=== PATIENT | male | born 1955 | race Caucasian/White ===

== ENCOUNTER 2021-07-21 11:10 | Emergency (ER) | payer BC, SELFPAY ==
[2021-07-21] VITALS (7 sets, daily range): BP systolic 129–173; BP diastolic 68–79; PULSE 60–68; RESP 18–20; TEMP 36.6–36.8; O2SAT 96–98
--- NOTE | ~2021-07-21 | CT_ITS ---
EXAMINATION: CT cervical spine wo con DATE: 07/21/2021 12:40 INDICATION: Neck pain TECHNIQUE: Computed tomography (CT) of the cervical spine was performed without intravenous contrast. The dose-length product (DLP) was 410.94 mGy-cm. Automated exposure control and iterative reconstruc tion technique were employed. COMPARISON: None FINDINGS: There are 2 mm of retrolisthesis of C3 on C4. The vertebral body heights are maintained. Th ere is severe loss of intervertebral disc space height at C3-4, C5-6, and C6-7. The odontoid is intac t. There is no fracture. The prevertebral soft tissues are normal. Small degenerative osteophytes pro ject from the anterior endplates of multiple vertebral bodies. There is severe uncovertebral joint os teoarthritis at C3-4, C5-6, and C6-7. There is moderate to severe facet osteoarthritis at these level s. IMPRESSION: 1. Severe cervical spondylosis without acute findings. Reviewed, dictated and finalized at location A.
--- NOTE | ~2021-07-21 | CT_ITS ---
EXAMINATION: CT brain wo con INDICATION: Severe headache COMPARISON: None TECHNIQUE: Standard unenhanced head CT. The dose-length product (DLP) was 605.33 mGy-cm. The mA was a djusted according to patient size. Iterative reconstruction technique was employed. FINDINGS: There is no acute intraparenchymal hemorrhage. No evidence of mass lesion. No evidence of a cute infarction. There is mild periventricular and subcortical hypodensity probably related to small vessel ischemic disease. There is mild prominence of the sulci and ventricles related to cerebral atr ophy. Intracranial calcified cerebral atherosclerosis is noted. There are no extra-axial collections. There is no mass effect or midline shift. The orbits and soft tissues are unremarkable. The visualiz ed sinuses and mastoid air cells are well aerated. IMPRESSION: 1. No acute intracranial abnormality. 2. Age related findings. Reviewed, dictated and finalized at location A.
[2021-07-21 11:40] LABS: Glucose Point of Care 106 mg/dl (65-105)
--- NOTE | 2021-07-21 12:01 | ECG_ITS ---
Measurements Intervals [place] Rate: 62 P: 34 MO: 231 QRS: -14 QRSD: 119 T: -11 QT: 408 QTc: 415 Interpretive Statements SINUS RHYTHM WITH FIRST DEGREE AV BLOCK LEFT VENTRICULAR HYPERTROPHY WITH ST-T CHANGE CANNOT RULE OUT SEPTAL INFARCT, AGE INDETERMINATE INFERIOR INFARCT, AGE INDETERMINATE ABNORMAL ECG Electronically Signed On 07-21-2021 13:13:47 CDT by Elliot Aldana D.O.
--- NOTE | 2021-07-21 12:26 | ED.GENADULT ---
HPI - General Adult General Chief complaint: Headache Stated complaint: headache Time Seen by Provider: 07/21/21 12:01 Source: patient and RN notes reviewed Mode of arrival: ambulatory Limitations: no limitations History of Present Illness HPI narrative: This is a 65 year old male with history of DM, HTN who presents for evaluation of neck pain and posterior headache. He states he was lifted a lawnmower on Thursday, and he woke up the next morning with neck pain and posterior headache. His pain has been constant and gradually worsening. His pain is worse with movement of his neck. He denies arm weakness or numbness. He reports nausea with severe pain. He denies fever, chills. He takes hydrocodone 10 mg daily for chronic pain. He took his pain medication with out relief. He told triage about migratory scalp and facial pain that has been present for 2 months, and he has been evaluated for that with his PCP. This pain is different. Related Data Home Medications Medication Instructions Recorded Confirmed amlodipine 07/21/21 07/21/21 atenolol 07/21/21 atorvastatin 07/21/21 furosemide 07/21/21 hydrocodone-acetaminophen tablet 07/21/21 insulin glargine-lixisenatide SUBCUT 07/21/21 [Soliqua 100/33] lisinopril 07/21/21 Allergies Allergy/AdvReac Type Severity Reaction Status Date / Time Contrast Media Allergy Unknown ANAPHYLAXIS Uncoded 07/21/21 11:31 Review of Systems Review of Systems: All systems reviewed & are unremarkable except as noted in HPI and below Constitutional: Constitutional: Denies chills and Denies fever(s) Cardiovascular: Cardiovascular: Denies chest pain Respiratory: Respiratory: Denies cough and Denies dyspnea Gastrointestinal: Gastrointestinal: Denies abdominal pain, Reports nausea and Denies vomiting Neurologic: Denies focal weakness, Denies numbness and Denies weakness PMFSH Past Medical History Medical History (Updated 07/21/21 @ 14:15 by Tina Leonardo MD) Diabetes mellitus Hyperlipidemia Hypertension Surgical History Surgical History (Updated 07/21/21 @ 22:54 by Tina Leonardo MD) H/O shoulder replacement Social History Social History (Updated 07/21/21 @ 12:31 by Tina Leonardo MD) Smoking packs per day: 2 Smoking cigarettes per day: 40.0 Smoking status: Current every day smoker Alcohol intake: never Substance use: never Exam Const: General: alert Orientation/consciousness: patient oriented x3 Other: patient sitting in bed with head down to prevent movement of neck HENMT: Head: normocephalic, atraumatic and scalp tenderness (scalp hypersensitivity no lesions) Ears: TM's normal bilaterally Face and sinus: normal facial exam and face symmetric Mouth: Yes Normal oral and palatal mucosa present, Yes lip normal, Yes oropharynx normal and Yes moist mucous membranes Eyes: Pupils: Equal, round and reactive pupils present EOM: EOMs intact bilaterally Chest: Chest palpation & inspection: normal inspection of the chest Resp: Effort & Inspection: normal respiratory effort and no retractions Auscultation: clear to auscultation bilaterally Cardio: Rate: regular rate Rhythm: regular rhythm Heart sounds: no murmurs GI: GI Palp: Yes Soft to palpation, No Tenderness to palpation present (GI) and No Guarding due to palpation present (GI) Auscultation: normal bowel sounds Back/Spine/Pelvis: Back: no CVA tenderness Skin: General skin exam: normal color Rashes: no rashes Neuro: General: patient oriented x3, moves all extremities and CN's II-XI intact bilaterally Gait exam (Neuro): Normal gait present Psych: Mental Status: mental status grossly normal Affect: normal affect Course Reevaluation(s) Reevaluation #1: Patient reports his pain is better and he has better movement. 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 He has no neurological deficits to suggest need for emergent MRI. He will follow up with his
[2021-07-21 12:51] LABS: Basophils Absolute Auto 0.1 K/mm3 (0.0-0.1); Basophils Percent Auto 0.5 % (0.2-1.2); Eosinophils Absolute Auto 0.3 K/mm3 (0-0.3); Eosinophils Percent Auto 2.4 % (0-4.4); Hemoglobin 13.3 g/dL (14.0-18.0); Immature Granulocyte Percent A 0.7 % (0-0.5); Lymphocytes Absolute Auto 3.46 K/mm3 (0.9-3.2); Lymphocytes Percent Auto 25.3 % (18.3-44.2); Mean Corpuscular HGB Conc 33.3 g/dl (32-36); Mean Corpuscular Hemoglobin 32.3 pg (26-34); Mean Corpuscular Volume 97.1 fl (80-100); Mean Platelet Volume 10.3 fl (7.4-10.4); Monocytes Absolute Auto 1.1 K/mm3 (0.1-0.6); Monocytes Percent Auto 7.8 % (2.6-8.5); Neutrophils Absolute Auto 8.6 K/mm3 (1.3-6.7); Neutrophils Percent Auto 63.3 % (45.5-73.1); Platelet Count Result 188 k/mm3 (150-375); Red Blood Count 4.12 M/mm3 (4.6-6.20); White Blood Count 13.7 K/mm3 (4.5-10.0)
[2021-07-21 12:56] LABS: Add Urine Microscopic? YES; Appearance Urine Clear (Clear); Bilirubin Urine Negative (Negative); Blood Urine Negative (Negative); Color Urine Yellow (Yellow); Glucose Urine UA 2+ mg/dL (Negative); Ketones Urine Negative (Negative); Leukocyte Esterase Ur Negative LEU/UL (Negative); Mucus Urine Rare /lpf; Nitrate Urine Negative (Negative); Protein Urine 3+ mg/dL (Negative); Specific Grav Ur 1.028 (1.001-1.035); Urobilinogen Urine Negative mg/dL (<2.0); WBC Urine 0-3 /hpf
[2021-07-21] MEDS: diazePAM (*CRX) 5 MG TABLET PO (12:59)
[2021-07-21] MEDS: KETOROLAC 30 MG/ML VIAL (*BKC) IV PUSH (12:59)
[2021-07-21 13:01] LABS: Alanine Aminotransferase 12 U/L (4-50); Albumin Level 3.8 g/dL (3.5-5.1); Alkaline Phosphatase 99 U/L (38-126); Anion Gap 5 mmol/L (8-16); Aspartate Amino Transferase 18 U/L (17-59); Bilirubin,Total 0.8 mg/dL (0.2-1.3); Blood Urea Nitrogen 17 mg/dL (9-20); Calcium 9.2 mg/dL (8.4-10.2); Carbon Dioxide 34 mmol/L (22-30); Chloride 101 mmol/L (98-107); Estimated CRCL calculation 78 ml/min; Estimated Glomerular Filt Rate > 60; Glucose 94 mg/dL (65-110); Potassium 3.5 mmol/L (3.4-5.0); Sodium 140 mmol/L (137-145)
[2021-07-21] MEDS: HYDROmorphone HCL INJ (*CRX) 1 MG/ML SYR 0.5 MG IV PUSH (13:57)
== END 2021-07-21 14:35 | disposition home or self-care (01) ==
PROVIDERS: Emergency Provider General Practice
DX: M54.2 Cervicalgia (principal); R51.9 Headache, unspecified; E11.9 Type 2 diabetes mellitus without complications; I10 Essential (primary) hypertension; E78.5 Hyperlipidemia, unspecified; F17.210 Nicotine dependence, cigarettes, uncomplicated; Z79.899 Other long term (current) drug therapy; Z79.4 Long term (current) use of insulin
CPT/HCPCS: 36415; 70450; 72125; 80053; 81001; 82948; 85025; 93005; 96374; 96375; 99284; A9270; J1170; J1885

== ENCOUNTER 2022-01-13 06:20 | Inpatient (IN) | payer BC, SELFPAY ==
[2022-01-13] VITALS (14 sets, daily range): BP systolic 107–149; BP diastolic 53–76; PULSE 51–97; RESP 13–24; TEMP 36.2–37.2; O2SAT 89–99
--- NOTE | ~2022-01-13 | CT_ITS ---
EXAMINATION: CT cervical spine wo con DATE: 01/13/2022 07:30 INDICATION: Fall with altered mental status TECHNIQUE: Computed tomography (CT) of the cervical spine was performed without intravenous contrast. Automated exposure control and iterative reconstruction technique were employed. The dose-length pro duct was 498.86 mGy-cm. COMPARISON: 06/20/2021 FINDINGS: Unchanged 2 mm retrolisthesis C3 on C4. Alignment is otherwise normal. Vertebral body heights are nor mal. No fracture. Moderate to severe disc height loss with severe uncovertebral osteoarthritis at C3- C4, C5-C6 and C6-C7. Moderate disc height loss at C7-T1 and T2-T3. Mild disc height loss at the remai agusto levels. The retropulsion and small posterior disc osteophyte complex at C3-C4 results in mild ce ntral canal stenosis. There is also mild central canal stenosis related to a disc bulge at C5-C6. Sev ere facet osteoarthritis on the right at C3-C4 and mild to moderate facet osteoarthritis throughout t he remainder of the cervical spine.. Minimal to mild neural foraminal stenosis most prominent bilater ally at C3-C4. Small amount of atherosclerotic plaque at the bilateral carotid bulbs. Cervical soft t issues are unremarkable. Mild emphysema the apices of the lungs. IMPRESSION: 1. Moderate to severe cervical spondylosis. No acute osseous abnormality. 2. Mild emphysema. Reviewed, dictated and finalized at location A.
--- NOTE | ~2022-01-13 | CT_ITS ---
EXAMINATION: CT abdomen pelvis wo con EXAM DATE: 01/24/2022 16:31 INDICATION: Abdominal pain , contrast media allergy. TECHNIQUE: Spiral CT of the abdomen and pelvis was performed without contrast. Axial, coronal and s agittal images of the abdomen and pelvis were reviewed. The dose-length product (DLP) for this exami nation was 1124.02 mGy-cm. The exposure was tailored according to patient size (auto mA exposure con trol), and iterative reconstruction (ASIR) was used as additional dose reduction technique. Compariso n is made to prior examination from 01/14/2022. FINDINGS: There is right liver lobe mass measuring 9.1 cm, was about 5 cm 10 days ago. This is substa ntial interval increase in size in the short interval of time which makes hepatic phlegmon/abscess mo re likely than malignancy, although underlying malignancy not excludable. There is a punctate focus o f gas, could be from biopsy performed several days earlier. Spleen, adrenal glands, pancreas are unremarkable. There is moderate amount of inflammation surroundi ng the left kidney, mild amount surrounding the right kidney. Recommend excluding upper UTI with urin alysis. Bladder is unremarkable. Gallbladder is unremarkable. No biliary obstruction. The prostate is unremarkable. There is no retroperitoneal or pelvic lymphadenopathy. There is mild scattered ar teriosclerotic disease. The appendix is normal. The stomach and small bowel are unremarkable. There is moderate amount of c olonic stool. There is mild scattered colonic diverticulosis. There is no adjacent inflammatory walden ge to suggest diverticulitis. No free intraperitoneal gas. The heart is normal in size. Interval development of bibasilar dependent linear airspace disease consistent with segmental atelectasis, and small right pleural effusion. There are no osteoblastic or osteolytic lesions identified. IMPRESSION: 1. Significant interval increase in size of right hepatic liver mass-like region, could be phlegmon/ abscess given this change. Underlying malignancy not excludable. Correlate with biopsy results. 2. Moderate left, mild right perinephric fat stranding; correlate with urinalysis. Bladder is unrema rkable. Correlate with urinalysis for possible upper UTI. 3. Mild scattered colonic diverticulosis. 4. Development of basilar subsegmental atelectasis and small right pleural effusion. Reviewed, dictated and finalized at location G. IMPRESSION: 1. Significant interval increase in size of right hepatic liver mass-like lexy on, could be phlegmon/abscess given this change. Underlying malignancy not excl udable. Correlate with biopsy results. 2. Moderate left, mild right perinephric fat stranding; correlate with urinaly sis. Bladder is unremarkable. Correlate with urinalysis for possible upper UTI. 3. Mild scattered colonic diverticulosis. 4. Development of basilar subsegmental atelectasis and small right pleural eff usion.
--- NOTE | ~2022-01-13 | CT_ITS ---
EXAMINATION: CT abdomen pelvis w con DATE: 01/31/2022 09:15 INDICATION: Liver abscess TECHNIQUE: Computed tomography (CT) of the abdomen and pelvis was performed with 100 mL Omnipaque-350 intravenous contrast. Automated exposure control and iterative reconstruction technique were employe d. The dose-length product was 1222.66 mGy-cm. COMPARISON: 01/24/2022 FINDINGS: Small right pleural effusion. No significant change in a band like atelectasis in the bilateral lower lobes and dependent compressive atelectasis in the right lower lobe. Heart size is normal. Atheroscl erotic coronary artery calcification. No pericardial or pleural effusion. Gallbladder, pancreas, sple en bilateral adrenal glands are normal. There is a persistent 8.2 x 6.0 x 8.4 cm region of predominan tly phlegmonous change in the right hepatic lobe. Within the region of phlegmonous changes are few sc attered foci of gas within multiple small more hypointense fluid pockets, the largest near the caudal tip of the catheter measuring 2.5 cm and the next largest the cephalad aspect of the region of phleg monous change measuring 1.5 cm in maximal diameter. A percutaneous abscess drain extends into the reg ion of phlegmonous change. There are several There are few subcentimeter low-attenuation bilateral re nal cysts. Incidentally noted are duplicated right renal veins extending from the right renal hilum t o the inferior vena cava with an additional accessory right renal vein extending from the periphery o f the lower pole to the more caudal inferior vena cava. Bowels including the appendix are normal. Damien dder is normal. No free intraperitoneal gas or fluid. No pathologically enlarged abdominal or pelvic lymphadenopathy. Bilateral L5 pars interarticularis defects without spondylolisthesis. IMPRESSION: 1. Right percutaneous hepatic abscess drain along with few small residual likely communicating absces ses within a diffusely hypodense 8.2 x 6.0 x 8.4 cm region of likely phlegmonous change. 2. Persistent small right pleural effusion with no significant change in atelectasis in the bilateral lower lobes. Reviewed, dictated and finalized at location A. IMPRESSION: 1. Right percutaneous hepatic abscess drain along with few small residual likel y communicating abscesses within a diffusely hypodense 8.2 x 6.0 x 8.4 cm regio n of likely phlegmonous change. 2. Persistent small right pleural effusion with no significant change in atelec tasis in the bilateral lower lobes.
--- NOTE | ~2022-01-13 | US_ITS ---
EXAMINATION: US carotid duplex BI DATE: 01/14/2022 08:16 INDICATION: Right carotid bruit TECHNIQUE: Grayscale, color Doppler, and pulsed Doppler images of the cervical carotid arteries were obtained. The degree of vessel stenosis is placed in one of the following categories: normal, <50%, 5 0-69%, >=70% but less than near-occlusion, near-occlusion, or total occlusion. Note that percent sten osis relative to normal distal artery lumen diameter is indirectly measured from velocity measurement s as described by James, et al. Radiology 2003; 229:340-346. COMPARISON: None. FINDINGS: RIGHT: The right common carotid artery (CCA) peak systolic velocity (PSV) is 60 cm/s. The right internal car otid artery (ICA) PSV is 72 cm/s. The right ICA end-diastolic velocity (EDV) is 16 cm/s. The right IC A/CCA PSV ratio is 1.2. Grayscale and color Doppler images yield an estimate of <50% diameter reducti on from plaque in the ICA. The external carotid artery (ECA) PSV is 411 cm/s. There is antegrade flow in the right vertebral artery. LEFT: The left CCA PSV is 106 cm/s. The left ICA PSV is 98 cm/s. The left ICA EDV is 18 cm/s. The left ICA/ CCA PSV ratio is 0.9. Grayscale and color Doppler images yield an estimate of <50% diameter reduction from plaque in the ICA. The ECA PSV is 123 cm/s. There is antegrade flow in the left vertebral arter y. IMPRESSION: 1. <50% stenosis in the right internal carotid artery. 2. <50% stenosis in the left internal carotid artery. Reviewed, dictated and finalized at location A.
--- NOTE | ~2022-01-13 | US_ITS ---
EXAMINATION: US biopsy liver DATE: 01/20/2022 11:12 INDICATION: Liver metastases TECHNIQUE: The procedure including the risks and benefits was discussed with the patient. Risks discu ssed included bleeding and infection. The patient understood the risks and agreed to proceed. The sk in overlying the liver was prepped and draped in usual sterile fashion. Anesthetic was administered with 1% lidocaine subcutaneously. An 18 gauge core biopsy needle was advanced under continuous ultra sound observation to the lesion of interest. 4 core biopsy specimens were obtained. The needle was removed and the entry site was cleaned and dressed. Post procedure ultrasound demonstrated no hemorr becky. FINDINGS: Ultrasound images demonstrate 7.4 cm hypoechoic mass in the right hepatic lobe. Subsequent images demonstrate biopsy needle advanced into the mass. IMPRESSION: 1. Successful Ultrasound-guided biopsy of 7.4 cm right hepatic mass. Reviewed, dictated and finalized at location A.
--- NOTE | ~2022-01-13 | CT_ITS ---
EXAMINATION: CT brain wo con DATE: 01/13/2022 06:28 INDICATION: Altered mental status. TECHNIQUE: Computed tomography (CT) of the head was performed without intravenous contrast. Sagittal and coronal reconstructions were performed. The mA was adjusted according to patient size. Iterative reconstruction technique was employed. The dose-length product was 756.67 mGy-cm. COMPARISON: head CT dated 07/21/2021 FINDINGS: No acute intracranial hemorrhage, acute infarction or abnormal extra axial fluid collection. There is minimal scattered white matter hypoattenuation consistent with chronic small vessel ischemic disease . No mass/mass effect. Symmetric prominence of the sulci consistent with mild age-appropriate diffuse cerebral volume loss. Ventricles are normal and symmetric. Complete opacification of the right maxi llary sinus with mildly thickened sclerotic lopez consistent with chronic sinusitis. The orbits and m astoid air cells are normal. Intracranial calcified cerebral atherosclerosis is noted. IMPRESSION: 1. No acute intracranial process. Reviewed, dictated and finalized at location A.
--- NOTE | ~2022-01-13 | CT_ITS ---
EXAMINATION: CT abdomen pelvis wo con DATE: 01/14/2022 17:40 INDICATION: Elevated liver enzymes. Nausea and vomiting. Stage II renal disease. TECHNIQUE: Computed tomography (CT) of the abdomen and pelvis was performed without intravenous contr ast. Automated exposure control and iterative reconstruction technique were employed. Exam dose: 116 5.03 mGy-cm total exam DLP. COMPARISON: None. FINDINGS: There is discoid atelectasis and/or scarring at the lung bases at the left lower lobe in ad dition to mild elevation of the left leaf of the diaphragm. 4 mm left lower lobe peripheral pulmonary nodule (series 4 image 11). Pleural-based 5.5 mm lower lobe nodule (image 18). Normal heart size. No pericardial or pleural effusion. Approximately 4.2 x 5 cm ill-defined hypoattenuating mass lesion of the right hepatic lobe. Additiona l approximately 2.4 cm subtle hypoattenuating lesion is suggested in the posterior medial segment lef t lobe liver anterior to the gallbladder. Additional hepatic masses are not excluded. Further evaluat ion with iodinated intravenous contrast material CT examination or MRI liver examination is recommend ed. Hepatic metastases are suspected. The clinical history does not report any known primary malignan cy. The gallbladder is present. Small focal calcification at the wall of the gallbladder fundus. Ultrasou nd would be more sensitive for detection of gallbladder pathology including gallstones. There is no p ericholecystic fluid or fat stranding. No bile duct dilatation. There is pancreatic atrophy. No pancreatic calcification, ductal dilatation or mass lesion is evident . Normal splenic size. There is adrenal hypertrophy, greater on the left. No renal mass lesion is noted on this limited noncontrast examination. There does appear to be some l eft nephromegaly. There is left perinephric stranding and thickening of the anterior and posterior le ft pararenal fascia. No urinary tract calculus or hydroureteronephrosis is noted. There is atherosclerotic calcification of the abdominal aorta and branches. No abdominal aortic aneur ysm. No intraperitoneal or retroperitoneal or pelvic mass lesion or adenopathy or ascites. There is thickening of the urinary bladder wall, more prominent anteriorly. There is mild prostate en largement. No bowel obstruction or intraperitoneal free air. Normal appendix. Small fat-containing umbilical hernia. Bilateral L5 pars intra-articular is defects Degenerative spurring of the lower thoracic and to a lesser extent lumbar spine IMPRESSION: Ill-defined irregular hypoattenuating hepatic mass lesions, suggesting hepatic metastati c disease, less likely hepatocellular carcinoma. Recommend further evaluation with IV contrast CT exa mination or MRI liver examination Left mild nephromegaly and perinephric fat stranding and thickening of the anterior and posterior par arenal fascia, suggesting pyelonephritis Thickening of the urinary bladder wall; consider cystitis versus prostate enlargement as etiology Normal appendix Mild elevation left diaphragm and mild left basilar atelectasis Reviewed, dictated and finalized at Location A. Reviewed, dictated and finalized at location A. IMPRESSION: Ill-defined irregular hypoattenuating hepatic mass lesions, sugges ting hepatic metastatic disease, less likely hepatocellular carcinoma. Recommen d further evaluation with IV contrast CT examination or MRI liver examination Left mild nephromegaly and perinephric fat stranding and thickening of the ante rior and posterior pararenal fascia, suggesting pyelonephritis Thickening of the urinary bladder wall; consider cystitis versus prostate enlar gement as etiology Normal appendix Mild elevation left diaphragm
--- NOTE | ~2022-01-13 | XR_ITS ---
XR chest 1V 01/13/2022 08:19 Indication: Weakness. Fall. Procedure: AP portable chest Comparison: No prior studies for comparison. Findings: Shallow inspiration. Borderline heart size. No focal air space disease, pulmonary edema, pl eural effusion or suspected pneumothorax. Mild pulmonary vascular congestion. There is a right should er arthroplasty. There are changes of left clavicular osteotomy. Impression: 1: Mild pulmonary vascular congestion. Reviewed, dictated and finalized at location B. Impression: 1: Mild pulmonary vascular congestion.
--- NOTE | ~2022-01-13 | MR_ITS ---
EXAMINATION: MR brain/brain stem wo con DATE: 01/13/2022 15:25 INDICATION: Intermittent confusion. TECHNIQUE: Magnetic resonance imaging (MRI) of the brain and brainstem was performed without intraven ous contrast. Sequences included sagittal and axial T1-weighted FSE, axial diffusion-weighted FS EPI, axial T2*-weighted GRE, axial T2-weighted FLAIR Propeller, and axial T2-weighted Propeller. Apparent diffusion coefficient (ADC) maps were created. COMPARISON: Head CT 01/13/2022 FINDINGS: There is a small old infarct in right cerebellum. There are scattered areas of nonspecific increased T2-weighted signal intensity in the cerebral white matter. There is no intracranial hemorrh age, acute infarction, or abnormal intracranial mass lesion. The ventricles are normal in size. There is mucosal thickening in the paranasal sinuses. The orbits are normal. The mastoid air cells are nor mal. IMPRESSION: 1. Small old infarct in right cerebellum. 2. Moderate nonspecific cerebral white matter disease, which likely represents chronic small vessel i schemic disease. Reviewed, dictated and finalized at location A. IMPRESSION: 1. Small old infarct in right cerebellum. 2. Moderate nonspecific cerebral white matter disease, which likely represents chronic small vessel ischemic disease.
--- NOTE | ~2022-01-13 | US_ITS ---
EXAMINATION: US percutaneous drain w cath DATE: 01/27/2022 13:16 INDICATION: Liver abscess TECHNIQUE: The procedure including the risks and benefits was discussed with the patient. Risks discu ssed included bleeding, infection and allergic reaction. Oral and written consent were obtained. The patient was confirmed to be receiving appropriate antibiotic coverage. The skin overlying the liver w as prepped and draped in usual sterile fashion. Anesthetic was administered with 1% lidocaine subcut aneously. 2 mcg of fentanyl IV was utilized for conscious sedation. An 18-gauge trochar needle was in serted into the abscess with continuous ultrasound guidance. The trocar was removed and the J-wire ad vanced through the needle into the abscess cavity with COVID wire observed in the abscess cavity by u ltrasound. Utilizing Seldinger technique the needle was removed over the wire and the tract serially dilated to 8 [place]ian. Subsequently an 8.5 Fr catheter was advanced over the wire and the loop formed i n the abscess cavity with position again confirmed by ultrasound. The wire was removed and the cathet er was stitched to the skin with suture. Antibiotic ointment and a sterile dressing were applied. An additional adhesive fixation device was applied. Approximately 40 mL opaque schroeder purulent appearing fl uid was aspirated and sent to lab for Gram stain and cultures. The catheter was then attached to suct ion drainage and had drained an additional 40 mL purulent appearing fluid at the conclusion of the pr ocedure. There were no immediate complications. FINDINGS: There is approximately 7.7 x 5.1 cm mixed hypoechoic and anechoic lesion consistent with ab scess in the right hepatic lobe. Ultrasound images demonstrate first a wire and subsequently formed l oop of the drainage catheter within the abscess cavity. 40 mL round appearing fluid was aspirated. F inal images show the abscess cavity collapsed around the catheter tip. IMPRESSION: 1. Successful ultrasound-guided liver abscess drainage catheter placement. 2. 40 mL of purulent appearing fluid was sent for Gram stain and aerobic and anaerobic cultures. 3. The catheter will be managed by Dr. Boone. Reviewed, dictated and finalized at location A. IMPRESSION: 1. Successful ultrasound-guided liver abscess drainage catheter placement. 2. 40 mL of purulent appearing fluid was sent for Gram stain and aerobic and an aerobic cultures. 3. The catheter will be managed by Dr. Boone.
--- NOTE | ~2022-01-13 | XR_ITS ---
EXAMINATION: XR hip LT min 3V w AP pelvis DATE: 01/13/2022 08:18 INDICATION: Left hip pain. Fall. TECHNIQUE: An anteroposterior view of the pelvis and 3 views of left hip were obtained. COMPARISON: None. FINDINGS: Bone alignment is normal. No fracture. The hip joint spaces are normal. There is mild lumba r spondylosis. IMPRESSION: 1. No fracture. Reviewed, dictated and finalized at location A. IMPRESSION: 1. No fracture.
--- NOTE | ~2022-01-13 | US_ITS ---
EXAMINATION: US right upper quadrant EXAM DATE: 01/24/2022 17:10 INDICATION: Liver masses. TECHNIQUE: Multiple grayscale and Doppler images of the abdomen right upper quadrant were obtained (dami ram a technologist who performed the scan) and subsequently reviewed. Correlation is made to CT perform ed earlier same date. FINDINGS: The pancreatic head and body are normal in appearance. The pancreatic tail is not visualized. The l iver has normal echogenicity and contour. There is right liver lobe complex predominantly cystic mas slike region measuring by 5 cm (measured up to [address] performed same date). Could be a phlegmon/a bscess given suspected interval increase in size. Underlying metastatic lesion not excludable. Anothe r region was measured at 2.4 cm although this potentially could be contiguous to the larger region. T here is no evidence of intrahepatic biliary duct dilation. Portal venous flow was seen in the hepato pedal, normal direction and has normal Doppler waveform. No right-sided hydronephrosis. Common bile duct measures 7 mm, which is borderline enlarged, but measurement was normal on CT obtain ed and hour earlier. The gallbladder wall is normal in thickness, with expected amount of distention. No sonographic evidence of pericholecystic fluid. There is no cholelithiases. Technologist perform ing exam reports patient did not demonstrate sonographic Scott's sign. Please note that this sign i s less reliable in patients who have received pain medication. IMPRESSION: Complex cystic mass or masses, could be abscess(es) given suspected rapid interval increa se in size. Please correlate with recent biopsy results. Reviewed, dictated and finalized at location G. IMPRESSION: Complex cystic mass or masses, could be abscess(es) given suspected rapid interval increase in size. Please correlate with recent biopsy results.
--- NOTE | 2022-01-13 06:27 | ECG_ITS ---
Measurements Intervals [place] Rate: 98 P: 24 WI: 186 QRS: 10 QRSD: 121 T: 28 QT: 339 QTc: 433 Interpretive Statements SINUS RHYTHM POSSIBLE PREVIOUS SEPTAL INFARCTION LEFT VENTRICULAR HYPERTROPHY WITH SECONDARY REPOLARIZATION ABNORMALITY COMPARED TO ECG 07/21/2021 12:23:18 REPOLARIZATION ABNORMALITIES ARE MORE PROMINENT Electronically Signed On 01-13-2022 14:21:31 CDT by Dawood Kemp M.D.
--- NOTE | 2022-01-13 06:33 | ED.NEUROSD ---
HPI - Neuro Symptoms/Deficit General Chief Complaint: Suspected CVA <Patrick Barber MD - Last Filed: 01/13/22 07:11> Stated Complaint: altered mental status <Patrick Barber MD - Last Filed: 01/13/22 07:11> Time Seen by Provider: 01/13/22 10:46 <Patrick Barber MD - Last Filed: 01/13/22 07:11> History of Present Illness HPI Narrative: Patient 66-year-old gentleman who presents the emergency department with chief complaint of altered mental status and fall. Patient went to sleep and sometime last night and was found this morning by family after he had had a fall at home. The patient was having slurred speech and very slow to respond patient apparently had a similar episode in the last few days of which his symptoms lasted for about 3 hours. When EMS was called he had a fast ED score of 2 per EMS had a blood sugar in the 200s. Per the patient's family he went to sleep around 11:00 to 12:00 at approximately 6 AM the was going to the bathroom and heard a thud and found him laying on the floor <Patrick Barber MD - Last Filed: 01/13/22 07:11> Related Data Home Medications: Home Medications Medication Instructions Recorded Confirmed amlodipine 10 mg PO DAILY 07/21/21 01/13/22 atenolol 100 mg PO DAILY 07/21/21 01/13/22 atorvastatin 40 mg PO DAILY 07/21/21 01/13/22 furosemide 20 mg PO DAILY 07/21/21 01/13/22 hydrocodone-acetaminophen 10 tablet PO TID 07/21/21 01/13/22 insulin glargine-lixisenatide 55 unit SUBCUT DAILY 07/21/21 01/13/22 [Soliqua 100/33] lisinopril 40 mg PO DAILY 07/21/21 01/13/22 duloxetine 30 mg PO DAILY 01/13/22 01/13/22 spironolactone 25 mg PO DAILY 01/13/22 01/13/22 <Patrick Barber MD - Last Filed: 01/13/22 07:11> Allergies/Adverse Reactions: Allergies Allergy/AdvReac Type Severity Reaction Status Date / Time Contrast Media Allergy Unknown ANAPHYLAXIS Uncoded 01/13/22 12:11 <Patrick Barber MD - Last Filed: 01/13/22 07:11> Review of Systems Review of Systems: A 10 system review of systems was completed on the patient and is negative except for what is stated in the HPI. Nursing and ancillary documentation was reviewed. <Patrick Barber MD - Last Filed: 01/13/22 07:11> [facility] Past Medical History Medical History: Medical History Diabetes mellitus Hyperlipidemia Hypertension <Patrick Barber MD - Last Filed: 01/13/22 07:11> Surgical History Surgical History: Surgical History H/O shoulder replacement <Patrick Barber MD - Last Filed: 01/13/22 07:11> Social History Social History: Social History Smoking packs per day: 2.5 Smoking cigarettes per day: 50.0 Years smoked: 45 Smoking pack-years: 112.50 Smoking status: Current every day smoker Tobacco type: cigarettes Alcohol intake: never Substance use: never Substance use type: does not use Spiritual care concerns: No <Patrick Barber MD - Last Filed: 01/13/22 07:11> Exam Narrative: GENERAL: Well-appearing, well-nourished, and in no acute distress. HEAD: Normocephalic, atraumatic. EYES: PERRLA and EOMI. ENT: Nares clear, no rhinorrhea or epistaxis. Mucous membranes moist. NECK: Supple. CHEST: Clear to auscultation. No respiratory distress. HEART: Regular rate and rhythm. No murmur heard. Normal peripheral pulses. ABDOMEN: Soft, nontender, nondistended, normal active bowel sounds. EXTREMITIES: Normal range of motion. No edema. SKIN: Warm, dry, no rash. NEURO: Slow to respond alert and oriented x1 slowly moves all extremities.. PSYCH: Normal mood and affect. <Patrick Barber MD - Last Filed: 01/13/22 07:11> Course Course Emergency Course: Patient CT head showed no e
[2022-01-13 06:35] LABS: Glucose Point of Care 223 mg/dl (65-105)
[2022-01-13 06:50] LABS: Hematocrit 39.9 % (42.0-52.0); Mean Corpuscular HGB Conc 35.1 g/dl (32-36); Mean Corpuscular Hemoglobin 31.7 pg (26-34); Mean Corpuscular Volume 90.3 fl (80-100); Mean Platelet Volume 10.6 fl (7.4-10.4); Platelet Count Result 148 k/mm3 (150-375); Red Blood Count 4.42 M/mm3 (4.6-6.20); Red Cell Distribution Width 12.3 % (11.5-14.5); White Blood Count 11.3 K/mm3 (4.5-10.0)
[2022-01-13 07:00] LABS: Alanine Aminotransferase 40 U/L (4-50); Albumin Level 3.3 g/dL (3.5-5.1); Alkaline Phosphatase 273 U/L (38-126); Anion Gap 7 mmol/L (8-16); Aspartate Amino Transferase 42 U/L (17-59); Bilirubin,Total 0.8 mg/dL (0.2-1.3); Blood Urea Nitrogen 34 mg/dL (9-20); Calcium 8.3 mg/dL (8.4-10.2); Carbon Dioxide 22 mmol/L (22-30); Chloride 99 mmol/L (98-107); Estimated CRCL calculation 49 ml/min; Estimated Glomerular Filt Rate 51; Glucose 223 mg/dL (65-110); Potassium 3.1 mmol/L (3.4-5.0); Sodium 128 mmol/L (137-145)
[2022-01-13] MEDS: SODIUM CHLORIDE 0.9% IV 1,000 ML 999 ML IV CONT (07:03)
--- NOTE | 2022-01-13 07:03 | PC.NURSE ---
Stroke alert called upon patient arrival to ED at 06:20. As per spouse, last seen normal at 23:00. Patient straight to CT. FSBG 223. Arrived with c-collar in place for fall. Patient was incontinent to urine and fecal matter on arrival. Patient cleaned, new gown donned. Bed linen changed. Spouse updated on patient treatment plan. EKG, bloodwork, 18g IV x 2 inserted. NIHSS completed. Patient NPO. Dyspagia screening passed. Handoff given to Jovanna [facility].
[2022-01-13 07:06] LABS: Lipase 56 U/L (23-300); Magnesium 1.2 mg/dL (1.6-2.3)
[2022-01-13 07:11] LABS: Troponin I 0.014 ng/mL (0.000-0.034)
[2022-01-13 07:15] LABS: Lactic Acid Reflex 1.1 mmol/L (0.7-2.1)
[2022-01-13 07:16] LABS: Band Neutrophils Percent 14 % (0-6); Lymphocytes Absolute Manual 0.33 K/mm3 (1.1-4.5); Monocytes Absolute Manual 0.22 K/mm3 (0.1-0.90); Monocytes Percent Manual 2 % (3-9); Neutrophils Absolute Manual 10.73 K/mm3 (1.3-6.7); Neutrophils Percent Manual 81 % (46-73); Total Cells Counted 100
[2022-01-13 07:26] LABS: INR 1.1; Partial Thromboplastin Time 28.6 SECONDS (22.3-36.8); Prothrombin Time 13.7 Seconds (11.1-14.7)
--- NOTE | 2022-01-13 07:32 | PC.NURSE ---
pt in CT at this time.
--- NOTE | 2022-01-13 07:41 | PC.NURSE ---
pt aware we need urine sample. gave pt urinal and states he will try to give a sample.
[2022-01-13 08:02] LABS: SARS-CoV-2 RNA PCR Negative
[2022-01-13 08:55] LABS: Add Urine Microscopic? YES; Appearance Urine Cloudy (Clear); Bilirubin Urine Negative (Negative); Blood Urine 2+ (Negative); Color Urine Amber (Yellow); Glucose Urine UA 1+ mg/dL (Negative); Ketones Urine Negative (Negative); Leukocyte Esterase Ur Negative LEU/UL (Negative); Mucus Urine Rare /lpf; Nitrate Urine Negative (Negative); Protein Urine 3+ mg/dL (Negative); Specific Grav Ur 1.017 (1.001-1.035); Squamous Epithelial Cell Urine Rare /hpf (Few); WBC Urine 0-3 /hpf
[2022-01-13 09:54] LABS: Creatine Kinase 88 U/L (55-170)
[2022-01-13 10:20] LABS: Glucose Point of Care 156 mg/dl (65-105)
[2022-01-13] MEDS: SODIUM CHLORIDE 0.9% IV 1,000 ML 125 ML IV CONT (10:27)
[2022-01-13] MEDS: MAGNESIUM SULF 2 GM/WATER 50ML 2 GM/50 ML BAG IVPB (10:28)
--- NOTE | 2022-01-13 11:28 | PC.NURSE ---
This patient, García Puente, was admitted to 3 [facility] Surg Room 316-01 on 01/13/22 @ 1125. Patient/family oriented to hospital policies and general routines including ID bracelet, bed and alarms, visiting hours, pain management, procedures, bathroom and other care routines, personal items, smoking policy, room service/diet, and visiting hours. Information on how to activate the Rapid Response Team has been discussed. Patient/Family are encouraged to report perceived risks to care and to ask questions if they do not understand what they are told or what they should do.
[2022-01-13 11:59] LABS: Glucose Point of Care 160 mg/dl (65-105)
[2022-01-13] MEDS: LORazepam INJ (*CRX) 2 MG/ML VIAL 1 MG IV PUSH (14:24)
[2022-01-13 16:31] LABS: Glucose Point of Care 235 mg/dl (65-105)
[2022-01-13] MEDS: NICOTINE (*PBKC) 21 MG PATCH 1 PATCH TRANSDERM (16:44)
--- NOTE | 2022-01-13 18:56 | PM.IMHP ---
H&P: HPI History of Present Illness Date/Time: Patient was placed observation status for expected length of stay less than 23 hours for management, will plan to re-evaluate tomorrow for improvement. 01/13/22 18:56 Chief Complaint: Mr. Puente is a 66-year-old gentlemen who presented emergency room with complaints of altered mental status. Patient's significant other states that at 5:30 a.m. this morning she went to the bathroom when she heard a noise like somebody falling to the floor and went back into her bedroom and found her significant other on the floor. Patient's significant other states that he could not talk and he was staring straight forward. He states that he did have loss of bowel and bladder at that time. Patient states he does not recall any of this occurring. Patient's significant other states that this did occur on Thursday also but she did not bring it to the hospital at that time. Patient states would occurred on Thursday patient only lost bladder and not bowel. Patient's significant other did not notice any shaking or jerking motions. She states that patient was just staring straight forward and not answering questions. Patient's significant other states the patient eventually would start mumbling and then he would start to be somewhat coherent and it would take him a while before he knew he was at. Patient denied any chest pain, shortness a breath, lightheadedness, dizziness, syncopal, or near syncopal episodes that he can recall prior to this event. Patient states that he has not been eating or drinking very well for the last 5 or 6 days because he has had multiple episodes of vomiting. Patient states he has a known history of hypertension, diabetes mellitus, dyslipidemia, and chronic headaches for which she was recently placed on Cymbalta. Patient states in 1994 he did have a myocardial infarction underwent cardiac catheterization and was told that his coronary arteries were ?clean? and he did not have any angioplasty or stent placement. Review of Systems Review of Systems: A 12 point review of systems was completed patient all pertinent positive and negative per HPI the remainder are unremarkable. [facility] Past Medical History Medical History (Updated 01/13/22 @ 19:37 by Nanci Dos Santos APRN) Chronic headaches Diabetes mellitus Hyperlipidemia Hypertension Myocardial infarction Tobacco abuse Surgical History Surgical History (Updated 01/13/22 @ 19:05 by Nanci Dos Santos APRN) H/O shoulder replacement Right shoulder Status post rotator cuff repair Left shoulder Social History Social History Smoking packs per day: 2.5 Smoking cigarettes per day: 50.0 Years smoked: 45 Smoking pack-years: 112.50 Smoking status: Current every day smoker Tobacco type: cigarettes Alcohol intake: never Substance use: never Substance use type: does not use Spiritual care concerns: No Meds Home Medications and Allergies Home Medications Medication Instructions Recorded Confirmed Type amlodipine 10 mg PO DAILY 07/21/21 01/13/22 History atenolol 100 mg PO DAILY 07/21/21 01/13/22 History atorvastatin 40 mg PO DAILY 07/21/21 01/13/22 History furosemide 20 mg PO DAILY 07/21/21 01/13/22 History hydrocodone-acetaminophen 10 tablet PO TID 07/21/21 01/13/22 History insulin glargine-lixisenatide 55 unit SUBCUT DAILY 07/21/21 01/13/22 History [Soliqua 100/33] lisinopril 40 mg PO DAILY 07/21/21 01/13/22 History duloxetine 30 mg PO DAILY 01/13/22 01/13/22 History spironolactone 25 mg PO DAILY 01/13/22 01/13/22 History Allergies Allergy/AdvReac Type Severity Reaction Status Date / Time Contrast Media Allergy Unknown ANAPHYLAXIS Uncoded 01/13/22 12:11 Vital Signs Vital Signs - 24 hr 01/13/22 06:20 01/13/22 06:45 01/13/22 07:46 Temperature 37.2 C Pulse Rate 97 85 Respiratory Rate 23 H 24 H Blood Pressure 149/75 H 146/68
[2022-01-13 20:17] LABS: Glucose Point of Care 320 mg/dl (65-105)
[2022-01-13] MEDS: INSULIN GLARGINE (*BKC) 100 UNITS/ML 55 UNITS SUB-Q (21:11)
[2022-01-13] MEDS: HYDROcodone/acetaminophen (*CRX) 10-325 MG TABLET 1 TAB PO (21:16)
[2022-01-13] MEDS: FAMOTIDINE 20 MG/2 ML VIAL IV PUSH (21:17)
[2022-01-13] MEDS: POTASSIUM CHLORIDE 20 MEQ PACKET (FOR LIQUID) PO (21:24)
[2022-01-14] VITALS (14 sets, daily range): BP systolic 108–163; BP diastolic 58–69; PULSE 54–80; RESP 18–20; TEMP 36.6–37.1; O2SAT 93–96
--- NOTE | 2022-01-14 | ECHO_ITS ---
Patient Info Name: García Puente Age: 66 years : 1955 Gender: Male Ht: 70 in Wt: 207 lbs BSA: 2.18 m2 HR: 74 bpm BP: 163 / 69 mmHg Heart Rhythm: Sinus Rhythm Technical Quality: Fair Exam Date: 01/14/2022 8:29 AM Exam Location: [facility] Card Pulmonary Patient Status: Outpatient Admit Date: 01/13/2022 Staff Ordering Physician: Nanci Dos Santos APRN Shake Out Worker: Madisyn Venegas RDCS Attending Provider: Calin Boone MD Referring Physician: Levon SIGALA; Exam Type: CA echo dop color flow w con Study Info Indications - Possible TIA Complete two-dimensional, color flow and Doppler transthoracic echocardiogram is performed with contrast to opacify the left ventricle and to improve the deliniation of the left ventricle endocardial borders. Contrast/Agitated Saline Contrast/Ag. Saline: Definity Amount: 2.00 ml Administered By: Madisyn Venegas RDCS Existing IV Access: Yes IV Access Condition: patent with no signs of infiltration Summary 1. Normal left ventricular size and thickness with good contractility of all segments. No segmental wall motion abnormalities. Ejection fraction 65-70%. Grade 1 diastolic dysfunction is present. 2. Left atrial chamber dimension is mildly enlarged. 3. No significant valve disease. 4. Normal estimated pulmonary pressure. 5. Somewhat technically difficult study; IV definity echo contrast used. 6. Normal sinus rhythm. Left Ventricle Left ventricular chamber dimension is normal. Left ventricular systolic function is normal, estimated at 65-70%. There is no increased left ventricular wall thickness. Left ventricular septal wall motion is normal. The left ventricular diastolic function is grade II diastolic dysfunction. Right Ventricle Right ventricular chamber dimension is normal. Right ventricular systolic function is normal. Left Atria Left atrial chamber dimension is mildly enlarged. Right Atria Right atrial chamber dimension is normal. Aortic Valve The aortic valve is trileaflet. There is no aortic valve sclerosis. There is no aortic valve stenosis. There is no aortic valve regurgitation. Pulmonic Valve The pulmonic valve is normal. There is no pulmonic valve stenosis. There is no pulmonic regurgitation. Mitral Valve The mitral valve has normal leaflets. There is no mitral valve stenosis. There is trace mitral valve regurgitation. Tricuspid Valve The tricuspid valve leaflets are normal. There is no significant tricuspid valve stenosis. There is trace tricuspid valve regurgitation. No pulmonary hypertension, estimated pulmonary arterial systolic pressure is 20 mmHg. Pericardium/Pleural The pericardium appears normal. There is no pericardial effusion. Inferior Vena Cava Normal inferior vena cava with >50% collapse upon inspiration consistent with Empty right atrial pressure, 10 mmHg. Aorta The aortic root size at the sinus of Valsalva is normal. The prox ascending aorta size is normal. Left Ventricular Outflow Tract Name Value Normal LVOT 2D LVOT Diameter 2.01 cm LVOT Doppler
[2022-01-14] MEDS: SODIUM CHLORIDE 0.9% IV 1,000 ML 125 ML IV CONT ×3 (03:35→18:13)
[2022-01-14] MEDS: HYDROcodone/acetaminophen (*CRX) 5-325 MG TABLET 1 TAB PO (05:56)
[2022-01-14 07:43] LABS: Basophils Absolute Auto 0.1 K/mm3 (0.0-0.1); Basophils Percent Auto 0.4 % (0.2-1.2); Eosinophils Absolute Auto 0.1 K/mm3 (0-0.3); Eosinophils Percent Auto 0.8 % (0-4.4); Hematocrit 34.7 % (42.0-52.0); Hemoglobin 12.1 g/dL (14.0-18.0); Immature Granulocyte Absolute 0.17 K/mm3 (0.00-0.031); Immature Granulocyte Percent A 1.3 % (0-0.5); Lymphocytes Absolute Auto 1.62 K/mm3 (0.9-3.2); Lymphocytes Percent Auto 12.3 % (18.3-44.2); Mean Corpuscular HGB Conc 34.9 g/dl (32-36); Mean Corpuscular Hemoglobin 31.8 pg (26-34); Mean Corpuscular Volume 91.1 fl (80-100); Mean Platelet Volume 10.6 fl (7.4-10.4); Monocytes Absolute Auto 1.7 K/mm3 (0.1-0.6); Monocytes Percent Auto 12.7 % (2.6-8.5); Neutrophils Absolute Auto 9.5 K/mm3 (1.3-6.7); Neutrophils Percent Auto 72.5 % (45.5-73.1); Platelet Count Result 165 k/mm3 (150-375); Red Blood Count 3.81 M/mm3 (4.6-6.20); Red Cell Distribution Width 12.6 % (11.5-14.5); White Blood Count 13.1 K/mm3 (4.5-10.0)
[2022-01-14 07:53] LABS: Glucose Point of Care 166 mg/dl (65-105)
[2022-01-14 07:54] LABS: Alanine Aminotransferase 42 U/L (4-50); Albumin Level 2.9 g/dL (3.5-5.1); Alkaline Phosphatase 276 U/L (38-126); Anion Gap 5 mmol/L (8-16); Aspartate Amino Transferase 47 U/L (17-59); Bilirubin,Total 0.3 mg/dL (0.2-1.3); Blood Urea Nitrogen 28 mg/dL (9-20); Calcium 7.8 mg/dL (8.4-10.2); Carbon Dioxide 21 mmol/L (22-30); Chloride 101 mmol/L (98-107); Estimated CRCL calculation 57 ml/min; Estimated Glomerular Filt Rate > 60; Glucose 162 mg/dL (65-110); Potassium 3.3 mmol/L (3.4-5.0); Sodium 127 mmol/L (137-145)
[2022-01-14] MEDS: HYDROcodone/acetaminophen (*CRX) 10-325 MG TABLET 1 TAB PO ×3 (08:58→17:29)
[2022-01-14] MEDS: ENOXAPARIN 40 MG/0.4 ML SYRINGE SUB-Q (08:59)
[2022-01-14] MEDS: FAMOTIDINE 20 MG/2 ML VIAL IV PUSH ×2 (08:59→21:20)
[2022-01-14] MEDS: amLODIPine BESYLATE 5 MG TABLET 10 MG PO (08:59)
[2022-01-14] MEDS: ATORVASTATIN 40 MG TABLET PO (08:59)
[2022-01-14] MEDS: SPIRONOLACTONE 25 MG TABLET PO (09:00)
[2022-01-14] MEDS: DULoxetine HCL 30 MG CAPSULE.DR PO (09:00)
[2022-01-14] MEDS: lisinopriL 20 MG TABLET 40 MG PO (09:00)
[2022-01-14] MEDS: NICOTINE (*PBKC) 21 MG PATCH 1 PATCH TRANSDERM (10:04)
[2022-01-14] MEDS: atenoloL 50 MG TABLET 100 MG PO (10:04)
[2022-01-14] MEDS: PERFLUTREN LIPID MICROSPHERES 1.5 ML VIAL DILUTED TO 10 ML TOTAL VOLUME IV PUSH (10:13)
--- NOTE | 2022-01-14 10:13 | IVDEFINITY ---
Prior to administration of IV Definity the patient was educated on the risks and benefits of the imaging enhancing agent including potential adverse side effects. The patient verbalized understanding. Allergies were verified. No exclusion criteria were identified and at least one of the following inclusion criteria were met: 1) physician request, 2) patient technically difficult to image (per the [place] [employer] guidelines of two or more segments not discernable within the apical view), or 3) questionable left ventricular function. ?
[2022-01-14] MEDS: ONDANSETRON INJ 4 MG/2 ML VIAL IV PUSH (11:24)
--- NOTE | 2022-01-14 11:33 | PCNEURO ---
EEG was attempted twice today. First time the patient was just leaving room to go to ultrasound. Second time patient was very nauseous and unable to lay back in the bed for the duration of the test.
[2022-01-14] MEDS: INSULIN ASPART (*BKC) 100 UNITS/ML SUB-Q (11:43)
[2022-01-14 11:54] LABS: Glucose Point of Care 232 mg/dl (65-105)
--- NOTE | 2022-01-14 15:42 | PM.IMPN ---
Progress Note: A&P Assessment and Plan (1) Unresponsive episode: Code(s): R41.89 - Other symptoms and signs involving cognitive functions and awareness Status: Acute Assessment and Plan: Patient has had 2 episodes where he was staring in space and had loss of bowel and bladder. It does sound more like seizure activity than stroke. Patient did undergo MRI that shows small old infarct in the right cerebellum with moderate nonspecific cerebral white matter disease, which likely represents chronic small vessel ischemic disease. Patient does have a right carotid bruit on examination however Doppler was negative for any significant stenosis. EEG has been ordered. Neurology has been consulted and await his recommendations. Check orthostatic vitals EEG is pending MRI brain is negative for acute stroke Carotid ultrasound bilateral no significant carotid stenosis Echo is pending Will also check ABG in rule out sleep apnea. Do [facility] tonight. Nurses reported him to be confused in the morning (2) Hypokalemia: Code(s): E87.6 - Hypokalemia Status: Acute Assessment and Plan: Replace potassium (3) Low magnesium level: Code(s): R79.0 - Abnormal level of blood mineral Status: Acute Assessment and Plan: Replaced magnesium (4) Tobacco abuse: Code(s): Z72.0 - Tobacco use Status: Acute Assessment and Plan: Patient states he smokes approximately 2 and half packs of cigarettes a day. Patient states he would like a cigarette this time. Will place a nicotine patch on patient. (5) Diabetes mellitus: Code(s): E11.9 - Type 2 diabetes mellitus without complications Status: Acute Assessment and Plan: Blood sugar trend reviewed (6) Hyponatremia: Code(s): E87.1 - Hypo-osmolality and hyponatremia Status: Acute Assessment and Plan: This is new. Recently started on duloxetine which could be the culprit also for nausea and vomiting that he is having. His LFTs are elevated particularly with Chris phosphatase. Normal bilirubin and transaminases. Will check CT abdomen pelvis for further evaluation. Check orthostatic Check urine studies Normal saline as suspect hypovolemia due to ongoing nausea vomiting Monitor sodium level Recent use of duloxetine suggest possibility of concurrent SIADH as well. (7) WALESKA (acute kidney injury): Code(s): N17.9 - Acute kidney failure, unspecified Status: Acute Assessment and Plan: Mild creatinine up to 1.4 improving with ID hydration will hold off on spironolactone and lisinopril for now. (8) Chronic headaches: Code(s): R51.9 - Headache, unspecified; G89.29 - Other chronic pain Status: Inactive Assessment and Plan: Check ESR Started on duloxetine for this. Which will stop due to suspected of side effects from this Will have to follow up with PCP for other alternatives (9) Hyperlipidemia: Code(s): E78.5 - Hyperlipidemia, unspecified Status: Inactive Assessment and Plan: Atorvastatin at home will hold that due to elevated liver enzymes (10) Hypertension: Code(s): I10 - Essential (primary) hypertension Status: Inactive Assessment and Plan: Amlodipine and atenolol hold lisinopril and spironolactone (11) Chronic hip pain: Code(s): M25.559 - Pain in unspecified hip; G89.29 - Other chronic pain Status: Acute Assessment and Plan: Along with what sounds like sciatic pain on chronic pain medication. Subjective Date/time seen: 01/14/22 15:42 Interval history: HPI: Mr. Puente is a 66-year-old gentlemen who presented emergency room with complaints of altered mental status. Patient's significant other states that at 5:30 a.m. this morning she went to the bathroom when she heard a noise like somebody falling to the floor and went back into her bedroom and found her significant other on the floor. Patient's signifi
[2022-01-14 16:24] LABS: Ammonia < 9 umol/L (9-30)
[2022-01-14 16:51] LABS: Glucose Point of Care 109 mg/dl (65-105)
[2022-01-14 16:53] LABS: Alveolar/Arterial O2 Gradient 48.8 mmHg; Base Excess ABG -3.1 mEq/l (+/-2.0); Fractional Inspired Oxygen 21 %; HCO3 ABG 20.7 mEq/l (22.0-26.0); Oxygen Content ABG 17.1 %vol (16.0-22.0); PCO2 ABG 33.3 mmHg (35.0-45.0); PO2 ABG 61.1 mmHg (80.0-100.0); PO2 FiO2 Ratio Arterial Blood 2.91 %; Total Hemoglobin 13.5 g/dL (12.0-18.0); pH ABG 7.411 (7.350-7.450)
[2022-01-14 16:54] LABS: Device ROOM AIR; Modified Allen's Test Pass; Site Drawn RIGHT RADIAL
[2022-01-14 16:58] LABS: Creatinine Urine 118.4 mg/dL; Urea Random Urine 807 MG/DL
[2022-01-14 17:01] LABS: Sodium Urine Random 30 meq/L
[2022-01-14 17:21] LABS: Lactic Acid Reflex 0.7 mmol/L (0.7-2.1)
[2022-01-14 17:59] LABS: Erythrocyte Sedimentation Rate 82 mm/hr (0-20)
[2022-01-14] MEDS: POTASSIUM CHLORIDE INJ 40 MEQ in SODIUM CHLORIDE 0.9% IV 500 ML 130 MEQ IVPB (18:07)
[2022-01-14 20:20] LABS: Glucose Point of Care 95 mg/dl (65-105)
[2022-01-14 20:31] LABS: Magnesium 1.9 mg/dL (1.6-2.3)
[2022-01-15] VITALS (10 sets, daily range): BP systolic 135–151; BP diastolic 47–67; PULSE 50–78; RESP 16–18; TEMP 36.1–36.7; O2SAT 91–96
[2022-01-15] MEDS: SODIUM CHLORIDE 0.9% IV 1,000 ML 125 ML IV CONT ×3 (03:17→19:11)
[2022-01-15 06:28] LABS: Basophils Percent Auto 0.3 % (0.2-1.2); Eosinophils Absolute Auto 0.1 K/mm3 (0-0.3); Eosinophils Percent Auto 0.4 % (0-4.4); Hematocrit 30.6 % (42.0-52.0); Hemoglobin 10.1 g/dL (14.0-18.0); Immature Granulocyte Absolute 0.23 K/mm3 (0.00-0.031); Immature Granulocyte Percent A 1.6 % (0-0.5); Lymphocytes Absolute Auto 2.03 K/mm3 (0.9-3.2); Lymphocytes Percent Auto 14.5 % (18.3-44.2); Mean Corpuscular Hemoglobin 31.8 pg (26-34); Mean Corpuscular Volume 96.2 fl (80-100); Mean Platelet Volume 10.3 fl (7.4-10.4); Monocytes Absolute Auto 1.7 K/mm3 (0.1-0.6); Monocytes Percent Auto 12.4 % (2.6-8.5); Neutrophils Absolute Auto 9.9 K/mm3 (1.3-6.7); Neutrophils Percent Auto 70.8 % (45.5-73.1); Platelet Count Result 129 k/mm3 (150-375); Red Blood Count 3.18 M/mm3 (4.6-6.20); Red Cell Distribution Width 12.8 % (11.5-14.5)
[2022-01-15 06:49] LABS: Alanine Aminotransferase 37 U/L (4-50); Albumin Level 2.3 g/dL (3.5-5.1); Alkaline Phosphatase 240 U/L (38-126); Anion Gap 4 mmol/L (8-16); Aspartate Amino Transferase 45 U/L (17-59); Bilirubin,Total 0.3 mg/dL (0.2-1.3); Blood Urea Nitrogen 18 mg/dL (9-20); Calcium 6.6 mg/dL (8.4-10.2); Carbon Dioxide 20 mmol/L (22-30); Chloride 111 mmol/L (98-107); Estimated CRCL calculation 68 ml/min; Estimated Glomerular Filt Rate > 60; Glucose 122 mg/dL (65-110); Potassium 3.1 mmol/L (3.4-5.0); Sodium 135 mmol/L (137-145)
[2022-01-15 07:52] LABS: Glucose Point of Care 138 mg/dl (65-105)
[2022-01-15] MEDS: HYDROcodone/acetaminophen (*CRX) 10-325 MG TABLET 1 TAB PO ×4 (09:42→20:08)
[2022-01-15] MEDS: ATORVASTATIN 40 MG TABLET PO (09:42)
[2022-01-15] MEDS: ENOXAPARIN 40 MG/0.4 ML SYRINGE SUB-Q (09:43)
[2022-01-15] MEDS: FAMOTIDINE 20 MG/2 ML VIAL IV PUSH ×2 (09:44→20:09)
[2022-01-15] MEDS: NICOTINE (*PBKC) 21 MG PATCH 1 PATCH TRANSDERM (09:44)
--- NOTE | 2022-01-15 09:51 | WPDNEUROLOGY ---
Neurology EEG Report General Information Date of Study: 01/15/22 TEST eeg DIAGNOSIS Intermittent confusion CONDITION OF RECORDING deep EEG NUMBER [id number] CLINICAL HISTORY patient unable to give much history. Was brought into hospital for change in the mental status. EEG DESCRIPTION Low-voltage poorly organized 9 to 11 hertz per 2nd alpha seen admixed with low-voltage 15 to 18 hertz per 2nd beta posteriorly. During drowsiness low-voltage beta is seen anteriorly as well admixed with low to medium voltage intermittent 5 to 7 hertz per 2nd theta activity. Bilateral symmetrical sleep activity seen during sleep. Hyperventilation not done. Photic stimulation not done. Non paroxysmal. Nonfocal. Nonlateralizing. IMPRESSION No significant abnormalities noted though patient is sleeping throughout the tracing clinical correlation recommended
[2022-01-15 12:11] LABS: Glucose Point of Care 174 mg/dl (65-105)
--- NOTE | 2022-01-15 12:34 | WPDNEURCNPN ---
Assessment and Plan Additional Plan 1. Recurrent unresponsive episodes or out the possibility of seizure and possibly orthostatic hypotension 2. Diabetes mellitus with diabetic neuropathy and the possibility of autonomic dysfunction as well resulting in the recurrent falls plan as ordered Consult date: 01/15/22 HPI: García Puente is a 66 year old male admitted to the hospital through the emergency room where he presented with complaints of change in the mental status and with information that around 5:30 a.m. he went to the bathroom when his heard a noise like someone falling to the floor and went back into her bedroom and found him on the floor he was unable to carry on the conversation and was staring forward he lost control control of the bowel and bladder though subsequently was unable to recall anything patient's significant other also reported that this happened on Thursday also but she was unable to bring him to the hospital she did not notice any jerking of the upper and lower extremities though he was staring straight forward and not answering the questions he has not been eating or drinking very well for the last several days and has had multiple episodes of vomiting. He does have ongoing history of 1. Hypertension 2. Diabetes mellitus 3. Dyslipidemia 4. Chronic headaches and history of myocardial infarction back in 1994 requiring the cardiac catheterization though his coronary arteries at that time were clean he has been taking Cymbalta. Why the past history is consistent with the shoulder replacement on the right side with rotator cuff repair on the left shoulder, hears spoke 45 his smoking pack years of 112.50 currently everyday smoker, outpatient medications included atorvastatin 40 mg daily insulin daily lisinopril 40 mg daily also duloxetine 30 mg daily in addition to amlodipine 10 mg daily Review of Systems Review of Systems: All systems reviewed & are unremarkable except as noted in HPI and below PMFSH Past Medical History Medical History Chronic headaches Diabetes mellitus Hyperlipidemia Hypertension Myocardial infarction Tobacco abuse Surgical History Surgical History H/O shoulder replacement Right shoulder Status post rotator cuff repair Left shoulder Social History Social History Smoking packs per day: 2.5 Smoking cigarettes per day: 50.0 Years smoked: 45 Smoking pack-years: 112.50 Smoking status: Current every day smoker Tobacco type: cigarettes Alcohol intake: never Substance use: never Substance use type: does not use Spiritual care concerns: No Meds Home Medications and Allergies Home Medications Medication Instructions Recorded Confirmed Type amlodipine 10 mg PO DAILY 07/21/21 01/13/22 History atenolol 100 mg PO DAILY 07/21/21 01/13/22 History atorvastatin 40 mg PO DAILY 07/21/21 01/13/22 History furosemide 20 mg PO DAILY 07/21/21 01/13/22 History hydrocodone-acetaminophen 10 tablet PO TID 07/21/21 01/13/22 History insulin glargine-lixisenatide 55 unit SUBCUT DAILY 07/21/21 01/13/22 History [[place] 100/33] lisinopril 40 mg PO DAILY 07/21/21 01/13/22 History duloxetine 30 mg PO DAILY 01/13/22 01/13/22 History spironolactone 25 mg PO DAILY 01/13/22 01/13/22 History Allergies Allergy/AdvReac Type Severity Reaction Status Date / Time Contrast Media Allergy Unknown ANAPHYLAXIS Uncoded 01/13/22 12:11 Vital Signs Vital Signs - 24 hr 01/14/22 14:00 01/14/22 14:21 01/14/22 16:00 Temperature 36.6 C Pulse Rate 63 68 54 L Respiratory Rate 20 Blood Pressure 143/60 H Pulse Oximetry 93 94 01/14/22 16:23 01/14/22 16:52 01/14/22 20:00 Temperature Pulse Rate 57 L Respiratory Rate Blood Pressure 124/63 108/62 Pulse Oximetry 01/14/22 22:00 01/14/22 22:31 01/15/22 00:00 [facility]
[2022-01-15 13:13] LABS: Free T4 Free Thyroxine Reflex 1.21 ng/dL (0.78-2.19)
[2022-01-15 14:32] LABS: Total Triiodothyronine (T3) 0.53 NG/ML (0.97-1.69)
--- NOTE | 2022-01-15 16:15 | PM.IMPN ---
Progress Note: A&P Assessment and Plan (1) Unresponsive episode: Code(s): R41.89 - Other symptoms and signs involving cognitive functions and awareness Status: Acute Assessment and Plan: Check orthostatic vitals EEG is pending MRI brain is negative for acute stroke Carotid ultrasound bilateral no significant carotid stenosis Echo is pending Pt uses narcotics at home ? AMS related to medications (2) Hypokalemia: Code(s): E87.6 - Hypokalemia Status: Acute Assessment and Plan: Replace potassium (3) Low magnesium level: Code(s): R79.0 - Abnormal level of blood mineral Status: Acute Assessment and Plan: Replaced magnesium (4) Tobacco abuse: Code(s): Z72.0 - Tobacco use Status: Acute Assessment and Plan: Patient states he smokes approximately 2 and half packs of cigarettes a day. Pt will nicotine patch (5) Diabetes mellitus: Code(s): E11.9 - Type 2 diabetes mellitus without complications Status: Acute Assessment and Plan: Blood sugar trend reviewed (6) Hyponatremia: Code(s): E87.1 - Hypo-osmolality and hyponatremia Status: Acute Assessment and Plan: Monitor sodium level Recent use of duloxetine suggest possibility of concurrent SIADH as well. (7) WALESKA (acute kidney injury): Code(s): N17.9 - Acute kidney failure, unspecified Status: Acute Assessment and Plan: Can stop fluids creat is nl (8) Chronic headaches: Code(s): R51.9 - Headache, unspecified; G89.29 - Other chronic pain Status: Inactive Assessment and Plan: Check ESR Started on duloxetine for this. Which will stop due to suspected of side effects from this Will have to follow up with PCP for other alternatives (9) Hyperlipidemia: Code(s): E78.5 - Hyperlipidemia, unspecified Status: Inactive Assessment and Plan: Atorvastatin at home will hold that due to elevated liver enzymes (10) Hypertension: Code(s): I10 - Essential (primary) hypertension Status: Inactive Assessment and Plan: Amlodipine and atenolol hold lisinopril and spironolactone (11) Chronic hip pain: Code(s): M25.559 - Pain in unspecified hip; G89.29 - Other chronic pain Status: Acute Assessment and Plan: Along with what sounds like sciatic pain on chronic pain medication. Subjective Date/time seen: 01/15/22 16:15 Interval history: 66-year-old gentlemen who presented emergency room with complaints of altered mental status. Patient's significant other states that at 5:30 a.m. this morning she went to the bathroom when she heard a noise like somebody falling to the floor and went back into her bedroom and found her significant other on the floor. Pt is confused on admission seems to be more lucid today but is still very weak Review of Systems Review of Systems: All systems reviewed & are unremarkable except as noted in HPI and below Exam Narrative: Constitutional: Drowsy tired weak HEENT: dry mucous membranes Lungs: Lung sounds are clear to auscultation bilaterally. . Cardiovascular: Apical pulse is regular rate and rhythm. S1-S2 noted, no S3 or S4 noted. No gallops, murmurs, or rubs noted. Abdomen: Soft, round, and nontender. No palpable masses. Extremities: No edema. Nontender. Skin: No rashes or lesions. Warm and dry. Skin is intact. Neurological: No focal neurological deficits. Cranial nerves II-XII grossly intact. Psychiatric: Cooperative, appropriate mood, and affect Objective Data Vital Signs Vital Signs: Vital Signs - 24 hr 01/14/22 16:23 01/14/22 16:52 01/14/22 20:00 Temperature Pulse Rate 57 L Respiratory Rate Blood Pressure 124/63 108/62 Pulse Oximetry 01/14/22 22:00 01/14/22 22:31 01/15/22 00:00 Temperature 36.7 C Pulse Rate 64 58 L Respiratory Rate 18 Blood Pressure 157/58 H Pulse Oximetry 94 94
[2022-01-15 16:50] LABS: Glucose Point of Care 155 mg/dl (65-105)
[2022-01-15 16:53] LABS: Influenza Control Positive
[2022-01-15] MEDS: INSULIN GLARGINE (*BKC) 100 UNITS/ML 55 UNITS SUB-Q (21:09)
[2022-01-15 21:17] LABS: Glucose Point of Care 195 mg/dl (65-105)
[2022-01-16] VITALS (8 sets, daily range): BP systolic 122–151; BP diastolic 52–62; PULSE 57–85; RESP 16–18; TEMP 36.2–36.9; O2SAT 90–99
[2022-01-16 07:51] LABS: Glucose Point of Care 118 mg/dl (65-105)
[2022-01-16] MEDS: HYDROcodone/acetaminophen (*CRX) 10-325 MG TABLET 1 TAB PO ×3 (09:56→17:17)
[2022-01-16] MEDS: atenoloL 50 MG TABLET 100 MG PO (09:57)
[2022-01-16] MEDS: ATORVASTATIN 40 MG TABLET PO (09:57)
[2022-01-16] MEDS: amLODIPine BESYLATE 5 MG TABLET 10 MG PO (09:57)
[2022-01-16] MEDS: FAMOTIDINE 20 MG/2 ML VIAL IV PUSH (09:58)
[2022-01-16] MEDS: NICOTINE (*PBKC) 21 MG PATCH 1 PATCH TRANSDERM (09:58)
[2022-01-16] MEDS: ENOXAPARIN 40 MG/0.4 ML SYRINGE SUB-Q (09:58)
--- NOTE | 2022-01-16 11:05 | WPDNEUROPN ---
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, negative Doppler study of the carotid in spite of medically right carotid bruit will definitely benefit from aspirin and Plavix only for 3 weeks but continuation the aspirin as such Subjective Date/time seen: 01/16/22 11:05 Objective Data Vital Signs Vital Signs: Vital Signs - 24 hr 01/15/22 12:00 01/15/22 14:00 01/15/22 16:00 Temperature 36.7 C Pulse Rate 74 68 78 Respiratory Rate 18 Blood Pressure 151/58 H Pulse Oximetry 96 01/15/22 20:00 01/15/22 20:59 01/15/22 22:00 Temperature 36.6 C Pulse Rate 69 65 Respiratory Rate 18 Blood Pressure 135/47 L Pulse Oximetry 92 91 01/16/22 00:00 01/16/22 04:00 01/16/22 06:00 Temperature 36.6 C Pulse Rate 57 L 85 81 Respiratory Rate 18 Blood Pressure 151/62 H Pulse Oximetry 90 Intake/Output Intake/Output: Intake & Output 01/13/22 01/14/22 01/15/22 01/16/22 23:59 23:59 23:59 23:59 Intake Total 1720 3980 4860 300 Output Total 300 1000 1575 600 Balance 1420 2980 3285 -300 Meds/Results Medications: Active Medications Generic Name Dose Route Start Last Admin Trade Name Freq PRN Reason Stop Dose Admin Hydrocodone Bitart/Acetaminophen 1 tab 01/13/22 20:45 01/16/22 09:56 Hydrocodone/Acetaminophen (*Crx) 10-325 Mg Tablet PO 1 tab TID JAMAR Administration Hydrocodone Bitart/Acetaminophen 1 tab 01/14/22 18:46 01/15/22 20:08 Hydrocodone/Acetaminophen (*Crx) 10-325 Mg Tablet PO 1 tab BID PRN Administration Pain Rated 7-10 Amlodipine Besylate 10 mg 01/14/22 09:00 01/16/22 09:57 Amlodipine Besylate 5 Mg Tablet PO 10 mg DAILY JAMAR Administration Atenolol 100 mg 01/14/22 09:00 01/16/22 09:57 Atenolol 50 Mg Tablet PO 100 mg DAILY JAMAR Administration Atorvastatin Calcium 40 mg 01/14/22 09:00 01/16/22 09:57 Atorvastatin 40 Mg Tablet PO 40 mg DAILY JAMAR Administration Dextrose 12.5 gm 01/13/22 18:47 Dextrose 50% 25 Gm/50 Ml Syringe IV PUSH PRN PRN Hypoglycemia Protocol Enoxaparin Sodium 40 mg 01/14/22 09:00 01/16/22 09:58 Enoxaparin 40 Mg/0.4 Ml Syringe SUB-Q 40 mg DAILY JAMAR Administration Famotidine 20 mg 01/13/22 21:00 01/16/22 09:58 Famotidine 20 Mg/2 Ml Vial IV PUSH 20 mg Q12HR JAMAR Administration Glucagon 1 mg 01/13/22 18:47 Glucagon For Inj 1 Mg Vial IM PRN PRN Hypoglycemia Protocol Glucose 15 gm 01/13/22 18:47 Glucose Oral Gel 15 Gm Of Glucse In 37.5 Gm Tube PO PRN PRN Hypoglycemia Protocol Sodium Chloride 1,000 mls @ 125 mls/hr 01/13/22 10:15 01/16/22 03:26 Normal Saline Iv IV CONT Not Given .Q8H JAMAR Dextrose 1,000 mls @ 100 mls/hr 01/13/22 18:47 Dextrose 5% 1,000 Ml IVPB PRN PRN Hypoglycemia Protocol Insulin Aspart 2 - 5 units 01/14/22 08:00 01/16/22 08:02 Insulin Aspart (*Bkc) 100 Units/Ml SUB-Q Not Given TIDWM [facility] Protocol Insulin Glargine 55 units 01/13/22 21:00 01/15/22 21:09 Insulin Glargine (*Bkc) 100 Units/Ml SUB-Q 55 units HS JAMAR Administration Nicotine 1 patch 01/13/22 16:20 01/16/22 09:58 Nicotine (*Pbkc) 21 Mg Patch TRANSDERM 1 patch QAM JAMAR Administration Ondansetron HCl 4 mg 01/13/22 10:11 01/14/22 11:24 Ondansetron Inj 4 Mg/2 Ml Vial IV PUSH 4 mg Q4H PRN Administration Nausea Perflutren Lipid Microsphere 0 ml 01/16/22 10:35 Perflutren Lipid Microspheres 1.5 Ml Vial Diluted To 10 Ml Total Volume IV PUSH ONCE PRN adequate visualization Protocol Radiology Results: ITS Impressions Head CT 01/13/22 06:44 IMPRESSION: 1. No acute intracranial process. Cervical Spine CT 01/13/22 08:08 IMPRESSION:
[2022-01-16 11:24] LABS: Glucose Point of Care 111 mg/dl (65-105)
[2022-01-16 16:14] LABS: Glucose Point of Care 138 mg/dl (65-105)
--- NOTE | 2022-01-16 17:23 | PM.IMPN ---
Progress Note: A&P Assessment and Plan (1) Unresponsive episode: Code(s): R41.89 - Other symptoms and signs involving cognitive functions and awareness Status: Acute (2) Hypokalemia: Code(s): E87.6 - Hypokalemia Status: Acute (3) Low magnesium level: Code(s): R79.0 - Abnormal level of blood mineral Status: Acute (4) Hyponatremia: Code(s): E87.1 - Hypo-osmolality and hyponatremia Status: Acute (5) Tobacco abuse: Code(s): Z72.0 - Tobacco use Status: Acute (6) WALESKA (acute kidney injury): Code(s): N17.9 - Acute kidney failure, unspecified Status: Acute (7) Diabetes mellitus: Code(s): E11.9 - Type 2 diabetes mellitus without complications Status: Acute (8) Chronic hip pain: Code(s): M25.559 - Pain in unspecified hip; G89.29 - Other chronic pain Status: Acute Additional Plan # unresponsive episode -originally thought to be secondary to orthostatic hypotension he did have a 20 point drop in systolic blood pressure on admission, blood pressure appears to be stable now. 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 HS, sliding scale insulin -chronic pain? [place] -on Lasix 20 mg daily which we held with his orthostatic hypotension Diet: Diabetic diet DVT prophylaxis: Lovenox Code status: Full code Disposition:wiill watch overnight, likely discharge tomorrow, will have PT evaluate Time Spent With Patient Time with patient: 25 - 35 minutes Subjective Date/time seen: 01/16/22 17:23 Patient seen and examined. His EEG has been negative, echocardiogram shows EF 65-%, grade 1 diastolic dysfunction and no wall motion abnormality. Orthostatics at 1st to be positive however now are normal. Neurology appears to be wanting to treat this like a stroke with 3 weeks of aspirin Plavix and then aspirin alone. He denies fever consult on nausea, vomiting, diarrhea chest pain, shortness of breath. Review of Systems Review of Systems: All systems reviewed & are unremarkable except as noted in HPI and below Exam Narrative: - GENERAL: Pleasant male in no acute distress. - EYES: EOMI. Anicteric. - HENT: Moist mucous membranes. - LUNGS: Clear to auscultation bilaterally, no wheezing, rhonchi, or rales. - CARDIOVASCULAR: Regular rate and rhythm. No murmur. No JVD. - ABDOMEN: Soft, non-tender and non-distended. No palpable masses. - EXTREMITIES: No edema. Peripheral pulses 2+. Non-tender. - NEUROLOGIC: No focal neurological deficits. CN II-XII grossly intact. - PSYCHIATRIC: Awake, Alert and oriented x 3. Appropriate mood and affect. - SKIN: No rashes or lesions. Warm. - LYMPH: No cervical lymphadenopathy. Objective Data Vital Signs Vital Signs: Vital Signs - 24 hr 01/15/22 20:00 01/15/22 20:59 01/15/22 22:00 Temperature 36.6 C Pulse Rate 69 65 Respiratory Rate 18 Blood Pressure 135/47 L Pulse Oximetry 92 91 01/16/22 00:00 01/16/22 04:00 01/16/22 06:00 Temperature 36.6 C Pulse Rate 57 L 85 81 Respiratory Rate 18 Blood Pressure 151/62 H Pulse Oximetry 90 01/16/22 08:00 01/16/22 13:38 Temperature 36.2 C L Pulse Rate 76 76 Respiratory Rate 18 18 Blood Pressure 122/52 L Pulse Oximetry 99 99 Intake/Output Intake/Output: Intake & Output 01/13/22 01/14/22 01/15/22 01/16/22 23:59 23:59 23:59 23:59 Intake Total 1720 3980 4860 1140 Output Total 300 1000 1575 600 Balance 1420 2980 3285 540 Meds/Results Medic
[2022-01-16 20:10] LABS: Glucose Point of Care 253 mg/dl (65-105)
[2022-01-16] MEDS: INSULIN GLARGINE (*BKC) 100 UNITS/ML 55 UNITS SUB-Q (21:09)
[2022-01-17] VITALS (8 sets, daily range): BP systolic 139–156; BP diastolic 57–64; PULSE 55–78; RESP 16–18; TEMP 36.4–37.6; O2SAT 91–94
[2022-01-17 05:26] LABS: Osmolality, Urine 471 mOsm/kg (50-1200)
[2022-01-17 06:33] LABS: Hematocrit 36.9 % (42.0-52.0); Hemoglobin 12.5 g/dL (14.0-18.0); Mean Corpuscular HGB Conc 33.9 g/dl (32-36); Mean Corpuscular Hemoglobin 31.7 pg (26-34); Mean Corpuscular Volume 93.7 fl (80-100); Mean Platelet Volume 9.9 fl (7.4-10.4); Platelet Count Result 214 k/mm3 (150-375); Red Blood Count 3.94 M/mm3 (4.6-6.20); Red Cell Distribution Width 12.8 % (11.5-14.5); White Blood Count 18.8 K/mm3 (4.5-10.0)
[2022-01-17 06:47] LABS: Anion Gap 6 mmol/L (8-16); Blood Urea Nitrogen 21 mg/dL (9-20); Calcium 7.8 mg/dL (8.4-10.2); Carbon Dioxide 24 mmol/L (22-30); Chloride 97 mmol/L (98-107); Estimated CRCL calculation 57 ml/min; Estimated Glomerular Filt Rate > 60; Glucose 114 mg/dL (65-110); Magnesium 1.8 mg/dL (1.6-2.3); Potassium 3.3 mmol/L (3.4-5.0); Sodium 127 mmol/L (137-145)
[2022-01-17 08:00] LABS: Glucose Point of Care 97 mg/dl (65-105)
[2022-01-17] MEDS: ASPIRIN 81 MG ENTERIC TABLET PO (08:24)
[2022-01-17] MEDS: atenoloL 50 MG TABLET 100 MG PO (08:25)
[2022-01-17] MEDS: ATORVASTATIN 40 MG TABLET PO (08:25)
[2022-01-17] MEDS: amLODIPine BESYLATE 5 MG TABLET 10 MG PO (08:25)
[2022-01-17] MEDS: CLOPIDOGREL BISULFATE 75 MG TABLET PO (08:25)
[2022-01-17] MEDS: ENOXAPARIN 40 MG/0.4 ML SYRINGE SUB-Q (08:26)
[2022-01-17] MEDS: NICOTINE (*PBKC) 21 MG PATCH 1 PATCH TRANSDERM (08:26)
[2022-01-17] MEDS: POTASSIUM CHLORIDE 20 MEQ TABLET 40 MEQ PO (08:41)
[2022-01-17 11:33] LABS: Glucose Point of Care 91 mg/dl (65-105)
--- NOTE | 2022-01-17 14:18 | PM.IMPN ---
Progress Note: A&P Assessment and Plan (1) Liver lesion, right lobe: Code(s): K76.9 - Liver disease, unspecified Status: Acute (2) Pyelonephritis of left kidney: Code(s): N12 - Tubulo-interstitial nephritis, not specified as acute or chronic Status: Acute (3) Leukocytosis: Code(s): D72.829 - Elevated white blood cell count, unspecified Status: Acute (4) Tobacco abuse: Code(s): Z72.0 - Tobacco use Status: Acute (5) Hyponatremia: Code(s): E87.1 - Hypo-osmolality and hyponatremia Status: Acute (6) WALESKA (acute kidney injury): Code(s): N17.9 - Acute kidney failure, unspecified Status: Acute Additional Plan # hepatic masses concerning for metastatic malignancy -consulting IR for liver biopsy, largest lesion is 4.2 x 5 cm right hepatic lobe -stopping blood thinners for biopsy -I discussed with Dr. Martinez Oncology, will refer after biopsy is done with pathology results # pyelonephritis -CT scan has signs of left-sided pyelonephritis -worsening leukocytosis, starting will Rocephin 1 g daily -continue trending CBC # unresponsive episode -originally thought to be secondary to orthostatic hypotension he did have a 20 point drop in systolic blood pressure on admission, blood pressure appears to be stable now. 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 HS, sliding scale insulin -chronic pain? [place] -on Lasix 20 mg daily which we held with his orthostatic hypotension Diet: Diabetic diet DVT prophylaxis: Lovenox Code status: Full code Disposition: Likely home in 2-3 days, patient is liver biopsy and treatment for pyelonephritis Time Spent With Patient Time with patient: Greater than 35 minutes Subjective Date/time seen: 01/17/22 14:18 Patient seen examined. He has worsening leukocytosis, hypokalemia, hyponatremia. Replacing potassium, starting antibiotics Rocephin for what appears to be pyelonephritis on his CT scan with signs of left nephromegaly and perinephric fat stranding and urinary bladder wall thickening. CT of his abdomen pelvis shows signs of metastatic cancer with the largest lesion being in right hepatic lobe 4.2 x 5 cm mass. Consulting IR for hepatic mass biopsy. Will then consult Oncology once we have tissue biopsy results. updated bedside. Patient denies fever, chills, nausea vomiting, diarrhea, chest pain, shortness at come abdominal pain. Review of Systems Review of Systems: All systems reviewed & are unremarkable except as noted in HPI and below Exam Narrative: - GENERAL: Pleasant morbidly obese male in no acute distress. - EYES: EOMI. Anicteric. - HENT: Moist mucous membranes. - LUNGS: Clear to auscultation bilaterally, no wheezing, rhonchi, or rales. - CARDIOVASCULAR: Regular rate and rhythm. No murmur. No JVD. - ABDOMEN: Soft, non-tender and non-distended. No palpable masses. - EXTREMITIES: No edema. Peripheral pulses 2+. Non-tender. - NEUROLOGIC: No focal neurological deficits. CN II-XII grossly intact. - PSYCHIATRIC: Awake, Alert and oriented x 3. Appropriate mood and affect. - SKIN: No rashes or lesions. Warm. - LYMPH: No cervical lymphadenopathy. Objective Data Vital Signs Vital Signs: Vital Signs - 24 hr 01/16/22 16:00 01/16/22 20:00 01/16/22 21:06 Temperature 36.9 C Pulse Rate 65 64 63 Respiratory Rate 16 16 Blood Pressure 131/56 L Pulse Oximetry 92 92 01/17/22 00:00 01/17/22 04:00 03
[2022-01-17] MEDS: HYDROcodone/acetaminophen (*CRX) 10-325 MG TABLET 1 TAB PO (16:20)
[2022-01-17 16:33] LABS: Glucose Point of Care 158 mg/dl (65-105)
[2022-01-17 19:55] LABS: Glucose Point of Care 206 mg/dl (65-105)
[2022-01-17] MEDS: INSULIN GLARGINE (*BKC) 100 UNITS/ML 55 UNITS SUB-Q (21:37)
[2022-01-18] MEDS: HYDROcodone/acetaminophen (*CRX) 10-325 MG TABLET 1 TAB PO ×2 (05:06→15:43)
[2022-01-18 05:36] VITALS: BP 157/63; PULSE 63; RESP 16; TEMP 38.2; O2SAT 94
[2022-01-18 05:58] LABS: Basophils Absolute Auto 0.1 K/mm3 (0.0-0.1); Basophils Percent Auto 0.4 % (0.2-1.2); Eosinophils Absolute Auto 0.2 K/mm3 (0-0.3); Eosinophils Percent Auto 0.7 % (0-4.4); Hematocrit 31.8 % (42.0-52.0); Hemoglobin 10.8 g/dL (14.0-18.0); Immature Granulocyte Absolute 0.58 K/mm3 (0.00-0.031); Immature Granulocyte Percent A 2.5 % (0-0.5); Lymphocytes Percent Auto 10.1 % (18.3-44.2); Mean Corpuscular Hemoglobin 31.3 pg (26-34); Mean Corpuscular Volume 92.2 fl (80-100); Mean Platelet Volume 9.9 fl (7.4-10.4); Monocytes Percent Auto 8.8 % (2.6-8.5); Neutrophils Absolute Auto 17.6 K/mm3 (1.3-6.7); Neutrophils Percent Auto 77.5 % (45.5-73.1); Platelet Count Result 246 k/mm3 (150-375); Red Blood Count 3.45 M/mm3 (4.6-6.20); White Blood Count 22.8 K/mm3 (4.5-10.0)
[2022-01-18 06:13] LABS: Anion Gap 3 mmol/L (8-16); Blood Urea Nitrogen 21 mg/dL (9-20); Calcium 7.7 mg/dL (8.4-10.2); Carbon Dioxide 25 mmol/L (22-30); Chloride 101 mmol/L (98-107); Estimated CRCL calculation 57 ml/min; Estimated Glomerular Filt Rate > 60; Glucose 141 mg/dL (65-110); Magnesium 1.9 mg/dL (1.6-2.3); Potassium 3.4 mmol/L (3.4-5.0); Sodium 129 mmol/L (137-145)
[2022-01-18 07:51] VITALS: PULSE 63; RESP 16; O2SAT 94
[2022-01-18 07:57] LABS: Glucose Point of Care 119 mg/dl (65-105)
[2022-01-18] MEDS: NICOTINE (*PBKC) 21 MG PATCH 1 PATCH TRANSDERM (08:11)
[2022-01-18 08:12] VITALS: PULSE 66
[2022-01-18] MEDS: amLODIPine BESYLATE 5 MG TABLET 10 MG PO (08:12)
[2022-01-18] MEDS: atenoloL 50 MG TABLET 100 MG PO (08:12)
[2022-01-18] MEDS: ATORVASTATIN 40 MG TABLET PO (08:12)
--- NOTE | 2022-01-18 08:56 | PC.NURSE ---
Called MD Harvey, pt wbc increased to 22.8, NO entered for cefepime 2 g IV and vancomycin 1500 mg. Called to report K 3.4, as well, no answer at this time. Awaiting call back.
--- NOTE | 2022-01-18 10:34 | PM.IMPN ---
Progress Note: A&P Assessment and Plan (1) Leukocytosis: Code(s): D72.829 - Elevated white blood cell count, unspecified Status: Acute (2) Pyelonephritis of left kidney: Code(s): N12 - Tubulo-interstitial nephritis, not specified as acute or chronic Status: Acute (3) Liver lesion, right lobe: Code(s): K76.9 - Liver disease, unspecified Status: Acute (4) Chronic hip pain: Code(s): M25.559 - Pain in unspecified hip; G89.29 - Other chronic pain Status: Acute (5) Diabetes mellitus: Code(s): E11.9 - Type 2 diabetes mellitus without complications Status: Acute (6) WALESKA (acute kidney injury): Code(s): N17.9 - Acute kidney failure, unspecified Status: Acute Additional Plan # hepatic masses concerning for metastatic malignancy -consulting IR for liver biopsy, largest lesion is 4.2 x 5 cm right hepatic lobe, plan for biopsy Thursday -stopping blood thinners for biopsy -I discussed with Dr. Martinez Oncology, will refer after biopsy is done with pathology results # pyelonephritis -CT scan has signs of left-sided pyelonephritis -with worsening leukocytosis changing antibiotics to vancomycin and cefepime today -continue trending CBC # unresponsive episode appears to have resolved -originally thought to be secondary to orthostatic hypotension he did have a 20 point drop in systolic blood pressure on admission, blood pressure appears to be stable now. 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 HS, sliding scale insulin -chronic pain? [place] -on Lasix 20 mg daily which we held with his orthostatic hypotension Diet: Diabetic diet DVT prophylaxis: SCD, hold blood thinners for biopsy Code status: Full code Disposition: Pending clinical course with leukocytosis, plan for liver mass biopsy Thursday Time Spent With Patient Time with patient: 25 - 35 minutes Subjective Date/time seen: 01/18/22 10:34 Patient seen examined. He has no new complaints and wants to go home. Discussed with him that his leukocytosis is worsening and we will switch antibiotics to vancomycin and cefepime. He has diffuse pain, his mentation is come improved to baseline, will increase his p.r.n. [place] to q.6 hours. Plan is for liver mass biopsy Thursday ultrasound-guided by IR. Patient denies fever, chills, nausea vomiting, diarrhea. He endorses nonspecific pain with diffuse abdominal pain chest pain shoulder pain. Review of Systems Review of Systems: All systems reviewed & are unremarkable except as noted in HPI and below Exam Narrative: - GENERAL: Pleasant morbidly obese male in no acute distress. - EYES: EOMI. Anicteric. - HENT: Moist mucous membranes. - LUNGS: Clear to auscultation bilaterally, no wheezing, rhonchi, or rales. - CARDIOVASCULAR: Regular rate and rhythm. No murmur. No JVD. Diffuse nonspecific tenderness on light palpation - ABDOMEN: Soft, non-distended. No palpable masses. Nonspecific Tenderness on palpation - EXTREMITIES: No edema. Peripheral pulses 2+. Non-tender. - NEUROLOGIC: No focal neurological deficits. CN II-XII grossly intact. - PSYCHIATRIC: Awake, Alert and oriented. Appropriate mood and flat affect. - SKIN: No rashes or lesions. Warm. - LYMPH: No cervical lymphadenopathy. Objective Data Vital Signs Vital Signs: Vital Signs - 24 hr 01/17/22 12:00 01/17/22 14:00 01/17/22 16:00 Temperature 36.4 C L Pulse Rate 55 L 61 68 Respiratory Rate 16 Blo
[2022-01-18] MEDS: SODIUM CHLORIDE 0.9% IV 100 ML 15 ML (11:41)
[2022-01-18 11:42] LABS: Glucose Point of Care 178 mg/dl (65-105)
[2022-01-18 12:26] LABS: Lactic Acid Reflex 0.9 mmol/L (0.7-2.1)
[2022-01-18 12:55] LABS: Procalcitonin 16.5 ng/mL
[2022-01-18 14:00] VITALS: BP 136/59; PULSE 56; RESP 20; TEMP 36.7; O2SAT 97
[2022-01-18] MEDS: INSULIN ASPART (*BKC) 100 UNITS/ML SUB-Q (16:33)
[2022-01-18 16:46] LABS: Glucose Point of Care 205 mg/dl (65-105)
[2022-01-18 20:18] LABS: Glucose Point of Care 165 mg/dl (65-105)
[2022-01-18] MEDS: INSULIN GLARGINE (*BKC) 100 UNITS/ML 55 UNITS SUB-Q (20:50)
[2022-01-18 22:00] VITALS: BP 153/62; PULSE 61; RESP 18; TEMP 36.8; O2SAT 96
[2022-01-19 06:00] VITALS: BP 141/54; PULSE 63; RESP 20; TEMP 36.9; O2SAT 90
[2022-01-19 06:10] LABS: Basophils Absolute Auto 0.1 K/mm3 (0.0-0.1); Basophils Percent Auto 0.4 % (0.2-1.2); Eosinophils Absolute Auto 0.2 K/mm3 (0-0.3); Eosinophils Percent Auto 1.1 % (0-4.4); Hematocrit 32.8 % (42.0-52.0); Hemoglobin 11.3 g/dL (14.0-18.0); Immature Granulocyte Absolute 0.44 K/mm3 (0.00-0.031); Immature Granulocyte Percent A 2.1 % (0-0.5); Lymphocytes Absolute Auto 2.27 K/mm3 (0.9-3.2); Lymphocytes Percent Auto 10.6 % (18.3-44.2); Mean Corpuscular HGB Conc 34.5 g/dl (32-36); Mean Corpuscular Hemoglobin 31.7 pg (26-34); Mean Corpuscular Volume 91.9 fl (80-100); Mean Platelet Volume 9.9 fl (7.4-10.4); Monocytes Absolute Auto 1.8 K/mm3 (0.1-0.6); Monocytes Percent Auto 8.5 % (2.6-8.5); Neutrophils Absolute Auto 16.6 K/mm3 (1.3-6.7); Neutrophils Percent Auto 77.3 % (45.5-73.1); Platelet Count Result 254 k/mm3 (150-375); Red Blood Count 3.57 M/mm3 (4.6-6.20); Red Cell Distribution Width 12.9 % (11.5-14.5); White Blood Count 21.4 K/mm3 (4.5-10.0)
[2022-01-19 06:21] LABS: Anion Gap 5 mmol/L (8-16); Blood Urea Nitrogen 21 mg/dL (9-20); Calcium 7.8 mg/dL (8.4-10.2); Carbon Dioxide 23 mmol/L (22-30); Chloride 100 mmol/L (98-107); Estimated CRCL calculation 57 ml/min; Estimated Glomerular Filt Rate > 60; Glucose 75 mg/dL (65-110); Potassium 3.3 mmol/L (3.4-5.0); Sodium 128 mmol/L (137-145)
[2022-01-19 07:56] LABS: Glucose Point of Care 72 mg/dl (65-105)
[2022-01-19 08:00] VITALS: PULSE 63; RESP 20; O2SAT 90
[2022-01-19] MEDS: HYDROcodone/acetaminophen (*CRX) 10-325 MG TABLET 1 TAB PO ×3 (08:25→21:17)
[2022-01-19] MEDS: NICOTINE (*PBKC) 21 MG PATCH 1 PATCH TRANSDERM (08:25)
[2022-01-19] MEDS: amLODIPine BESYLATE 5 MG TABLET 10 MG PO (08:25)
[2022-01-19 08:26] VITALS: PULSE 66
[2022-01-19] MEDS: atenoloL 50 MG TABLET 100 MG PO (08:26)
[2022-01-19] MEDS: POTASSIUM CHLORIDE 20 MEQ TABLET 40 MEQ PO (08:27)
[2022-01-19] MEDS: ATORVASTATIN 40 MG TABLET PO (08:28)
[2022-01-19 11:40] LABS: Glucose Point of Care 199 mg/dl (65-105)
--- NOTE | 2022-01-19 13:29 | PM.IMPN ---
Progress Note: A&P Assessment and Plan (1) Leukocytosis: Code(s): D72.829 - Elevated white blood cell count, unspecified Status: Acute (2) Pyelonephritis of left kidney: Code(s): N12 - Tubulo-interstitial nephritis, not specified as acute or chronic Status: Acute (3) Liver lesion, right lobe: Code(s): K76.9 - Liver disease, unspecified Status: Acute (4) Chronic hip pain: Code(s): M25.559 - Pain in unspecified hip; G89.29 - Other chronic pain Status: Acute (5) Diabetes mellitus: Code(s): E11.9 - Type 2 diabetes mellitus without complications Status: Acute (6) WALESKA (acute kidney injury): Code(s): N17.9 - Acute kidney failure, unspecified Status: Acute Additional Plan # hepatic masses concerning for metastatic malignancy -consulting IR for liver biopsy, largest lesion is 4.2 x 5 cm right hepatic lobe, plan for biopsy Thursday , NPO midnight -stopped blood thinners for biopsy -I discussed with Dr. [facility], will refer after biopsy is done with pathology results # pyelonephritis -CT scan has signs of left-sided pyelonephritis and signs of infection, this may be the source -antibiotics: IV vancomycin and cefepime 01/18- -continue trending CBC, about the same today # unresponsive episode appears to have resolved -originally thought to be secondary to orthostatic hypotension he did have a 20 point drop in systolic blood pressure on admission, blood pressure appears to be stable now. 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 HS, sliding scale insulin -chronic pain on [place] -on Lasix 20 mg daily which we held with his orthostatic hypotension Diet: Diabetic diet, NPO midnight DVT prophylaxis: SCD, hold blood thinners for biopsy Code status: Full code Disposition: Pending clinical course with leukocytosis, plan for liver mass biopsy Thursday Time Spent With Patient Time with patient: 25 - 35 minutes Subjective Date/time seen: 01/19/22 13:29 Patient seen examined. He is doing well no new complaints. leukocytosis about the same at 21 K, continue IV antibiotics Vanc/cefepime for suspected pyelonephritis. plan for liver mass biopsy tomorrow, will make NPO at midnight. denies fever, chills, nausea, vomiting, diarrhea , shortness of breath, chest pain, abdominal pain. Review of Systems Review of Systems: All systems reviewed & are unremarkable except as noted in HPI and below Exam Narrative: - GENERAL: Pleasant morbidly obese male in no acute distress. - EYES: EOMI. Anicteric. - HENT: Moist mucous membranes. - LUNGS: Clear to auscultation bilaterally, no wheezing, rhonchi, or rales. - CARDIOVASCULAR: Regular rate and rhythm. No murmur. No JVD. - ABDOMEN: Soft, non-distended. No palpable masses. Bowel sounds present - EXTREMITIES: No edema. Peripheral pulses 2+. Non-tender. - NEUROLOGIC: No focal neurological deficits. CN II-XII grossly intact. - PSYCHIATRIC: Awake, Alert and oriented. Appropriate mood and flat affect. - SKIN: No rashes or lesions. Warm. - LYMPH: No cervical lymphadenopathy. Objective Data Vital Signs Vital Signs: Vital Signs - 24 hr 01/18/22 14:00 01/18/22 22:00 01/19/22 06:00 Temperature 36.7 C 36.8 C 36.9 C Pulse Rate 56 L 61 63 Respiratory Rate 20 18 20 Blood Pressure 136/59 L 153/62 H 141/54 H Pulse Oximetry 97 96 90 01/19/22 08:00
[2022-01-19 13:57] VITALS: BP 129/79; PULSE 57; RESP 14; TEMP 36.1; O2SAT 97
[2022-01-19] MEDS: lisinopriL 20 MG TABLET 40 MG PO (14:12)
--- NOTE | 2022-01-19 14:21 | PC.NURSE ---
Reported rash on chest and back, pt receiving vancomycin and cefepime, Md Dutta informed. Md Dutta to assess at bedside.
--- NOTE | 2022-01-19 15:04 | PC.NURSE ---
MD Dutta assess rash, continue to monitor at this time.
[2022-01-19 16:40] LABS: Glucose Point of Care 275 mg/dl (65-105)
[2022-01-19] MEDS: INSULIN ASPART (*BKC) 100 UNITS/ML SUB-Q (17:10)
[2022-01-19] MEDS: INSULIN GLARGINE (*BKC) 100 UNITS/ML 55 UNITS SUB-Q (21:05)
[2022-01-19 22:00] VITALS: BP 139/60; PULSE 51; RESP 16; TEMP 36.1; O2SAT 96
[2022-01-19 22:02] LABS: Glucose Point of Care 258 mg/dl (65-105)
[2022-01-20 06:00] VITALS: BP 141/75; PULSE 64; RESP 20; TEMP 36.5; O2SAT 93
[2022-01-20 06:09] LABS: Basophils Absolute Auto 0.1 K/mm3 (0.0-0.1); Basophils Percent Auto 0.5 % (0.2-1.2); Eosinophils Absolute Auto 0.4 K/mm3 (0-0.3); Eosinophils Percent Auto 2.1 % (0-4.4); Hematocrit 31.1 % (42.0-52.0); Hemoglobin 10.6 g/dL (14.0-18.0); Immature Granulocyte Absolute 0.39 K/mm3 (0.00-0.031); Immature Granulocyte Percent A 1.9 % (0-0.5); Lymphocytes Absolute Auto 2.14 K/mm3 (0.9-3.2); Lymphocytes Percent Auto 10.4 % (18.3-44.2); Mean Corpuscular HGB Conc 34.1 g/dl (32-36); Mean Corpuscular Hemoglobin 31.6 pg (26-34); Mean Corpuscular Volume 92.8 fl (80-100); Monocytes Absolute Auto 1.9 K/mm3 (0.1-0.6); Monocytes Percent Auto 9.1 % (2.6-8.5); Neutrophils Absolute Auto 15.7 K/mm3 (1.3-6.7); Platelet Count Result 312 k/mm3 (150-375); Red Blood Count 3.35 M/mm3 (4.6-6.20); Red Cell Distribution Width 13.1 % (11.5-14.5); White Blood Count 20.6 K/mm3 (4.5-10.0)
[2022-01-20 06:24] LABS: INR 1.1; Prothrombin Time 13.8 Seconds (11.1-14.7)
[2022-01-20 06:25] LABS: Partial Thromboplastin Time 34.8 SECONDS (22.3-36.8)
[2022-01-20 06:30] LABS: Anion Gap 3 mmol/L (8-16); Blood Urea Nitrogen 22 mg/dL (9-20); Calcium 8.1 mg/dL (8.4-10.2); Carbon Dioxide 26 mmol/L (22-30); Chloride 101 mmol/L (98-107); Estimated CRCL calculation 53 ml/min; Estimated Glomerular Filt Rate 56; Glucose 54 mg/dL (65-110); Potassium 3.7 mmol/L (3.4-5.0); Sodium 130 mmol/L (137-145)
[2022-01-20] MEDS: DEXTROSE 50% 25 GM/50 ML SYRINGE IV PUSH (06:35)
[2022-01-20 06:56] LABS: Glucose Point of Care 111 mg/dl (65-105)
[2022-01-20 08:23] LABS: Glucose Point of Care 79 mg/dl (65-105)
[2022-01-20 09:52] VITALS: PULSE 64
[2022-01-20] MEDS: NICOTINE (*PBKC) 21 MG PATCH 1 PATCH TRANSDERM (09:52)
[2022-01-20] MEDS: ATORVASTATIN 40 MG TABLET PO (09:52)
[2022-01-20] MEDS: atenoloL 50 MG TABLET 100 MG PO (09:52)
[2022-01-20] MEDS: amLODIPine BESYLATE 5 MG TABLET 10 MG PO (09:53)
[2022-01-20] MEDS: lisinopriL 20 MG TABLET 40 MG PO (09:53)
[2022-01-20] MEDS: HYDROcodone/acetaminophen (*CRX) 10-325 MG TABLET 1 TAB PO (09:58)
--- NOTE | 2022-01-20 10:53 | WPDNEUROPN ---
Progress Note: A&P Additional Plan encouraged and advised advised to stay in the hospital till the biopsy is done for the further recommendations happens to be at the bedside Time Spent With Patient Time with patient: less than 15 minutes Subjective Date/time seen: 01/20/22 10:53 seizure versus hypotension, evaluation has documented MRI with small old infarction in the right cerebellum but negative Doppler study, in addition has been found to have 4mm left lower lobe peripheral pulmonary nodule, pulmonary base 5.5mm lower lobe nodule, 4.2x5cm ill-defined mass lesion of right hepatic lobe and 2.4cm hypoattenuation in the posterior medial segment left lower lobe of liver, with mild adrenal hypertrophy, and patient is going through the liver biopsy today, patient is concerned about going home and so as his who is looking for hopefully everything negative Review of Systems Review of Systems: All systems reviewed & are unremarkable except as noted in HPI and below Exam Narrative: examination revealed him to be awake alert cooperative obviously concerned and wants to go home not feeling good his speech is not dysphasic not dysarthric able to follow the verbal commands appropriately there is no evidence of meningeal signs pupils round regular feels the vision are full extraocular movements full face symmetrical tongue midline and motor examination reveals him to be generally with decreased strength but no focal motor deficit and plantar responses are downgoing Objective Data Vital Signs Vital Signs: Vital Signs - 24 hr 01/19/22 13:57 01/19/22 22:00 01/20/22 06:00 Temperature 36.1 C L 36.1 C L 36.5 C Pulse Rate 57 L 51 L 64 Respiratory Rate 14 16 20 Blood Pressure 129/79 139/60 141/75 H Pulse Oximetry 97 96 93 01/20/22 09:52 Temperature Pulse Rate 64 Respiratory Rate Blood Pressure Pulse Oximetry Intake/Output Intake/Output: Intake & Output 01/17/22 01/18/22 01/19/22 01/20/22 23:59 23:59 23:59 23:59 Intake Total 2920 2019 350 Balance 680 2920 2019 350 Meds/Results Medications: Active Medications Generic Name Dose Route Start Last Admin Trade Name Freq PRN Reason Stop Dose Admin Hydrocodone Bitart/Acetaminophen 1 tab 01/18/22 10:35 01/20/22 09:58 Hydrocodone/Acetaminophen (*Crx) 10-325 Mg Tablet PO 1 tab Q6HR PRN Administration Pain Rated 7-10 Amlodipine Besylate 10 mg 01/14/22 09:00 01/20/22 09:53 Amlodipine Besylate 5 Mg Tablet PO 10 mg DAILY JAMAR Administration Atenolol 100 mg 01/14/22 09:00 01/20/22 09:52 Atenolol 50 Mg Tablet PO 100 mg DAILY JAMAR Administration Atorvastatin Calcium 40 mg 01/14/22 09:00 01/20/22 09:52 Atorvastatin 40 Mg Tablet PO 40 mg DAILY JAMAR Administration Dextrose 12.5 gm 01/13/22 18:47 01/20/22 06:35 Dextrose 50% 25 Gm/50 Ml Syringe IV PUSH 12.5 gm PRN PRN Administration Hypoglycemia Protocol Glucagon 1 mg 01/13/22 18:47 Glucagon For Inj 1 Mg Vial IM PRN PRN Hypoglycemia Protocol Glucose 15 gm 01/13/22 18:47 Glucose Oral Gel 15 Gm Of Glucse In 37.5 Gm Tube PO PRN PRN Hypoglycemia Protocol Dextrose 1,000 mls @ 100 mls/hr 01/13/22 18:47 Dextrose 5% 1,000 Ml IVPB PRN PRN Hypoglycemia Protocol Cefepime HCl 2 gm in 50 mls @ 100 mls/hr 01/18/22 09:00 01/20/22 09:52 Maxipime 2 Gm/D5w 50 Ml IVPB 50 mls/hr Q12H JAMAR Administration Vancomycin HCl 1,500 mg in 500 mls @ 333.333 mls/hr 01/18/22 10:00 01/19/22 11:05 Vancomycin 1,500 Mg/D5w 500 Ml IVPB Infused Q24H JAMAR Infusion Insulin Aspart 2 - 5 units 01/14/22 08:00 01/20/22 09:50 Insulin Aspart (*Bkc) 100 Units/Ml SUB-Q Not Given TIDWM [facility] Protocol Insulin Glargine 20 units 01/20/22 21:00 Insulin Glargine (*Bkc) 100 Units/Ml SUB-Q HS [facility] Lisinopril 40 mg 01/19/22 13:40 01/20/22 09:53 Lisinopril 20 Mg Tablet PO 40 mg QAM [facility] A
[2022-01-20 11:10] VITALS: BP 139/59; BP 142/66; PULSE 62; PULSE 63; RESP 18; O2SAT 95
--- NOTE | 2022-01-20 11:16 | PCCCNOTE ---
On 01/20/22, the student, [Katie Michael ], provided care and completed [facility] documentation on this patient. I have reviewed the student's documentation and agree with the findings.
[2022-01-20 11:56] LABS: Glucose Point of Care 68 mg/dl (65-105)
[2022-01-20] MEDS: MORPHINE SULFATE (*CRX) 2 MG/ML INJ 1 MG IV PUSH ×2 (13:03→19:52)
[2022-01-20 14:00] VITALS: BP 115/57; PULSE 54; RESP 18; TEMP 36.3; O2SAT 99
--- NOTE | 2022-01-20 15:42 | PM.IMPN ---
Progress Note: A&P Additional Plan 66-year-old gentlemen who presented emergency room with complaints of altered mental status. 1)hepatic masses concerning for metastatic malignancy -plan for biopsy by IR today referral to Dr [facility] On[facility] once path results are in 2) pyelonephritis -CT scan has signs of left-sided pyelonephritis and signs of infection, this may be the source -antibiotics: IV vancomycin and cefepime 01/18- -continue trending CBC, slightly better leucocytosis today 3)unresponsive episode -originally thought to be secondary to orthostatic hypotension he did have a 20 point drop in systolic blood pressure on admission, blood pressure appears to be stable now. 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 HS, sliding scale insulin 7)DVT prophylaxis: SCD, hold blood thinners for biopsy, will resume in morning 8)Code status: Full code 9)Disposition: Pending improvement Time Spent With Patient Time with patient: 25 - 35 minutes Time Spent With Patient Time with patient: 25 - 35 minutes Subjective Date/time seen: 01/20/22 15:42 awaiting liver biopsy, not feeling well in general Review of Systems Constitutional: Constitutional: Reports fatigue, Reports lethargy and Reports weakness Eyes: Eyes: Reports no additional eye complaints ENT: Reports system reviewed and no additional complaints, except as documented Cardiovascular: Cardiovascular: Reports no additional cardiovascular complaints Respiratory: Respiratory: Reports no additional respiratory complaints Gastrointestinal: Gastrointestinal: Reports no additional gastrointestinal complaints Psychiatric: Psychiatric: Reports anxiety Exam Const: General: no acute distress and uncomfortable HENMT: Mouth: Yes dry mucous membranes Eyes: Pupils: Equal, round and reactive pupils present Neck: Neck: no JVD Resp: Auscultation: clear to auscultation bilaterally Cardio: Rate: regular rate Rhythm: regular rhythm GI: GI Palp: Yes Soft to palpation Auscultation: normal bowel sounds Skin: General skin exam: normal color Extrem: General: edema bilateral Psych: Mental Status: mental status grossly normal Objective Data Vital Signs Vital Signs: Vital Signs - 24 hr 01/19/22 22:00 01/20/22 06:00 01/20/22 09:52 Temperature 96.9 F L 97.7 F Pulse Rate 51 L 64 64 Respiratory Rate 16 20 Blood Pressure 139/60 141/75 H Pulse Oximetry 96 93 01/20/22 11:10 01/20/22 14:00 Temperature 97.4 F L Pulse Rate 63 54 L Respiratory Rate 18 18 Blood Pressure 139/59 L 115/57 L Pulse Oximetry 95 99 Intake/Output Intake/Output: Intake & Output 01/17/22 01/18/22 01/19/22 01/20/22 23:59 23:59 23:59 23:59 Intake Total 680 2920 2019 400 Balance 680 2920 2019 400 Meds/Results Medications: Active Medications Generic Name Dose Route Start Last Admin Trade Name Freq PRN Reason Stop Dose Admin Hydrocodone Bitart/Acetaminophen 1 tab 01/18/22 10:35 01/20/22 09:58 Hydrocodone/Acetaminophen (*Crx) 10-325 Mg Tablet PO 1 tab Q6HR PRN Administration Pain Rated 7-10 Amlodipine Besylate 10 mg 01/14/22 09:00 01/20/22 09:53 Amlodipine Besylate 5 Mg Tablet PO 10 mg DAILY JAMAR Administration Atenolol 100 mg 01/14/22 09:00 01/20/22 09:52 Atenolol 50 Mg Tablet PO 100 mg DAILY JAMAR Administration Atorvastatin Calcium 40 mg 01/14/22 09:00 01/20/22 09:52 At
[2022-01-20 16:21] LABS: Glucose Point of Care 273 mg/dl (65-105)
[2022-01-20] MEDS: INSULIN ASPART (*BKC) 100 UNITS/ML SUB-Q (17:19)
[2022-01-20 20:33] LABS: Glucose Point of Care 222 mg/dl (65-105)
[2022-01-20] MEDS: INSULIN GLARGINE (*BKC) 100 UNITS/ML 20 UNITS SUB-Q (21:17)
[2022-01-20 22:00] VITALS: BP 150/58; PULSE 66; RESP 20; TEMP 37.1; O2SAT 93
[2022-01-21] MEDS: MORPHINE SULFATE (*CRX) 2 MG/ML INJ 1 MG IV PUSH ×2 (00:31→20:26)
[2022-01-21 05:30] VITALS: BP 140/54; PULSE 64; RESP 18; TEMP 36.5; O2SAT 93
[2022-01-21 07:51] LABS: Glucose Point of Care 93 mg/dl (65-105)
[2022-01-21 08:00] VITALS: PULSE 66; RESP 18; O2SAT 93
[2022-01-21 08:06] VITALS: PULSE 66
[2022-01-21] MEDS: lisinopriL 20 MG TABLET 40 MG PO (08:06)
[2022-01-21] MEDS: ATORVASTATIN 40 MG TABLET PO (08:06)
[2022-01-21] MEDS: NICOTINE (*PBKC) 21 MG PATCH 1 PATCH TRANSDERM (08:06)
[2022-01-21] MEDS: atenoloL 50 MG TABLET 100 MG PO (08:06)
[2022-01-21] MEDS: CLOPIDOGREL BISULFATE 75 MG TABLET PO (08:07)
[2022-01-21] MEDS: ASPIRIN 81 MG CHEWABLE TABLET PO (08:07)
[2022-01-21] MEDS: amLODIPine BESYLATE 5 MG TABLET 10 MG PO (08:07)
[2022-01-21] MEDS: HYDROcodone/acetaminophen (*CRX) 10-325 MG TABLET 1 TAB PO ×3 (08:08→20:13)
[2022-01-21 08:53] LABS: Basophils Absolute Auto 0.1 K/mm3 (0.0-0.1); Basophils Percent Auto 0.4 % (0.2-1.2); Eosinophils Absolute Auto 0.2 K/mm3 (0-0.3); Eosinophils Percent Auto 1.1 % (0-4.4); Hematocrit 32.1 % (42.0-52.0); Hemoglobin 10.8 g/dL (14.0-18.0); Immature Granulocyte Absolute 0.63 K/mm3 (0.00-0.031); Immature Granulocyte Percent A 3.5 % (0-0.5); Lymphocytes Percent Auto 9.4 % (18.3-44.2); Mean Corpuscular HGB Conc 33.6 g/dl (32-36); Mean Corpuscular Hemoglobin 31.4 pg (26-34); Mean Corpuscular Volume 93.3 fl (80-100); Mean Platelet Volume 9.4 fl (7.4-10.4); Monocytes Absolute Auto 1.3 K/mm3 (0.1-0.6); Monocytes Percent Auto 7.4 % (2.6-8.5); Neutrophils Absolute Auto 14.1 K/mm3 (1.3-6.7); Neutrophils Percent Auto 78.2 % (45.5-73.1); Platelet Count Result 325 k/mm3 (150-375); Red Blood Count 3.44 M/mm3 (4.6-6.20)
[2022-01-21 09:05] LABS: Alanine Aminotransferase 33 U/L (4-50); Albumin Level 2.6 g/dL (3.5-5.1); Alkaline Phosphatase 689 U/L (38-126); Anion Gap 4 mmol/L (8-16); Aspartate Amino Transferase 42 U/L (17-59); Bilirubin,Total 1.4 mg/dL (0.2-1.3); Blood Urea Nitrogen 18 mg/dL (9-20); Calcium 7.8 mg/dL (8.4-10.2); Carbon Dioxide 24 mmol/L (22-30); Chloride 102 mmol/L (98-107); Estimated CRCL calculation 62 ml/min; Estimated Glomerular Filt Rate > 60; Glucose 95 mg/dL (65-110); Magnesium 1.9 mg/dL (1.6-2.3); Potassium 3.5 mmol/L (3.4-5.0); Sodium 130 mmol/L (137-145)
[2022-01-21 09:27] LABS: Vancomycin Trough 10.2 ug/mL (10.0-20.0)
[2022-01-21 11:42] LABS: Glucose Point of Care 219 mg/dl (65-105)
[2022-01-21] MEDS: INSULIN ASPART (*BKC) 100 UNITS/ML SUB-Q (12:08)
--- NOTE | 2022-01-21 12:08 | WPDNEUROPN ---
Progress Note: A&P Additional Plan neurologically patient is stable, anxious to go home, is waiting for the liver biopsy to be a brace to him obviously that needed to be treated, but there is no worsening of the neurological status Time Spent With Patient Time with patient: less than 15 minutes Subjective Date/time seen: 01/21/22 12:08 Humberto 6 years old right-handed male admitted to the hospital with the possibility of seizure versus hypotension, MRI documented small old infarction right cerebellum, negative Doppler study, 4mm left lower lobe peripheral pulmonary nodule, ill-defined mass lesion of the right hepatic lobe for which patient undergone hepatic biopsy and pathology is consistent with acute liver abscess but no evidence of neoplasm Objective Data Vital Signs Vital Signs: Vital Signs - 24 hr 01/20/22 14:00 01/20/22 22:00 01/21/22 05:30 Temperature 36.3 C L 37.1 C 36.5 C Pulse Rate 54 L 66 64 Respiratory Rate 18 20 18 Blood Pressure 115/57 L 150/58 H 140/54 L Pulse Oximetry 99 93 93 01/21/22 08:00 01/21/22 08:06 Temperature Pulse Rate 66 66 Respiratory Rate 18 Blood Pressure Pulse Oximetry 93 Intake/Output Intake/Output: Intake & Output 01/18/22 01/19/22 01/20/22 01/21/22 23:59 23:59 23:59 23:59 Intake Total 2920 2019 900 390 Balance 2920 2020 900 390 Meds/Results Medications: Active Medications Generic Name Dose Route Start Last Admin Trade Name Freq PRN Reason Stop Dose Admin Hydrocodone Bitart/Acetaminophen 1 tab 01/18/22 10:35 01/21/22 08:08 Hydrocodone/Acetaminophen (*Crx) 10-325 Mg Tablet PO 1 tab Q6HR PRN Administration Pain Rated 7-10 Amlodipine Besylate 10 mg 01/14/22 09:00 01/21/22 08:07 Amlodipine Besylate 5 Mg Tablet PO 10 mg DAILY JAMAR Administration Aspirin 81 mg 01/21/22 08:00 01/21/22 08:07 Aspirin 81 Mg Chewable Tablet PO 81 mg DAILY@0800 JAMAR Administration Atenolol 100 mg 01/14/22 09:00 01/21/22 08:06 Atenolol 50 Mg Tablet PO 100 mg DAILY JAMAR Administration Atorvastatin Calcium 40 mg 01/14/22 09:00 01/21/22 08:06 Atorvastatin 40 Mg Tablet PO 40 mg DAILY JAMAR Administration Clopidogrel Bisulfate 75 mg 01/21/22 09:00 01/21/22 08:07 Clopidogrel Bisulfate 75 Mg Tablet PO 75 mg QAM JAMAR Administration Dextrose 12.5 gm 01/13/22 18:47 01/20/22 06:35 Dextrose 50% 25 Gm/50 Ml Syringe IV PUSH 12.5 gm PRN PRN Administration Hypoglycemia Protocol Glucagon 1 mg 01/13/22 18:47 Glucagon For Inj 1 Mg Vial IM PRN PRN Hypoglycemia Protocol Glucose 15 gm 01/13/22 18:47 Glucose Oral Gel 15 Gm Of Glucse In 37.5 Gm Tube PO PRN PRN Hypoglycemia Protocol Dextrose 1,000 mls @ 100 mls/hr 01/13/22 18:47 Dextrose 5% 1,000 Ml IVPB PRN PRN Hypoglycemia Protocol Cefepime HCl 2 gm in 50 mls @ 100 mls/hr 01/18/22 09:00 01/21/22 08:37 Maxipime 2 Gm/D5w 50 Ml IVPB Infused Q12H JAMAR Infusion Vancomycin HCl 1,500 mg in 500 mls @ 333.333 mls/hr 01/18/22 10:00 01/21/22 10:02 Vancomycin 1,500 Mg/D5w 500 Ml IVPB 333 mls/hr Q24H JAMAR Administration Insulin Aspart 2 - 5 units 01/14/22 08:00 01/21/22 08:07 Insulin Aspart (*Bkc) 100 Units/Ml SUB-Q Not Given TIDWM [facility] Protocol Insulin Glargine 20 units 01/20/22 21:00 01/20/22 21:17 Insulin Glargine (*Bkc) 100 Units/Ml SUB-Q 20 units HS JAMAR Administration Lisinopril 40 mg 01/19/22 13:40 01/21/22 08:06 Lisinopril 20 Mg Tablet PO 40 mg QAM JAMAR Administration Morphine Sulfate 1 mg 01/20/22 11:54 01/21/22 00:31 Morphine Sulfate (*Crx) 2 Mg/Ml Inj IV PUSH 1 mg Q4H PRN Administration Pain Rated 7-10 Nicotine 1 patch 01/13/22 16:20 01/21/22 08:06 Nicotine (*Pbkc) 21 Mg Patch TRANSDERM 1 patch QAM JAMAR Administration Ondansetron HCl 4 mg 01/13/22 10:11 01/14/22 11:24 Ondansetron Inj 4 Mg/2 Ml Vial IV PUSH 4 mg Q4H PRN
--- NOTE | 2022-01-21 12:55 | PM.IMPN ---
Progress Note: A&P Assessment and Plan (1) Leukocytosis: Code(s): D72.829 - Elevated white blood cell count, unspecified Status: Acute Assessment and Plan: continue to trend trending down (2) Pyelonephritis of left kidney: Code(s): N12 - Tubulo-interstitial nephritis, not specified as acute or chronic Status: Acute Assessment and Plan: pt is on iv vancomycin and cefepime blood cultures are negative to date (3) Liver lesion, right lobe: Code(s): K76.9 - Liver disease, unspecified Status: Acute Assessment and Plan: sp liver biopsy (4) Chronic hip pain: Code(s): M25.559 - Pain in unspecified hip; G89.29 - Other chronic pain Status: Acute Assessment and Plan: Along with what sounds like sciatic pain on chronic pain medication. (5) Diabetes mellitus: Code(s): E11.9 - Type 2 diabetes mellitus without complications Status: Acute Assessment and Plan: Hypoglycemia protocol, Accu-Cheks a.c. HS, sliding scale insulin (6) WALESKA (acute kidney injury): Code(s): N17.9 - Acute kidney failure, unspecified Status: Resolved Assessment and Plan: resolved with fluids Additional Plan unresponsive episode -originally thought to be secondary to orthostatic hypotension he did have a 20 point drop in systolic blood pressure on admission, blood pressure appears to be stable now. 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 Patient's significant other states that at 5:30 a.m. this morning she went to the bathroom when she heard a noise like somebody falling to the floor and went back into her bedroom and found her significant other on the floor. Pt is confused on admission seems to be more lucid today. pt has been treated for pyelonephritis and had liver biopsy yesterday for liver masses. pt appears coherent today Review of Systems Review of Systems: All systems reviewed & are unremarkable except as noted in HPI and below Exam Narrative: - GENERAL: Pleasant morbidly obese male in no acute distress. - LUNGS: Clear to auscultation bilaterally, no wheezing, rhonchi, or rales. - CARDIOVASCULAR: Regular rate and rhythm. No murmur. No JVD. - ABDOMEN: Soft, non-distended. No palpable masses. Bowel sounds present - EXTREMITIES: No edema. Peripheral pulses 2+. Non-tender. - NEUROLOGIC: No focal neurological deficits. CN II-XII grossly intact. - PSYCHIATRIC: Awake, Alert and oriented. Appropriate mood and flat affect. - SKIN: No rashes or lesions. Warm. - LYMPH: No cervical lymphadenopathy. Objective Data Vital Signs Vital Signs: Vital Signs - 24 hr 01/20/22 14:00 01/20/22 22:00 01/21/22 05:30 Temperature 36.3 C L 37.1 C 36.5 C Pulse Rate 54 L 66 64 Respiratory Rate 18 20 18 Blood Pressure 115/57 L 150/58 H 140/54 L Pulse Oximetry 99 93 93 01/21/22 08:00 01/21/22 08:06 Temperature Pulse Rate 66 66 Respiratory Rate 18 Blood Pressure Pulse Oximetry 93 Intake/Output Intake/Output: Intake & Output 01/18/22 01/19/22 01/20/22 01/21/22 23:59 23:59 23:59 23:59 Intake Total 2919 2019 900 390 Balance 2919 390 Meds/Results Medications: Active Medications Generic Name Dose Route Start Last Admin Trade Name Freq PRN Reason Stop Dose Admin Hydrocodone Bitart/Acetaminoph
[2022-01-21 14:00] VITALS: BP 121/61; PULSE 55; RESP 19; TEMP 36; O2SAT 96
[2022-01-21 16:25] LABS: Glucose Point of Care 173 mg/dl (65-105)
[2022-01-21] MEDS: INSULIN GLARGINE (*BKC) 100 UNITS/ML 20 UNITS SUB-Q (20:34)
[2022-01-21 21:46] VITALS: BP 122/61; PULSE 53; RESP 16; TEMP 36.3; O2SAT 98
[2022-01-21 22:33] LABS: Glucose Point of Care 199 mg/dl (65-105)
[2022-01-22] MEDS: HYDROcodone/acetaminophen (*CRX) 10-325 MG TABLET 1 TAB PO ×4 (02:16→21:21)
[2022-01-22 02:29] LABS: Glucose Point of Care 135 mg/dl (65-105)
[2022-01-22] MEDS: MORPHINE SULFATE (*CRX) 2 MG/ML INJ 1 MG IV PUSH (04:13)
[2022-01-22 06:00] VITALS: BP 122/83; PULSE 64; RESP 18; TEMP 36.1; O2SAT 98
[2022-01-22 06:34] LABS: Hematocrit 33.2 % (42.0-52.0); Hemoglobin 11.2 g/dL (14.0-18.0); Mean Corpuscular HGB Conc 33.7 g/dl (32-36); Mean Corpuscular Hemoglobin 31.7 pg (26-34); Mean Corpuscular Volume 94.1 fl (80-100); Mean Platelet Volume 9.5 fl (7.4-10.4); Platelet Count Result 385 k/mm3 (150-375); Red Blood Count 3.53 M/mm3 (4.6-6.20); Red Cell Distribution Width 13.1 % (11.5-14.5); White Blood Count 16.3 K/mm3 (4.5-10.0)
[2022-01-22 06:50] LABS: Anion Gap 4 mmol/L (8-16); Blood Urea Nitrogen 23 mg/dL (9-20); Calcium 7.9 mg/dL (8.4-10.2); Carbon Dioxide 26 mmol/L (22-30); Chloride 100 mmol/L (98-107); Estimated CRCL calculation 57 ml/min; Estimated Glomerular Filt Rate > 60; Glucose 93 mg/dL (65-110); Potassium 4.2 mmol/L (3.4-5.0); Sodium 130 mmol/L (137-145)
[2022-01-22 08:00] VITALS: PULSE 67; RESP 18; O2SAT 98
[2022-01-22 09:31] VITALS: PULSE 67
[2022-01-22] MEDS: ASPIRIN 81 MG ENTERIC TABLET PO (09:31)
[2022-01-22] MEDS: CLOPIDOGREL BISULFATE 75 MG TABLET PO (09:31)
[2022-01-22] MEDS: atenoloL 50 MG TABLET 100 MG PO (09:31)
[2022-01-22] MEDS: lisinopriL 20 MG TABLET 40 MG PO (09:31)
[2022-01-22] MEDS: ATORVASTATIN 40 MG TABLET PO (09:31)
[2022-01-22] MEDS: amLODIPine BESYLATE 5 MG TABLET 10 MG PO (09:31)
[2022-01-22] MEDS: NICOTINE (*PBKC) 21 MG PATCH 1 PATCH TRANSDERM (09:32)
[2022-01-22 11:46] LABS: Glucose Point of Care 278 mg/dl (65-105)
--- NOTE | 2022-01-22 12:01 | PM.IMPN ---
Progress Note: A&P Assessment and Plan (1) Leukocytosis: Code(s): D72.829 - Elevated white blood cell count, unspecified Status: Acute Assessment and Plan: [place] [id number] [place], cultures are negative to date (2) Pyelonephritis of left kidney: Code(s): N12 - Tubulo-interstitial nephritis, not specified as acute or chronic Status: Acute Assessment and Plan: Pt is on iv vancomycin and cefepime, blood cultures are negative to date (3) Liver lesion, right lobe: Code(s): K76.9 - Liver disease, unspecified Status: Acute Assessment and Plan: Sp liver biopsy - results are as follows- The liver shows extensive necrosis with acute inflammation. The appearance is consistent with a liver abscess. There is no evidence of neoplasm. (4) Chronic hip pain: Code(s): M25.559 - Pain in unspecified hip; G89.29 - Other chronic pain Status: Acute Assessment and Plan: Pt is on chronic pain medication. (5) Diabetes mellitus: Code(s): E11.9 - Type 2 diabetes mellitus without complications Status: Acute Assessment and Plan: Hypoglycemia protocol, Accu-Cheks a.c. HS, sliding scale insulin (6) WALESKA (acute kidney injury): Code(s): N17.9 - Acute kidney failure, unspecified Status: Resolved Assessment and Plan: Resolved with fluids, creat is 1.2 Additional Plan ADDITIONAL HISTORY unresponsive episode -originally thought to be secondary to orthostatic hypotension he did have a 20 point drop in systolic blood pressure on admission, blood pressure appears to be stable now. 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 Patient's significant other states that at 5:30 a.m. this morning she went to the bathroom when she heard a noise like somebody falling to the floor and went back into her bedroom and found her significant other on the floor. Pt is confused on admission seems to be more lucid today. pt has been treated for pyelonephritis and had liver biopsy for liver masses. 01/22/2022 Pt [place] coherent today[place] [id number], continue current iv Abx, hopeful DC in 1-2 days time Review of Systems Review of Systems: All systems reviewed & are unremarkable except as noted in HPI and below Exam Narrative: - GENERAL: Pleasant morbidly obese male in no acute distress. - LUNGS: Clear to auscultation bilaterally, no wheezing, rhonchi, or rales. - CARDIOVASCULAR: Regular rate and rhythm. No murmur. No JVD. - ABDOMEN: Soft, non-distended. No palpable masses. Bowel sounds present - EXTREMITIES: No edema. Peripheral pulses 2+. Non-tender. - NEUROLOGIC: No focal neurological deficits. CN II-XII grossly intact. - PSYCHIATRIC: Awake, Alert and oriented. Appropriate mood and flat affect. - SKIN: No rashes or lesions. Warm. - LYMPH: No cervical lymphadenopathy. Objective Data Vital Signs Vital Signs: Vital Signs - 24 hr 01/21/22 14:00 01/21/22 21:46 01/22/22 06:00 Temperature 36.0 C L 36.3 C L 36.1 C L Pulse Rate 55 L 53 L 64 Respiratory Rate 19 16 18 Blood Pressure 121/61 122/61 122/83 Pulse Oximetry 96 98 98 01/22/22 08:00 01/22/22 09:31 Temperature Pulse Rate 67 67 Respiratory Rate 18 Blood Pressure Pulse Oximetry 98 Intake/Output Intake/Output: Intake & Output
[2022-01-22] MEDS: INSULIN ASPART (*BKC) 100 UNITS/ML SUB-Q (12:27)
[2022-01-22 14:00] VITALS: BP 121/63; PULSE 55; RESP 18; TEMP 35.8; O2SAT 96
[2022-01-22 16:18] VITALS: BMI 29.8
[2022-01-22 16:42] LABS: Glucose Point of Care 176 mg/dl (65-105)
[2022-01-22 20:15] LABS: Glucose Point of Care 271 mg/dl (65-105)
[2022-01-22] MEDS: INSULIN GLARGINE (*BKC) 100 UNITS/ML 20 UNITS SUB-Q (21:21)
[2022-01-22 21:56] VITALS: BP 132/62; PULSE 54; RESP 16; TEMP 35.9; O2SAT 96
[2022-01-23] MEDS: HYDROcodone/acetaminophen (*CRX) 10-325 MG TABLET 1 TAB PO ×4 (03:12→23:59)
[2022-01-23 06:00] VITALS: BP 131/72; PULSE 57; RESP 16; TEMP 36.3; O2SAT 100
[2022-01-23 06:48] LABS: Hematocrit 30.2 % (42.0-52.0); Hemoglobin 10.2 g/dL (14.0-18.0); Mean Corpuscular HGB Conc 33.8 g/dl (32-36); Mean Corpuscular Hemoglobin 31.7 pg (26-34); Mean Corpuscular Volume 93.8 fl (80-100); Mean Platelet Volume 9.4 fl (7.4-10.4); Platelet Count Result 407 k/mm3 (150-375); Red Blood Count 3.22 M/mm3 (4.6-6.20); Red Cell Distribution Width 12.8 % (11.5-14.5); White Blood Count 13.4 K/mm3 (4.5-10.0)
[2022-01-23 06:57] LABS: Anion Gap 3 mmol/L (8-16); Blood Urea Nitrogen 27 mg/dL (9-20); Calcium 7.8 mg/dL (8.4-10.2); Carbon Dioxide 26 mmol/L (22-30); Chloride 100 mmol/L (98-107); Estimated CRCL calculation 53 ml/min; Estimated Glomerular Filt Rate 56; Glucose 182 mg/dL (65-110); Potassium 3.9 mmol/L (3.4-5.0); Sodium 129 mmol/L (137-145)
[2022-01-23 07:59] LABS: Glucose Point of Care 155 mg/dl (65-105)
[2022-01-23 08:00] VITALS: O2SAT 100
[2022-01-23 09:22] VITALS: PULSE 62
[2022-01-23] MEDS: amLODIPine BESYLATE 5 MG TABLET 10 MG PO (09:22)
[2022-01-23] MEDS: lisinopriL 20 MG TABLET 40 MG PO (09:22)
[2022-01-23] MEDS: ATORVASTATIN 40 MG TABLET PO (09:22)
[2022-01-23] MEDS: atenoloL 50 MG TABLET 100 MG PO (09:22)
[2022-01-23] MEDS: CLOPIDOGREL BISULFATE 75 MG TABLET PO (09:23)
[2022-01-23] MEDS: ASPIRIN 81 MG ENTERIC TABLET PO (09:23)
--- NOTE | 2022-01-23 11:50 | PC.NURSE ---
Pt transferred to [address]
[2022-01-23 12:10] LABS: Glucose Point of Care 286 mg/dl (65-105)
--- NOTE | 2022-01-23 12:14 | PM.IMPN ---
Progress Note: A&P Assessment and Plan (1) Leukocytosis: Code(s): D72.829 - Elevated white blood cell count, unspecified Status: Acute Assessment and Plan: [place] [id number] today, cultures are negative to date (2) Pyelonephritis of left kidney: Code(s): N12 - Tubulo-interstitial nephritis, not specified as acute or chronic Status: Acute Assessment and Plan: Pt is on iv vancomycin and cefepime, blood cultures are negative to date (3) Liver lesion, right lobe: Code(s): K76.9 - Liver disease, unspecified Status: Acute Assessment and Plan: Sp liver biopsy - results are as follows- The liver shows extensive necrosis with acute inflammation, liver abscess, with no evidence of neoplasm. (4) Chronic hip pain: Code(s): M25.559 - Pain in unspecified hip; G89.29 - Other chronic pain Status: Acute Assessment and Plan: Pt is on chronic pain medication. (5) Diabetes mellitus: Code(s): E11.9 - Type 2 diabetes mellitus without complications Status: Acute Assessment and Plan: Hypoglycemia protocol, Accu-Cheks a.c. HS, sliding scale insulin (6) WALESKA (acute kidney injury): Code(s): N17.9 - Acute kidney failure, unspecified Status: Resolved Assessment and Plan: Resolved with fluids, creat is 1.3 Additional Plan OTHER HISTORY unresponsive episode likely stroke -originally thought to be secondary to orthostatic hypotension he did have a 20 point drop in systolic blood pressure on admission, blood pressure appears to be stable now. 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 Patient's significant other states that at 5:30 a.m. this morning she went to the bathroom when she heard a noise like somebody falling to the floor and went back into her bedroom and found her significant other on the floor. Pt is confused on admission seems to be more lucid today. pt has been treated for pyelonephritis and had liver biopsy for liver masses. 01/22/2022 Pt appears coherent today[place] [id number], continue current iv Abx, hopeful DC in 1-2 days time 01/23/2022 Pt doing well , [place] [id number], continue iv ABX, Dc in 1-2 days time Review of Systems Review of Systems: All systems reviewed & are unremarkable except as noted in HPI and below Exam Narrative: - GENERAL: Pleasant morbidly obese male in no acute distress. - LUNGS: Clear to auscultation bilaterally, no wheezing, rhonchi, or rales. - CARDIOVASCULAR: Regular rate and rhythm. No murmur. No JVD. - ABDOMEN: Soft, some TTP near liver biopsy site - EXTREMITIES: No edema. Peripheral pulses 2+. Non-tender. - NEUROLOGIC: No focal neurological deficits. CN II-XII grossly intact. - PSYCHIATRIC: Awake, Alert and oriented. Appropriate mood and flat affect. - SKIN: No rashes or lesions. Warm. - LYMPH: No cervical lymphadenopathy. Objective Data Vital Signs Vital Signs: Vital Signs - 24 hr 01/22/22 14:00 01/22/22 21:56 01/23/22 06:00 Temperature 35.8 C L 35.9 C L 36.3 C L Pulse Rate 55 L 54 L 57 L Respiratory Rate 18 16 16 Blood Pressure 121/63 132/62 131/72 Pulse Oximetry 96 96 100 01/23/22 09:22 Temperature Pulse Rate 62 Respiratory Rate Blood Pressure Pulse Oximetry Intake/Output Intake/Output: Intake & Output 01/20/22 01/21/22 01/22/22 01/23/22 23:59 23:59 23:59 23
[2022-01-23] MEDS: INSULIN ASPART (*BKC) 100 UNITS/ML SUB-Q ×2 (12:25→17:22)
[2022-01-23 14:00] VITALS: BP 136/57; PULSE 57; RESP 18; TEMP 36.2; O2SAT 94
[2022-01-23 16:34] LABS: Glucose Point of Care 229 mg/dl (65-105)
[2022-01-23 20:03] LABS: Glucose Point of Care 176 mg/dl (65-105)
[2022-01-23] MEDS: INSULIN GLARGINE (*BKC) 100 UNITS/ML 20 UNITS SUB-Q (21:02)
[2022-01-23 22:00] VITALS: BP 155/58; PULSE 62; RESP 20; TEMP 36.9; O2SAT 97
[2022-01-24] MEDS: HYDROcodone/acetaminophen (*CRX) 10-325 MG TABLET 1 TAB PO ×4 (05:40→18:31)
[2022-01-24 06:00] VITALS: BP 176/65; PULSE 62; RESP 18; TEMP 36.3; O2SAT 95
[2022-01-24 06:34] LABS: Anion Gap 2 mmol/L (8-16); Blood Urea Nitrogen 24 mg/dL (9-20); Calcium 8.1 mg/dL (8.4-10.2); Carbon Dioxide 27 mmol/L (22-30); Chloride 102 mmol/L (98-107); Estimated CRCL calculation 53 ml/min; Estimated Glomerular Filt Rate 56; Glucose 102 mg/dL (65-110); Sodium 131 mmol/L (137-145)
[2022-01-24 06:43] LABS: Hematocrit 31.4 % (42.0-52.0); Hemoglobin 10.4 g/dL (14.0-18.0); Mean Corpuscular HGB Conc 33.1 g/dl (32-36); Mean Corpuscular Hemoglobin 31.1 pg (26-34); Mean Platelet Volume 9.3 fl (7.4-10.4); Platelet Count Result 447 k/mm3 (150-375); Red Blood Count 3.34 M/mm3 (4.6-6.20); Red Cell Distribution Width 12.7 % (11.5-14.5); White Blood Count 12.5 K/mm3 (4.5-10.0)
--- NOTE | 2022-01-24 07:06 | PC.NURSE ---
Outpatient referral started for initial DSMT and MNT. [facility]ax[facility].
[2022-01-24 08:15] LABS: Glucose Point of Care 101 mg/dl (65-105)
[2022-01-24 08:18] VITALS: PULSE 56
[2022-01-24] MEDS: atenoloL 50 MG TABLET 100 MG PO (08:18)
[2022-01-24] MEDS: NICOTINE (*PBKC) 21 MG PATCH 1 PATCH TRANSDERM (08:18)
[2022-01-24] MEDS: amLODIPine BESYLATE 5 MG TABLET 10 MG PO (08:19)
[2022-01-24] MEDS: ASPIRIN 81 MG ENTERIC TABLET PO (08:19)
[2022-01-24] MEDS: CLOPIDOGREL BISULFATE 75 MG TABLET PO (08:19)
[2022-01-24] MEDS: ATORVASTATIN 40 MG TABLET PO (08:19)
[2022-01-24] MEDS: lisinopriL 20 MG TABLET 40 MG PO (08:19)
[2022-01-24 11:15] LABS: Glucose Point of Care 206 mg/dl (65-105)
[2022-01-24] MEDS: INSULIN ASPART (*BKC) 100 UNITS/ML SUB-Q ×2 (12:42→17:11)
[2022-01-24 14:00] VITALS: BP 130/58; PULSE 51; RESP 18; TEMP 35.9; O2SAT 97
[2022-01-24 15:50] VITALS: TEMP 37.1
--- NOTE | 2022-01-24 15:52 | PM.IMPN ---
Progress Note: A&P Assessment and Plan (1) Leukocytosis: Code(s): D72.829 - Elevated white blood cell count, unspecified Status: Acute Assessment and Plan: As high as 28,000 remains persistent down to 12,000 today Echocardiogram with ejection fraction 65 to 70% grade 1 diastolic dysfunction no significant valvular disease (2) Pyelonephritis of left kidney: Code(s): N12 - Tubulo-interstitial nephritis, not specified as acute or chronic Status: Acute Assessment and Plan: Pt is on iv vancomycin and cefepime, blood cultures are negative to date No signs of UTI on urinalysis noted (3) Liver lesion, right lobe: Code(s): K76.9 - Liver disease, unspecified Status: Acute Assessment and Plan: CT abdomen and pelvis done on 01/14/2022 Ill-defined irregular hypoattenuating hepatic mass lesions, suggesting hepatic metastatic disease less likely hepatocellular carcinoma. Left mild nephromegaly hand perinephric fat stranding and thickening of the anterior and posterior better renal fossa suggesting pyelonephritis. Thickening of the urinary bladder wall consider cystitis versus prostate may enlargement etiology. Status post ultrasound-guided biopsy of 7.4 cm right hepatic mass: Extensive necrosis with acute inflammation, liver abscess, with no evidence of neoplasm. Blood cultures x2 has been negative done on 01/18/2022 Persistent leukocytosis improved down to 12,000 as high as 22,000 this admission LFTs have worsened alkaline phosphatase 689 on 01/21/2022 with normal AST ALT minimally increased bilirubin, ammonia level normal Veins of persistent pain in the area of biopsy with worsening LFTs will repeat his scan (4) Chronic hip pain: Code(s): M25.559 - Pain in unspecified hip; G89.29 - Other chronic pain Status: Acute Assessment and Plan: Pt is on chronic pain medication. (5) Diabetes mellitus: Code(s): E11.9 - Type 2 diabetes mellitus without complications Status: Acute Assessment and Plan: Hypoglycemia protocol, Accu-Cheks a.c. HS, sliding scale insulin (6) WALESKA (acute kidney injury): Code(s): N17.9 - Acute kidney failure, unspecified Status: Resolved Assessment and Plan: Resolved with fluids, creat is 1.3 Additional Plan unresponsive episode likely stroke -originally thought to be secondary to orthostatic hypotension he did have a 20 point drop in systolic blood pressure on admission, blood pressure appears to be stable now. 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 Patient's significant other states that at 5:30 a.m. this morning she went to the bathroom when she heard a noise like somebody falling to the floor and went back into her bedroom and found her significant other on the floor. Pt is confused on admission seems to be more lucid today. pt has been treated for pyelonephritis and had liver biopsy for liver masses. 01/22/2022 Pt appears coherent today, [place] [address], continue current iv Abx, hopeful DC in 1-2 days time 01/23/2022 [place] doing well , [place] [id number], continue iv ABX, Dc in 1-2 days time 01/24/2022 patient continues to have pain in his right abdomen. It is around the area he had the biopsy done.
[2022-01-24] MEDS: MORPHINE SULFATE (*CRX) 2 MG/ML INJ IV PUSH ×3 (15:55→21:38)
[2022-01-24 16:20] LABS: Glucose Point of Care 259 mg/dl (65-105)
[2022-01-24 16:32] LABS: Alanine Aminotransferase 24 U/L (4-50); Albumin Level 2.8 g/dL (3.5-5.1); Alkaline Phosphatase 906 U/L (38-126); Aspartate Amino Transferase 40 U/L (17-59); Bilirubin,Total 0.8 mg/dL (0.2-1.3)
[2022-01-24 17:42] LABS: Hepatitis B Surface Antigen Negative (Negative)
[2022-01-24 17:48] LABS: HAV RESULT Negative (Negative); Hepatitis B Core IgM Result Negative (Negative)
[2022-01-24 18:00] LABS: Hepatitis C Virus Antibody Negative (Negative)
[2022-01-24] MEDS: metroNIDAZOLE 500 MG/ISO 100ML 500 MG/100 ML BAG 100 MG IVPB (19:02)
[2022-01-24] MEDS: INSULIN GLARGINE (*BKC) 100 UNITS/ML 20 UNITS SUB-Q (21:37)
[2022-01-24 22:00] VITALS: BP 162/59; PULSE 61; RESP 16; TEMP 36.6; O2SAT 97
[2022-01-24 22:02] LABS: Glucose Point of Care 333 mg/dl (65-105)
[2022-01-25] MEDS: HYDROcodone/acetaminophen (*CRX) 10-325 MG TABLET 1 TAB PO ×4 (00:24→21:46)
[2022-01-25] MEDS: metroNIDAZOLE 500 MG/ISO 100ML 500 MG/100 ML BAG 100 MG IVPB ×5 (00:26→23:17)
[2022-01-25] MEDS: MORPHINE SULFATE (*CRX) 2 MG/ML INJ IV PUSH (04:49)
[2022-01-25 06:00] VITALS: BP 152/55; PULSE 54; RESP 16; TEMP 36.4; O2SAT 98
[2022-01-25 07:03] LABS: Glucose Point of Care 152 mg/dl (65-105)
[2022-01-25 07:26] LABS: Basophils Absolute Auto 0.1 K/mm3 (0.0-0.1); Eosinophils Absolute Auto 0.3 K/mm3 (0-0.3); Eosinophils Percent Auto 2.9 % (0-4.4); Hematocrit 32.7 % (42.0-52.0); Hemoglobin 10.5 g/dL (14.0-18.0); Immature Granulocyte Absolute 0.26 K/mm3 (0.00-0.031); Immature Granulocyte Percent A 2.3 % (0-0.5); Lymphocytes Absolute Auto 1.48 K/mm3 (0.9-3.2); Lymphocytes Percent Auto 12.9 % (18.3-44.2); Mean Corpuscular HGB Conc 32.1 g/dl (32-36); Mean Corpuscular Volume 96.5 fl (80-100); Mean Platelet Volume 9.4 fl (7.4-10.4); Monocytes Absolute Auto 1.1 K/mm3 (0.1-0.6); Monocytes Percent Auto 9.7 % (2.6-8.5); Neutrophils Absolute Auto 8.2 K/mm3 (1.3-6.7); Neutrophils Percent Auto 71.2 % (45.5-73.1); Platelet Count Result 448 k/mm3 (150-375); Red Blood Count 3.39 M/mm3 (4.6-6.20); Red Cell Distribution Width 12.9 % (11.5-14.5); White Blood Count 11.4 K/mm3 (4.5-10.0)
[2022-01-25 07:38] LABS: Alanine Aminotransferase 23 U/L (4-50); Albumin Level 2.9 g/dL (3.5-5.1); Alkaline Phosphatase 883 U/L (38-126); Anion Gap 6 mmol/L (8-16); Aspartate Amino Transferase 35 U/L (17-59); Bilirubin,Total 0.9 mg/dL (0.2-1.3); Blood Urea Nitrogen 22 mg/dL (9-20); Calcium 8.3 mg/dL (8.4-10.2); Carbon Dioxide 26 mmol/L (22-30); Chloride 101 mmol/L (98-107); Estimated CRCL calculation 57 ml/min; Estimated Glomerular Filt Rate > 60; Glucose 146 mg/dL (65-110); Magnesium 1.9 mg/dL (1.6-2.3); Potassium 4.1 mmol/L (3.4-5.0); Sodium 133 mmol/L (137-145)
[2022-01-25 07:53] LABS: Glucose Point of Care 141 mg/dl (65-105)
[2022-01-25 08:00] VITALS: PULSE 54; RESP 16; O2SAT 98
[2022-01-25 09:49] LABS: Vancomycin Trough 13.7 ug/mL (10.0-20.0)
[2022-01-25 11:44] LABS: Glucose Point of Care 167 mg/dl (65-105)
[2022-01-25] MEDS: ATORVASTATIN 40 MG TABLET PO (12:37)
[2022-01-25] MEDS: atenoloL 50 MG TABLET 100 MG PO (12:37)
[2022-01-25] MEDS: ASPIRIN 81 MG ENTERIC TABLET PO (12:37)
[2022-01-25] MEDS: lisinopriL 20 MG TABLET 40 MG PO (12:37)
[2022-01-25] MEDS: amLODIPine BESYLATE 5 MG TABLET 10 MG PO (12:37)
[2022-01-25] MEDS: NICOTINE (*PBKC) 21 MG PATCH 1 PATCH TRANSDERM (12:38)
[2022-01-25 14:00] VITALS: BP 142/64; PULSE 62; RESP 14; TEMP 36.4; O2SAT 95
--- NOTE | 2022-01-25 14:50 | PM.IMPN ---
Progress Note: A&P Assessment and Plan (1) Leukocytosis: Code(s): D72.829 - Elevated white blood cell count, unspecified Status: Acute Assessment and Plan: As high as 28,000 remains persistent down to 12,000 today Echocardiogram with ejection fraction 65 to 70% grade 1 diastolic dysfunction no significant valvular disease (2) Pyelonephritis of left kidney: Code(s): N12 - Tubulo-interstitial nephritis, not specified as acute or chronic Status: Acute Assessment and Plan: Pt is on iv vancomycin and cefepime, blood cultures are negative to date No signs of UTI on urinalysis noted (3) Liver lesion, right lobe: Code(s): K76.9 - Liver disease, unspecified Status: Acute Assessment and Plan: CT abdomen and pelvis done on 01/14/2022 Ill-defined irregular hypoattenuating hepatic mass lesions, suggesting hepatic metastatic disease less likely hepatocellular carcinoma. Left mild nephromegaly hand perinephric fat stranding and thickening of the anterior and posterior better renal fossa suggesting pyelonephritis. Thickening of the urinary bladder wall consider cystitis versus prostate may enlargement etiology. Status post ultrasound-guided biopsy of 7.4 cm right hepatic mass: Extensive necrosis with acute inflammation, liver abscess, with no evidence of neoplasm. Blood cultures x2 has been negative done on 01/18/2022 Persistent leukocytosis improved down to 12,000 as high as 22,000 this admission LFTs have worsened alkaline phosphatase 689 on 01/21/2022 with normal AST ALT minimally increased bilirubin, ammonia level normal Veins of persistent pain in the area of biopsy with worsening LFTs will repeat his scan CT abdomen pelvis with worsening liver abscess. Discussed with radiologist 01/01 plan for percutaneous drainage. Plavix on hold Plan for drainage is on 01/26/2022 Added Flagyl for anaerobic coverage (4) Chronic hip pain: Code(s): M25.559 - Pain in unspecified hip; G89.29 - Other chronic pain Status: Acute Assessment and Plan: Pt is on chronic pain medication. (5) Diabetes mellitus: Code(s): E11.9 - Type 2 diabetes mellitus without complications Status: Acute Assessment and Plan: Hypoglycemia protocol, Accu-Cheks a.c. HS, sliding scale insulin (6) WALESKA (acute kidney injury): Code(s): N17.9 - Acute kidney failure, unspecified Status: Resolved Assessment and Plan: Resolved with fluids, creat is 1.3 (7) Shingles: Code(s): B02.9 - Zoster without complications Status: Acute Assessment and Plan: New finding since 01/24/2022 now with vesicular eruptions noted today Start acyclovir Also had gabapentin Continue IV morphine and hydrocodone as ordered Additional Plan unresponsive episode likely stroke -originally thought to be secondary to orthostatic hypotension he did have a 20 point drop in systolic blood pressure on admission, blood pressure appears to be stable now. 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 Patient's significant other states that at 5:30 a.m. this morning she went to the bathroom when she heard a noise like somebody falling to the floor and went back into her bedroom and foun
[2022-01-25 16:57] LABS: Glucose Point of Care 266 mg/dl (65-105)
[2022-01-25] MEDS: GABAPENTIN 100 MG CAPSULE PO (17:26)
[2022-01-25] MEDS: INSULIN ASPART (*BKC) 100 UNITS/ML SUB-Q (17:30)
[2022-01-25] MEDS: INSULIN GLARGINE (*BKC) 100 UNITS/ML 20 UNITS SUB-Q (20:47)
[2022-01-25] MEDS: NYSTATIN 100,000 UNITS/ML SUSP 5 ML ORAL.SUSP PO (20:59)
[2022-01-25 21:00] LABS: Glucose Point of Care 319 mg/dl (65-105)
[2022-01-25] MEDS: ACYCLOVIR SODIUM IVPB 800 MG in DEXTROSE 5% IN WATER 250 ML 266 MG IVPB (21:45)
[2022-01-25 22:00] VITALS: BP 150/59; PULSE 55; RESP 16; TEMP 36.3; O2SAT 98
[2022-01-26] MEDS: MORPHINE SULFATE (*CRX) 2 MG/ML INJ IV PUSH ×3 (02:09→15:14)
[2022-01-26] MEDS: metroNIDAZOLE 500 MG/ISO 100ML 500 MG/100 ML BAG 100 MG IVPB ×4 (05:05→23:29)
[2022-01-26 06:00] VITALS: BP 162/61; PULSE 60; RESP 16; TEMP 37.5; O2SAT 95
[2022-01-26] MEDS: ACYCLOVIR SODIUM IVPB 800 MG in DEXTROSE 5% IN WATER 250 ML 266 MG IVPB ×2 (06:10→22:06)
[2022-01-26 06:30] LABS: Basophils Absolute Auto 0.1 K/mm3 (0.0-0.1); Basophils Percent Auto 1.1 % (0.2-1.2); Eosinophils Absolute Auto 0.3 K/mm3 (0-0.3); Eosinophils Percent Auto 2.3 % (0-4.4); Hematocrit 32.8 % (42.0-52.0); Hemoglobin 10.6 g/dL (14.0-18.0); Immature Granulocyte Absolute 0.26 K/mm3 (0.00-0.031); Immature Granulocyte Percent A 2.4 % (0-0.5); Lymphocytes Percent Auto 13.9 % (18.3-44.2); Mean Corpuscular HGB Conc 32.3 g/dl (32-36); Mean Corpuscular Volume 95.9 fl (80-100); Mean Platelet Volume 8.8 fl (7.4-10.4); Monocytes Absolute Auto 1.1 K/mm3 (0.1-0.6); Monocytes Percent Auto 10.1 % (2.6-8.5); Neutrophils Absolute Auto 7.6 K/mm3 (1.3-6.7); Neutrophils Percent Auto 70.2 % (45.5-73.1); Platelet Count Result 439 k/mm3 (150-375); Red Blood Count 3.42 M/mm3 (4.6-6.20); Red Cell Distribution Width 12.8 % (11.5-14.5); White Blood Count 10.8 K/mm3 (4.5-10.0)
[2022-01-26 06:45] LABS: Alanine Aminotransferase 19 U/L (4-50); Alkaline Phosphatase 873 U/L (38-126); Anion Gap 4 mmol/L (8-16); Aspartate Amino Transferase 39 U/L (17-59); Bilirubin,Total 0.7 mg/dL (0.2-1.3); Blood Urea Nitrogen 26 mg/dL (9-20); Calcium 8.3 mg/dL (8.4-10.2); Carbon Dioxide 28 mmol/L (22-30); Chloride 101 mmol/L (98-107); Estimated CRCL calculation 53 ml/min; Estimated Glomerular Filt Rate 56; Glucose 192 mg/dL (65-110); Magnesium 1.9 mg/dL (1.6-2.3); Potassium 4.1 mmol/L (3.4-5.0); Sodium 133 mmol/L (137-145)
[2022-01-26 07:36] LABS: Glucose Point of Care 195 mg/dl (65-105)
[2022-01-26 08:08] VITALS: PULSE 68
[2022-01-26] MEDS: lisinopriL 20 MG TABLET 40 MG PO (08:08)
[2022-01-26] MEDS: atenoloL 50 MG TABLET 100 MG PO (08:08)
[2022-01-26] MEDS: ATORVASTATIN 40 MG TABLET PO (08:08)
[2022-01-26] MEDS: NICOTINE (*PBKC) 21 MG PATCH 1 PATCH TRANSDERM (08:09)
[2022-01-26] MEDS: ASPIRIN 81 MG ENTERIC TABLET PO (08:09)
[2022-01-26] MEDS: amLODIPine BESYLATE 5 MG TABLET 10 MG PO (08:09)
[2022-01-26] MEDS: NYSTATIN 100,000 UNITS/ML SUSP 5 ML ORAL.SUSP PO (08:10)
[2022-01-26] MEDS: HYDROcodone/acetaminophen (*CRX) 10-325 MG TABLET 1 TAB PO ×4 (08:22→22:10)
[2022-01-26] MEDS: GABAPENTIN 100 MG CAPSULE PO ×3 (10:05→17:23)
[2022-01-26 12:03] LABS: Glucose Point of Care 184 mg/dl (65-105)
--- NOTE | 2022-01-26 13:58 | PM.IMPN ---
Progress Note: A&P Assessment and Plan (1) Leukocytosis: Code(s): D72.829 - Elevated white blood cell count, unspecified Status: Acute Assessment and Plan: As high as 28,000 remains persistent but continues to improve Echocardiogram with ejection fraction 65 to 70% grade 1 diastolic dysfunction no significant valvular disease (2) Pyelonephritis of left kidney: Code(s): N12 - Tubulo-interstitial nephritis, not specified as acute or chronic Status: Acute Assessment and Plan: Pt is on iv vancomycin and cefepime, blood cultures are negative to date No signs of UTI on urinalysis noted (3) Liver lesion, right lobe: Code(s): K76.9 - Liver disease, unspecified Status: Acute Assessment and Plan: CT abdomen and pelvis done on 01/14/2022 Ill-defined irregular hypoattenuating hepatic mass lesions, suggesting hepatic metastatic disease less likely hepatocellular carcinoma. Left mild nephromegaly hand perinephric fat stranding and thickening of the anterior and posterior better renal fossa suggesting pyelonephritis. Thickening of the urinary bladder wall consider cystitis versus prostate may enlargement etiology. Status post ultrasound-guided biopsy of 7.4 cm right hepatic mass: Extensive necrosis with acute inflammation, liver abscess, with no evidence of neoplasm. Blood cultures x2 has been negative done on 01/18/2022 Persistent leukocytosis improved down to 12,000 as high as 22,000 this admission LFTs have worsened alkaline phosphatase 689 on 01/21/2022 with normal AST ALT minimally increased bilirubin, ammonia level normal Veins of persistent pain in the area of biopsy with worsening LFTs will repeat his scan CT abdomen pelvis with worsening liver abscess. Discussed with radiologist 01/01 plan for percutaneous drainage. Plavix on hold Plan for drainage is on 01/27/2022 due to Plavix on board Added Flagyl for anaerobic coverage (4) Chronic hip pain: Code(s): M25.559 - Pain in unspecified hip; G89.29 - Other chronic pain Status: Acute Assessment and Plan: Pt is on chronic pain medication. (5) Diabetes mellitus: Code(s): E11.9 - Type 2 diabetes mellitus without complications Status: Acute Assessment and Plan: Hypoglycemia protocol, Accu-Cheks a.c. HS, sliding scale insulin (6) WALESKA (acute kidney injury): Code(s): N17.9 - Acute kidney failure, unspecified Status: Resolved Assessment and Plan: Resolved with fluids, creat is 1.3 (7) Shingles: Code(s): B02.9 - Zoster without complications Status: Acute Assessment and Plan: New finding since 01/24/2022 now with vesicular eruptions noted today Start acyclovir Also had gabapentin Continue IV morphine and hydrocodone as ordered Additional Plan unresponsive episode likely stroke -originally thought to be secondary to orthostatic hypotension he did have a 20 point drop in systolic blood pressure on admission, blood pressure appears to be stable now. 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 -negative carotid duplex -neurology note with recommends for 3 weeks aspirin Plavix then aspirin alone treat like stroke -PT/OT consulted essential hypertension: home meds amlodipine, atenolol, lisinopril, Aldactone, Lasix hyperlipidemia: Continue Lipitor Anemia mild no signs of bleeding continue to monitor Thrombo cytosis suggestive of ongoing inflammation Hyponatremia on admission 128 remains stable Stomatitis 01/26/2022 will add fluconazole also on Magic mouthwash Subjective Date/time seen: 01/26/22 13:58 Interval history: 66-year-old gentlemen who presented emergency room with complaints of altered mental status. Patient's significant other states that at 5:30 a.m. this morning she went to the bathroom wh
[2022-01-26 14:00] VITALS: BP 135/58; PULSE 57; RESP 18; TEMP 35.9; O2SAT 96
[2022-01-26] MEDS: ACYCLOVIR SODIUM IVPB 800 MG in DEXTROSE 5% IN WATER 250 ML 125 MG IVPB (15:06)
[2022-01-26 17:00] LABS: Glucose Point of Care 435 mg/dl (65-105)
[2022-01-26 17:00] LABS: Glucose Point of Care 423 mg/dl (65-105)
[2022-01-26] MEDS: INSULIN ASPART (*BKC) 100 UNITS/ML 8 UNITS SUB-Q (17:08)
[2022-01-26] MEDS: INSULIN ASPART (*BKC) 100 UNITS/ML SUB-Q ×2 (17:08→21:48)
[2022-01-26] MEDS: FLUCONAZOLE 100 MG/NACL 50 ML 100 MG/50 ML BTL 50 MG IVPB (17:16)
[2022-01-26 20:00] VITALS: PULSE 62; RESP 16; O2SAT 96
[2022-01-26 20:37] LABS: Glucose Point of Care 345 mg/dl (65-105)
[2022-01-26 21:47] VITALS: BP 148/64; PULSE 58; RESP 16; TEMP 36.4; O2SAT 96
[2022-01-26] MEDS: INSULIN GLARGINE (*BKC) 100 UNITS/ML 20 UNITS SUB-Q (21:48)
[2022-01-26 23:16] VITALS: TEMP 36.4
[2022-01-27] VITALS (12 sets, daily range): BP systolic 104–149; BP diastolic 42–85; PULSE 52–58; RESP 16–22; TEMP 36.1–36.5; O2SAT 92–98
[2022-01-27] MEDS: metroNIDAZOLE 500 MG/ISO 100ML 500 MG/100 ML BAG 100 MG IVPB ×3 (05:10→17:16)
[2022-01-27] MEDS: HYDROcodone/acetaminophen (*CRX) 10-325 MG TABLET 1 TAB PO ×3 (05:48→20:57)
[2022-01-27] MEDS: ACYCLOVIR SODIUM IVPB 800 MG in DEXTROSE 5% IN WATER 250 ML 266 MG IVPB ×3 (06:00→22:00)
[2022-01-27 06:35] LABS: Basophils Absolute Auto 0.1 K/mm3 (0.0-0.1); Basophils Percent Auto 1.2 % (0.2-1.2); Eosinophils Absolute Auto 0.1 K/mm3 (0-0.3); Eosinophils Percent Auto 1.2 % (0-4.4); Hematocrit 31.2 % (42.0-52.0); Hemoglobin 10.2 g/dL (14.0-18.0); Immature Granulocyte Absolute 0.18 K/mm3 (0.00-0.031); Immature Granulocyte Percent A 2.1 % (0-0.5); Lymphocytes Absolute Auto 1.22 K/mm3 (0.9-3.2); Lymphocytes Percent Auto 14.5 % (18.3-44.2); Mean Corpuscular HGB Conc 32.7 g/dl (32-36); Mean Corpuscular Hemoglobin 31.3 pg (26-34); Mean Corpuscular Volume 95.7 fl (80-100); Mean Platelet Volume 9.3 fl (7.4-10.4); Monocytes Absolute Auto 0.9 K/mm3 (0.1-0.6); Monocytes Percent Auto 10.4 % (2.6-8.5); Neutrophils Percent Auto 70.6 % (45.5-73.1); Platelet Count Result 409 k/mm3 (150-375); Red Blood Count 3.26 M/mm3 (4.6-6.20); Red Cell Distribution Width 12.6 % (11.5-14.5); White Blood Count 8.4 K/mm3 (4.5-10.0)
[2022-01-27 06:49] LABS: Alanine Aminotransferase 17 U/L (4-50); Albumin Level 2.8 g/dL (3.5-5.1); Alkaline Phosphatase 707 U/L (38-126); Anion Gap 2 mmol/L (8-16); Aspartate Amino Transferase 38 U/L (17-59); Bilirubin,Total 0.6 mg/dL (0.2-1.3); Blood Urea Nitrogen 25 mg/dL (9-20); Calcium 8.3 mg/dL (8.4-10.2); Carbon Dioxide 29 mmol/L (22-30); Chloride 102 mmol/L (98-107); Estimated CRCL calculation 62 ml/min; Estimated Glomerular Filt Rate > 60; Glucose 179 mg/dL (65-110); Potassium 4.6 mmol/L (3.4-5.0); Sodium 133 mmol/L (137-145)
[2022-01-27 08:07] LABS: Glucose Point of Care 210 mg/dl (65-105)
[2022-01-27] MEDS: INSULIN ASPART (*BKC) 100 UNITS/ML 8 UNITS SUB-Q ×2 (08:39→17:18)
[2022-01-27] MEDS: INSULIN ASPART (*BKC) 100 UNITS/ML SUB-Q ×2 (08:39→17:18)
[2022-01-27] MEDS: FLUCONAZOLE 100 MG/NACL 50 ML 100 MG/50 ML BTL 50 MG IVPB (08:41)
[2022-01-27] MEDS: ASPIRIN 81 MG ENTERIC TABLET PO (08:41)
[2022-01-27] MEDS: amLODIPine BESYLATE 5 MG TABLET 10 MG PO (08:41)
[2022-01-27] MEDS: NICOTINE (*PBKC) 21 MG PATCH 1 PATCH TRANSDERM (08:44)
[2022-01-27] MEDS: GABAPENTIN 100 MG CAPSULE PO ×3 (08:44→17:17)
[2022-01-27] MEDS: ATORVASTATIN 40 MG TABLET PO (08:45)
[2022-01-27] MEDS: lisinopriL 20 MG TABLET 40 MG PO (10:24)
--- NOTE | 2022-01-27 10:43 | PC.NURSE ---
This patient, García Puente, was transferred to [[facility] ] on 01/27/22 at 1044.
--- NOTE | 2022-01-27 11:34 | WPDMODSED ---
Moderate Sedation Note-Pt Data Patient Data Allergies Allergy/AdvReac Type Severity Reaction Status Date / Time Contrast Media Allergy Unknown ANAPHYLAXIS Uncoded 01/13/22 12:11 Home Medications Medication Instructions Recorded Confirmed Type amlodipine 10 mg PO DAILY 07/21/21 01/13/22 History atenolol 100 mg PO DAILY 07/21/21 01/13/22 History atorvastatin 40 mg PO DAILY 07/21/21 01/13/22 History furosemide 20 mg PO DAILY 07/21/21 01/13/22 History hydrocodone-acetaminophen 10 tablet PO TID 07/21/21 01/13/22 History insulin glargine-lixisenatide 55 unit SUBCUT DAILY 07/21/21 01/13/22 History [Soliqua 100/33] lisinopril 40 mg PO DAILY 07/21/21 01/13/22 History duloxetine 30 mg PO DAILY 01/13/22 01/13/22 History spironolactone 25 mg PO DAILY 01/13/22 01/13/22 History Current Medications: Active Medications Hydrocodone Bitart/Acetaminophen (Hydrocodone/Acetaminophen (*Crx) 10-325 Mg Tablet) 1 tab PO Q4H PRN PRN Reason: Pain Rated 7-10 Last Admin: 01/27/22 10:24 Dose: 1 tab Documented by: Amlodipine Besylate (Amlodipine Besylate 5 Mg Tablet) 10 mg PO DAILY [facility] Last Admin: 01/27/22 08:41 Dose: 10 mg Documented by: Aspirin (Aspirin 81 Mg Enteric Tablet) 81 mg PO QAM [facility] Last Admin: 01/27/22 08:41 Dose: 81 mg Documented by: Atenolol (Atenolol 50 Mg Tablet) 100 mg PO DAILY [facility] Last Admin: 01/27/22 08:43 Dose: Not Given Documented by: Atorvastatin Calcium (Atorvastatin 40 Mg Tablet) 40 mg PO DAILY [facility] Last Admin: 01/27/22 08:45 Dose: 40 mg Documented by: Nystatin 60 ml/ Dexamethasone Sodium Phosphate 4 mg/Acetaminophen 2,880 mg/Tetracycline HCl 500 mg/Diphenhydramine HCl 225 mg 0 ml PO ACHS [facility] Last Admin: 01/27/22 06:01 Dose: 20 ml Documented by: Dextrose (Dextrose 50% 25 Gm/50 Ml Syringe) 12.5 gm IV PUSH PRN PRN; Protocol PRN Reason: Hypoglycemia Last Admin: 01/20/22 06:35 Dose: 12.5 gm Documented by: Gabapentin (Gabapentin 100 Mg Capsule) 100 mg PO TID [facility] Last Admin: 01/27/22 08:44 Dose: 100 mg Documented by: Glucagon (Glucagon For Inj 1 Mg Vial) 1 mg IM PRN PRN; Protocol PRN Reason: Hypoglycemia Glucose (Glucose Oral Gel 15 Gm Of Glucse In 37.5 Gm Tube) 15 gm PO PRN PRN; Protocol PRN Reason: Hypoglycemia Dextrose (Dextrose 5% 1,000 Ml) 1,000 mls @ 100 mls/hr IVPB PRN PRN; Protocol PRN Reason: Hypoglycemia Cefepime HCl (Maxipime 2 Gm/D5w 50 Ml) 2 gm in 50 mls @ 100 mls/hr IVPB Q12H [facility] Last Admin: 01/27/22 08:38 Dose: 100 mls/hr Documented by: Vancomycin HCl (Vancomycin 1,500 Mg/D5w 500 Ml) 1,500 mg in 500 mls @ 333.333 mls/hr IVPB Q24H [facility] Last Infusion: 01/26/22 14:28 Dose: Infused Documented by: Metronidazole (Flagyl 500 Mg/Iso Soln 100 Ml) 500 mg in 100 mls @ 100 mls/hr IVPB Q6H [facility] Last Infusion: 01/27/22 06:30 Dose: Infused Documented by: Acyclovir Sodium 800 mg/ (Dextrose) 266 mls @ 266 mls/hr IVPB Q8HR [facility] Last Admin: 01/27/22 06:00 Dose: 266 mls/hr Documented by: Fluconazole/Dextrose (Diflucan 100 Mg/Nacl 50 Ml) 100 mg in 50 mls @ 50 mls/hr IVPB DAILY [facility] Last Admin: 01/27/22 08:41 Dose: 50 mls/hr Documented by: Insulin Aspart (Insulin Aspart (*Bkc) 100 Units/Ml) 8 units 0.083 units/kg (8 units) SUB-Q [facility] Last Admin: 01/27/22 08:39 Dose: 8 units Documented by: Insulin Aspart (Insulin Aspart (*Bkc) 100 Units/Ml) 3 - 6 units SUB-Q [facility]; Protocol Last Admin: 01/27/22 08:39 Dose: 3 units Documented by: Insulin Glargine (Insulin Glargine (*Bkc) 100 Units/Ml) 20 units SUB-Q [facility] Last Admin: 01/26/22 21:48 Dose: 20 units Documented by: Lisinopril (Lisinopril 20 Mg Tablet) 40 mg PO [facility] Last Admin: 01/27/22 10:24 Dose: 40 mg Documented by: Morphine Sulfate (Morphine Sulfate (*Crx) 2 Mg/Ml Inj) 2 mg IV PUSH Q4H PRN PRN Reason: Pain Rated 7-10 Last Admin: 01/26/22 15:14 Dose: 2 mg Documented by: Nicotine (Nicotine (*Pbkc) 21 Mg Patch) 1 patch TRANSDERM [facility] Last Admin: 01/27/22 08:44 Dose: 1 patch Documented
--- NOTE | 2022-01-27 12:18 | PCNFU ---
Nutrition Follow-Up Complete: Inadequate oral intake r/t decreased appetite AEB reported average intake of 40% goal: Pt to meet >50% of estimated nutritional needs Patient is meeting current goal. No new goal. Pt current nutrition is NPO. Nutrition recommendation: DBCC/heart healthy Last recorded weight is 94.3 kg-no new weight to report. Bowel Motility:+BM reported 01/27 Labs Reviewed:Glu 179, Na 133, BUN 25, Hct 31.2,Hgb 10.2 Meds Noted:Norvasc,NovoLog, Lipitor, Maxipime, Flagyl, Lantus Skin: WNL Additional Notes: Patient currently NPO for percutaneous drain placement. Oral Intake has been 80-100% of meals. Monitoring: Will monitor labs, medication, weight, and reported intake every 7 days
[2022-01-27] MEDS: MORPHINE SULFATE (*CRX) 2 MG/ML INJ IV PUSH ×2 (13:08→17:17)
--- NOTE | 2022-01-27 14:21 | PM.IMPN ---
Progress Note: A&P Assessment and Plan (1) Leukocytosis: Code(s): D72.829 - Elevated white blood cell count, unspecified Status: Acute Assessment and Plan: As high as 28,000 remains persistent but continues to improve Echocardiogram with ejection fraction 65 to 70% grade 1 diastolic dysfunction no significant valvular disease (2) Pyelonephritis of left kidney: Code(s): N12 - Tubulo-interstitial nephritis, not specified as acute or chronic Status: Acute Assessment and Plan: Pt is on iv vancomycin and cefepime, blood cultures are negative to date No signs of UTI on urinalysis noted (3) Liver lesion, right lobe: Code(s): K76.9 - Liver disease, unspecified Status: Acute Assessment and Plan: CT abdomen and pelvis done on 01/14/2022 Ill-defined irregular hypoattenuating hepatic mass lesions, suggesting hepatic metastatic disease less likely hepatocellular carcinoma. Left mild nephromegaly hand perinephric fat stranding and thickening of the anterior and posterior better renal fossa suggesting pyelonephritis. Thickening of the urinary bladder wall consider cystitis versus prostate may enlargement etiology. Status post ultrasound-guided biopsy of 7.4 cm right hepatic mass: Extensive necrosis with acute inflammation, liver abscess, with no evidence of neoplasm. Blood cultures x2 has been negative done on 01/18/2022 Persistent leukocytosis improved down to 12,000 as high as 22,000 this admission LFTs have worsened alkaline phosphatase 689 on 01/21/2022 with normal AST ALT minimally increased bilirubin, ammonia level normal Veins of persistent pain in the area of biopsy with worsening LFTs will repeat his scan CT abdomen pelvis with worsening liver abscess. Discussed with radiologist 01/01 plan for percutaneous drainage. Plavix on hold Status post catheter placement for liver abscess drainage. Purulent fluid sent for culture. Review culture once available Added Flagyl for anaerobic coverage (4) Chronic hip pain: Code(s): M25.559 - Pain in unspecified hip; G89.29 - Other chronic pain Status: Acute Assessment and Plan: Pt is on chronic pain medication. (5) Diabetes mellitus: Code(s): E11.9 - Type 2 diabetes mellitus without complications Status: Acute Assessment and Plan: Hypoglycemia protocol, Accu-Cheks a.c. HS, sliding scale insulin (6) WALESKA (acute kidney injury): Code(s): N17.9 - Acute kidney failure, unspecified Status: Resolved Assessment and Plan: Resolved with fluids, creat is 1.3 (7) Shingles: Code(s): B02.9 - Zoster without complications Status: Acute Assessment and Plan: New finding since 01/24/2022 now with vesicular eruptions noted today Start acyclovir Also had gabapentin Continue IV morphine and hydrocodone as ordered Additional Plan unresponsive episode likely stroke -originally thought to be secondary to orthostatic hypotension he did have a 20 point drop in systolic blood pressure on admission, blood pressure appears to be stable now. 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 -negative carotid duplex -neurology note with recommends for 3 weeks aspirin Plavix then aspirin alone treat like stroke -PT/OT consulted essential hypertension: home meds amlodipine, atenolol, lisinopril, Aldactone, Lasix hyperlipidemia: Continue Lipitor Anemia mild no signs of bleeding continue to monitor Thrombo cytosis suggestive of ongoing inflammation Hyponatremia on admission 128 remains stable Stomatitis 01/26/2022 will add fluconazole also on Magic mouthwash improving clinically Subjective Date/time seen: 01/27/22 14:21 Interval history: 66-year-old gentlemen who presented emergency room with complaints of altered mental status. Osvaldo
--- NOTE | 2022-01-27 14:36 | PCCCNOTE ---
On 01/27/22, the student, [Katie Michael ], provided care and completed [facility] patient. I have reviewed the student's documentation and agree with the findings.
[2022-01-27 17:11] LABS: Glucose Point of Care 234 mg/dl (65-105)
[2022-01-27] MEDS: INSULIN GLARGINE (*BKC) 100 UNITS/ML 20 UNITS SUB-Q (20:31)
[2022-01-27 21:40] LABS: Glucose Point of Care 397 mg/dl (65-105)
[2022-01-28] MEDS: HYDROcodone/acetaminophen (*CRX) 10-325 MG TABLET 1 TAB PO ×5 (01:10→20:56)
[2022-01-28] MEDS: ACYCLOVIR SODIUM IVPB 800 MG in DEXTROSE 5% IN WATER 250 ML 266 MG IVPB ×3 (05:07→21:13)
[2022-01-28 06:00] VITALS: BP 163/65; PULSE 52; RESP 16; TEMP 35.9; O2SAT 95
[2022-01-28] MEDS: metroNIDAZOLE 500 MG/ISO 100ML 500 MG/100 ML BAG 100 MG IVPB ×5 (06:09→23:12)
[2022-01-28 06:57] LABS: Alanine Aminotransferase 21 U/L (4-50); Albumin Level 2.8 g/dL (3.5-5.1); Alkaline Phosphatase 670 U/L (38-126); Anion Gap 4 mmol/L (8-16); Aspartate Amino Transferase 44 U/L (17-59); Bilirubin,Total 0.6 mg/dL (0.2-1.3); Blood Urea Nitrogen 22 mg/dL (9-20); Calcium 7.9 mg/dL (8.4-10.2); Carbon Dioxide 27 mmol/L (22-30); Chloride 98 mmol/L (98-107); Estimated CRCL calculation 62 ml/min; Estimated Glomerular Filt Rate > 60; Glucose 336 mg/dL (65-110); Potassium 4.3 mmol/L (3.4-5.0); Sodium 129 mmol/L (137-145)
[2022-01-28 07:37] LABS: Basophils Absolute Auto 0.1 K/mm3 (0.0-0.1); Basophils Percent Auto 0.9 % (0.2-1.2); Eosinophils Percent Auto 0.4 % (0-4.4); Hemoglobin 10.6 g/dL (14.0-18.0); Immature Granulocyte Absolute 0.16 K/mm3 (0.00-0.031); Immature Granulocyte Percent A 1.9 % (0-0.5); Lymphocytes Absolute Auto 1.54 K/mm3 (0.9-3.2); Lymphocytes Percent Auto 18.1 % (18.3-44.2); Mean Corpuscular HGB Conc 32.1 g/dl (32-36); Mean Corpuscular Hemoglobin 30.7 pg (26-34); Mean Corpuscular Volume 95.7 fl (80-100); Mean Platelet Volume 9.5 fl (7.4-10.4); Monocytes Absolute Auto 0.9 K/mm3 (0.1-0.6); Neutrophils Absolute Auto 5.8 K/mm3 (1.3-6.7); Neutrophils Percent Auto 67.7 % (45.5-73.1); Platelet Count Result 418 k/mm3 (150-375); Red Blood Count 3.45 M/mm3 (4.6-6.20); Red Cell Distribution Width 12.7 % (11.5-14.5); White Blood Count 8.5 K/mm3 (4.5-10.0)
[2022-01-28 08:00] VITALS: O2SAT 95
[2022-01-28 08:04] LABS: Glucose Point of Care 300 mg/dl (65-105)
[2022-01-28] MEDS: INSULIN ASPART (*BKC) 100 UNITS/ML 8 UNITS SUB-Q ×2 (08:48→11:55)
[2022-01-28] MEDS: GABAPENTIN 100 MG CAPSULE PO ×3 (08:49→17:21)
[2022-01-28] MEDS: INSULIN ASPART (*BKC) 100 UNITS/ML SUB-Q ×3 (08:49→17:21)
[2022-01-28] MEDS: ASPIRIN 81 MG ENTERIC TABLET PO (08:50)
[2022-01-28] MEDS: amLODIPine BESYLATE 5 MG TABLET 10 MG PO (08:50)
[2022-01-28] MEDS: NICOTINE (*PBKC) 21 MG PATCH 1 PATCH TRANSDERM (08:50)
[2022-01-28] MEDS: lisinopriL 20 MG TABLET 40 MG PO (08:50)
[2022-01-28] MEDS: ATORVASTATIN 40 MG TABLET PO (08:50)
[2022-01-28] MEDS: atenoloL 50 MG TABLET 100 MG PO (08:50)
[2022-01-28] MEDS: FLUCONAZOLE 100 MG/NACL 50 ML 100 MG/50 ML BTL 50 MG IVPB (09:30)
[2022-01-28 11:21] LABS: Glucose Point of Care 423 mg/dl (65-105)
[2022-01-28] MEDS: INSULIN ASPART (*BKC) 100 UNITS/ML 6 UNITS SUB-Q (12:40)
[2022-01-28 13:46] VITALS: BP 135/55; PULSE 56; RESP 16; TEMP 36.3; O2SAT 94
--- NOTE | 2022-01-28 15:00 | PM.IMPN ---
Progress Note: A&P Assessment and Plan (1) Leukocytosis: Code(s): D72.829 - Elevated white blood cell count, unspecified Status: Acute Assessment and Plan: As high as 28,000 remains persistent but continues to improve Echocardiogram with ejection fraction 65 to 70% grade 1 diastolic dysfunction no significant valvular disease (2) Pyelonephritis of left kidney: Code(s): N12 - Tubulo-interstitial nephritis, not specified as acute or chronic Status: Acute Assessment and Plan: Pt is on iv vancomycin and cefepime, blood cultures are negative to date No signs of UTI on urinalysis noted (3) Liver lesion, right lobe: Code(s): K76.9 - Liver disease, unspecified Status: Acute Assessment and Plan: CT abdomen and pelvis done on 01/14/2022 Ill-defined irregular hypoattenuating hepatic mass lesions, suggesting hepatic metastatic disease less likely hepatocellular carcinoma. Left mild nephromegaly hand perinephric fat stranding and thickening of the anterior and posterior better renal fossa suggesting pyelonephritis. Thickening of the urinary bladder wall consider cystitis versus prostate may enlargement etiology. Status post ultrasound-guided biopsy of 7.4 cm right hepatic mass: Extensive necrosis with acute inflammation, liver abscess, with no evidence of neoplasm. Blood cultures x2 has been negative done on 01/18/2022 Persistent leukocytosis improved down to 12,000 as high as 22,000 this admission LFTs have worsened alkaline phosphatase 689 on 01/21/2022 with normal AST ALT minimally increased bilirubin, ammonia level normal Veins of persistent pain in the area of biopsy with worsening LFTs will repeat his scan CT abdomen pelvis with worsening liver abscess. Discussed with radiologist 01/01 plan for percutaneous drainage. Plavix on hold Status post catheter placement for liver abscess drainage. Purulent fluid sent for culture. Review culture once available Added Flagyl for anaerobic coverage 01/28/2022 currently on vancomycin, cefepime, Flagyl. Wound culture no growth so far. Status post catheter placement for liver abscess drainage. Continue to monitor drain output. Re-scanned in few days once drain output lessens. (4) Chronic hip pain: Code(s): M25.559 - Pain in unspecified hip; G89.29 - Other chronic pain Status: Acute Assessment and Plan: Pt is on chronic pain medication. (5) Diabetes mellitus: Code(s): E11.9 - Type 2 diabetes mellitus without complications Status: Acute Assessment and Plan: Hypoglycemia protocol, Accu-Cheks a.c. HS, sliding scale insulin (6) WALESKA (acute kidney injury): Code(s): N17.9 - Acute kidney failure, unspecified Status: Resolved Assessment and Plan: Resolved with fluids, creat is 1.3 (7) Shingles: Code(s): B02.9 - Zoster without complications Status: Acute Assessment and Plan: New finding since 01/24/2022 now with vesicular eruptions noted today Start acyclovir Also had gabapentin Continue IV morphine and hydrocodone as ordered Additional Plan unresponsive episode likely stroke -originally thought to be secondary to orthostatic hypotension he did have a 20 point drop in systolic blood pressure on admission, blood pressure appears to be stable now. 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
[2022-01-28 16:23] LABS: Glucose Point of Care 310 mg/dl (65-105)
[2022-01-28] MEDS: INSULIN ASPART (*BKC) 100 UNITS/ML 15 UNITS SUB-Q (17:21)
[2022-01-28 20:00] VITALS: PULSE 54; RESP 16; O2SAT 93
[2022-01-28] MEDS: INSULIN GLARGINE (*BKC) 100 UNITS/ML 40 UNITS SUB-Q (20:45)
[2022-01-28 21:48] LABS: Glucose Point of Care 406 mg/dl (65-105)
[2022-01-28 22:00] VITALS: BP 143/55; PULSE 54; RESP 16; TEMP 36.3; O2SAT 93
[2022-01-29] VITALS (9 sets, daily range): BP systolic 148–175; BP diastolic 59–76; PULSE 50–61; RESP 16; TEMP 36.2–36.7; O2SAT 94–97
[2022-01-29] MEDS: HYDROcodone/acetaminophen (*CRX) 10-325 MG TABLET 1 TAB PO ×5 (02:06→18:34)
[2022-01-29] MEDS: metroNIDAZOLE 500 MG/ISO 100ML 500 MG/100 ML BAG 100 MG IVPB ×3 (05:15→18:31)
[2022-01-29] MEDS: ACYCLOVIR SODIUM IVPB 800 MG in DEXTROSE 5% IN WATER 250 ML 266 MG IVPB ×3 (05:18→22:11)
[2022-01-29 08:19] LABS: Glucose Point of Care 358 mg/dl (65-105)
[2022-01-29 08:32] LABS: Basophils Absolute Auto 0.1 K/mm3 (0.0-0.1); Basophils Percent Auto 1.1 % (0.2-1.2); Eosinophils Absolute Auto 0.1 K/mm3 (0-0.3); Eosinophils Percent Auto 0.7 % (0-4.4); Hematocrit 31.8 % (42.0-52.0); Hemoglobin 10.8 g/dL (14.0-18.0); Immature Granulocyte Absolute 0.25 K/mm3 (0.00-0.031); Immature Granulocyte Percent A 2.4 % (0-0.5); Lymphocytes Absolute Auto 2.37 K/mm3 (0.9-3.2); Lymphocytes Percent Auto 23.1 % (18.3-44.2); Mean Corpuscular Volume 91.4 fl (80-100); Mean Platelet Volume 9.1 fl (7.4-10.4); Monocytes Absolute Auto 0.9 K/mm3 (0.1-0.6); Monocytes Percent Auto 8.5 % (2.6-8.5); Neutrophils Absolute Auto 6.6 K/mm3 (1.3-6.7); Neutrophils Percent Auto 64.2 % (45.5-73.1); Platelet Count Result 408 k/mm3 (150-375); Red Blood Count 3.48 M/mm3 (4.6-6.20); Red Cell Distribution Width 12.4 % (11.5-14.5); White Blood Count 10.3 K/mm3 (4.5-10.0)
[2022-01-29 08:43] LABS: Alanine Aminotransferase 23 U/L (4-50); Albumin Level 2.9 g/dL (3.5-5.1); Alkaline Phosphatase 700 U/L (38-126); Anion Gap 6 mmol/L (8-16); Aspartate Amino Transferase 43 U/L (17-59); Bilirubin,Total 0.4 mg/dL (0.2-1.3); Blood Urea Nitrogen 20 mg/dL (9-20); Calcium 8.2 mg/dL (8.4-10.2); Carbon Dioxide 27 mmol/L (22-30); Chloride 96 mmol/L (98-107); Estimated CRCL calculation 68 ml/min; Estimated Glomerular Filt Rate > 60; Glucose 348 mg/dL (65-110); Magnesium 1.8 mg/dL (1.6-2.3); Potassium 4.1 mmol/L (3.4-5.0); Sodium 129 mmol/L (137-145)
[2022-01-29 09:25] LABS: Vancomycin Trough 13.1 ug/mL (10.0-20.0)
[2022-01-29] MEDS: FLUCONAZOLE 100 MG/NACL 50 ML 100 MG/50 ML BTL IVPB (10:37)
[2022-01-29] MEDS: INSULIN ASPART (*BKC) 100 UNITS/ML SUB-Q ×3 (10:50→18:32)
[2022-01-29] MEDS: INSULIN ASPART (*BKC) 100 UNITS/ML 15 UNITS SUB-Q ×3 (10:51→18:32)
[2022-01-29] MEDS: lisinopriL 20 MG TABLET 40 MG PO (10:53)
[2022-01-29] MEDS: amLODIPine BESYLATE 5 MG TABLET 10 MG PO (10:53)
[2022-01-29] MEDS: ATORVASTATIN 40 MG TABLET PO (10:53)
[2022-01-29] MEDS: ASPIRIN 81 MG ENTERIC TABLET PO (10:53)
[2022-01-29] MEDS: GABAPENTIN 100 MG CAPSULE PO ×3 (10:53→18:32)
[2022-01-29] MEDS: NICOTINE (*PBKC) 21 MG PATCH 1 PATCH TRANSDERM (10:54)
[2022-01-29 12:01] LABS: Glucose Point of Care 388 mg/dl (65-105)
[2022-01-29 17:26] LABS: Glucose Point of Care 312 mg/dl (65-105)
--- NOTE | 2022-01-29 17:49 | PM.IMPN ---
Progress Note: A&P Assessment and Plan (1) Leukocytosis: Code(s): D72.829 - Elevated white blood cell count, unspecified Status: Acute Assessment and Plan: As high as 28,000 remains persistent but continues to improve Echocardiogram with ejection fraction 65 to 70% grade 1 diastolic dysfunction no significant valvular disease (2) Pyelonephritis of left kidney: Code(s): N12 - Tubulo-interstitial nephritis, not specified as acute or chronic Status: Acute Assessment and Plan: Pt is on iv vancomycin and cefepime, blood cultures are negative to date No signs of UTI on urinalysis noted (3) Liver lesion, right lobe: Code(s): K76.9 - Liver disease, unspecified Status: Acute Assessment and Plan: CT abdomen and pelvis done on 01/14/2022 Ill-defined irregular hypoattenuating hepatic mass lesions, suggesting hepatic metastatic disease less likely hepatocellular carcinoma. Left mild nephromegaly hand perinephric fat stranding and thickening of the anterior and posterior better renal fossa suggesting pyelonephritis. Thickening of the urinary bladder wall consider cystitis versus prostate may enlargement etiology. Status post ultrasound-guided biopsy of 7.4 cm right hepatic mass: Extensive necrosis with acute inflammation, liver abscess, with no evidence of neoplasm. Blood cultures x2 has been negative done on 01/18/2022 Persistent leukocytosis improved down to 12,000 as high as 22,000 this admission LFTs have worsened alkaline phosphatase 689 on 01/21/2022 with normal AST ALT minimally increased bilirubin, ammonia level normal Veins of persistent pain in the area of biopsy with worsening LFTs will repeat his scan CT abdomen pelvis with worsening liver abscess. Discussed with radiologist 01/01 plan for percutaneous drainage. Plavix on hold Status post catheter placement for liver abscess drainage. Purulent fluid sent for culture. Review culture once available Added Flagyl for anaerobic coverage 01/28/2022 currently on vancomycin, cefepime, Flagyl. Wound culture no growth so far. Status post catheter placement for liver abscess drainage. Continue to monitor drain output. Re-scanned in few days once drain output lessens. 01/29/2022 interval history: patient with liver abscess drain was placed on 01/27/2022 currently patient has about 25 cc a pleural drainage, culture is growing Klebsiella pneumonia, sensitivities pending, patient is currently treated Cefepime, Flagyl and vancomycin, will continue will follow-up and sensitivity and further recommendation to follow, will continue drain until present minimal output. (4) Chronic hip pain: Code(s): M25.559 - Pain in unspecified hip; G89.29 - Other chronic pain Status: Acute Assessment and Plan: Pt is on chronic pain medication. (5) Diabetes mellitus: Code(s): E11.9 - Type 2 diabetes mellitus without complications Status: Acute Assessment and Plan: Hypoglycemia protocol, Accu-Cheks a.c. HS, sliding scale insulin (6) WALESKA (acute kidney injury): Code(s): N17.9 - Acute kidney failure, unspecified Status: Resolved Assessment and Plan: Resolved with fluids, creat is 1.3 (7) Shingles: Code(s): B02.9 - Zoster without complications Status: Acute Assessment and Plan: New finding since 01/24/2022 now with vesicular eruptions noted today Start acyclovir Also had gabapentin Continue IV morphine and hydrocodone as ordered Additional Plan unresponsive episode likely stroke -originally thought to be secondary to orthostatic hypotension he did have a 20 point drop in systolic blood pressure on admission, blood pressure appears to be stable now. 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
[2022-01-29] MEDS: INSULIN GLARGINE (*BKC) 100 UNITS/ML 40 UNITS SUB-Q (20:20)
[2022-01-29 21:12] LABS: Glucose Point of Care 357 mg/dl (65-105)
[2022-01-29] MEDS: MORPHINE SULFATE (*CRX) 2 MG/ML INJ IV PUSH (22:10)
[2022-01-30] MEDS: metroNIDAZOLE 500 MG/ISO 100ML 500 MG/100 ML BAG 100 MG IVPB ×4 (00:09→17:06)
[2022-01-30] MEDS: HYDROcodone/acetaminophen (*CRX) 10-325 MG TABLET 1 TAB PO ×6 (00:09→22:02)
[2022-01-30] MEDS: ACYCLOVIR SODIUM IVPB 800 MG in DEXTROSE 5% IN WATER 250 ML 266 MG IVPB ×3 (05:37→20:31)
[2022-01-30 06:00] VITALS: BP 170/69; PULSE 56; RESP 16; TEMP 36.4; O2SAT 95
[2022-01-30 06:19] LABS: Estimated CRCL calculation 57 ml/min; Estimated Glomerular Filt Rate > 60
[2022-01-30 08:00] VITALS: PULSE 56; RESP 16; O2SAT 95
[2022-01-30] MEDS: NICOTINE (*PBKC) 21 MG PATCH 1 PATCH TRANSDERM (08:17)
[2022-01-30 08:19] VITALS: PULSE 56
[2022-01-30] MEDS: ASPIRIN 81 MG ENTERIC TABLET PO (08:19)
[2022-01-30] MEDS: ATORVASTATIN 40 MG TABLET PO (08:19)
[2022-01-30] MEDS: lisinopriL 20 MG TABLET 40 MG PO (08:19)
[2022-01-30] MEDS: GABAPENTIN 100 MG CAPSULE PO ×3 (08:19→17:07)
[2022-01-30] MEDS: INSULIN ASPART (*BKC) 100 UNITS/ML SUB-Q ×3 (08:20→17:08)
[2022-01-30] MEDS: INSULIN ASPART (*BKC) 100 UNITS/ML 15 UNITS SUB-Q ×3 (08:20→17:07)
[2022-01-30] MEDS: FLUCONAZOLE 100 MG/NACL 50 ML 100 MG/50 ML BTL 50 MG IVPB (08:24)
[2022-01-30 08:39] LABS: Glucose Point of Care 313 mg/dl (65-105)
--- NOTE | 2022-01-30 10:24 | PC.NURSE ---
ct called and stated pt will have to be per medicated r/t pt's allergy to contrast media. Called and informed hospitalist.
--- NOTE | 2022-01-30 11:05 | PC.NURSE ---
Pt to be pre medicated for CT scan with constract r/t allergy to constrast media. Prednisone to be give x3 doses at 01/30/22 2000, 01/31/22 at 300 am, and 01/31/22 at 800 am. Benadryl to be given 50 mg IV push at 800 am, scan at 900 01/31/22.
--- NOTE | 2022-01-30 11:08 | PC.NURSE ---
ct informed of ct scan with constrast for 9 a 01/31/22
[2022-01-30] MEDS: cefTRIAXone 2 GM in SODIUM CHLORIDE 0.9% IV 100 ML 200 ML IVPB (11:19)
[2022-01-30] MEDS: MORPHINE SULFATE (*CRX) 2 MG/ML INJ IV PUSH (11:23)
[2022-01-30 11:49] LABS: Glucose Point of Care 328 mg/dl (65-105)
[2022-01-30 11:54] LABS: Glucose Point of Care 364 mg/dl (65-105)
--- NOTE | 2022-01-30 13:23 | PM.IMPN ---
Progress Note: A&P Assessment and Plan (1) Leukocytosis: Code(s): D72.829 - Elevated white blood cell count, unspecified Status: Acute Assessment and Plan: As high as 28,000 remains persistent but continues to improve Echocardiogram with ejection fraction 65 to 70% grade 1 diastolic dysfunction no significant valvular disease (2) Pyelonephritis of left kidney: Code(s): N12 - Tubulo-interstitial nephritis, not specified as acute or chronic Status: Acute Assessment and Plan: Pt is on iv vancomycin and cefepime, blood cultures are negative to date No signs of UTI on urinalysis noted (3) Liver lesion, right lobe: Code(s): K76.9 - Liver disease, unspecified Status: Acute Assessment and Plan: CT abdomen and pelvis done on 01/14/2022 Ill-defined irregular hypoattenuating hepatic mass lesions, suggesting hepatic metastatic disease less likely hepatocellular carcinoma. Left mild nephromegaly hand perinephric fat stranding and thickening of the anterior and posterior better renal fossa suggesting pyelonephritis. Thickening of the urinary bladder wall consider cystitis versus prostate may enlargement etiology. Status post ultrasound-guided biopsy of 7.4 cm right hepatic mass: Extensive necrosis with acute inflammation, liver abscess, with no evidence of neoplasm. Blood cultures x2 has been negative done on 01/18/2022 Persistent leukocytosis improved down to 12,000 as high as 22,000 this admission LFTs have worsened alkaline phosphatase 689 on 01/21/2022 with normal AST ALT minimally increased bilirubin, ammonia level normal Veins of persistent pain in the area of biopsy with worsening LFTs will repeat his scan CT abdomen pelvis with worsening liver abscess. Discussed with radiologist 01/01 plan for percutaneous drainage. Plavix on hold Status post catheter placement for liver abscess drainage. Purulent fluid sent for culture. Review culture once available Added Flagyl for anaerobic coverage 01/28/2022 currently on vancomycin, cefepime, Flagyl. Wound culture no growth so far. Status post catheter placement for liver abscess drainage. Continue to monitor drain output. Re-scanned in few days once drain output lessens. 01/29/2022 interval history: patient with liver abscess drain was placed on 01/27/2022 currently patient has about 25 cc a pleural drainage, culture is growing Klebsiella pneumonia, sensitivities pending, patient is currently treated Cefepime, Flagyl and vancomycin, will continue will follow-up and sensitivity and further recommendation to follow, will continue drain until present minimal output. 01/30/2022 interval history: patient with liver abscess drain was placed on 01/27/2022 on 01/29 patient has about 25 cc a pleural drainage, culture is growing Klebsiella pneumonia, sensitive to Rocephin, patient is currently treated Cefepime, Flagyl and vancomycin, will stop cefepime and vancomycin will continue Flagyl, and further recommendation to follow, will repeat CT scan of the abdomen to reassess liver abscess, will continue drain until present minimal output. (4) Chronic hip pain: Code(s): M25.559 - Pain in unspecified hip; G89.29 - Other chronic pain Status: Acute Assessment and Plan: Pt is on chronic pain medication. (5) Diabetes mellitus: Code(s): E11.9 - Type 2 diabetes mellitus without complications Status: Acute Assessment and Plan: Hypoglycemia protocol, Accu-Cheks a.c. HS, sliding scale insulin (6) WALESKA (acute kidney injury): Code(s): N17.9 - Acute kidney failure, unspecified Status: Resolved Assessment and Plan: Resolved with fluids, creat is 1.3 (7) Shingles: Code(s): B02.9 - Zoster without complications Status: Acute Assessment and Plan: New finding since 01/24/2022 now with vesicular eruptions noted today Start acyclovir Also had gabapentin Continue IV morphine and hydrocodo
[2022-01-30 14:00] VITALS: BP 151/69; PULSE 72; RESP 18; TEMP 35.7; O2SAT 97
[2022-01-30 16:46] LABS: Glucose Point of Care 252 mg/dl (65-105)
--- NOTE | 2022-01-30 18:07 | PC.NURSE ---
pt incontinent and soiled, requesting to get cleaned up.
[2022-01-30] MEDS: INSULIN GLARGINE (*BKC) 100 UNITS/ML 40 UNITS SUB-Q (20:26)
[2022-01-30] MEDS: predniSONE 10 MG TABLET 50 MG PO (20:27)
[2022-01-30 20:30] VITALS: PULSE 64; RESP 18; O2SAT 95
[2022-01-30 21:31] LABS: Glucose Point of Care 377 mg/dl (65-105)
[2022-01-30 22:00] VITALS: BP 165/81; PULSE 64; RESP 18; TEMP 37.1; O2SAT 95
[2022-01-31] MEDS: metroNIDAZOLE 500 MG/ISO 100ML 500 MG/100 ML BAG 100 MG IVPB ×5 (00:20→23:23)
[2022-01-31] MEDS: HYDROcodone/acetaminophen (*CRX) 10-325 MG TABLET 1 TAB PO ×4 (02:13→20:09)
[2022-01-31] MEDS: predniSONE 10 MG TABLET 50 MG PO ×2 (02:22→08:15)
[2022-01-31] MEDS: ACYCLOVIR SODIUM IVPB 800 MG in DEXTROSE 5% IN WATER 250 ML 266 MG IVPB ×3 (05:17→21:14)
[2022-01-31 06:00] VITALS: BP 151/71; PULSE 65; RESP 20; TEMP 36.3; O2SAT 96
[2022-01-31] MEDS: diphenhydrAMINE HCl INJ 50 MG/ML VIAL IV PUSH (08:12)
[2022-01-31 08:17] VITALS: PULSE 65
[2022-01-31] MEDS: atenoloL 50 MG TABLET 100 MG PO (08:17)
[2022-01-31] MEDS: GABAPENTIN 100 MG CAPSULE PO ×3 (08:17→16:41)
[2022-01-31] MEDS: lisinopriL 20 MG TABLET 40 MG PO (08:18)
[2022-01-31] MEDS: ATORVASTATIN 40 MG TABLET PO (08:18)
[2022-01-31] MEDS: amLODIPine BESYLATE 5 MG TABLET 10 MG PO (08:18)
[2022-01-31] MEDS: ASPIRIN 81 MG ENTERIC TABLET PO (08:19)
[2022-01-31] MEDS: NICOTINE (*PBKC) 21 MG PATCH 1 PATCH TRANSDERM (08:19)
[2022-01-31] MEDS: INSULIN ASPART (*BKC) 100 UNITS/ML 15 UNITS SUB-Q ×4 (08:21→23:48)
[2022-01-31 08:22] LABS: Glucose Point of Care 354 mg/dl (65-105)
[2022-01-31] MEDS: INSULIN ASPART (*BKC) 100 UNITS/ML SUB-Q ×3 (08:22→16:40)
[2022-01-31] MEDS: FLUCONAZOLE 100 MG/NACL 50 ML 100 MG/50 ML BTL 50 MG IVPB (08:30)
[2022-01-31 12:21] LABS: Glucose Point of Care 313 mg/dl (65-105)
[2022-01-31] MEDS: cefTRIAXone 2 GM in SODIUM CHLORIDE 0.9% IV 100 ML 200 ML IVPB (12:34)
[2022-01-31] MEDS: LIDOCAINE HCL 1% LOCAL INJ 2 ML AMPUL 5 ML INFILTRATE (13:40)
[2022-01-31 14:00] VITALS: BP 147/61; PULSE 55; RESP 18; TEMP 35.9; O2SAT 96
[2022-01-31] MEDS: LIDOCAINE 5% PATCH 3 PATCH TRANSDERM (14:49)
[2022-01-31 16:51] LABS: Glucose Point of Care 369 mg/dl (65-105)
--- NOTE | 2022-01-31 16:56 | PM.IMPN ---
Progress Note: A&P Assessment and Plan (1) Leukocytosis: Code(s): D72.829 - Elevated white blood cell count, unspecified Status: Acute Assessment and Plan: As high as 28,000 remains persistent but continues to improve Echocardiogram with ejection fraction 65 to 70% grade 1 diastolic dysfunction no significant valvular disease (2) Pyelonephritis of left kidney: Code(s): N12 - Tubulo-interstitial nephritis, not specified as acute or chronic Status: Acute Assessment and Plan: Pt is on iv vancomycin and cefepime, blood cultures are negative to date No signs of UTI on urinalysis noted (3) Liver lesion, right lobe: Code(s): K76.9 - Liver disease, unspecified Status: Acute Assessment and Plan: CT abdomen and pelvis done on 01/14/2022 Ill-defined irregular hypoattenuating hepatic mass lesions, suggesting hepatic metastatic disease less likely hepatocellular carcinoma. Left mild nephromegaly hand perinephric fat stranding and thickening of the anterior and posterior better renal fossa suggesting pyelonephritis. Thickening of the urinary bladder wall consider cystitis versus prostate may enlargement etiology. Status post ultrasound-guided biopsy of 7.4 cm right hepatic mass: Extensive necrosis with acute inflammation, liver abscess, with no evidence of neoplasm. Blood cultures x2 has been negative done on 01/18/2022 Persistent leukocytosis improved down to 12,000 as high as 22,000 this admission LFTs have worsened alkaline phosphatase 689 on 01/21/2022 with normal AST ALT minimally increased bilirubin, ammonia level normal Veins of persistent pain in the area of biopsy with worsening LFTs will repeat his scan CT abdomen pelvis with worsening liver abscess. Discussed with radiologist 01/01 plan for percutaneous drainage. Plavix on hold Status post catheter placement for liver abscess drainage. Purulent fluid sent for culture. Review culture once available Added Flagyl for anaerobic coverage 01/28/2022 currently on vancomycin, cefepime, Flagyl. Wound culture no growth so far. Status post catheter placement for liver abscess drainage. Continue to monitor drain output. Re-scanned in few days once drain output lessens. 01/29/2022 interval history: patient with liver abscess drain was placed on 01/27/2022 currently patient has about 25 cc a pleural drainage, culture is growing Klebsiella pneumonia, sensitivities pending, patient is currently treated Cefepime, Flagyl and vancomycin, will continue will follow-up and sensitivity and further recommendation to follow, will continue drain until present minimal output. 01/30/2022 interval history: patient with liver abscess drain was placed on 01/27/2022 on 01/29 patient has about 25 cc a pleural drainage, culture is growing Klebsiella pneumonia, sensitive to Rocephin, patient is currently treated Cefepime, Flagyl and vancomycin, will stop cefepime and vancomycin will continue Flagyl, and further recommendation to follow, will repeat CT scan of the abdomen to reassess liver abscess, will continue drain until present minimal output. 01/31/2022 interval history: patient with liver abscess drain was placed on 01/27/2022 on 01/29 patient has about 25 cc a prulent drainage, today dranage is scant, culture is growing Klebsiella pneumonia, sensitive to Rocephin, patient was treated with Cefepime, Flagyl and vancomycin, will stop cefepime and vancomycin will continue Flagyl, start Rocephin,and further recommendation to follow, repeat CT scan of the abdomen showed Right percutaneous hepatic abscess drain along with few small residual likely communicating abscesses within a diffusely hypodense 8.2 x 6.0 x 8.4 cm region of likely phlegmonous change. I calleded [facility] and spoke with Dr. Murguia ID physician and discussed the case, he recommended Rocephin and falgyl for [address] scan of the abdomen in 2 weeks, patient primary care Dr. Chang will follow t
[2022-01-31 21:29] LABS: Glucose Point of Care > 500 mg/dl (65-105)
[2022-01-31 21:33] LABS: Glucose Point of Care > 500 mg/dl (65-105)
[2022-01-31] MEDS: INSULIN ASPART (*BKC) 100 UNITS/ML 25 UNITS SUB-Q (21:43)
[2022-01-31] MEDS: INSULIN GLARGINE (*BKC) 100 UNITS/ML 40 UNITS SUB-Q (21:44)
[2022-01-31 22:00] VITALS: BP 168/86; PULSE 60; RESP 18; TEMP 37; O2SAT 98
[2022-01-31 23:49] LABS: Glucose Point of Care > 500 mg/dl (65-105)
[2022-02-01] MEDS: HYDROcodone/acetaminophen (*CRX) 10-325 MG TABLET 1 TAB PO ×6 (01:05→22:24)
[2022-02-01 02:03] LABS: Glucose Point of Care 449 mg/dl (65-105)
[2022-02-01] MEDS: INSULIN ASPART (*BKC) 100 UNITS/ML 10 UNITS SUB-Q (02:29)
[2022-02-01 05:37] VITALS: BP 164/68; PULSE 51; RESP 20; TEMP 36.3; O2SAT 95
[2022-02-01 05:40] LABS: Glucose Point of Care 297 mg/dl (65-105)
[2022-02-01] MEDS: metroNIDAZOLE 500 MG/ISO 100ML 500 MG/100 ML BAG 100 MG IVPB ×4 (05:41→23:45)
[2022-02-01] MEDS: SALINE LOCK FLUSH 10 ML IV PUSH ×3 (05:42→20:29)
[2022-02-01] MEDS: ACYCLOVIR SODIUM IVPB 800 MG in DEXTROSE 5% IN WATER 250 ML 266 MG IVPB ×3 (06:38→20:27)
[2022-02-01 07:57] LABS: Glucose Point of Care 270 mg/dl (65-105)
[2022-02-01 08:00] VITALS: PULSE 50; RESP 20; O2SAT 95
[2022-02-01] MEDS: INSULIN ASPART (*BKC) 100 UNITS/ML 15 UNITS SUB-Q ×4 (09:13→23:44)
[2022-02-01] MEDS: INSULIN ASPART (*BKC) 100 UNITS/ML SUB-Q ×3 (09:13→17:32)
[2022-02-01] MEDS: ATORVASTATIN 40 MG TABLET PO (09:14)
[2022-02-01] MEDS: amLODIPine BESYLATE 5 MG TABLET 10 MG PO (09:14)
[2022-02-01] MEDS: ASPIRIN 81 MG ENTERIC TABLET PO (09:14)
[2022-02-01] MEDS: lisinopriL 20 MG TABLET 40 MG PO (09:14)
[2022-02-01] MEDS: GABAPENTIN 100 MG CAPSULE PO ×3 (09:15→17:32)
[2022-02-01] MEDS: NICOTINE (*PBKC) 21 MG PATCH 1 PATCH TRANSDERM (09:15)
[2022-02-01] MEDS: LIDOCAINE 5% PATCH 3 PATCH TRANSDERM (09:15)
[2022-02-01] MEDS: FLUCONAZOLE 100 MG/NACL 50 ML 100 MG/50 ML BTL 50 MG IVPB (09:17)
[2022-02-01 09:24] VITALS: PULSE 50
[2022-02-01 11:18] LABS: Glucose Point of Care 354 mg/dl (65-105)
[2022-02-01] MEDS: cefTRIAXone 2 GM in SODIUM CHLORIDE 0.9% IV 100 ML 200 ML IVPB (12:20)
[2022-02-01 13:24] VITALS: BP 146/63; PULSE 56; RESP 20; TEMP 36.4; O2SAT 99
--- NOTE | 2022-02-01 13:59 | P.DS_ITS ---
DS: Summary Time Spent with Patient Time attestation: Total time spent providing and/or coordinating discharge ser vices: DS: Data Data Completed and Pending Labs on day of discharge: Labs from last 24 hours 02/01/22 02/01/22 02/01/22 11:09 07:51 05:35 POC Capillary Glucose 354 H 270 H 297 H 02/01/22 01/31/22 01/31/22 01:59 23:39 21:29 POC Capillary Glucose 449 H > 500 H* > 500 H* 01/31/22 01/31/22 21:26 16:38 POC Capillary Glucose > 500 H* 369 H Preliminary micro results at discharge 01/27/22 12:05 Anaerobic Culture - Preliminary Aspirate Discharge Plan Discharge Attending physician on discharge: Sumanth Vieira Consulting providers: ; Goyo Gusman Discharging Clinician: Sumanth Vieira Patient Disposition: Home Health Service Discharge Instructions: Per Care Coordination, pt. will discharge home with [facility] . [facility] will supply pt. with his IV Rocephin. [facility] will assist with continued education and line care. Pt.'s primary doctor Dr. Chang will follow for Home Health and Infusion Care. Please have channeling machine operator fax discharge information to Dr. Chang's office at . Patient is being discharged home and he will received ceftriaxone 2g IV daily for total of 14 days, Home health nurse will infuse the antibiotics and drain drainage daily and report to his primary care provider, patient will follow up with his primary care provider as soon as possible, patient is instructed if any symptoms redevelop to go to nearest ER. Patient Instructions: Antibiotic Form Stand Alone Forms: General Discharge Information Follow-up/Referrals: Zheng Chang [Other] PHYSICIAN NOT ON STAFF,NONSTAFF [Primary Care Provider] - Discharge Medications: New nicotine [Nicoderm CQ] 21 mg/24 hr Patch 24 Hour 1 patch transdermal QAM Qty: 28 RF: 0 aspirin 81 mg Tablet,Delayed Release (Dr/Ec) 81 mg PO QAM Qty: 30 RF: 0 gabapentin 100 mg Capsule 100 mg PO TID Qty: 90 RF: 0 lidocaine [Lidoderm] 5 % Adhesive Patch,Medicated 3 patch transdermal DAILY Qty: 10 RF: 0 metronidazole [Flagyl] 375 mg capsule 375 mg PO Q8H Qty: 30 RF: 0 Continued atorvastatin 40 mg tablet 40 mg PO DAILY RF: 0 atenolol 100 mg tablet 100 mg PO DAILY RF: 0 hydrocodone-acetaminophen 10-325 mg tablet 10 tablet PO TID RF: 0 amlodipine 10 mg tablet 10 mg PO DAILY RF: 0 lisinopril 40 mg tablet 40 mg PO DAILY RF: 0 Soliqua 100/33 100 unit-33 mcg/mL insulin pen 55 unit SUBCUT DAILY RF: 0 spironolactone 25 mg tablet 25 mg PO DAILY RF: 0 duloxetine 30 mg capsule,delayed release(DR/EC) 30 mg PO DAILY RF: 0 Held furosemide 20 mg tablet 20 mg PO DAILY RF: 0 Hold Instructions: hold until seen by primary care provider Date of admission: 01/15/22 16:21 Primary Care Provider: PHYSICIAN NOT ON STAFF,NONSTAFF Admitting Provider: Patrick James Attending physician on admission: Calin Boone Condition: Guarded Prognosis Quality VTE Prophylaxis VTE prophylaxis: mechanical ordered and pharmacologic ordered
--- NOTE | 2022-02-01 16:02 | PC.NURSE ---
Unable to discharge pt at this time due to home antibiotic not available.
[2022-02-01 16:29] LABS: Glucose Point of Care 334 mg/dl (65-105)
[2022-02-01] MEDS: INSULIN GLARGINE (*BKC) 100 UNITS/ML 40 UNITS SUB-Q (20:26)
[2022-02-01 20:38] LABS: Glucose Point of Care 371 mg/dl (65-105)
[2022-02-01] MEDS: INSULIN ASPART (*BKC) 100 UNITS/ML 12 UNITS SUB-Q (20:42)
[2022-02-01 22:00] VITALS: BP 148/72; PULSE 60; RESP 16; TEMP 36.9; O2SAT 98
[2022-02-01 23:34] LABS: Glucose Point of Care 434 mg/dl (65-105)
--- NOTE | 2022-02-01 23:39 | PC.NURSE ---
At 1999 checked patient blood sugar and it was 371. Patient stated he had just eaten a leslie[employer] peanut butter cup and patient had a large cup of diet soda on his bedside table. Educated patient on correct diabetic nutrition.
[2022-02-02 01:55] LABS: Glucose Point of Care 409 mg/dl (65-105)
[2022-02-02] MEDS: INSULIN ASPART (*BKC) 100 UNITS/ML 12 UNITS SUB-Q (02:11)
[2022-02-02] MEDS: HYDROcodone/acetaminophen (*CRX) 10-325 MG TABLET 1 TAB PO ×2 (03:23→08:45)
[2022-02-02] MEDS: ACYCLOVIR SODIUM IVPB 800 MG in DEXTROSE 5% IN WATER 250 ML 266 MG IVPB (05:09)
[2022-02-02] MEDS: MORPHINE SULFATE (*CRX) 2 MG/ML INJ IV PUSH (05:18)
[2022-02-02] MEDS: SALINE LOCK FLUSH 10 ML IV PUSH (05:21)
[2022-02-02] MEDS: metroNIDAZOLE 500 MG/ISO 100ML 500 MG/100 ML BAG 100 MG IVPB (05:52)
[2022-02-02 06:00] VITALS: BP 151/68; PULSE 56; RESP 16; TEMP 36.4; O2SAT 95
[2022-02-02 06:19] LABS: Glucose Point of Care 267 mg/dl (65-105)
[2022-02-02 08:00] VITALS: PULSE 60; RESP 16; O2SAT 95
[2022-02-02 08:12] LABS: Glucose Point of Care 220 mg/dl (65-105)
[2022-02-02] MEDS: NICOTINE (*PBKC) 21 MG PATCH 1 PATCH TRANSDERM (08:46)
[2022-02-02] MEDS: LIDOCAINE 5% PATCH 3 PATCH TRANSDERM (08:47)
[2022-02-02] MEDS: ASPIRIN 81 MG ENTERIC TABLET PO (08:47)
[2022-02-02] MEDS: GABAPENTIN 100 MG CAPSULE PO (08:47)
[2022-02-02] MEDS: atenoloL 50 MG TABLET 100 MG PO (08:47)
[2022-02-02] MEDS: lisinopriL 20 MG TABLET 40 MG PO (08:47)
[2022-02-02] MEDS: INSULIN ASPART (*BKC) 100 UNITS/ML SUB-Q (08:48)
[2022-02-02] MEDS: amLODIPine BESYLATE 5 MG TABLET 10 MG PO (08:48)
[2022-02-02] MEDS: FLUCONAZOLE 100 MG/NACL 50 ML 100 MG/50 ML BTL 50 MG IVPB (08:48)
[2022-02-02] MEDS: ATORVASTATIN 40 MG TABLET PO (08:48)
[2022-02-02] MEDS: INSULIN ASPART (*BKC) 100 UNITS/ML 15 UNITS SUB-Q (08:49)
[2022-02-02 08:57] VITALS: PULSE 60
[2022-02-02] MEDS: cefTRIAXone 2 GM in SODIUM CHLORIDE 0.9% IV 100 ML IVPB (11:22)
[2022-02-02 11:56] LABS: Glucose Point of Care 114 mg/dl (65-105)
--- NOTE | 2022-02-02 12:56 | P.PNIM_ITS ---
Progress Note: A&P Assessment and Plan (1) Leukocytosis: Code(s): D72.829 - Elevated white blood cell count, unspecified Status: Acute Assessment and Plan: As high as 28,000 remains persistent but continues to improve Echocardiogram with ejection fraction 65 to 70% grade 1 diastolic dysfunction no significant valvular disease (2) Pyelonephritis of left kidney: Code(s): N12 - Tubulo-interstitial nephritis, not specified as acute or chronic Status: Acute Assessment and Plan: Pt is on iv vancomycin and cefepime, blood cultures are negative to date No signs of UTI on urinalysis noted (3) Liver lesion, right lobe: Code(s): K76.9 - Liver disease, unspecified Status: Acute Assessment and Plan: CT abdomen and pelvis done on 01/14/2022 Ill-defined irregular hypoattenuating hepatic mass lesions, suggesting hepatic metastatic disease less likely hepatocellular carcinoma. Left mild nephromegaly hand perinephric fat stranding and thickening of the anterior and posterior better renal fossa suggesting pyelonephritis. Thickening of the urinary bladder wall consider cystitis versus prostate may enlargement etiology. Status post ultrasound-guided biopsy of 7.4 cm right hepatic mass: Extensive necrosis with acute inflammation, liver abscess, with no evidence of neoplasm. Blood cultures x2 has been negative done on 01/18/2022 Persistent leukocytosis improved down to 12,000 as high as 22,000 this admission LFTs have worsened alkaline phosphatase 689 on 01/21/2022 with normal AST ALT minimally increased bilirubin, ammonia level normal Veins of persistent pain in the area of biopsy with worsening LFTs will repeat his scan CT abdomen pelvis with worsening liver abscess. Discussed with radiologist 01/01 plan for percutaneous drainage. Plavix on hold Status post catheter placement for liver abscess drainage. Purulent fluid sent for culture. Review culture once available Added Flagyl for anaerobic coverage 01/28/2022 currently on vancomycin, cefepime, Flagyl. Wound culture no growth so far. Status post catheter placement for liver abscess drainage. Continue to monitor drain output. Re-scanned in few days once drain output lessens. 01/29/2022 interval history: patient with liver abscess drain was placed on 01/27/2022 currently patient has about 25 cc a pleural drainage, culture is growing Klebsiella pneumonia, sensitivities pending, patient is currently treated Cefepime, Flagyl and vancomycin, will continue will follow-up and sensitivity and further recommendation to follow, will continue drain until present minimal output. 01/30/2022 interval history: patient with liver abscess drain was placed on 01/27/2022 on 01/29 patient has about 25 cc a pleural drainage, culture is growing Klebsiella pneumonia, sensitive to Rocephin, patient is currently treated Cefepime, Flagyl and vancomycin, will stop cefepime and vancomycin will continue Flagyl, and further recommendation to follow, will repeat CT scan of the abdomen to reassess liver abscess, will continue drain until present minimal output. 01/31/2022 interval history: patient with liver abscess drain was placed on 01/27/2022 on 01/29 patient has about 25 cc a prulent drainage, today dranage is scant, culture is growing Klebsiella pneumonia, sensitive to Rocephin, patient was treated with Cefepime, Flagyl and vancomycin, will stop cefepime and vancomycin will continue Flagyl, start Rocephin,and further recommendation to follow, repeat CT scan of the abdomen showed Right percutaneous hepatic abscess drain along with few small residual likely communicating abscesses within a diffusely hypodense 8.2 x 6.0 x 8.4 cm re
--- NOTE | 2022-02-02 13:01 | PM.DS ---
DS: Admitting Diagnosis Discharge Date 02/02/22 Admitting Diagnosis Altered mental status DS: Discharge Diagnosis Discharge Diagnosis (1) Leukocytosis: Code(s): D72.829 - Elevated white blood cell count, unspecified Status: Acute Assessment and Plan: As high as 28,000 remains persistent but continues to improve Echocardiogram with ejection fraction 65 to 70% grade 1 diastolic dysfunction no significant valvular disease (2) Pyelonephritis of left kidney: Code(s): N12 - Tubulo-interstitial nephritis, not specified as acute or chronic Status: Acute Assessment and Plan: Pt is on iv vancomycin and cefepime, blood cultures are negative to date No signs of UTI on urinalysis noted (3) Liver lesion, right lobe: Code(s): K76.9 - Liver disease, unspecified Status: Acute Assessment and Plan: CT abdomen and pelvis done on 01/14/2022 Ill-defined irregular hypoattenuating hepatic mass lesions, suggesting hepatic metastatic disease less likely hepatocellular carcinoma. Left mild nephromegaly hand perinephric fat stranding and thickening of the anterior and posterior better renal fossa suggesting pyelonephritis. Thickening of the urinary bladder wall consider cystitis versus prostate may enlargement etiology. Status post ultrasound-guided biopsy of 7.4 cm right hepatic mass: Extensive necrosis with acute inflammation, liver abscess, with no evidence of neoplasm. Blood cultures x2 has been negative done on 01/18/2022 Persistent leukocytosis improved down to 12,000 as high as 22,000 this admission LFTs have worsened alkaline phosphatase 689 on 01/21/2022 with normal AST ALT minimally increased bilirubin, ammonia level normal Veins of persistent pain in the area of biopsy with worsening LFTs will repeat his scan CT abdomen pelvis with worsening liver abscess. Discussed with radiologist 01/01 plan for percutaneous drainage. Plavix on hold Status post catheter placement for liver abscess drainage. Purulent fluid sent for culture. Review culture once available Added Flagyl for anaerobic coverage 01/28/2022 currently on vancomycin, cefepime, Flagyl. Wound culture no growth so far. Status post catheter placement for liver abscess drainage. Continue to monitor drain output. Re-scanned in few days once drain output lessens. 01/29/2022 interval history: patient with liver abscess drain was placed on 01/27/2022 currently patient has about 25 cc a pleural drainage, culture is growing Klebsiella pneumonia, sensitivities pending, patient is currently treated Cefepime, Flagyl and vancomycin, will continue will follow-up and sensitivity and further recommendation to follow, will continue drain until present minimal output. 01/30/2022 interval history: patient with liver abscess drain was placed on 01/27/2022 on 01/29 patient has about 25 cc a pleural drainage, culture is growing Klebsiella pneumonia, sensitive to Rocephin, patient is currently treated Cefepime, Flagyl and vancomycin, will stop cefepime and vancomycin will continue Flagyl, and further recommendation to follow, will repeat CT scan of the abdomen to reassess liver abscess, will continue drain until present minimal output. 01/31/2022 interval history: patient with liver abscess drain was placed on 01/27/2022 on 01/29 patient has about 25 cc a prulent drainage, today dranage is scant, culture is growing Klebsiella pneumonia, sensitive to Rocephin, patient was treated with Cefepime, Flagyl and vancomycin, will stop cefepime and vancomycin will continue Flagyl, start Rocephin,and further recommendation to follow, repeat CT scan of the abdomen showed Right percutaneous hepatic abscess drain along with few small residual likely communicating abscesses within a diffusely hypodense 8.2 x 6.0 x 8.4 cm region of likely phlegmonous change. I calleded [facility] and spoke with Dr. Shantal PRADO physician and discussed the case, he recommended Rocephin and falgyl for
== END 2022-02-02 12:19 | disposition home health service (06) | DRG 312 ==
LOC: ANHED 10:46 → ANH3MEDSUR 11:10
PROVIDERS: Emergency Medicine; Family Medicine; Internal Medicine; Nurse Practitioner Adult Health; Radiology Diagnostic Radiology; Student in an Organized Health Care Education/Training Program; Admitting Provider Internal Medicine; Emergency Provider General Practice; Visit Provider Family Medicine
DX: I95.1 Orthostatic hypotension (principal); K75.0 Abscess of liver; I67.89 Other cerebrovascular disease; N17.9 Acute kidney failure, unspecified; E22.2 Syndrome of inappropriate secretion of antidiuretic hormone; N12 Tubulo-interstitial nephritis, not specified as acute or chronic; Z20.822 Contact with and (suspected) exposure to COVID-19; R47.81 Slurred speech; E11.65 Type 2 diabetes mellitus with hyperglycemia; E78.5 Hyperlipidemia, unspecified; I10 Essential (primary) hypertension; F17.210 Nicotine dependence, cigarettes, uncomplicated; R51.9 Headache, unspecified; I25.2 Old myocardial infarction; E87.6 Hypokalemia; E83.42 Hypomagnesemia; G89.29 Other chronic pain; M25.559 Pain in unspecified hip; M54.30 Sciatica, unspecified side; Z86.73 Personal history of transient ischemic attack (TIA), and cerebral infarction without residual deficits; Z79.4 Long term (current) use of insulin; E66.01 Morbid (severe) obesity due to excess calories; Z68.29 Body mass index [BMI] 29.0-29.9, adult; D64.9 Anemia, unspecified; D75.839 Thrombocytosis, unspecified; B02.9 Zoster without complications; K12.1 Other forms of stomatitis; B96.1 Klebsiella pneumoniae [K. pneumoniae] as the cause of diseases classified elsewhere; R29.6 Repeated falls; E11.43 Type 2 diabetes mellitus with diabetic autonomic (poly)neuropathy; R91.1 Solitary pulmonary nodule
CPT/HCPCS: 36415; 36569; 36600; 47000; 51701; 70450; 70551; 71045; 72125; 73502; 74176; 74177; 75989; 76705; 76942; 80048; 80053; 80074; 80076; 80202; 81001; 82140; 82550; 82565; 82570; 82805; 82948; 83605; 83690; 83735; 83935; 84145; 84300; 84439; 84443; 84480; 84484; 84540; 85025; 85027; 85610; 85652; 85730; 87040; 87070; 87075; 87077; 87186; 87205; 87804; 88307; 93005; 93880; 94762; 95816; 96361; 96372; 96375; 96376; 97161; 97165; 99285; A9270; C1729; C1751; C1769; C8929; C9803; G0378; J0133; J0692; J0696; J1100; J1200; J1450; J1650; J1815; J2060; J2270; J2405; J3010; J3370; J3475; J3480; J7030; J7040; J7060; J7512; Q9957; Q9967; U0003; U0005

== ENCOUNTER 2022-02-10 11:33 | Outpatient (NON) | payer BC, SELFPAY ==
[2022-02-10 12:17] LABS: Basophils Absolute Auto 0.2 K/mm3 (0.0-0.1); Basophils Percent Auto 1.1 % (0.2-1.2); Eosinophils Absolute Auto 0.3 K/mm3 (0-0.3); Eosinophils Percent Auto 1.5 % (0-4.4); Hematocrit 37.6 % (42.0-52.0); Hemoglobin 12.2 g/dL (14.0-18.0); Immature Granulocyte Percent A 1.1 % (0-0.5); Lymphocytes Absolute Auto 2.96 K/mm3 (0.9-3.2); Lymphocytes Percent Auto 16.1 % (18.3-44.2); Mean Corpuscular HGB Conc 32.4 g/dl (32-36); Mean Corpuscular Hemoglobin 31.2 pg (26-34); Mean Corpuscular Volume 96.2 fl (80-100); Mean Platelet Volume 10.6 fl (7.4-10.4); Monocytes Absolute Auto 1.1 K/mm3 (0.1-0.6); Monocytes Percent Auto 6.2 % (2.6-8.5); Neutrophils Absolute Auto 13.6 K/mm3 (1.3-6.7); Platelet Count Result 342 k/mm3 (150-375); Red Blood Count 3.91 M/mm3 (4.6-6.20); Red Cell Distribution Width 14.8 % (11.5-14.5); White Blood Count 18.4 K/mm3 (4.5-10.0)
[2022-02-10 12:28] LABS: Alanine Aminotransferase 18 U/L (4-50); Albumin Level 3.4 g/dL (3.5-5.1); Alkaline Phosphatase 246 U/L (38-126); Anion Gap 6 mmol/L (8-16); Aspartate Amino Transferase 30 U/L (17-59); Bilirubin,Total 0.4 mg/dL (0.2-1.3); Blood Urea Nitrogen 23 mg/dL (9-20); Calcium 8.9 mg/dL (8.4-10.2); Carbon Dioxide 28 mmol/L (22-30); Chloride 103 mmol/L (98-107); Estimated Glomerular Filt Rate > 60; Glucose 136 mg/dL (65-110); Potassium 3.9 mmol/L (3.4-5.0); Sodium 137 mmol/L (137-145)
== END 2022-02-10 11:34 | disposition home or self-care (01) ==
LOC: HOME HLTH 11:36
PROVIDERS: Visit Provider Internal Medicine
DX: R78.81 Bacteremia (principal)
CPT/HCPCS: 80053; 85025

== ENCOUNTER 2023-09-17 09:14 | Emergency (ER) | payer OTHER, SELFPAY ==
[2023-09-17 09:23] VITALS: BP 187/91; PULSE 67; RESP 16; TEMP 36.4; O2SAT 99
--- NOTE | 2023-09-17 09:44 | ED.GENADULT ---
HPI - General Adult General Chief complaint: Skin/Abscess/Foreign Body <Jc Zhou PA-C - Last Filed: 09/17/23 18:31> Stated complaint: bite to rigt upper buttocks <Jc Zhou PA-C - Last Filed: 09/17/23 18:31> Time Seen by Provider: 09/17/23 09:21 <Jc Zhou PA-C - Last Filed: 09/17/23 18:31> Source: patient <Jc Zhou PA-C - Last Filed: 09/17/23 18:31> Mode of arrival: ambulatory <SHAW Gore Last Filed: 09/17/23 18:31> Limitations: no limitations <Jc Zhou PA-C - Last Filed: 09/17/23 18:31> History of Present Illness HPI narrative: This is a 68-year-old male with PMH of DM, HLD, HTN, MA who presents to the ER with chief complaint of erythema and swelling to the right upper buttocks for the past 4 days. Reports that he was probably bit by a bug on Thursday night which started all this. He states that the area is becoming warm and swollen to the right lower back and right buttocks. There is no other streaking of erythema. Denies fevers, chills, nausea, vomiting. States his last A1c was around 8.5. <Jc Zhou PA-C - Last Filed: 09/17/23 18:31> Related Data Home medications: Home Medications Medication Instructions Recorded Confirmed amlodipine 10 mg tablet 10 mg PO DAILY 07/21/21 01/13/22 atenolol 100 mg tablet 100 mg PO DAILY 07/21/21 01/13/22 atorvastatin 40 mg tablet 40 mg PO DAILY 07/21/21 01/13/22 furosemide 20 mg tablet 20 mg PO DAILY 07/21/21 01/13/22 hydrocodone 10 mg-acetaminophen 10 tablet PO TID 07/21/21 01/13/22 325 mg tablet insulin glargine 100 55 unit subcut DAILY 07/21/21 01/13/22 unit-lixisenatide 33 mcg/mL subcutaneous pen (Soliqua 100/33) lisinopril 40 mg tablet 40 mg PO DAILY 07/21/21 01/13/22 duloxetine 30 mg capsule,delayed 30 mg PO DAILY 01/13/22 01/13/22 release spironolactone 25 mg tablet 25 mg PO DAILY 01/13/22 01/13/22 <Jc Zhou PA-C - Last Filed: 09/17/23 18:31> Allergies/adverse reactions: Allergies Allergy/AdvReac Type Severity Reaction Status Date / Time Contrast Media Allergy Unknown ANAPHYLAXIS Uncoded 09/17/23 09:16 <Jc Zhou PA-C - Last Filed: 09/17/23 18:31> Review of Systems Review of Systems: All systems as dictated in HPI <Jc Zhou PA-C - Last Filed: 09/17/23 18:31> [facility] Past Medical History Medical History: Medical History Chronic headaches Diabetes mellitus Hyperlipidemia Hypertension Myocardial infarction Tobacco abuse <Jc Zhou PA-C - Last Filed: 09/17/23 18:31> Surgical History Surgical History: Surgical History H/O shoulder replacement Right shoulder Status post rotator cuff repair Left shoulder <SHAW Gore Last Filed: 09/17/23 18:31> Social History Social History: Social History Smoking packs per day: 2.5 Smoking cigarettes per day: 50.0 Years smoked: 45 Smoking pack-years: 112.50 Smoking status: Current every day smoker Tobacco type: cigarettes Alcohol intake: never Substance use: never Substance use type: does not use Spiritual care concerns: No <SHAW Gore Last Filed: 09/17/23 18:31> Exam Narrative: GENERAL: Well-appearing, well-nourished, and in no acute distress. HEAD: Normocephalic, atraumatic. EYES: PERRLA and EOMI. ENT: Nares clear, no rhinorrhea or epistaxis. Mucous membranes moist. Oropharynx without tonsillar hypertrophy exudate or other lesions. NECK: Supple. No adenopathy or masses. CHEST: No respiratory distress. Clear to auscultation. No wheezes rales or rhonchi HEART: Regular rate and rhythm. No murmur heard. Normal peripheral pulses. ABDOMEN: Soft, nontender, nondistended, normal active bowel sounds. MSK: Normal range of motion. No edema. SKIN: 3 x 3 cm erythema t
[2023-09-17] MEDS: HYDROcodone/acetaminophen (*CRX) 5-325 MG TABLET 1 TAB PO (09:50)
[2023-09-17 09:59] LABS: Basophils Absolute Auto 0.1 K/mm3 (0.0-0.1); Basophils Percent Auto 0.7 % (0.2-1.2); Eosinophils Absolute Auto 0.8 K/mm3 (0-0.3); Eosinophils Percent Auto 5.4 % (0-4.4); Hemoglobin 14.6 g/dL (14.0-18.0); Immature Granulocyte Absolute 0.11 K/mm3 (0.00-0.031); Immature Granulocyte Percent A 0.7 % (0-0.5); Lymphocytes Absolute Auto 2.54 K/mm3 (0.9-3.2); Lymphocytes Percent Auto 17.1 % (18.3-44.2); Mean Corpuscular HGB Conc 32.4 g/dl (32-36); Mean Corpuscular Hemoglobin 31.2 pg (26-34); Mean Corpuscular Volume 96.2 fl (80-100); Mean Platelet Volume 10.3 fl (7.4-10.4); Monocytes Percent Auto 6.9 % (2.6-8.5); Neutrophils Absolute Auto 10.3 K/mm3 (1.3-6.7); Neutrophils Percent Auto 69.2 % (45.5-73.1); Platelet Count Result 244 k/mm3 (150-375); Red Blood Count 4.68 M/mm3 (4.6-6.20); Red Cell Distribution Width 13.4 % (11.5-14.5); White Blood Count 14.8 K/mm3 (4.5-10.0)
[2023-09-17 10:13] LABS: Alanine Aminotransferase 10 U/L (6-50); Albumin Level 3.9 g/dL (3.5-5.1); Alkaline Phosphatase 134 U/L (38-126); Anion Gap 10 mmol/L (8-16); Aspartate Amino Transferase 16 U/L (17-59); Bilirubin,Total 0.6 mg/dL (0.2-1.3); Blood Urea Nitrogen 29 mg/dL (9-20); CRP 2.8 mg/dL (<1.0); Calcium 9.2 mg/dL (8.4-10.2); Carbon Dioxide 23 mmol/L (22-30); Chloride 102 mmol/L (98-107); Estimated CRCL calculation 45 ml/min; Estimated Glomerular Filt Rate 41; Glucose 193 mg/dL (65-110); Potassium 3.8 mmol/L (3.4-5.0); Sodium 135 mmol/L (137-145)
[2023-09-17 10:29] LABS: Lactic Acid Reflex 0.9 mmol/L (0.7-2.0)
== END 2023-09-17 11:13 | disposition home or self-care (01) ==
PROVIDERS: Emergency Provider Physician Assistant
DX: L02.31 Cutaneous abscess of buttock (principal); E11.9 Type 2 diabetes mellitus without complications; E78.5 Hyperlipidemia, unspecified; I10 Essential (primary) hypertension; I25.2 Old myocardial infarction; F17.210 Nicotine dependence, cigarettes, uncomplicated; Z79.4 Long term (current) use of insulin; Z79.82 Long term (current) use of aspirin
CPT/HCPCS: 10060; 36415; 80053; 83605; 85025; 86140; 87070; 87147; 87181; 87186; 87205; 99283; A9270

== ENCOUNTER 2023-10-26 13:35 | Emergency (ER) | payer OTHER, SELFPAY ==
[2023-10-26 13:52] VITALS: BP 183/78; PULSE 80; RESP 16; TEMP 36.8; O2SAT 99
[2023-10-26] MEDS: HYDROcodone/acetaminophen (*CRX) 5-325 MG TABLET 1 TAB PO (14:52)
[2023-10-26] MEDS: LIDO 1%/EPINEPHRINE 1:100,000 20 ML VIAL 10 ML INFILTRATE (15:05)
--- NOTE | 2023-10-26 15:22 | PC.NURSE ---
at bedside. VORB for 4mg morphine IM
[2023-10-26] MEDS: MORPHINE SULFATE (*CRX) 4 MG/ML INJ (15:27)
--- NOTE | 2023-10-26 15:45 | ED.SKABFB ---
HPI - Skin/Abscess/Foreign Bdy General Chief complaint: Skin/Abscess/Foreign Body Stated complaint: wound Time Seen by Provider: 10/26/23 14:32 History of Present Illness HPI narrative: Patient is a 68-year-old male who presents ER with abscess to the left back. Upper aspect. Worsening over last 2 weeks. It has become erythematous. It is very tender. Patient's attempted to drain the area with a needle 2 days ago and got some purulence. Patient was helpful and would resolve on its own but did say came in for further evaluation. Related Data Home Medications Medication Instructions Recorded Confirmed amlodipine 10 mg tablet 10 mg PO DAILY 07/21/21 01/13/22 atenolol 100 mg tablet 100 mg PO DAILY 07/21/21 01/13/22 atorvastatin 40 mg tablet 40 mg PO DAILY 07/21/21 01/13/22 furosemide 20 mg tablet 20 mg PO DAILY 07/21/21 01/13/22 hydrocodone 10 mg-acetaminophen 10 tablet PO TID 07/21/21 01/13/22 325 mg tablet insulin glargine 100 55 unit subcut DAILY 07/21/21 01/13/22 unit-lixisenatide 33 mcg/mL subcutaneous pen (Soliqua 100/33) lisinopril 40 mg tablet 40 mg PO DAILY 07/21/21 01/13/22 duloxetine 30 mg capsule,delayed 30 mg PO DAILY 01/13/22 01/13/22 release spironolactone 25 mg tablet 25 mg PO DAILY 01/13/22 01/13/22 Allergies Allergy/AdvReac Type Severity Reaction Status Date / Time Contrast Media Allergy Unknown ANAPHYLAXIS Uncoded 09/17/23 09:16 Review of Systems Review of Systems: All systems reviewed & are unremarkable except as noted in HPI and below Constitutional: Constitutional: Reports no additional constitutional complaints ENT: Reports system reviewed and no additional complaints, except as documented Cardiovascular: Cardiovascular: Reports no additional cardiovascular complaints Respiratory: Respiratory: Reports no additional respiratory complaints Musculoskeletal: Musculoskeletal: Reports back pain, Denies arthralgias and Denies joint swelling Integumentary/Breasts: Skin/Breast: Denies pruritus, Reports erythema and Reports skin ulcer PMFSH Past Medical History Medical History Chronic headaches Diabetes mellitus Hyperlipidemia Hypertension Myocardial infarction Tobacco abuse Surgical History Surgical History H/O shoulder replacement Right shoulder Status post rotator cuff repair Left shoulder Social History Social History Smoking packs per day: 2.5 Smoking cigarettes per day: 50.0 Years smoked: 45 Smoking pack-years: 112.50 Smoking status: Current every day smoker Tobacco type: cigarettes Alcohol intake: never Substance use: never Substance use type: does not use Spiritual care concerns: No Exam Narrative: GENERAL: Uncomfortable-appearing, well-nourished, and in no acute distress. HEAD: Normocephalic, atraumatic. ENT: Mucous membranes moist. EXTREMITIES: Normal range of motion. No edema. SKIN: Warm, dry. Cellulitis to the left posterior back left of midline and medial to the shoulder blade. There was some small areas were purulence has drained. Tender to palpation. Erythema measures 6 cm x 8 cm. NEURO: Alert and oriented x3. PSYCH: Normal mood and affect. Course Course Emergency Course: Patient resting comfortably. Informed of treatment plan and verbalized understanding. He has is on home pain control. Will start on doxycycline. Vital Signs Vital signs: Vital Signs Temperature 98.2 F 10/26/23 13:52 Pulse Rate 80 10/26/23 13:52 Respiratory Rate 16 10/26/23 13:52 Blood Pressure 183/78 H 10/26/23 13:52 Pulse Oximetry 99 10/26/23 13:52 Oxygen Delivery Room Air 10/26/23 13:52 Temperature 98.2 F 10/26/23 13:52 Pulse Rate 80 10/26/23 13:52 Respiratory Rate 16 10/26/23 13:52 Blood Pressure 183/78 H 10/26/23 13:52 Pulse Oximetry 9
[2023-10-26 16:07] VITALS: BP 156/90; PULSE 84; RESP 18; O2SAT 98
== END 2023-10-26 16:08 | disposition home or self-care (01) ==
PROVIDERS: Emergency Provider Emergency Medicine
DX: L02.212 Cutaneous abscess of back [any part, except buttock and flank] (principal); E11.9 Type 2 diabetes mellitus without complications; I10 Essential (primary) hypertension; E78.5 Hyperlipidemia, unspecified; I25.2 Old myocardial infarction; F17.210 Nicotine dependence, cigarettes, uncomplicated
CPT/HCPCS: 10061; 96372; 99283; A9270; J2270

== ENCOUNTER 2023-11-14 23:06 | Inpatient (IN) | payer OTHER, SELFPAY ==
--- NOTE | ~2023-11-14 | CT_ITS ---
EXAMINATION: CT brain wo con INDICATION: Altered mental status, new onset confusion COMPARISON: 01/13/2022 TECHNIQUE: Standard unenhanced head CT. The dose-length product (DLP) was 605.33 mGy-cm. The mA was a djusted according to patient size. Iterative reconstruction technique was employed. FINDINGS: No intracranial hemorrhage, acute infarction, or abnormal mass lesion. The ventricles are n ormal. No abnormal mass effect or midline shift. The berrios-white matter differentiation is normal. The basal cisterns are patent. The orbits are normal. There is chronic right maxillary sinusitis. IMPRESSION: 1. No acute intracranial abnormality. Reviewed, dictated and finalized at location F. TRICAL MACHINIST
--- NOTE | ~2023-11-14 | XR_ITS ---
EXAMINATION: XR chest 1V portable INDICATION: Altered mental status, fever TECHNIQUE: Portable AP chest at 2348 hours COMPARISON: 01/13/2022 FINDINGS: There is mild atelectasis of the lung bases. No pleural effusion or pneumothorax. The cardi omediastinal silhouette is normal. There are partially imaged surgical changes in the right shoulder. Suture anchors are noted in the left proximal humerus and glenoid. IMPRESSION: 1. Mild atelectasis of the lung bases. Reviewed, dictated and finalized at location F. RANCH MANAGER
[2023-11-14 23:08] VITALS: BP 196/86; PULSE 101; RESP 20; TEMP 37.9; O2SAT 95
[2023-11-14 23:23] VITALS: PULSE 99
--- NOTE | 2023-11-14 23:23 | ECG_ITS ---
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
[2023-11-14 23:25] VITALS: BP 181/82; PULSE 102; RESP 26; TEMP 38.3; O2SAT 93
[2023-11-14 23:30] VITALS: O2SAT 96
[2023-11-14 23:39] LABS: Basophils Absolute Auto 0.1 K/mm3 (0.0-0.1); Basophils Percent Auto 0.7 % (0.2-1.2); Eosinophils Absolute Auto 0.1 K/mm3 (0-0.3); Eosinophils Percent Auto 1.2 % (0-4.4); Hematocrit 41.2 % (42.0-52.0); Hemoglobin 13.1 g/dL (14.0-18.0); Immature Granulocyte Absolute 0.04 K/mm3 (0.00-0.031); Immature Granulocyte Percent A 0.5 % (0-0.5); Lymphocytes Absolute Auto 0.37 K/mm3 (0.9-3.2); Lymphocytes Percent Auto 4.8 % (18.3-44.2); Mean Corpuscular HGB Conc 31.8 g/dl (32-36); Mean Corpuscular Volume 97.4 fl (80-100); Mean Platelet Volume 10.8 fl (7.4-10.4); Monocytes Absolute Auto 0.7 K/mm3 (0.1-0.6); Monocytes Percent Auto 9.6 % (2.6-8.5); Neutrophils Absolute Auto 6.4 K/mm3 (1.3-6.7); Neutrophils Percent Auto 83.2 % (45.5-73.1); Platelet Count Result 157 k/mm3 (150-375); Red Blood Count 4.23 M/mm3 (4.6-6.20); Red Cell Distribution Width 13.8 % (11.5-14.5); White Blood Count 7.7 K/mm3 (4.5-10.0)
[2023-11-14] MEDS: ACETAMINOPHEN 500 MG TABLET 1000 MG PO (23:47)
[2023-11-14 23:50] LABS: Prothrombin Time 13.7 Seconds (11.1-14.7)
[2023-11-14 23:51] LABS: Lactic Acid Reflex 0.9 mmol/L (0.7-2.0); Partial Thromboplastin Time 32.9 SECONDS (22.3-36.8)
[2023-11-14 23:52] LABS: Alanine Aminotransferase 11 U/L (6-50); Albumin Level 3.4 g/dL (3.5-5.1); Alkaline Phosphatase 115 U/L (38-126); Anion Gap 8 mmol/L (8-16); Aspartate Amino Transferase 23 U/L (17-59); Bilirubin,Total 0.5 mg/dL (0.2-1.3); Blood Urea Nitrogen 37 mg/dL (9-20); Calcium 8.7 mg/dL (8.4-10.2); Carbon Dioxide 18 mmol/L (22-30); Chloride 107 mmol/L (98-107); Estimated CRCL calculation 33 ml/min; Estimated Glomerular Filt Rate 34; Glucose 207 mg/dL (65-110); Potassium 4.4 mmol/L (3.4-5.0); Sodium 133 mmol/L (137-145)
--- NOTE | 2023-11-14 23:58 | PC.NURSE ---
Patient presents A&Ox2, lethargic, weak, and brought back in a wheelchair. Patient is arousable to voice and comprehends commands, but when not being spoken to patient will fall asleep. Per family at bedside patient is normally A&Ox4 and is ambulatory w/o assistance. Family states that patient has been lethargic for about 2-3 weeks, but since this past morning has not been making sense and incontinent. Patient has sores all over his arms and family states that patient has been seen by his PCP, but no dx was ever given. Family also states that patient is a diabetic and his sugars have been all right .
[2023-11-15] VITALS (18 sets, daily range): BP systolic 132–180; BP diastolic 63–79; PULSE 60–81; RESP 16–24; TEMP 36.6–38; O2SAT 91–100
[2023-11-15 00:13] LABS: Appearance Urine Clear (Clear); Bacteria Urine None Seen /hpf; Bilirubin Urine Negative (Negative); Blood Urine 2+ (Negative); Color Urine Yellow (Yellow); Glucose Urine UA 2+ mg/dL (Negative); Ketones Urine Trace mg/dL (Negative); Leukocyte Esterase Ur Negative LEU/UL (Negative); Need Manual Microscopic Reviewed; Nitrate Urine Negative (Negative); Protein Urine 4+ mg/dL (Negative); Specific Grav Ur 1.026 (1.001-1.035); Squamous Epithelial Cell Urine None seen /hpf (Few); Urobilinogen Urine 0.2 mg/dL (<2.0); WBC Urine 0-5 /hpf
[2023-11-15 00:13] LABS: Lipase 22 U/L (23-300); Magnesium 1.6 mg/dL (1.6-2.3)
[2023-11-15 00:15] LABS: Ethanol < 10 mg/dL (<10)
[2023-11-15 00:15] LABS: Influenza A QL RT-PCR Positive (Negative); Influenza B QL RT-PCR Negative (Negative); RSV RNA, RT-PCR Negative (Negative); SARS-CoV-2 RNA PCR Negative (Negative)
[2023-11-15 00:15] LABS: Add Urine Microscopic? YES
[2023-11-15 00:30] LABS: NT Pro B Type Natriuretic Pept 11000 pg/mL (19.9-100); Troponin I 0.046 ng/mL (0.000-0.034)
[2023-11-15 00:38] LABS: Thyroid Stimulating Hormone Reflex 0.916 uIU/mL (0.465-4.68)
--- NOTE | 2023-11-15 00:39 | PM.IMHP ---
H&P: HPI History of Present Illness Date/Time: 11/15/23 00:39 Chief Complaint: AMS Narrative: THIS IS A 68-YEAR-OLD MALE WITH PAST MEDICAL HISTORY SIGNIFICANT FOR HYPERTENSION, TOBACCO DEPENDENCE, CHRONIC HEADACHES, TYPE DIABETES MELLITUS, DYSLIPIDEMIA. PATIENT WAS BROUGHT TO THE EMERGENCY ROOM FOR EVALUATION BY DAUGHTER WITH HISTORY HAS BEEN OBTAINED FROM THEM PATIENT IS LETHARGIC, OBTUNDED AT THE TIME OF MY VISIT. WAS CONCERNED DUE TO PATIENT'S BEHAVIOR OR WAS UNUSUAL FOR HIM WAS HAVING MOOD SWINGS, LETHARGY, POOR PER ORALLY INTAKE FOR 2 DAYS HAD URINARY INCONTINENCE. PRELIMINARY WORKUP WAS SIGNIFICANT FOR ELEVATED BRAIN NATRIURETIC PEPTIDE AT 11,000, BUN AT 37 CREATININE AT 2, SODIUM 133 PATIENT TESTED POSITIVE FOR INFLUENZA. Review of Systems Review of Systems: ROS unobtainable: Yes unobtainable due to mental status ( LETHARGY, OBTUNDATION) PMFSH Past Medical History Medical History Chronic headaches Diabetes mellitus Hyperlipidemia Hypertension Myocardial infarction Tobacco abuse Surgical History Surgical History H/O shoulder replacement Right shoulder Status post rotator cuff repair Left shoulder Social History Social History Smoking packs per day: 2.5 Smoking cigarettes per day: 50.0 Years smoked: 45 Smoking pack-years: 112.50 Smoking status: Current every day smoker Tobacco type: cigarettes Alcohol intake: never Substance use: never Substance use type: does not use Spiritual care concerns: No Meds Home Medications and Allergies Home Medications Medication Instructions Recorded Confirmed Type amlodipine 10 mg tablet 10 mg PO DAILY 07/21/21 01/13/22 History atenolol 100 mg tablet 100 mg PO DAILY 07/21/21 01/13/22 History atorvastatin 40 mg tablet 40 mg PO DAILY 07/21/21 01/13/22 History furosemide 20 mg tablet 20 mg PO DAILY 07/21/21 01/13/22 History hydrocodone 10 mg-acetaminophen 10 tablet PO TID 07/21/21 01/13/22 History 325 mg tablet insulin glargine 100 55 unit subcut DAILY 07/21/21 01/13/22 History unit-lixisenatide 33 mcg/mL subcutaneous pen (Soliqua 100/33) lisinopril 40 mg tablet 40 mg PO DAILY 07/21/21 01/13/22 History duloxetine 30 mg capsule,delayed 30 mg PO DAILY 01/13/22 01/13/22 History release spironolactone 25 mg tablet 25 mg PO DAILY 01/13/22 01/13/22 History aspirin 81 mg tablet,delayed 81 mg PO QAM #30 tabs 02/01/22 Rx release gabapentin 100 mg capsule 100 mg PO TID #90 caps 02/01/22 Rx lidocaine 5 % topical patch 3 patch transdermal DAILY #10 ea 02/01/22 Rx (Lidoderm) metronidazole 375 mg capsule 375 mg PO Q8H #30 caps 02/01/22 Rx (Flagyl) nicotine 21 mg/24 hr daily 1 patch transdermal QAM #28 ea 02/01/22 Rx transdermal patch (Nicoderm CQ) cephalexin 500 mg capsule 500 mg PO Q8H 1 week #21 caps 09/17/23 Rx doxycycline hyclate 100 mg capsule 100 mg PO BID #14 caps 10/26/23 Rx Allergies Allergy/AdvReac Type Severity Reaction Status Date / Time Contrast Media Allergy Unknown ANAPHYLAXIS Uncoded 09/17/23 09:16 Vital Signs Vital Signs - 24 hr 11/14/23 23:08 11/14/23 23:23 11/14/23 23:25 Temperature 100.2 F H 100.9 F H Pulse Rate 101 H 99 102 H Respiratory Rate 20 26 H Blood Pressure 196/86 H 181/82 H Pulse Oximetry 95 93 Oxygen Delivery Room Air Oxygen Flow Rate 11/14/23 23:30 11/15/23 00:27 Temperature Pulse Rate Respiratory Rate Blood Pressure Pulse Oximetry 96 95 Oxygen Delivery Room Air Nasal Cannula Oxygen Flow Rate 2 Exam Narrative: PATIENT IS LAYING IN A STRETCHER Const: General: comfortable, no acute distress, well developed, ill appearing acutely and average body habitus Nutritional Appearance: average body habitus Orientation/consciousness: patient obtunded and lethargic Other: D
[2023-11-15 00:42] LABS: Barbiturate Screen Urine Negative (Negative); Benzodiazepines Screen Urine Negative (Negative)
[2023-11-15 00:51] LABS: Amphetamine Screen Urine Negative (Negative); Cannabinoid Screen Urine Negative (Negative); Cocaine Screen Urine Negative (Negative); Methadone Screen Urine Negative (Negative); Opiate Screen Urine Positive (Negative); Phencyclidine Screen Urine Negative (Negative)
[2023-11-15] MEDS: OSELTAMIVIR PHOSPHATE 75 MG CAPSULE PO (00:54)
--- NOTE | 2023-11-15 01:26 | ED.GENADULT ---
HPI - General Adult General Chief complaint: Altered Mental Status Stated complaint: lethergy, incontinence, headache Time Seen by Provider: 11/14/23 23:29 History of Present Illness HPI narrative: This is a 68-year-old male presenting with chief complaint of lethargy. Per his he felt a little tired yesterday and had a slight cough. Today he is lethargic throughout the day. He is arousable in A&O x4. He is complaining of a headache but denies URI symptoms, chest pain difficulty breathing abdominal pain or urinary symptoms. Related Data Home Medications Medication Instructions Recorded Confirmed amlodipine 10 mg tablet 10 mg PO DAILY 07/21/21 01/13/22 atenolol 100 mg tablet 100 mg PO DAILY 07/21/21 01/13/22 atorvastatin 40 mg tablet 40 mg PO DAILY 07/21/21 01/13/22 furosemide 20 mg tablet 20 mg PO DAILY 07/21/21 01/13/22 hydrocodone 10 mg-acetaminophen 10 tablet PO TID 07/21/21 01/13/22 325 mg tablet insulin glargine 100 55 unit subcut DAILY 07/21/21 01/13/22 unit-lixisenatide 33 mcg/mL subcutaneous pen (Soliqua 100/33) lisinopril 40 mg tablet 40 mg PO DAILY 07/21/21 01/13/22 duloxetine 30 mg capsule,delayed 30 mg PO DAILY 01/13/22 01/13/22 release spironolactone 25 mg tablet 25 mg PO DAILY 01/13/22 01/13/22 Allergies Allergy/AdvReac Type Severity Reaction Status Date / Time Contrast Media Allergy Unknown ANAPHYLAXIS Uncoded 09/17/23 09:16 [facility] Past Medical History Medical History Chronic headaches Diabetes mellitus Hyperlipidemia Hypertension Myocardial infarction Tobacco abuse Surgical History Surgical History H/O shoulder replacement Right shoulder Status post rotator cuff repair Left shoulder Social History Social History Smoking packs per day: 2.5 Smoking cigarettes per day: 50.0 Years smoked: 45 Smoking pack-years: 112.50 Smoking status: Current every day smoker Tobacco type: cigarettes Alcohol intake: never Substance use: never Substance use type: does not use Spiritual care concerns: No Exam Narrative: APPEARANCE: No apparent distress. Lethargic but arousable. Head: atraumatic. EYES: EOMI, 2mm equal and reactive NOSE: Atraumatic NECK: Trachea midline RESPIRATORY: No increased rate of breathing CARDIOVASCULAR: tachycardic, +2 pitting edema bilaterally ABDOMINAL: Non-distended, soft no guarding or rebound MUSCULOSKELETAl: No obvious deformities NEURO: Alert. Moving 4/4 extremities SKIN:: Warm, dry. Normal color PSYCHIATRIC: lethargic Course Vital Signs Vital signs: Vital Signs Temperature 100.2 F H 11/14/23 23:08 Pulse Rate 101 H 11/14/23 23:08 Respiratory Rate 20 11/14/23 23:08 Blood Pressure 196/86 H 11/14/23 23:08 Pulse Oximetry 95 11/14/23 23:08 Oxygen Delivery Room Air 11/14/23 23:08 Temperature 99.1 F 11/15/23 00:17 Pulse Rate 102 H 11/14/23 23:25 Respiratory Rate 26 H 11/14/23 23:25 Blood Pressure 181/82 H 11/14/23 23:25 Pulse Oximetry 95 11/15/23 00:27 Oxygen Delivery Nasal Cannula 11/15/23 00:27 Oxygen Flow Rate 2 11/15/23 00:27 Medical Decision Making [facility] Narrative Medical decision making narrative: -Course: 68-year-old male presenting with headache and lethargy. Febrile on arrival. A full sepsis workup was ordered which was significant for influenza A. Started on Tamiflu. Patient also has a slight kidney injury and a small bump in his troponin. EKG shows a new right bundle branch block as compared to EKG from December 2021. BNP was elevated and he does have pitting edema lower extremities but given his WALESKA I will hold off on Lasix. patient will be admitted to the hospital for further management. -DDX includes but is not limited to: sepsis, pneumonia, UTI, dehydration, viral illness, kidney injury, intracranial
--- NOTE | 2023-11-15 02:15 | ECG_ITS ---
Measurements Intervals [place] Rate: 68 P: 7 GA: 191 QRS: 11 QRSD: 162 T: 121 QT: 387 QTc: 413 Interpretive Statements SINUS RHYTHM RIGHT BUNDLE BRANCH BLOCK MINIMAL Q WAVES- INFERIOR LEADS BORDERLINE T WAVE ABNORMALITY- ANTEROLATERAL LEADS ABNORMAL ECG COMPARED TO ECG 01/13/2022 06:27:44 RIGHT BUNDLE BRANCH BLOCK NOW PRESENT Electronically Signed On 11-15-2023 7:34:47 [employer] by Elliot Aldana D.O.
--- NOTE | 2023-11-15 02:57 | ADMGEN ---
This patient, García Puente, was admitted to IMU Room 232 at 0245. Patient/family oriented to hospital policies and general routines including ID bracelet, bed and alarms, visiting hours, pain management, procedures, bathroom and other care routines, personal items, smoking policy, room service/diet, and visiting hours. Information on how to activate the Rapid Response Team has been discussed. Patient/Family are encouraged to report perceived risks to care and to ask questions if they do not understand what they are told or what they should do.
--- NOTE | 2023-11-15 03:18 | ADMGEN ---
This patient, García Puente, was admitted to IMU Room 232-01. Patient/family oriented to hospital policies and general routines including ID bracelet, bed and alarms, visiting hours, pain management, procedures, bathroom and other care routines, personal items, smoking policy, room service/diet, and visiting hours. Information on how to activate the Rapid Response Team has been discussed. Patient/Family are encouraged to report perceived risks to care and to ask questions if they do not understand what they are told or what they should do.
--- NOTE | 2023-11-15 03:31 | PC.NURSE ---
Patient unable to answer admission questions at this time. Family called twice and voicemail left.
[2023-11-15] MEDS: SODIUM CHLORIDE 0.9% IV 1,000 ML 999 ML IV CONT (04:27)
--- NOTE | 2023-11-15 06:20 | PC.NURSE ---
Attempted to call Ale Puente at [phone] to obtain health history information since the patient is still so drowsy and unable to stay awake to answer questions.
[2023-11-15 06:57] LABS: Troponin I 0.051 ng/mL (0.000-0.034)
[2023-11-15 07:00] LABS: Basophils Percent Auto 0.6 % (0.2-1.2); Eosinophils Absolute Auto 0.1 K/mm3 (0-0.3); Eosinophils Percent Auto 1.3 % (0-4.4); Hematocrit 40.1 % (42.0-52.0); Hemoglobin 12.9 g/dL (14.0-18.0); Immature Granulocyte Absolute 0.03 K/mm3 (0.00-0.031); Immature Granulocyte Percent A 0.6 % (0-0.5); Lymphocytes Absolute Auto 0.83 K/mm3 (0.9-3.2); Lymphocytes Percent Auto 15.5 % (18.3-44.2); Mean Corpuscular HGB Conc 32.2 g/dl (32-36); Mean Corpuscular Hemoglobin 31.4 pg (26-34); Mean Corpuscular Volume 97.6 fl (80-100); Mean Platelet Volume 10.8 fl (7.4-10.4); Monocytes Absolute Auto 0.8 K/mm3 (0.1-0.6); Monocytes Percent Auto 15.3 % (2.6-8.5); Neutrophils Absolute Auto 3.6 K/mm3 (1.3-6.7); Neutrophils Percent Auto 66.7 % (45.5-73.1); Platelet Count Result 147 k/mm3 (150-375); Red Blood Count 4.11 M/mm3 (4.6-6.20); Red Cell Distribution Width 13.9 % (11.5-14.5); White Blood Count 5.4 K/mm3 (4.5-10.0)
[2023-11-15 07:13] LABS: Anion Gap 7 mmol/L (8-16); Blood Urea Nitrogen 35 mg/dL (9-20); Calcium 8.3 mg/dL (8.4-10.2); Carbon Dioxide 18 mmol/L (22-30); Chloride 110 mmol/L (98-107); Estimated CRCL calculation 35 ml/min; Estimated Glomerular Filt Rate 36; Glucose 137 mg/dL (65-110); Sodium 135 mmol/L (137-145)
--- NOTE | 2023-11-15 10:23 | PM.IMPN ---
Progress Note: A&P Assessment and Plan (1) Influenza: Code(s): J11.1 - Influenza due to unidentified influenza virus with other respiratory manifestations Status: Acute Assessment and Plan: Influenza A positive Cont tamiflu, started in ER Supportive care (2) Altered mental status: Code(s): R41.82 - Altered mental status, unspecified Status: Acute Assessment and Plan: See above, monitor (3) WALESKA (acute kidney injury): Code(s): N17.9 - Acute kidney failure, unspecified Status: Acute Assessment and Plan: Improving with hydration, continue to monitor IV fluids (4) Hyponatremia: Code(s): E87.1 - Hypo-osmolality and hyponatremia Status: Acute Assessment and Plan: Improved with IV fluids (5) CHF (congestive heart failure): Code(s): I50.9 - Heart failure, unspecified Status: Acute Assessment and Plan: Monitor closely due to suspected intravascular depletion, will have to monitor closely for hypervolemia Echo pending (6) Diabetes mellitus: Code(s): E11.9 - Type 2 diabetes mellitus without complications Status: Acute Assessment and Plan: Accu-Cheks, sliding scale insulin, check A1c Blood glucose reviewed 11/15 (7) Tobacco abuse: Code(s): Z72.0 - Tobacco use Status: Acute Assessment and Plan: Continue Nicoderm Plan DVT prophylaxis with SCDs GI prophylaxis not indicated Code status full code Subjective Date/time seen: 11/15/23 10:23 Interval history: No overnight events noted. No chest pain or shortness of breath. No nausea, vomiting or diarrhea. No fevers or chills. Review of Systems Review of Systems: 12 point review of systems was assessed and was negative except as noted in the HPI Exam Narrative: General: No acute distress, alert and oriented per baseline HEENT: Atraumatic, normocephalic, mucous membranes moist CV: Regular rate and rhythm, S1, S2 Lungs: Clear to auscultation bilaterally, no rales or crackles noted, no wheezes, good air entry Abdomen: Soft, nontender, nondistended Extremities: Normal to inspection Skin: No rashes noted, no lesions or wounds seen Psych: Euthymic, normal affect Objective Data Vital Signs Vital Signs: Vital Signs - 24 hr 11/14/23 23:08 11/14/23 23:23 11/14/23 23:25 Temperature 100.2 F H 100.9 F H Pulse Rate 101 H 99 102 H Respiratory Rate 20 26 H Blood Pressure 196/86 H 181/82 H Pulse Oximetry 95 93 Oxygen Delivery Room Air Oxygen Flow Rate 11/14/23 23:30 11/15/23 00:27 11/15/23 00:17 Temperature 99.1 F Pulse Rate Respiratory Rate Blood Pressure Pulse Oximetry 96 95 Oxygen Delivery Room Air Nasal Cannula Oxygen Flow Rate 2 11/15/23 01:33 11/15/23 02:16 11/15/23 03:01 Temperature 98.7 F 97.8 F Pulse Rate 71 72 69 Respiratory Rate 24 H 24 H 17 Blood Pressure 132/66 161/79 H 164/71 H Pulse Oximetry 94 96 100 Oxygen Delivery Oxygen Flow Rate 11/15/23 04:00 11/15/23 04:00 11/15/23 05:06 Temperature 97.9 F Pulse Rate 60 61 Respiratory Rate 18 Blood Pressure 152/71 H Pulse Oximetry 100 98 Oxygen Delivery Nasal Cannula Oxygen Flow Rate 2 11/15/23 06:00 11/15/23 08:11 11/15/23 08:00 Temperature 99.3 F Pulse Rate 63 70 Respiratory Rate 16 Blood Pressure 180/74 H Pulse Oximetry 98 91 Oxygen Delivery Nasal Cannula Oxygen Flow Rate 2 11/15/23 08:00 11/15/23 08:00 11/15/23 10:00 Temperature Pulse Rate 72 72 Respiratory Rate Blood Pressure Pulse Oximetry 98 Oxygen Delivery Nasal Cannula Oxygen Flow Rate 2 Intake/Output Intake/Output: Intake & Output 11/12/23 11/13/23 11/14/23 11/15/23 23:59 23:59 23:59 23:59 Intake Total 1000 Output Total 0 Balance 1000 Meds/Results Medications: Active Medications Generic Name Dose Route Start Last Admin Trade Nam
[2023-11-15] MEDS: ACETAMINOPHEN 325 MG TABLET 650 MG PO (15:31)
[2023-11-15 15:40] LABS: Alveolar/Arterial O2 Gradient 100.2 mmHg; Base Excess ABG -4.9 mEq/l (+/-2.0); Device NASAL CANNULA; Fractional Inspired Oxygen 28 %; HCO3 ABG 18.1 mEq/l (22.0-26.0); Modified Allen's Test Pass; Oxygen Content ABG 19.5 %vol (16.0-22.0); Oxygen Saturation ABG 93.4 % (95.0-100.0); Oxyhemoglobin 92.4 % THb (90.0-100.0); PO2 ABG 65.2 mmHg (80.0-100.0); PO2 FiO2 Ratio Arterial Blood 2.33 %; Site Drawn LEFT RADIAL; pH ABG 7.414 (7.350-7.450)
--- NOTE | 2023-11-15 17:00 | PC.NURSE ---
Unable to provide home medication list. Unable to complete at this time. states it is at home.
[2023-11-15] MEDS: HYDROcodone/acetaminophen (*CRX) 10-325 MG TABLET 1 TAB PO (20:12)
[2023-11-15] MEDS: OSELTAMIVIR PHOSPHATE 30 MG CAPSULE PO (20:13)
--- NOTE | 2023-11-15 22:11 | PC.NURSE ---
Patient's spouse called to discuss home medication list per request of RN. Home med rec is unable to be completed at this time. Patient spouse identified hydroxizine, hydrocodone-acetaminophen, Aspart, and Losartan only as active medications and stated I am uncomfortable telling you any of the rest because I am just not sure if he still takes them or not, the pill bottles are from 2021. Patient spouse verbalized intent to call PCP 11/16/23 to obtain current list of prescribed medications. [employer], Dr. Millan, has been notified.
--- NOTE | 2023-11-16 | ECHO_ITS ---
Patient Info Name: García Puente Age: 68 years : 1955 Gender: Male Ht: 69 in Wt: 199 lbs BSA: 2.12 m2 HR: 60 bpm BP: 170 / 79 mmHg Exam Date: 11/16/2023 11:41 AM Exam Location: Echo Lab Patient Status: Inpatient Admit Date: 11/15/2023 Staff Ordering Physician: Ernestina Millan MD Attending Provider: Ernestina Millan MD Referring Physician: Yana CHAVIRA; Exam Type: CA echo dop color flow w con Study Info Indications - leg swelling Complete two-dimensional, color flow and Doppler transthoracic echocardiogram is performed with contrast to opacify the left ventricle and to improve the deliniation of the left ventricle endocardial borders. Contrast/Agitated Saline Contrast/Ag. Saline: Definity Amount: 1.00 ml Existing IV Access: Yes IV Access Condition: patent with no signs of infiltration Summary 1. Definity contrast administered improved wall motion interpretation. 2. Left ventricular systolic function is preserved, estimated at 50-55%. 3. Left ventricular chamber dimension is mildly enlarged. 4. The left ventricular diastolic function is grade I diastolic dysfunction. 5. E/e' 9 is minimally elevated. 6. Left atrial chamber dimension is moderately enlarged. 7. There is mild aortic valve sclerosis. 8. The mitral valve has mildly calcified annulus. Left Ventricle Definity contrast administered improved wall motion interpretation. E/e' 9 is minimally elevated. Left ventricular systolic function is preserved, estimated at 50-55%. Left ventricular chamber dimension is mildly enlarged. The left ventricular diastolic function is grade I diastolic dysfunction. Right Ventricle Right ventricular systolic function is normal and with normal TAPSE 2.1 cm. Right ventricular chamber dimension is normal. Left Atria Left atrial chamber dimension is moderately enlarged. Right Atria Right atrial chamber dimension is normal. Aortic Valve The aortic valve is trileaflet. There is mild aortic valve sclerosis. There is no aortic valve stenosis. There is no aortic valve regurgitation. Pulmonic Valve There is no pulmonic regurgitation. Mitral Valve The mitral valve has mildly calcified annulus. There is no mitral valve stenosis. There is no mitral valve regurgitation. Tricuspid Valve There is no tricuspid valve regurgitation. Pericardium/Pleural There is no pericardial effusion. Inferior Vena Cava Normal inferior vena cava with >50% collapse upon inspiration consistent with normal right atrial pressure, 5 mmHg. Aorta The aortic root size at the sinus of Valsalva is normal. Left Ventricular Outflow Tract Name Value Normal LVOT 2D LVOT Diameter 2.02 cm LVOT Doppler LVOT Peak Gradient 3 mmHg LVOT Mean Gradient 2 mmHg LVOT VTI 19.61 cm LVOT VTI/AV VTI Ratio 0.60 LVOT Stroke Volume 62.76 ml LVOT CO 3.86 l/min LVOT CI 1.82 L/min/m2 Pulmonic Valve Name
[2023-11-16] MEDS: ACETAMINOPHEN 325 MG TABLET 650 MG PO ×2 (03:12→11:08)
[2023-11-16 05:41] LABS: Basophils Percent Auto 0.3 % (0.2-1.2); Eosinophils Percent Auto 0.3 % (0-4.4); Hematocrit 39.7 % (42.0-52.0); Hemoglobin 12.5 g/dL (14.0-18.0); Immature Granulocyte Absolute 0.03 K/mm3 (0.00-0.031); Immature Granulocyte Percent A 0.5 % (0-0.5); Lymphocytes Absolute Auto 1.46 K/mm3 (0.9-3.2); Lymphocytes Percent Auto 22.5 % (18.3-44.2); Mean Corpuscular HGB Conc 31.5 g/dl (32-36); Mean Corpuscular Hemoglobin 30.8 pg (26-34); Mean Corpuscular Volume 97.8 fl (80-100); Mean Platelet Volume 11.3 fl (7.4-10.4); Monocytes Absolute Auto 0.7 K/mm3 (0.1-0.6); Monocytes Percent Auto 11.1 % (2.6-8.5); Neutrophils Absolute Auto 4.2 K/mm3 (1.3-6.7); Neutrophils Percent Auto 65.3 % (45.5-73.1); Platelet Count Result 148 k/mm3 (150-375); Red Blood Count 4.06 M/mm3 (4.6-6.20); Red Cell Distribution Width 13.9 % (11.5-14.5); White Blood Count 6.5 K/mm3 (4.5-10.0)
[2023-11-16 05:50] LABS: Alanine Aminotransferase 10 U/L (6-50); Albumin Level 2.7 g/dL (3.5-5.1); Alkaline Phosphatase 95 U/L (38-126); Anion Gap 5 mmol/L (8-16); Aspartate Amino Transferase 18 U/L (17-59); Bilirubin,Total 0.4 mg/dL (0.2-1.3); Blood Urea Nitrogen 33 mg/dL (9-20); Calcium 8.6 mg/dL (8.4-10.2); Carbon Dioxide 21 mmol/L (22-30); Chloride 110 mmol/L (98-107); Estimated CRCL calculation 35 ml/min; Estimated Glomerular Filt Rate 36; Glucose 115 mg/dL (65-110); Potassium 3.5 mmol/L (3.4-5.0); Sodium 136 mmol/L (137-145)
[2023-11-16 08:00] VITALS: O2SAT 98
[2023-11-16] MEDS: OSELTAMIVIR PHOSPHATE 30 MG CAPSULE PO ×2 (08:28→21:28)
--- NOTE | 2023-11-16 09:52 | PM.IMPN ---
Progress Note: A&P Assessment and Plan (1) Influenza: Code(s): J11.1 - Influenza due to unidentified influenza virus with other respiratory manifestations Status: Acute Assessment and Plan: Influenza A positive Cont tamiflu, started in ER Supportive care 11/16: Improving, wean O2 as tolerated (2) Altered mental status: Code(s): R41.82 - Altered mental status, unspecified Status: Acute Assessment and Plan: resolved (3) WALESKA (acute kidney injury): Code(s): N17.9 - Acute kidney failure, unspecified Status: Acute Assessment and Plan: Improving slowly, monitor closely, cont IVF with NS (4) Hyponatremia: Code(s): E87.1 - Hypo-osmolality and hyponatremia Status: Acute Assessment and Plan: almost resolved (5) CHF (congestive heart failure): Code(s): I50.9 - Heart failure, unspecified Status: Acute Assessment and Plan: Monitor closely due to suspected intravascular depletion, will have to monitor closely for hypervolemia Echo pending (6) Diabetes mellitus: Code(s): E11.9 - Type 2 diabetes mellitus without complications Status: Acute Assessment and Plan: Accu-Cheks, sliding scale insulin, check A1c Blood glucose reviewed 11/16 (7) Tobacco abuse: Code(s): Z72.0 - Tobacco use Status: Acute Assessment and Plan: Continue Nicoderm Plan DVT prophylaxis with SCDs GI prophylaxis not indicated Code status full code Subjective Date/time seen: 11/16/23 09:52 Interval history: 68-year-old male with history of hypertension, diabetes presenting with lethargy and found to be positive for influenza A. No overnight events noted. No chest pain or shortness of breath. No nausea, vomiting or diarrhea. No fevers or chills. C/o shoulder pain, requesting to restart his home norco. Review of Systems Review of Systems: 12 point review of systems was assessed and was negative except as noted in the HPI Exam Narrative: General: No acute distress, alert and oriented per baseline HEENT: Atraumatic, normocephalic, mucous membranes moist CV: Regular rate and rhythm, S1, S2 Lungs: Clear to auscultation bilaterally, no rales or crackles noted, no wheezes, good air entry Abdomen: Soft, nontender, nondistended Extremities: Normal to inspection Skin: No rashes noted, no lesions or wounds seen Psych: Euthymic, normal affect Objective Data Vital Signs Vital Signs: Vital Signs - 24 hr 11/15/23 10:00 11/15/23 12:00 11/15/23 12:00 Temperature 100.4 F H Pulse Rate 72 81 Respiratory Rate 20 Blood Pressure 174/74 H Pulse Oximetry 94 94 Oxygen Delivery Nasal Cannula Oxygen Flow Rate 2 11/15/23 12:00 11/15/23 15:31 11/15/23 16:35 Temperature 100.4 F H Pulse Rate 71 Respiratory Rate Blood Pressure Pulse Oximetry 94 Oxygen Delivery Nasal Cannula Oxygen Flow Rate 2 11/15/23 16:00 11/15/23 17:34 11/15/23 17:34 Temperature 99.2 F 98.7 F 98.7 F Pulse Rate 67 60 Respiratory Rate 20 18 Blood Pressure 168/63 H 173/68 H Pulse Oximetry 97 96 Oxygen Delivery Oxygen Flow Rate 11/15/23 20:14 11/15/23 20:00 Temperature 98.8 F Pulse Rate 60 Respiratory Rate 18 Blood Pressure 170/79 H Pulse Oximetry 98 98 Oxygen Delivery Nasal Cannula Oxygen Flow Rate 2 Intake/Output Intake/Output: Intake & Output 11/13/23 11/14/23 11/15/23 11/16/23 23:59 23:59 23:59 23:59 Intake Total 1120 620 Output Total 400 875 Balance 720 -255 Meds/Results Medications: Active Medications Generic Name Dose Route Start Last Admin Trade Name Freq PRN Reason Stop Dose Admin Acetaminophen 650 mg 11/15/23 15:10 11/16/23 03:12 Acetaminophen 325 Mg Tablet PO 650 mg Q6H PRN Administration Mild Pain (1-3) or Fever Oseltamivir Phosphate 30 mg 11/15/23 21:00 11/16/23 08:28 Oseltamivir Phos
[2023-11-16 11:04] VITALS: BP 179/83; PULSE 73; RESP 16; TEMP 37.1; O2SAT 98
[2023-11-16] MEDS: PERFLUTREN LIPID MICROSPHERES 1.5 ML VIAL DILUTED TO 10 ML TOTAL VOLUME IV PUSH (12:29)
[2023-11-16] MEDS: HYDROcodone/acetaminophen (*CRX) 10-325 MG TABLET 1 TAB PO ×2 (12:50→21:29)
[2023-11-16] MEDS: SODIUM CHLORIDE 0.9% IV 1,000 ML 100 ML IV CONT (13:21)
[2023-11-16 20:00] VITALS: O2SAT 98
[2023-11-16 21:05] VITALS: BP 174/79; PULSE 63; RESP 20; TEMP 36.3; O2SAT 98
[2023-11-17] VITALS: BP 167/75; PULSE 60; RESP 20; TEMP 36.1; O2SAT 98
[2023-11-17] MEDS: diphenhydrAMINE HCl INJ 50 MG/ML VIAL 25 MG IV PUSH (03:23)
[2023-11-17] MEDS: SODIUM CHLORIDE 0.9% IV 1,000 ML 100 ML IV CONT (03:24)
[2023-11-17 05:33] VITALS: BP 171/79; PULSE 60; RESP 18; TEMP 36.1; O2SAT 97
[2023-11-17] MEDS: HYDROcodone/acetaminophen (*CRX) 10-325 MG TABLET 1 TAB PO ×2 (05:35→13:12)
[2023-11-17 05:58] LABS: Basophils Percent Auto 0.3 % (0.2-1.2); Eosinophils Absolute Auto 0.3 K/mm3 (0-0.3); Eosinophils Percent Auto 3.7 % (0-4.4); Hematocrit 40.6 % (42.0-52.0); Hemoglobin 12.7 g/dL (14.0-18.0); Immature Granulocyte Absolute 0.03 K/mm3 (0.00-0.031); Immature Granulocyte Percent A 0.4 % (0-0.5); Lymphocytes Absolute Auto 1.74 K/mm3 (0.9-3.2); Lymphocytes Percent Auto 24.5 % (18.3-44.2); Mean Corpuscular HGB Conc 31.3 g/dl (32-36); Mean Corpuscular Hemoglobin 30.6 pg (26-34); Mean Corpuscular Volume 97.8 fl (80-100); Mean Platelet Volume 11.4 fl (7.4-10.4); Monocytes Absolute Auto 0.6 K/mm3 (0.1-0.6); Monocytes Percent Auto 8.2 % (2.6-8.5); Neutrophils Absolute Auto 4.5 K/mm3 (1.3-6.7); Neutrophils Percent Auto 62.9 % (45.5-73.1); Platelet Count Result 147 k/mm3 (150-375); Red Blood Count 4.15 M/mm3 (4.6-6.20); Red Cell Distribution Width 13.6 % (11.5-14.5); White Blood Count 7.1 K/mm3 (4.5-10.0)
[2023-11-17 06:10] LABS: Alanine Aminotransferase 11 U/L (6-50); Albumin Level 2.8 g/dL (3.5-5.1); Alkaline Phosphatase 97 U/L (38-126); Anion Gap 4 mmol/L (8-16); Aspartate Amino Transferase 20 U/L (17-59); Bilirubin,Total 0.4 mg/dL (0.2-1.3); Blood Urea Nitrogen 35 mg/dL (9-20); Calcium 8.3 mg/dL (8.4-10.2); Carbon Dioxide 23 mmol/L (22-30); Chloride 107 mmol/L (98-107); Estimated CRCL calculation 39 ml/min; Estimated Glomerular Filt Rate 41; Glucose 112 mg/dL (65-110); Potassium 3.5 mmol/L (3.4-5.0); Sodium 134 mmol/L (137-145)
[2023-11-17 07:33] VITALS: BP 161/70; PULSE 60; RESP 16; TEMP 36.6; O2SAT 95
--- NOTE | 2023-11-17 08:12 | P.CDI_ITS ---
CDI Query Clarification Request Documentation in the medical record indicates that this patient has been diagnosed as having the symptoms of ALTERED MENTAL STATUS. Additional findings also documented in the medical record: * Influenza A positive ( 11/14/23) ( temp 100.4 11/15/23) * Acute Kidney Injury * BUN 37/ Creatinine 2.00 * Hyponatremia Based on your medical judgement, can you further clarify in the progress notes, if known, if theses findings associated with altered mental status are due to a definite or suspected underlying neurological cause such as : * Metabolic Encephalopathy * Toxic Encephalopathy * Altered mental status without encephalopathy * Other condition (please specify) * None of the above/ Not applicable * Unknown <Liana Zavaleta RN - Last Filed: 11/17/23 08:22> Clarified Diagnosis Clarified Diagnosis: Altered mental status without encephalopathy <Sona Meraz DO - Last Filed: 11/20/23 13:56>
--- NOTE | 2023-11-17 08:12 | WPDCDIQUERY2 ---
CDI Query Clarification Request Documentation in the medical record indicates that this patient has been diagnosed as having the symptoms of ALTERED MENTAL STATUS. Additional findings also documented in the medical record: Influenza A positive ( 11/14/23) ( temp 100.4 11/15/23) Acute Kidney Injury BUN 37/ Creatinine 2.00 Hyponatremia Based on your medical judgement, can you further clarify in the progress notes, if known, if theses findings associated with altered mental status are due to a definite or suspected underlying neurological cause such as : Metabolic Encephalopathy Toxic Encephalopathy Altered mental status without encephalopathy Other condition (please specify) None of the above/ Not applicable Unknown <Liana Zavaleta RN - Last Filed: 11/17/23 08:22> Clarified Diagnosis Clarified Diagnosis: Altered mental status without encephalopathy <Sona Meraz DO - Last Filed: 11/20/23 13:56>
--- NOTE | 2023-11-17 08:23 | P.CDI_ITS ---
CDI Query Clarification Request CHF noted in the assessment and plan. Lasix listed as a home medication. LE edema noted in the documentation. Elevated BNP on 11/14/23 lab work. 11/16/23 ECHO results note LVEF 50-55%. Please specify type and acuity of heart failure if known. * Acute * Chronic * Acute on Chronic * Unknown * Systolic * Diastolic * Combined Systolic and Diastolic * Unknown <Liana Zavaleta RN - Last Filed: 11/17/23 08:27> Clarified Diagnosis Clarified Diagnosis: Chronic diastolic heart failure <Sona Meraz DO - Last Filed: 11/20/23 13:55>
[2023-11-17] MEDS: OSELTAMIVIR PHOSPHATE 30 MG CAPSULE PO (08:37)
[2023-11-17] MEDS: NEOMYCIN/POLYMYXIN/BACITRACIN OINTMENT 15 GM TUBE 1 APPLIC TOPICAL (08:37)
--- NOTE | 2023-11-24 14:03 | PM.DS ---
DS: Admitting Diagnosis Discharge Date 11/17/23 Admitting Diagnosis Lethargy DS: Discharge Diagnosis Discharge Diagnosis (1) Influenza: Code(s): J11.1 - Influenza due to unidentified influenza virus with other respiratory manifestations Status: Acute Assessment and Plan: Influenza A positive Cont tamiflu, started in ER Supportive care 11/16: Improving, wean O2 as tolerated (2) Altered mental status: Code(s): R41.82 - Altered mental status, unspecified Status: Acute Assessment and Plan: resolved (3) WALESKA (acute kidney injury): Code(s): N17.9 - Acute kidney failure, unspecified Status: Acute Assessment and Plan: Improving slowly, monitor closely, cont IVF with NS (4) Hyponatremia: Code(s): E87.1 - Hypo-osmolality and hyponatremia Status: Acute Assessment and Plan: almost resolved (5) CHF (congestive heart failure): Code(s): I50.9 - Heart failure, unspecified Status: Acute Assessment and Plan: Monitor closely due to suspected intravascular depletion, will have to monitor closely for hypervolemia Echo pending (6) Diabetes mellitus: Code(s): E11.9 - Type 2 diabetes mellitus without complications Status: Acute Assessment and Plan: Accu-Cheks, sliding scale insulin, check A1c Blood glucose reviewed 11/16 (7) Tobacco abuse: Code(s): Z72.0 - Tobacco use Status: Acute Assessment and Plan: Continue Nicoderm Plan DVT prophylaxis with SCDs GI prophylaxis not indicated Code status full code DS: Summary Hospital Course Hospital Course: 68-year-old male with history of hypertension, diabetes presenting with lethargy and found to be positive for influenza A. Patient found to be influenza A positive requiring supplemental oxygen. He was initiated on Tamiflu. Altered mental status completely resolved with supportive care. Patient also noted to have acute kidney injury with hyponatremia, resolved with IV fluids. Concern for history of heart failure, echo was ordered showing an EF of 50-55% with grade 1 diastolic dysfunction. Patient is able to be weaned to room air. Home O2 eval performed and patient did not need oxygen at discharge. Please see above and med rec for details. Patient was discharged in stable condition with close outpatient follow-up to complete his course of Tamiflu. Time Spent with Patient Time attestation: Total time spent providing and/or coordinating discharge services: Exam Narrative: General: No acute distress, alert and oriented per baseline HEENT: Atraumatic, normocephalic, mucous membranes moist CV: Regular rate and rhythm, S1, S2 Lungs: Clear to auscultation bilaterally, no rales or crackles noted, no wheezes, good air entry Abdomen: Soft, nontender, nondistended Extremities: Normal to inspection Skin: No rashes noted, no lesions or wounds seen Psych: Euthymic, normal affect DS: Data Data Completed and Pending Labs on day of discharge: Preliminary micro results at discharge 11/14/23 23:40 Blood Culture - Preliminary Blood Discharge Plan Discharge Attending physician on discharge: Sona Meraz Consulting providers: Jc Macdonald; Elliot Aldana Discharging Clinician: Sona Meraz Patient Disposition: Home, Self-Care Activity: as tolerated Diet: as tolerated Patient Instructions: Antibiotic Form, Heart Failure (DC), Acute Kidney Injury (DC), Pain Management (DC), Influenza (DC) Stand Alone Forms: General Discharge Information Follow-up/Referrals: Zheng Chang [Other] Discharge Medications: New oseltamivir [Tamiflu] 30 mg Capsule 30 mg PO Q12HR 3 Days Qty: 6 0RF Continued atorvastatin 40 mg tablet 40 mg PO DAILY hydrocodone-acetaminophen 10-325 mg tablet 10 tablet PO TID amlodipine 10 mg tablet 10 mg PO DAILY furose
--- NOTE | 2023-11-26 08:40 | IVDEFINITY ---
Prior to administration of IV Definity the patient was educated on the risks and benefits of the imaging enhancing agent including potential adverse side effects. The patient verbalized understanding. Allergies were verified. No exclusion criteria were identified and at least one of the following inclusion criteria were met: 1) physician request, 2) patient technically difficult to image (per the [place] [employer] guidelines of two or more segments not discernable within the apical view), or 3) questionable left ventricular function. ?
== END 2023-11-17 15:20 | disposition home or self-care (01) | DRG 153 ==
LOC: ANHED 11-15 01:49 → ANHIMU 11-15 02:15 → ANH2MED 11-15 16:23
PROVIDERS: Admitting Provider Internal Medicine; Emergency Provider Emergency Medicine; Visit Provider Student in an Organized Health Care Education/Training Program
DX: J11.1 Influenza due to unidentified influenza virus with other respiratory manifestations (principal); N17.9 Acute kidney failure, unspecified; E87.1 Hypo-osmolality and hyponatremia; I50.32 Chronic diastolic (congestive) heart failure; R41.82 Altered mental status, unspecified; E11.9 Type 2 diabetes mellitus without complications; I11.0 Hypertensive heart disease with heart failure; F17.210 Nicotine dependence, cigarettes, uncomplicated; E78.5 Hyperlipidemia, unspecified; Z20.822 Contact with and (suspected) exposure to COVID-19; Z96.611 Presence of right artificial shoulder joint; I25.2 Old myocardial infarction
CPT/HCPCS: 36415; 36600; 70450; 71045; 80048; 80053; 80307; 81001; 82805; 83605; 83690; 83735; 83880; 84443; 84484; 85025; 85610; 85730; 87040; 87637; 93005; 97161; 97165; 99285; A9270; C8929; J1200; J7030; Q9957

== ENCOUNTER 2025-07-31 00:58 | Inpatient (IN) | payer OTHER, SELFPAY ==
[2025-07-31] VITALS (46 sets, daily range): BP systolic 138–184; BP diastolic 57–76; PULSE 57–81; RESP 16–32; TEMP 36.7–36.9; O2SAT 85–98; BMI 33.1
--- NOTE | 2025-07-31 | ECHO_ITS ---
Patient Info Name: García Puente Age: 70 years : 1955 Gender: Male Ht: 70 in Wt: 231 lbs BSA: 2.31 m2 HR: 57 bpm BP: 168 / 62 mmHg Technical Quality: Good Exam Date: 07/31/2025 3:48 PM Patient Status: I Admit Date: 07/31/2025 Exam Type: CA echo doppler color flow Complete two-dimensional, color flow and Doppler transthoracic echocardiogram is performed. Staff Referring Physician: Ashley Pink Collision Repairer: Francois Matthews III Attending Provider: Tresa Larsen DO Summary 1. Complete two-dimensional, color flow and Doppler transthoracic echocardiogram is performed. 2. Left ventricular systolic function is normal, estimated at 50-55. Hypokinesis of inferolateral wall. 3. The left ventricular diastolic function is grade II diastolic dysfunction. 4. Left atrial chamber dimension is mildly enlarged. 5. There is mild aortic valve calcification. 6. There is mild mitral valve regurgitation. 7. There is mild tricuspid valve regurgitation. 8. No pulmonary hypertension, estimated pulmonary arterial systolic pressure is 17 mmHg. 9. There is mild pulmonic regurgitation. Left Ventricle Left ventricular chamber dimension is normal. Left ventricular systolic function is normal, estimated at 50-55. Hypokinesis of inferolateral wall. There is mildly increased left ventricular wall thickness. Left ventricular septal wall motion is normal. The left ventricular diastolic function is grade II diastolic dysfunction. Right Ventricle Right ventricular chamber dimension is normal. Right ventricular systolic function is normal. Left Atria Left atrial chamber dimension is mildly enlarged. Right Atria Right atrial chamber dimension is normal. Aortic Valve The aortic valve is trileaflet. There is no aortic valve sclerosis. There is no aortic valve stenosis. There is no aortic valve regurgitation. There is mild aortic valve calcification. Pulmonic Valve The pulmonic valve is normal. There is no pulmonic valve stenosis. There is mild pulmonic regurgitation. Mitral Valve The mitral valve has normal leaflets. There is no mitral valve stenosis. There is mild mitral valve regurgitation. Tricuspid Valve The tricuspid valve leaflets are normal. There is no significant tricuspid valve stenosis. There is mild tricuspid valve regurgitation. No pulmonary hypertension, estimated pulmonary arterial systolic pressure is 17 mmHg. Pericardium/Pleural The pericardium appears normal. There is no pericardial effusion. Inferior Vena Cava Normal inferior vena cava with >50% collapse upon inspiration consistent with normal right atrial pressure, 5 mmHg. Aorta The aortic root size at the sinus of Valsalva is normal. The prox ascending aorta size is normal. Left Ventricular Outflow Tract Name Value Normal LVOT 2D LVOT Diameter 2.3 cm LVOT Doppler LVOT Peak Velocity 115 cm/s LVOT Peak Gradient 5 mmHg LVOT Mean Gradient 3 mmHg LVOT VTI 31 cm LVOT VTI/AV VTI Ratio 0.8 LVOT Stroke Volume 132 ml LVOT CO 7.6 l/min LVOT CI 3.3 l/min/m2 Pulmonic Valve Name Value Normal PV Doppler PV Peak Velocity 108 cm/s PV Peak Gradient 5 mmHg PV Mean Gradient 2 mmHg Mitral Valve Name Value Normal MV Doppler MV Peak Gradient 5 mmHg MV Mean Gradient 2 mmHg MV Area (Cont Eq VTI) 3.8 cm2 MV Regurgitation Doppler MR Peak Gradient 107 mmHg Tricuspid Valve Name Value Normal TV Regurgitation Doppler TR Peak Velocity 170 cm/s TR Peak Gradient 12 mmHg Estimated PAP/RSVP RA Pressure 5 mmHg <=5 PA Systolic Pressure 17 mmHg <36 RV Systolic Pressure 17 mmHg <36 TV Annular TDI TV Lateral Yennifer s' Velocity 13.1 cm/s >=9.5 Aortic Valve Name Value Normal AV Doppler AV Peak Velocity 149 cm/s AV Peak Gradient 9 mmHg AV Mean Gradient 5 mmHg AV VTI 37 cm AV Area (Cont Eq VTI) 3.6 cm2 >=3.0 AV Area (Cont Eq Christopher) 3.3 cm2 AV DI (Christopher) 0.78 AV Regurgitation 2D LVOT Area 4.3 cm2 Ventricles Name Value Normal LV Dimensions 2D/MM IVS Diastolic Thickness (2D) 1.0 cm 0.6-1.0 LVID Diastole (2D) 6.3 cm 4.2-5.8 LVIW Diastolic Thickness (2D) 0.9 cm 0.6-1.0 LVID Systole (2D) 4.3 cm 2.5-4.0 LVOT Diameter 2.3 cm LV Mass (2D Cubed) 236.65 g 88.00-224.00 LV Mass Index (2D Cubed) 103 g/m2 49-115 Relative Wall Thickness (2D) 0.28 <=0.42 LV Fractional Shortening/Ejection Fraction 2D/MM LV Fractional Shortening (2D) 31 % 25-43 LV EF (2D Teichholz) 58 % LV Diastolic Volume (4C MOD) 208 ml LV EF (4C MOD) 60 % LV Diastolic Volume (2C MOD) 187 ml LV EF (2C MOD) 51 % LV Diastolic Volume (BP MOD) 197 ml 62-150 LV Diastolic Volume Index (BP MOD) 85 ml/m2 34-74 LV Systolic Volume (BP MOD) 88 ml 21-61 LV Systolic Volume Index (BP MOD) 38 ml/m2 11-31 LV EF (BP MOD) 55 % 52-72 LV Diastolic Length (4C) 9.8 cm LV Systolic Length (4C) 7.8 cm LV Stroke Volume (4C MOD) 124 ml Atria Name Value Normal LA Dimensions LA Volume (4C A-L) 94 ml LA Volume (BP A-L) 110 ml RA Dimensions RA Systolic Major [place] Length (4C) 6.1 cm 2.1-2.7 RA Area (4C) 24.7 cm2 <=18.0 Wall Motion Scoring Report Signatures
--- NOTE | ~2025-07-31 | XR_ITS ---
Examination: XR chest 1V portable Clinical History: dyspnea Comparison: 11/14/2023 Technique: Portable AP Findings: Heart size mildly enlarged. Diffusely increased interstitial markings. No acute bony abnormality. IMPRESSION: 1. Interstitial pulmonary edema and/or pneumonitis. Reviewed, dictated and finalized at location R.
--- NOTE | ~2025-07-31 | XR_ITS ---
Examination: XR chest 1V portable Clinical History: SOB Comparison: 1 day prior Technique: Portable AP Findings: Heart size normal. Worsening bibasilar opacities. Pleural effusions not excluded. No acute bony abnormality. IMPRESSION: 1. Worsening bibasilar atelectasis and/or airspace disease. 2. Pleural effusions not excluded. Reviewed, dictated and finalized at location R.
--- NOTE | ~2025-07-31 | XR_ITS ---
Examination: XR chest 1V portable Clinical History: SOB/Hypoxia Comparison: 07/31/2025 Technique: Portable AP Findings: Heart size unchanged. Improving but persistent diffuse interstitial markings. No acute bony abnormality. IMPRESSION: 1. Improving but persistent interstitial pulmonary edema and/or pneumonitis. Reviewed, dictated and finalized at location R.
--- NOTE | 2025-07-31 01:06 | ECG_ITS ---
Test Date: 2025-07-31 01:08:29 Measurements Intervals [place] Rate: 65 P: 3 RI: 225 QRS: 15 QRSD: 153 T: 27 QT: 452 QTc: 473 Interpretive Statements SINUS RHYTHM WITH FIRST DEGREE AV BLOCK WITH OCCASIONAL SUPRAVENTRICULAR PREMATURE COMPLEXES INDETERMINATE AXIS RIGHT BUNDLE BRANCH BLOCK [120+ ms QRS DURATION, UPRIGHT V1, 40+ ms S IN I/aVL/V4/V5/V6] No previous ECG available for comparison Electronically Signed On 07-31-2025 06:19:22 CDT by Manuel Latham M.D.
--- NOTE | 2025-07-31 01:17 | ED.GENADULT ---
HPI - General Adult General Chief complaint: Shortness of Breath/Dyspnea Stated complaint: dyspnea Time Seen by Provider: 07/31/25 01:03 History of Present Illness HPI narrative: Patient is a 70 year old male who presents to the emergency department this evening complaining of shortness of breath which started last night. Patient denies any history of CHF or COPD but admits to smoking a pack and half of cigarettes a day for the past 55 years. Upon arrival, patient was noted to be hypoxic on room air, 82%. Patient does not wear any oxygen at home. He was placed on 4 L nasal cannula with improvement of his oxygenation to 92%. Denies any sick contacts at home, any fevers or chills, and denies any active chest pain. Related Data Home Medications ?Medication ?Instructions ?Recorded ?Confirmed ?Last Taken ?Type amlodipine 10 mg tablet 10 mg PO DAILY 07/21/21 01/13/22 Unknown History atorvastatin 40 mg tablet 40 mg PO DAILY 07/21/21 01/13/22 Unknown History furosemide 20 mg tablet 20 mg PO DAILY 07/21/21 01/13/22 Unknown History hydrocodone 10 mg-acetaminophen 10 tablet PO TID 07/21/21 11/15/23 01/13/22 11:00 History 325 mg tablet lisinopril 40 mg tablet 40 mg PO DAILY 07/21/21 01/13/22 Unknown History duloxetine 30 mg capsule,delayed 30 mg PO DAILY 01/13/22 01/13/22 Unknown History release spironolactone 25 mg tablet 25 mg PO DAILY 01/13/22 01/13/22 Unknown History hydroxyzine HCl 25 mg tablet mg 11/15/23 Unknown History insulin aspart U-100 100 unit/mL 8 unit subcut TIDWM 11/15/23 11/15/23 Unknown History (3 mL) subcutaneous pen losartan 100 mg tablet 100 mg PO DAILY 11/15/23 11/15/23 Unknown History Allergies Allergy/AdvReac Type Severity Reaction Status Date / Time Contrast Media Allergy Unknown ANAPHYLAXIS Uncoded 09/17/23 09:16 Review of Systems Review of Systems: All systems are reviewed and are negative unless stated otherwise in the HPI. [facility] Past Medical History Medical History Chronic headaches Diabetes mellitus Hyperlipidemia Hypertension Myocardial infarction Tobacco abuse Surgical History Surgical History H/O shoulder replacement Right shoulder Status post rotator cuff repair Left shoulder Social History Social History Smoking packs per day: 2.5 Smoking cigarettes per day: 50.0 Years smoked: 45 Smoking pack-years: 112.50 Smoking status: Current every day smoker Tobacco type: cigarettes Alcohol intake: never Substance use: never Substance use type: does not use Do You Feel Safe in your Home?: Yes Lack of Transportation: No Lack of Food: Never True Current Housing: I Have Housing Concerned About Future Housing: No Difficulty Paying Gas/Electric Bills: No Difficulty Paying for Meds: No Currently Unemployed: No Education: High School Diploma/GED Difficulty w/ Childcare or Family Care: No Spiritual care concerns: No Exam Narrative: General: Alert, awake, afebrile, in no acute distress. HEENT: PERRL, no rhinorrhea, no post nasal drip, oropharynx clear. Neck: Trachea midline, no JVD, no lymphadenopathy. Cardiovascular: Regular rate and rhythm, no murmurs, rubs or gallops, no peripheral edema. Respiratory: Diminished breath sounds bilaterally with end expiratory wheezing, tachypnea, mild respiratory distress. Abdomen: Soft, nontender, nondistended, no rebound, no guarding, no peritoneal signs. Musculoskeletal: No joint swelling or deformity, normal muscle tone. Skin: No rashes or petechia, no signs of infection. Psychiatric: Alert and oriented, normal behavior and judgment for situation. Neurological: Alert and oriented to person, place, and time. Follows all commands. No focal deficits, speech is clear and fluent. Course Vital Signs Vital signs: Vital Signs Pulse Oximetry 85 L 07/31/25 01:04 Temperature 98.5 F 07/31/25 01:07 Pulse Rate 70 07/31/25 03:11 Respiratory Rate 21 H 07/31/25 03:11 Blood Pressure 138/65 07/31/25 03:11 Pulse Oximetry 95 07/31/25 03:11 Oxygen Delivery Nasal Cannula 07/31/25 01:33 Oxygen Flow Rate 5 07/31/25 01:33 Medical Decision Making MDM Narrative Medical decision making narrative: The patient was evaluated by myself in the emergency department. History is obtained from patient who is an independent historian and physical exam was performed. External medical records were reviewed at this time. IV was established and pertinent tests were ordered. Patient was administered a DuoNeb breathing treatment and 125 mg of IV Solu-Medrol and 1 L IV fluid bolus with normal saline. EKG was obtained which revealed sinus rhythm rate of 65 beats per minute, no evidence of acute ischemia. EKG was independently interpreted by me and is currently pending official cardiology read. Laboratory results obtained revealing hemoglobin of 9.5 which is lower than last documented hemoglobin of 12 from November of this year, PO2 of 60, Oxy hemoglobin is 7.1, BUN 44, creatinine 4.22 which is also elevated than last documented value of 2 from November of this year. Magnesium level 1.5. Troponin slightly elevated at 0.040, which is chronic for him and at his baseline, [place] [id number]. At this time patient was administered 2 g IV magnesium. Viral swabs noted to be negative for COVID/influenza/RSV. Urinalysis currently pending. Imaging studies obtained included CXR which was independently interpreted by me revealing patchy bilateral infiltrates consistent, which is pending final radiology interpretation. Patient was started on IV antibiotics with Rocephin and azithromycin after blood cultures were obtained. Differential diagnosis considerations include COPD/reactive airway disease, pneumonia, pulmonary emboli, acute viral syndrome. Comorbidities impacting this visit include 82 pack year smoking history. I have evaluated and discussed social determinants of health with the patient that could potentially impact subsequent diagnosis and treatment plans. On repeat assessment of the patient, reevaluation revealed that the patient is doing well and is in no acute distress. Patient symptoms have improved since he arrived to our emergency department. Repeat vital signs were all reviewed and noted to be stable. Differential diagnosis and treatment plan were discussed with the patient at bedside. Patient agrees with discussion and after shared medical decision making agrees with admission. All questions were answered to the patient's satisfaction. Case was discussed with the on-call hospitalist Dr. Larsen at 0315 and she accepted IMU admission. Vital Signs Vital Signs: Vital Signs Pulse Oximetry 85 L 07/31/25 01:04 Temperature 98.5 F 07/31/25 01:07 Pulse Rate 70 07/31/25 03:11 Respiratory Rate 21 H 07/31/25 03:11 Blood Pressure 138/65 07/31/25 03:11 Pulse Oximetry 95 07/31/25 03:11 Oxygen Delivery Nasal Cannula 07/31/25 01:33 Oxygen Flow Rate 5 07/31/25 01:33 Lab Data 07/31/25 01:29 07/31/25 01:29 Labs: Lab Results 07/31/25 07/31/25 07/31/25 Range/Units 01:28 01:29 01:29 WBC 11.6 H (4.5-10.0) K/mm3 RBC 2.99 L (4.6-6.20) M/mm3 Hgb 9.5 L D (14.0-18.0) g/dL Hct 29.2 L (42.0-52.0) % MCV 97.7 (80-100) fl MCH 31.8 (26-34) pg MCHC 32.5 (32-36) g/dl RDW 13.7 (11.5-14.5) % Plt Count 193 (150-375) k/mm3 MPV 10.2 (7.4-10.4) fl Immature Gran % (Auto) 0.5 (0-0.5) % Neut % (Auto) 75.4 H (45.5-73.1) % Lymph % (Auto) 12.6 L (18.3-44.2) % Elliott % (Auto) 7.8 (2.6-8.5) % Eos % (Auto) 3.1 (0-4.4) % Baso % (Auto) 0.6 (0.2-1.2) % Lymph # (Auto) 1.46 (0.9-3.2) K/mm3 Elliott # (Auto) 0.9 H (0.1-0.6) K/mm3 Eos # (Auto) 0.4 H (0-0.3) K/mm3 Baso # (Auto) 0.1 (0.0-0.1) K/mm3 Abs Immat Gran (auto) 0.06 H (0.00-0.031) K/mm3 Absolute Neuts (auto) 8.7 H (1.3-6.7) K/mm3 Absolute Nucleated RBC 0.000 (0.0-0.012) K/mm3 Nucleated RBC % 0.0 (0.0-0.2) % Methemoglobin (0-1.5) %THb Sodium Cancelled 135 L Potassium Cancelled Chloride Carbon Dioxide Anion Gap BUN Creatinine Estim Creat Clear Calc Estimated GFR Glucose Lactic Acid 0.8 (0.7-2.0) mmol/L Calcium Magnesium (1.6-2.3) mg/dL Total Bilirubin AST ALT Alkaline Phosphatase Troponin I (0.000-0.034) ng/mL NT-Pro-B Natriuret Pep (19.9-100) pg/mL Total Protein Albumin Influenza A (RT-PCR) (Negative) Influenza B (RT-PCR) (Negative) RSV (RT-PCR) (Negative) SARS-CoV-2 RNA (RT-PCR) (Negative) 07/31/25 07/31/25 07/31/25 Range/Units :30 11:30 11:29 WBC (4.5-10.0) K/mm3 RBC (4.6-6.20) M/mm3 Hgb (14.0-18.0) g/dL Hct (42.0-52.0) % MCV (80-100) fl MCH (26-34) pg MCHC (32-36) g/dl RDW (11.5-14.5) % Plt Count (150-375) k/mm3 MPV (7.4-10.4) fl Immature Gran % (Auto) (0-0.5) % Neut % (Auto) (45.5-73.1) % Lymph % (Auto) (18.3-44.2) % Elliott % (Auto) (2.6-8.5) % Eos % (Auto) (0-4.4) % Baso % (Auto) (0.2-1.2) % Lymph # (Auto) (0.9-3.2) K/mm3 Elliott # (Auto) (0.1-0.6) K/mm3 Eos # (Auto) (0-0.3) K/mm3 Baso # (Auto) (0.0-0.1) K/mm3 Abs Immat Gran (auto) (0.00-0.031) K/mm3 Absolute Neuts (auto) (1.3-6.7) K/mm3 Absolute Nucleated RBC (0.0-0.012) K/mm3 Nucleated RBC % (0.0-0.2) % Methemoglobin (0-1.5) %THb Sodium Potassium 4.0 Chloride Cancelled 109 H Carbon Dioxide Cancelled 20 L Anion Gap Cancelled BUN Creatinine Estim Creat Clear Calc Estimated GFR Glucose Lactic Acid (0.7-2.0) mmol/L Calcium Magnesium (1.6-2.3) mg/dL Total Bilirubin AST ALT Alkaline Phosphatase Troponin I (0.000-0.034) ng/mL NT-Pro-B Natriuret Pep (19.9-100) pg/mL Total Protein Albumin Influenza A (RT-PCR) (Negative) Influenza B (RT-PCR) (Negative) RSV (RT-PCR) (Negative) SARS-CoV-2 RNA (RT-PCR) (Negative) 07/31/25 07/31/25 07/31/25 Range/Units 01:30 11: 01:29 WBC (4.5-10.0) K/mm3 RBC (4.6-6.20) M/mm3 Hgb (14.0-18.0) g/dL Hct (42.0-52.0) % MCV (80-100) fl MCH (26-34) pg MCHC (32-36) g/dl RDW (11.5-14.5) % Plt Count (150-375) k/mm3 MPV (7.4-10.4) fl Immature Gran % (Auto) (0-0.5) % Neut % (Auto) (45.5-73.1) % Lymph % (Auto) (18.3-44.2) % Elliott % (Auto) (2.6-8.5) % Eos % (Auto) (0-4.4) % Baso % (Auto) (0.2-1.2) % Lymph # (Auto) (0.9-3.2) K/mm3 Elliott # (Auto) (0.1-0.6) K/mm3 Eos # (Auto) (0-0.3) K/mm3 Baso # (Auto) (0.0-0.1) K/mm3 Abs Immat Gran (auto) (0.00-0.031) K/mm3 Absolute Neuts (auto) (1.3-6.7) K/mm3 Absolute Nucleated RBC (0.0-0.012) K/mm3 Nucleated RBC % (0.0-0.2) % Methemoglobin (0-1.5) %THb Sodium Potassium Chloride Carbon Dioxide Anion Gap 6 BUN Cancelled 44 H Creatinine Cancelled 4.22 H Estim Creat Clear Calc Cancelled Estimated GFR Glucose Lactic Acid (0.7-2.0) mmol/L Calcium Magnesium (1.6-2.3) mg/dL Total Bilirubin AST ALT Alkaline Phosphatase Troponin I (0.000-0.034) ng/mL NT-Pro-B Natriuret Pep (19.9-100) pg/mL Total Protein Albumin Influenza A (RT-PCR) (Negative) Influenza B (RT-PCR) (Negative) RSV (RT-PCR) (Negative) SARS-CoV-2 RNA (RT-PCR) (Negative) 07/31/25 07/31/25 07/31/25 Range/Units 01:29 01:29 01:29 WBC (4.5-10.0) K/mm3 RBC (4.6-6.20) M/mm3 Hgb (14.0-18.0) g/dL Hct (42.0-52.0) % MCV (80-100) fl MCH (26-34) pg MCHC (32-36) g/dl RDW (11.5-14.5) % Plt Count (150-375) k/mm3 MPV (7.4-10.4) fl Immature Gran % (Auto) (0-0.5) % Neut % (Auto) (45.5-73.1) % Lymph % (Auto) (18.3-44.2) % Elliott % (Auto) (2.6-8.5) % Eos % (Auto) (0-4.4) % Baso % (Auto) (0.2-1.2) % Lymph # (Auto) (0.9-3.2) K/mm3 Elliott # (Auto) (0.1-0.6) K/mm3 Eos # (Auto) (0-0.3) K/mm3 Baso # (Auto) (0.0-0.1) K/mm3 Abs Immat Gran (auto) (0.00-0.031) K/mm3 Absolute Neuts (auto) (1.3-6.7) K/mm3 Absolute Nucleated RBC (0.0-0.012) K/mm3 Nucleated RBC % (0.0-0.2) % Methemoglobin (0-1.5) %THb Sodium Potassium Chloride Carbon Dioxide Anion Gap BUN Creatinine Estim Creat Clear Calc 18 Estimated GFR Cancelled 14 L Glucose Cancelled 128 H Lactic Acid (0.7-2.0) mmol/L Calcium Cancelled Magnesium (1.6-2.3) mg/dL Total Bilirubin AST ALT Alkaline Phosphatase Troponin I (0.000-0.034) ng/mL NT-Pro-B Natriuret Pep (19.9-100) pg/mL Total Protein Albumin Influenza A (RT-PCR) (Negative) Influenza B (RT-PCR) (Negative) RSV (RT-PCR) (Negative) SARS-CoV-2 RNA (RT-PCR) (Negative) 07/31/25 07/31/25 07/31/25 Range/Units 01:29 01:29 01:29 WBC (4.5-10.0) K/mm3 RBC (4.6-6.20) M/mm3 Hgb (14.0-18.0) g/dL Hct (42.0-52.0) % MCV (80-100) fl MCH (26-34) pg MCHC (32-36) g/dl RDW (11.5-14.5) % Plt Count (150-375) k/mm3 MPV (7.4-10.4) fl Immature Gran % (Auto) (0-0.5) % Neut % (Auto) (45.5-73.1) % Lymph % (Auto) (18.3-44.2) % Elliott % (Auto) (2.6-8.5) % Eos % (Auto) (0-4.4) % Baso % (Auto) (0.2-1.2) % Lymph # (Auto) (0.9-3.2) K/mm3 Elliott # (Auto) (0.1-0.6) K/mm3 Eos # (Auto) (0-0.3) K/mm3 Baso # (Auto) (0.0-0.1) K/mm3 Abs Immat Gran (auto) (0.00-0.031) K/mm3 Absolute Neuts (auto) (1.3-6.7) K/mm3 Absolute Nucleated RBC (0.0-0.012) K/mm3 Nucleated RBC % (0.0-0.2) % Methemoglobin (0-1.5) %THb Sodium Potassium Chloride Carbon Dioxide Anion Gap BUN Creatinine Estim Creat Clear Calc Estimated GFR Glucose Lactic Acid (0.7-2.0) mmol/L Calcium 8.2 L Magnesium 1.5 L (1.6-2.3) mg/dL Total Bilirubin Cancelled 0.5 AST Cancelled 20 ALT Cancelled Alkaline Phosphatase Troponin I (0.000-0.034) ng/mL NT-Pro-B Natriuret Pep (19.9-100) pg/mL Total Protein Albumin Influenza A (RT-PCR) (Negative) Influenza B (RT-PCR) (Negative) RSV (RT-PCR) (Negative) SARS-CoV-2 RNA (RT-PCR) (Negative) 07/31/25 07/31/25 07/31/25 Range/Units : 01: 01:29 WBC (4.5-10.0) K/mm3 RBC (4.6-6.20) M/mm3 Hgb (14.0-18.0) g/dL Hct (42.0-52.0) % MCV (80-100) fl MCH (26-34) pg MCHC (32-36) g/dl RDW (11.5-14.5) % Plt Count (150-375) k/mm3 MPV (7.4-10.4) fl Immature Gran % (Auto) (0-0.5) % Neut % (Auto) (45.5-73.1) % Lymph % (Auto) (18.3-44.2) % Elliott % (Auto) (2.6-8.5) % Eos % (Auto) (0-4.4) % Baso % (Auto) (0.2-1.2) % Lymph # (Auto) (0.9-3.2) K/mm3 Elliott # (Auto) (0.1-0.6) K/mm3 Eos # (Auto) (0-0.3) K/mm3 Baso # (Auto) (0.0-0.1) K/mm3 Abs Immat Gran (auto) (0.00-0.031) K/mm3 Absolute Neuts (auto) (1.3-6.7) K/mm3 Absolute Nucleated RBC (0.0-0.012) K/mm3 Nucleated RBC % (0.0-0.2) % Methemoglobin (0-1.5) %THb Sodium Potassium Chloride Carbon Dioxide Anion Gap BUN Creatinine Estim Creat Clear Calc Estimated GFR Glucose Lactic Acid (0.7-2.0) mmol/L Calcium Magnesium (1.6-2.3) mg/dL Total Bilirubin AST ALT 13 Alkaline Phosphatase Cancelled 130 H Troponin I 0.040 H* (0.000-0.034) ng/mL NT-Pro-B Natriuret Pep 56784 H (19.9-100) pg/mL Total Protein Cancelled 6.4 Albumin Cancelled Influenza A (RT-PCR) (Negative) Influenza B (RT-PCR) (Negative) RSV (RT-PCR) (Negative) SARS-CoV-2 RNA (RT-PCR) (Negative) 07/31/25 07/31/25 Range/Units 01:29 02:11 WBC (4.5-10.0) K/mm3 RBC (4.6-6.20) M/mm3 Hgb (14.0-18.0) g/dL Hct (42.0-52.0) % MCV (80-100) fl MCH (26-34) pg MCHC (32-36) g/dl RDW (11.5-14.5) % Plt Count (150-375) k/mm3 MPV (7.4-10.4) fl Immature Gran % (Auto) (0-0.5) % Neut % (Auto) (45.5-73.1) % Lymph % (Auto) (18.3-44.2) % Elliott % (Auto) (2.6-8.5) % Eos % (Auto) (0-4.4) % Baso % (Auto) (0.2-1.2) % Lymph # (Auto) (0.9-3.2) K/mm3 Elliott # (Auto) (0.1-0.6) K/mm3 Eos # (Auto) (0-0.3) K/mm3 Baso # (Auto) (0.0-0.1) K/mm3 Abs Immat Gran (auto) (0.00-0.031) K/mm3 Absolute Neuts (auto) (1.3-6.7) K/mm3 Absolute Nucleated RBC (0.0-0.012) K/mm3 Nucleated RBC % (0.0-0.2) % Methemoglobin 0.3 (0-1.5) %THb Sodium Potassium Chloride Carbon Dioxide Anion Gap BUN Creatinine Estim Creat Clear Calc Estimated GFR Glucose Lactic Acid (0.7-2.0) mmol/L Calcium Magnesium (1.6-2.3) mg/dL Total Bilirubin AST ALT Alkaline Phosphatase Troponin I (0.000-0.034) ng/mL NT-Pro-B Natriuret Pep (19.9-100) pg/mL Total Protein Albumin 3.4 L Influenza A (RT-PCR) Negative (Negative) Influenza B (RT-PCR) Negative (Negative) RSV (RT-PCR) Negative (Negative) SARS-CoV-2 RNA (RT-PCR) Negative (Negative) ABG Data ABG results: 07/31/25 02:11 Puncture Site Right radial ABG pH 7.361 ABG pCO2 35.2 ABG pO2 60.0 L ABG PO2/FiO2 Ratio 1.20 ABG HCO3 19.5 L ABG O2 Saturation 90.4 L ABG O2 Content 12.1 L ABG Base Excess -5.3 A-a Gradient 256.9 Oxyhemoglobin 87.1 L* Carboxyhemoglobin 1.9 Reduced Hemoglobin 10.7 H Total Hemoglobin 9.8 L O2 Delivery Device Nasal cannula O2 Liters/Min 4.5 FiO2 50 Discharge Plan Discharge Clinical Impression: Acute hypoxic respiratory failure, WALESKA (acute kidney injury), Bilateral pneumonia, COPD (chronic obstructive pulmonary disease), Hypomagnesemia Patient Disposition: Still a Patient Condition: Improved Patient Language: Romansh Prescriptions: No Action atorvastatin 40 mg tablet 40 mg PO DAILY hydrocodone-acetaminophen 10-325 mg tablet 10 tablet PO TID amlodipine 10 mg tablet 10 mg PO DAILY furosemide 20 mg tablet 20 mg PO DAILY lisinopril 40 mg tablet 40 mg PO DAILY hydroxyzine HCl 25 mg tablet losartan 100 mg tablet 100 mg PO DAILY insulin aspart U-100 100 unit/mL (3 mL) insulin pen 8 unit SUBCUT TIDWM oseltamivir [Tamiflu] 30 mg Capsule 30 mg PO Q12HR 3 Days Qty: 6 0RF spironolactone 25 mg tablet 25 mg PO DAILY duloxetine 30 mg capsule,delayed release(DR/EC) 30 mg PO DAILY aspirin 81 mg Tablet,Delayed Release (Dr/Ec) 81 mg PO QAM Qty: 30 0RF gabapentin 100 mg Capsule 100 mg PO TID Qty: 90 0RF Follow-up/Referrals: PHYSICIAN,RECORDS SUPERVISOR [Non-Staff, Internal Medicine] Time of Disposition: 03:18
[2025-07-31 01:38] LABS: Hematocrit 29.2 % (42.0-52.0); Hemoglobin 9.5 g/dL (14.0-18.0); Immature Granulocyte Percent A 0.5 % (0-0.5); Lymphocytes Absolute Auto 1.46 K/mm3 (0.9-3.2); Mean Corpuscular HGB Conc 32.5 g/dl (32-36); Mean Corpuscular Hemoglobin 31.8 pg (26-34); Mean Corpuscular Volume 97.7 fl (80-100); Nucleated Red Blood Cells Absolute Auto 0.000 K/mm3 (0.0-0.012); Nucleated Red Blood Cells Perc 0.0 % (0.0-0.2); Platelet Count Result 193 k/mm3 (150-375); Red Blood Count 2.99 M/mm3 (4.6-6.20); White Blood Count 11.6 K/mm3 (4.5-10.0)
[2025-07-31 01:56] LABS: Magnesium 1.5 mg/dL (1.6-2.3)
[2025-07-31 01:57] LABS: Alanine Aminotransferase 13 U/L (6-50); Albumin Level 3.4 g/dL (3.5-5.1); Alkaline Phosphatase 130 U/L (38-126); Anion Gap 6 mmol/L (4-12); Aspartate Amino Transferase 20 U/L (17-59); Bilirubin,Total 0.5 mg/dL (0.2-1.3); Blood Urea Nitrogen 44 mg/dL (9-20); Calcium 8.2 mg/dL (8.4-10.2); Carbon Dioxide 20 mmol/L (22-30); Chloride 109 mmol/L (98-107); Estimated CRCL calculation 18 ml/min; Estimated Glomerular Filt Rate 14; Glucose 128 mg/dL (65-110); Potassium 4.0 mmol/L (3.4-5.0); Sodium 135 mmol/L (137-145); Total Protein 6.4 g/dL (6.3-8.2)
[2025-07-31] MEDS: cefTRIAXone 1 GM in SODIUM CHLORIDE 0.9% IV 50 ML 100 ML IVPB ×2 (01:59→20:33)
[2025-07-31] MEDS: MAGNESIUM SULF 2 GM/WATER 50ML 2 GM/50 ML BAG IVPB (02:03)
[2025-07-31] MEDS: SODIUM CHLORIDE 0.9% IV 1,000 ML 999 ML IV CONT (02:04)
[2025-07-31 02:05] LABS: NT Pro B Type Natriuretic Pept 19500 pg/mL (19.9-100)
[2025-07-31] MEDS: AZITHROMYCIN IV 500 MG in SODIUM CHLORIDE 0.9% IV 250 ML IVPB ×2 (02:05→22:58)
[2025-07-31 02:11] LABS: Troponin I 0.040 ng/mL (0.000-0.034)
[2025-07-31] MEDS: IPRATROPIUM 0.5 MG/ALBUTEROL SULFATE 2.5 MG AMPUL.NEB 3 ML INHALATION ×2 (02:11→02:51)
[2025-07-31 02:22] LABS: Alveolar/Arterial O2 Gradient 256.9 mmHg; Carboxyhemoglobin 1.9 % THb (0-2.0); Fractional Inspired Oxygen 50 %; HCO3 ABG 19.5 mEq/l (22.0-26.0); Methemoglobin ABG 0.3 %THb (0-1.5); Oxygen Content ABG 12.1 %vol (16.0-22.0); Oxygen Saturation ABG 90.4 % (95.0-100.0); PCO2 ABG 35.2 mmHg (35.0-45.0); PO2 ABG 60.0 mmHg (80.0-100.0); PO2 FiO2 Ratio Arterial Blood 1.20 %; Reduced Hemoglobin 10.7 %THb (0-5.0)
[2025-07-31 02:26] LABS: Liters per Minute 4.5 LPM; Modified Allen's Test Pass; Site Drawn RIGHT RADIAL
[2025-07-31 02:29] LABS: Influenza A QL RT-PCR Negative (Negative); Influenza B QL RT-PCR Negative (Negative); RSV RNA, RT-PCR Negative (Negative); SARS-CoV-2 RNA PCR Negative (Negative)
[2025-07-31 03:22] LABS: Immature Reticulocyte Fraction 19.2 % (3.0-15.9); Reticulocyte Hemoglobin Conten 31.7 pg (28.2-36.6); Reticulocytes Absolute 0.08 10^6/uL (0.02-0.10)
[2025-07-31 03:29] LABS: Add Urine Microscopic? YES; Appearance Urine Clear (Clear); Glucose Urine UA 1+ mg/dL (Negative); Leukocyte Esterase Ur Negative LEU/UL (Negative); Nitrate Urine Negative (Negative); Non Pathogenic Casts 0-2; Specific Grav Ur 1.015 (1.001-1.035)
[2025-07-31 03:41] LABS: Iron 30 ug/dL (49-181)
[2025-07-31 03:50] LABS: Percent Iron Saturation 12 % (20-50)
[2025-07-31 04:13] LABS: Thyroid Stimulating Hormone Reflex 1.330 uIU/mL (0.465-4.68)
[2025-07-31 04:17] LABS: Ferritin 88.70 ng/mL (11.1-264)
--- NOTE | 2025-07-31 04:18 | ECG_ITS ---
Test Date: 2025-07-31 04:21:10 Measurements Intervals [place] Rate: 65 P: 15 SC: 214 QRS: -6 QRSD: 158 T: -9 QT: 466 QTc: 486 Interpretive Statements SINUS RHYTHM WITH FIRST DEGREE AV BLOCK INDETERMINATE AXIS RIGHT BUNDLE BRANCH BLOCK [120+ ms QRS DURATION, UPRIGHT V1, 40+ ms S IN I/aVL/V4/V5/V6] nonspecific st changes Compared to ECG 07/31/2025 01:08:29 No significant changes Electronically Signed On 07-31-2025 06:19:14 CDT by Manuel Latham M.D.
--- NOTE | 2025-07-31 04:26 | PC.NURSE ---
This patient, García Puente, was admitted to IMU Room 213-01. Patient/family oriented to hospital policies and general routines including ID bracelet, bed and alarms, visiting hours, pain management, procedures, bathroom and other care routines, personal items, smoking policy, room service/diet, and visiting hours. Information on how to activate the Rapid Response Team has been discussed. Patient/Family are encouraged to report perceived risks to care and to ask questions if they do not understand what they are told or what they should do.
[2025-07-31 04:49] LABS: Vitamin B12 750.0 pg/mL (239-931)
[2025-07-31 06:51] LABS: Troponin I 0.041 ng/mL (0.000-0.034)
--- NOTE | 2025-07-31 07:38 | PM.IMHP ---
H&P: HPI History of Present Illness Date/Time: 07/31/25 07:38 Chief Complaint: Dyspnea Narrative: 70 year old male with PMH of DMII, hyperlipidemia, HTN, LA, and current smoker presented to the ED on 07/31/25 with a complaint of sohortness of breath that started earlier in the day. Denies hx of CHF or COPD. He smokes 1.5 packs of cigarettes per day for the past 55 years. On arrival to the ED patient was found to be hypoxic on RA at 82%. Does not wear O2 at home. Placed on 4 L/nasal cannual with improvement of saturation to 92%. DuoNeb, 125 mg Solu-Medrol and L bolus given. EKG read by cardiology revealed SR and no acute ischemia. Labs in the ED revealed Hgb 9.5 (it was 12 in November), PO2 60, BUN 44, creatinine 4.22 (was 2 in November), Magnesium 1.5, troponin 0.040 which is his baseline, pro BNP 19,500. 2 G IV magnesium administered. Viral swab negative. UA shows 4+ protein, 1+ glucose, trace ketones, and 1+ blood. CXR read by radiology reveals interstitial pulmonary edema and/or pneumonitis. Rocephin and azithromycin were initiated after blood cultures were drawn. Admitted to IMU for further treatment and monitoring. Patient states he feels pretty good and better than last night. He states he only became short of breath last night a felt fine before that. Patient tells me he smoked a couple of cigars and believes that is what caused his symptoms. Review of Systems Review of Systems: All systems are reviewed and are negative unless stated otherwise in the HPI. [facility] Past Medical History Medical History Tobacco abuse Myocardial infarction Chronic headaches Diabetes mellitus Hyperlipidemia Hypertension Surgical History Surgical History Status post rotator cuff repair Left shoulder H/O shoulder replacement Right shoulder Social History Social History Smoking packs per day: 1.5 Smoking cigarettes per day: 30.0 Years smoked: 55 Smoking pack-years: 82.50 Smoking status: Current every day smoker Tobacco type: cigarettes Alcohol intake: never Substance use: never Substance use type: does not use Do You Feel Safe in your Home?: Yes Lack of Transportation: No Lack of Food: Never True Current Housing: I Have Housing Concerned About Future Housing: No Difficulty Paying Gas/Electric Bills: No Difficulty Paying for Meds: No Currently Unemployed: No Education: High School Diploma/GED Difficulty w/ Childcare or Family Care: No Spiritual care concerns: No Meds Home Medications and Allergies Home Medications ?Medication ?Instructions ?Recorded ?Confirmed ?Type amlodipine 10 mg tablet 10 mg PO DAILY 07/21/21 07/31/25 History atorvastatin 40 mg tablet 40 mg PO DAILY 07/21/21 07/31/25 History hydrocodone 10 mg-acetaminophen 10 tablet PO TID 07/21/21 11/15/23 History 325 mg tablet duloxetine 30 mg capsule,delayed 30 mg PO DAILY 01/13/22 01/13/22 History release aspirin 81 mg tablet,delayed 81 mg PO QAM #30 tabs 02/01/22 07/31/25 Rx release gabapentin 100 mg capsule 100 mg PO TID #90 caps 02/01/22 Rx hydroxyzine HCl 25 mg tablet mg 11/15/23 History insulin aspart U-100 100 unit/mL 8 unit subcut TIDWM 11/15/23 07/31/25 History (3 mL) subcutaneous pen losartan 100 mg tablet 100 mg PO DAILY 11/15/23 07/31/25 History atenolol 100 mg tablet 100 mg PO Q24H 07/31/25 07/31/25 History cetirizine 10 mg tablet 10 mg PO DAILY 07/31/25 07/31/25 History cyanocobalamin (vitamin B-12) 1,000 mcg PO MONTHLY 07/31/25 07/31/25 History 1,000 mcg tablet minoxidil 2.5 mg tablet 2.5 mg PO DAILY 07/31/25 07/31/25 History pantoprazole 40 mg tablet,delayed 40 mg PO Q12H 07/31/25 07/31/25 History release tamsulosin 0.4 mg capsule 0.4 mg PO Q24H 07/31/25 07/31/25 History Allergies Allergy/AdvReac Type Severity Reaction Status Date / Time Iodinated Contrast Media Allergy Severe Anaphylaxis Verified 07/31/25 04:54 Vital Signs Vital Signs - 24 hr 07/31/25 01:04 07/31/25 01:06 07/31/25 01:07 Temperature 98.5 F Pulse Rate 67 62 Respiratory Rate 24 H 24 H Blood Pressure 184/76 H 184/76 H Pulse Oximetry 85 L 90 92 Oxygen Delivery Nasal Cannula Oxygen Flow Rate 5 Fraction of Inspired Oxygen 07/31/25 01:12 07/31/25 01:14 07/31/25 01:15 Temperature Pulse Rate 60 Respiratory Rate 30 H Blood Pressure Pulse Oximetry 94 94 95 Oxygen Delivery Nasal Cannula Nasal Cannula Oxygen Flow Rate 5 5 Fraction of Inspired Oxygen 07/31/25 01:17 07/31/25 01:30 07/31/25 01:32 Temperature Pulse Rate 60 63 61 Respiratory Rate 32 H 16 Blood Pressure 173/63 H Pulse Oximetry 92 Oxygen Delivery Oxygen Flow Rate Fraction of Inspired Oxygen 07/31/25 01:32 07/31/25 01:33 07/31/25 01:45 Temperature Pulse Rate 60 60 Respiratory Rate 26 H 25 H Blood Pressure 166/63 H Pulse Oximetry 93 94 93 Oxygen Delivery Nasal Cannula Oxygen Flow Rate 5 Fraction of Inspired Oxygen 07/31/25 02:00 07/31/25 02:02 07/31/25 02:15 Temperature Pulse Rate 61 62 63 Respiratory Rate 24 H 26 H 25 H Blood Pressure 167/62 H Pulse Oximetry 94 95 93 Oxygen Delivery Oxygen Flow Rate Fraction of Inspired Oxygen 07/31/25 02:23 07/31/25 02:29 07/31/25 02:30 Temperature Pulse Rate 76 76 66 Respiratory Rate 22 H 22 H 27 H Blood Pressure Pulse Oximetry 97 Oxygen Delivery Oxygen Flow Rate Fraction of Inspired Oxygen 07/31/25 02:32 07/31/25 02:35 07/31/25 02:40 Temperature Pulse Rate 67 71 65 Respiratory Rate 21 H 23 H 22 H Blood Pressure 154/60 H Pulse Oximetry 95 98 Oxygen Delivery Oxygen Flow Rate Fraction of Inspired Oxygen 07/31/25 02:48 07/31/25 03:07 07/31/25 03:11 Temperature Pulse Rate 65 72 70 Respiratory Rate 22 H 22 H 21 H Blood Pressure 138/65 Pulse Oximetry 97 95 Oxygen Delivery Oxygen Flow Rate Fraction of Inspired Oxygen 07/31/25 03:12 07/31/25 03:15 07/31/25 03:37 Temperature Pulse Rate 69 68 66 Respiratory Rate 20 24 H 18 Blood Pressure 153/63 H Pulse Oximetry 95 95 94 Oxygen Delivery Oxygen Flow Rate Fraction of Inspired Oxygen 07/31/25 04:01 07/31/25 04:16 07/31/25 04:32 Temperature Pulse Rate 77 65 69 Respiratory Rate 20 22 H Blood Pressure Pulse Oximetry 93 Oxygen Delivery Oxygen Flow Rate Fraction of Inspired Oxygen 07/31/25 04:48 07/31/25 05:03 07/31/25 06:00 Temperature 98.2 F Pulse Rate 65 66 Respiratory Rate 26 H Blood Pressure 163/65 H Pulse Oximetry 92 93 Oxygen Delivery Venturi Mask Oxygen Flow Rate 15 Fraction of Inspired Oxygen 50 Exam Narrative: General: Alert and awake. no acute distress. HEENT: PERRL Neck: Trachea midline, no JVD, no lymphadenopathy. Cardiovascular: RRR, no murmur. Bilateral +2 lower extremity edema Respiratory: Diminished breath sounds bilaterally with end expiratory wheezing, tachypnea, mild respiratory distress. Abdomen: Soft, nontender, nondistended, no rebound. Musculoskeletal: Moves all extremities Skin: No rashes or wounds Psychiatric: A&Ox4. Answers appropriately Neurological: No focal deficits, speech is clear and fluent. H&P: Results Labs Labs: Short CBC 07/31/25 Range/Units 01:29 WBC 11.6 H (4.5-10.0) K/mm3 Hgb 9.5 L D (14.0-18.0) g/dL Hct 29.2 L (42.0-52.0) % Plt Count 193 (150-375) k/mm3 BMP 07/31/25 07/31/25 07/31/25 01: 01:29 01:29 Sodium Cancelled 135 L Potassium Cancelled 4.0 Chloride Cancelled Carbon Dioxide BUN Creatinine Glucose Calcium 07/31/25 07/31/25 07/31/25 01: 01: 01:29 Sodium Potassium Chloride 109 H Carbon Dioxide Cancelled 20 L BUN Cancelled 44 H Creatinine Cancelled Glucose Calcium 07/31/25 07/31/25 07/31/25 01: 01: 01:29 Sodium Potassium Chloride Carbon Dioxide BUN Creatinine 4.22 H Glucose Cancelled 128 H Calcium Cancelled 8.2 L Cardiac Enzymes 07/31/25 07/31/25 07/31/25 Range/Units 01:28 01:29 06:08 Troponin I Cancelled 0.040 H* 0.041 H* Liver Function 07/31/25 07/31/25 07/31/25 Range/Units 01:29 01:29 01:29 Total Bilirubin Cancelled 0.5 AST Cancelled 20 ALT Cancelled Alkaline Phosphatase Albumin 07/31/25 07/31/25 07/31/25 Range/Units 01:29 01:29 01:29 Total Bilirubin AST ALT 13 Alkaline Phosphatase Cancelled 130 H Albumin Cancelled 3.4 L Urine 07/31/25 Range/Units 03:10 Urine Color Yellow (Yellow) Urine Appearance Clear (Clear) Urine pH 6.0 (5.0-9.0) Ur Specific [place] 1.015 (1.001-1.035) Urine Protein 4+ H (Negative) mg/dL Urine Glucose (UA) 1+ H (Negative) mg/dL Imaging Chest x-ray: Radiologist's impression: interstitial pulmonary edema and/or pneumonitis Assessment and Plan Assessment and plan (1) Acute hypoxic respiratory failure: Code(s): J96.01 - Acute respiratory failure with hypoxia Status: Acute Assessment and Plan: Saturation 82% in ED Improvement to 92% with 4L NC viral panel negative BNP elevated Unclear etilolgy, likely multifactoral: -CXR with interstitial pulmonary edema and/or pneumonitis -? CHF -? 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: with assisted use Diabetes mellitus type: type 2 Qualified Code(s): E11.22 - Type 2 diabetes mellitus with diabetic chronic kidney disease; N18.4 - Chronic kidney disease, stage 4 (severe); 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 Code(s): E11.9 - Type 2 diabetes mellitus without complications Status: Chronic Assessment and Plan: 8 units insulin aspart TIDWM low dose corrective closley monitor with steroid regimine (4) Hypertension: Qualifiers: Hypertension type: primary hypertension Qualified Code(s): I10 - Essential (primary) hypertension Code(s): I10 - Essential (primary) hypertension Status: Chronic Assessment and Plan: holding TOÑITO/ARB continue amlodipine, atenolol (5) Anemia: Qualifiers: Anemia type: unspecified type Qualified Code(s): D64.9 - Anemia, unspecified Code(s): D64.9 - Anemia, unspecified Status: Acute Assessment and Plan: Monitor H&H likely due to CKD Quality VTE Prophylaxis VTE prophylaxis: mechanical ordered and pharmacologic ordered Hospitalist MIPS Advance Care Plan I have confirmed that the patient's Advanced Care Plan is present, code status is documented, or surrogate decision maker is listed in patient medical record.: Yes Medication Reconciliation I have utilized all available resources to obtain, update and review the patients current medications (includes all prescriptions, OTC, herbals, cannabis, and nutritional supplements).: Yes
[2025-07-31 08:58] LABS: Troponin I 0.040 ng/mL (0.000-0.034)
--- NOTE | 2025-07-31 09:47 | P.CONNP_ITS ---
Assessment and Plan Assessment and plan (1) Acute kidney injury: Code(s): N17.9 - Acute kidney failure, unspecified Status: Acute Assessment and Plan: * creatinine elevated above baseline since May 2025 * creatinine was 4.10mg/dl on 05/30/25 * creatinine was 3.65mg/dL on 07/11/25 (admission to [facility], [place]) * evaluation noted during [facility] hospitalization: * renal u/s: right kidney measures 11.3 cm and the left kidney measures 11.2 cm; renal cortical echotexture is normal; no obstructive uropathy is seen;bladder is decompressed; mild bladder wall thickening may be present * negative serological testing (complements/AJ/ANCA/SPEP/UPEP) negative * nephrotic range proteinuria noted (8.1 grams noted) * creatinine down to 3.35mg/dl on discharge * suspected etiology of acute insult during [place] admission was volume depletion in the setting of recent Bactrim use and ongoing use of losartan and spironolactone. * losartan and spironolactone stopped * started on minoxidil in addition to amlodipine & atenolol for BP control * unclear etiology of elevated creatinine here: * volume overload * CHF exacerbation * hypoxia * anemia * progression of disease * other * follow trend of renal function and UOP (2) Stage 4 chronic kidney disease: Code(s): N18.4 - Chronic kidney disease, stage 4 (severe) Status: Chronic Assessment and Plan: * creatinine on discharge from [facility] [place] was 3.35mg/dl (on 07/15/25) * new baseline?? (see #1) * presumably due to hypertension and diabetes * there was some discussion regarding possible kidney biopsy per his primary desktop support specialist... (3) Acute hypoxic respiratory failure: Code(s): J96.01 - Acute respiratory failure with hypoxia Status: Acute Assessment and Plan: * as noted on presentation to ER * 82% saturation on room air * with 4L NC, improved to 92% * etiology(?): * CHF * COPD * RAD * pulmonary edema * pnuemonia * other(?) * testing to date noted: * CXR with interstitial pulmonary edema and/or pneumonitis * elevated BNP noted * viral testing for influenza/RSV/COVID negative * troponin slighly elevated * Echo ordered * empiric antibiotics for possible pneumonia * follow culture data * despite #1/#2, may need to consider diuretic therapy * follow respiratory status (4) Anemia: Code(s): D64.9 - Anemia, unspecified Status: Acute Assessment and Plan: * acute on chronic * Hgb 10.3 on 07/13/25 [facility] discharge * likely due to CKD and acute illness * check iron studies (although not likely a candidate for IV iron if infection present) * consider VADIM while hospitalized * follow trend of H/H (5) Hypertension: Code(s): I10 - Essential (primary) hypertension Status: Chronic Assessment and Plan: * clarify home medications * would hold TOÑITO/ARB therapy for now * use PRN IV hydralazine * follow trend of hemodynamics (6) Diabetes mellitus: Code(s): E11.9 - Type 2 diabetes mellitus without complications Status: Chronic Assessment and Plan: * follow accu-cheks * glycemic control per hospitalist Greater than 20 minutes was spent in review of his electronic medical records from [facility] including discharge medications, discharge labs including discharge renal function parameters as well as outpatient and inpatient progress note from Nephrology regarding his known history of chronic kidney disease. I will continue to follow the patient with you while he remains hospitalized and make further recommendations as deemed necessary. Thank you for allowing me to participate in the care of this patient. L History of Present Illness Reason for Consult Consult date: 07/31/25 Reason for consult: acute renal failure (on chronic kidney disease) Chief Complaint Chief complaint: Hypoxic Resp Failure/Pneumonia/[place] History of Present Illness Narrative: The patient is a 70-year-old male with a past medical history as outlined below who presented to [facility] Emergency Room with complaints of shortness of breath. The patient states that his shortness of breath seem to began the night before his presentation to the ER. Since that time, his shortness of breath has progressively worsened despite conservative therapy. He gave no symptoms with regard to chest pain, palpitations, lightheadedness, dizziness, nausea, vomiting, fevers, chills, or cough. Given that his symptoms continued to progressively decline, he presented to the ER for further assessment. On arrival to the emergency room, he was noted be hypoxic at 82% on room air. Supplemental oxygen of approximately 5 L was with needed to get his oxygen saturations up to 92%. As already mentioned above, he had no other symptoms other than his shortness of breath and his acute complaint of just can't breathe. to his knowledge, he has never been diagnosed with congestive heart failure or COPD although he does have a known history of 1.5 packs of cigarettes per day for last 55 years. He was noted be hemodynamically stable if not hypertensive but mildly tachypneic. He was given a DuoNeb breathing treatment as well as IV steroids and IV fluids on initial presentation. Routine blood work was done which demonstrated a white blood cell count of 11.6, hemoglobin 9.5, hematocrit at 29.2, platelet count of 193, sodium 135, potassium 4.0, bicarb 20, BUN 44, creatinine 4.22, glucose 128, lactic acid 0.8, magnesium 1.5, calcium 8.2, [place] [address], and an albumin of 3.4. His initial ABG showed a pH of 7.36, P CO2 of 35.2, PO2 of 60 on 50% FiO2. Viral testing for influenza, RSV, and COVID were negative. His chest x-ray demonstrated interstitial pulmonary edema and/or pneumonitis. Given these clinical findings, IV antibiotics were initiated for possible pneumonia after appropriate blood cultures were drawn and he was subsequently admitted for further evaluation and therapy. Since his admission, he reports no real significant improvement in his breathing/respiratory status although he does state that he does feel a little bit better in general. Renal consultation was requested due to his acute kidney injury/acute renal failure on top of his chronic kidney disease. It should be noted the patient was just recently hospitalized at [facility] for acute kidney injury on chronic kidney disease. He apparently had outpatient labs done by his primary desktop support specialist which demonstrated his creatinine in the 4-range with a previous reading of around 2.5 mg/dL. During that hospital stay he was aggressively fluid resuscitated and his medications were adjusted including holding diuretics as well as ARB / TOÑITO-inhibitor therapy. His discharge creatinine was down to 3.35 mg/dL with the hope that his kidney function would continue improve with supportive therapy and the medication adjustments that were done during that hospital stay. He was noted to have nephrotic range proteinuria and there was some discussion about a possible kidney biopsy but they were waiting for further serological testing results to be available before considering this option. His underlying chronic kidney disease is presumed to be secondary to his diabetes, hypertension, and age-related change along with a possible component of vascular disease. His creatinine on admission here to [facility] was 4.22 mg/dL which is slightly higher than what it was on discharge from [facility] in early July 2025. Currently, at the time my evaluation, he does not appear to be in any acute distress. Review of Systems 2 Review of Systems: As per HPI. [facility] Past Medical History Medical History (Updated 08/01/25 @ 12:53 by Candy Mcgraw MD) Constipation Chronic shoulder pain Chronic pain Hypertension Tobacco abuse Myocardial infarction Chronic headaches Diabetes mellitus Hyperlipidemia Surgical History Surgical History Status post rotator cuff repair Left shoulder H/O shoulder replacement Right shoulder Social History Social History Smoking packs per day: 1.5 Smoking cigarettes per day: 30.0 Years smoked: 55 Smoking pack-years: 82.50 Smoking status: Current every day smoker Tobacco type: cigarettes Alcohol intake: never Substance use: never Substance use type: does not use Do You Feel Safe in your Home?: Yes Lack of Transportation: No Lack of Food: Never True Current Housing: I Have Housing Concerned About Future Housing: No Difficulty Paying Gas/Electric Bills: No Difficulty Paying for Meds: No Currently Unemployed: No Education: High School Diploma/GED Difficulty w/ Childcare or Family Care: No Spiritual care concerns: No Meds Home Medications and Allergies Home Medications ?Medication ?Instructions ?Recorded ?Confirmed ?Type amlodipine 10 mg tablet 10 mg PO DAILY 07/21/2107/04 History atorvastatin 40 mg tablet 40 mg PO DAILY 07/21/2107/04 History hydrocodone 10 mg-acetaminophen 10 tablet PO TID 07/2107/31/25 History 325 mg tablet aspirin 81 mg tablet,delayed 81 mg PO QAM #30 tabs 12/2407/31/25 Rx release insulin aspart U-100 100 unit/mL 8 unit subcut TIDWM 0 11/15/23 07/31/25 History (3 mL) subcutaneous pen losartan 100 mg tablet 100 mg PO DAILY 11/15/23 History atenolol 100 mg tablet 100 mg PO Q24H 07/31/2507/04 History cetirizine 10 mg tablet 10 mg PO DAILY 07/31/2507/04 History cyanocobalamin (vitamin B-12) 1,000 mcg PO MONTHLY 07/31/25 History 1,000 mcg tablet insulin glargine 100 60 unit subcut DAILY 5 07/31/25 History unit-lixisenatide 33 mcg/mL subcutaneous pen ([place] 100/33) minoxidil 2.5 mg tablet 2.5 mg PO DAILY 07/31/25 History pantoprazole 40 mg tablet,delayed 40 mg PO Q12H 07/31/25 History release tamsulosin 0.4 mg capsule 0.4 mg PO Q24H 07/31/2507/04 History Allergies Allergy/AdvReac Type Severity Reaction Status Date / Time Iodinated Contrast Media Allergy Severe Anaphylaxis Verified 07/31/25 04:54 Vital Signs Vital Signs Temp Pulse Resp BP Pulse Ox O2 Del Method O2 Flow Rate 07/31/25 08:00 98.0 F 60 20 150/76 H 91 07/31/25 08:00 93 Nasal Cannula 4 07/31/25 06:00 66 07/31/25 05:03 98.2 F 65 26 H 163/65 H 93 07/31/25 04:48 92 Venturi Mask 15 07/31/25 04:32 69 07/31/25 04:16 65 22 H 07/31/25 04:01 77 20 93 07/31/25 03:37 66 18 153/63 H 94 07/31/25 03:15 68 24 H 95 07/31/25 03:12 69 20 95 07/31/25 03:11 70 21 H 138/65 95 07/31/25 03:07 72 22 H 97 07/31/25 02:48 65 22 H 07/31/25 02:40 65 22 H 07/31/25 02:35 71 23 H 98 07/31/25 02:32 67 21 H 154/60 H 95 07/31/25 02:30 66 27 H 97 07/31/25 02:29 76 22 H 07/31/25 02:23 76 22 H 07/31/25 02:15 63 25 H 93 07/31/25 02:02 62 26 H 167/62 H 95 07/31/25 02:00 61 24 H 94 07/31/25 01:45 60 25 H 93 07/31/25 01:33 94 Nasal Cannula 5 07/31/25 01:32 60 26 H 166/63 H 93 07/31/25 01:32 61 07/31/25 01:30 63 16 07/31/25 01:17 60 32 H 173/63 H 92 07/31/25 01:15 60 30 H 95 07/31/25 01:14 94 Nasal Cannula 5 07/31/25 01:12 94 Nasal Cannula 5 07/31/25 01:07 98.5 F 62 24 H 184/76 H 92 Nasal Cannula 5 07/31/25 01:06 67 24 H 184/76 H 90 07/31/25 01:04 85 L Exam 2 Narrative: GENERAL APPEARANCE: elderly but well developed well nourished [place] male in no acute distress HEENT: normocephalic, atraumatic, normal conjunctiva and sclera, nares patient NECK: no lymphadenopathy, thyromegaly, or JVD MOUTH: normal lips, teeth, and gums CARDIOVASCULAR: RRR, normal S1 and S2, no rub RESPIRATORY: coarse with scattered wheezes; decreased at bases ABDOMEN: soft, nontender, nondistended, positive bowel sounds present EXTREMITIES: no evidence of cyanosis, clubbing, 2+ edema NEUROLOGICAL: alert and oriented x 3; CN II - XII intact bilaterally; no focal deficits noted Results Lab Results 08/02/25 06:26 08/02/25 06:26 Lab results: Most recent lab results ABG pH 7.361 (7.350-7.450) 07/31/25 02:11 ABG pCO2 35.2 mmHg (35.0-45.0) 07/31/25 02:11 ABG pO2 60.0 mmHg (80.0-100.0) L 07/31/25 02:11 ABG HCO3 19.5 mEq/l (22.0-26.0) L 07/31/25 02:11 ABG O2 Saturation 90.4 % (95.0-100.0) L 07/31/25 02:11 Calcium 8.2 mg/dL (8.4-10.2) L 07/31/25 01:29 Calcium Cancelled 07/31/25 01:29 Magnesium 1.5 mg/dL (1.6-2.3) L 07/31/25 01:29
[2025-07-31] MEDS: FUROSEMIDE INJ 40 MG/4 ML VIAL 20 MG IV PUSH (11:07)
[2025-07-31] MEDS: INSULIN ASPART (*BKC) 100 UNITS/ML SUB-Q ×3 (11:58→20:39)
--- NOTE | 2025-07-31 16:30 | PC.NURSE ---
On 07/31/25, the student, Tere Nunn, provided care and completed [facility] documentation on this patient. I have reviewed the student's documentation and agree with the findings.Aileen, MSN, RN
[2025-07-31] MEDS: INSULIN ASPART (*BKC) 100 UNITS/ML 8 UNITS SUB-Q (17:24)
[2025-07-31] MEDS: CYANOCOBALAMIN 1,000 MCG TABLET 1000 MCG PO (17:24)
[2025-07-31] MEDS: INSULIN GLARGINE (*BKC) 100 UNITS/ML 40 UNITS SUB-Q (17:25)
[2025-07-31] MEDS: HYDROcodone/acetaminophen (*CRX) 10-325 MG TABLET 1 TAB PO (18:18)
[2025-07-31] MEDS: HYDROmorphone HCL INJ (*CRX) 1 MG/ML SYR IV PUSH (20:32)
[2025-07-31] MEDS: NICOTINE (*PBKC) 21 MG PATCH 1 PATCH TRANSDERM (20:37)
[2025-08-01] VITALS (28 sets, daily range): BP systolic 153–182; BP diastolic 61–72; PULSE 49–70; RESP 18–21; TEMP 36.3–36.8; O2SAT 82–100
[2025-08-01] MEDS: HYDROcodone/acetaminophen (*CRX) 10-325 MG TABLET 1 TAB PO ×4 (00:15→21:01)
[2025-08-01] MEDS: HYDROmorphone HCL INJ (*CRX) 1 MG/ML SYR IV PUSH ×4 (03:11→22:14)
[2025-08-01 04:36] LABS: Hematocrit 28.2 % (42.0-52.0); Hemoglobin 9.0 g/dL (14.0-18.0); Immature Granulocyte Percent A 1.1 % (0-0.5); Lymphocytes Absolute Auto 0.92 K/mm3 (0.9-3.2); Mean Corpuscular HGB Conc 31.9 g/dl (32-36); Mean Corpuscular Hemoglobin 31.1 pg (26-34); Mean Corpuscular Volume 97.6 fl (80-100); Nucleated Red Blood Cells Absolute Auto 0.000 K/mm3 (0.0-0.012); Nucleated Red Blood Cells Perc 0.0 % (0.0-0.2); Platelet Count Result 197 k/mm3 (150-375); Red Blood Count 2.89 M/mm3 (4.6-6.20); White Blood Count 19.2 K/mm3 (4.5-10.0)
[2025-08-01 04:59] LABS: Alanine Aminotransferase 15 U/L (6-50); Albumin Level 3.3 g/dL (3.5-5.1); Alkaline Phosphatase 127 U/L (38-126); Anion Gap 8 mmol/L (4-12); Aspartate Amino Transferase 29 U/L (17-59); Bilirubin,Total 0.3 mg/dL (0.2-1.3); Blood Urea Nitrogen 57 mg/dL (9-20); Calcium 8.7 mg/dL (8.4-10.2); Carbon Dioxide 21 mmol/L (22-30); Chloride 105 mmol/L (98-107); Estimated CRCL calculation 20 ml/min; Estimated Glomerular Filt Rate 16; Glucose 238 mg/dL (65-110); Potassium 5.1 mmol/L (3.4-5.0); Sodium 134 mmol/L (137-145); Total Protein 6.3 g/dL (6.3-8.2)
--- NOTE | 2025-08-01 06:57 | PM.IMPN ---
Progress Note: A&P Assessment and Plan (1) Acute hypoxic respiratory failure: Code(s): J96.01 - Acute respiratory failure with hypoxia Status: Acute Assessment and Plan: Saturation 82% in ED Improvement to 92% with 4L NC viral panel negative BNP elevated Unclear etilolgy, likely multifactoral: -CXR with interstitial pulmonary edema and/or pneumonitis -? CHF -? COPD ECHO ordered empiric antibiotics for possible pneumonia IV lasix x1-Monitor response methylprednisolone 60 mg Q6 08/01/25: Required 8L O2 overnight Pro BNP >30,000 20 mg IV BID Stopping methylprednisolone as respiratory symptoms appear to be fluid driven Appreciate nephrology recommendations (2) Acute kidney injury: Code(s): N17.9 - Acute kidney failure, unspecified Status: Acute Assessment and Plan: Creatinine 4.22 on admit Trend CMP nephro consult avoiding TOÑITO/ARB 08/01/25: Creatinine down trending Strict I&O Monitor renal function with diuresis (3) Diabetes mellitus: Qualifiers: Chronic kidney disease stage: stage 4 (GFR 15-29) Diabetes mellitus complication detail: with chronic kidney disease Diabetes mellitus complication status: with kidney complications Diabetes mellitus senior care insulin use: with terminal press operator use Diabetes mellitus type: type 2 Qualified Code(s): E11.22 - Type 2 diabetes mellitus with diabetic chronic kidney disease; N18.4 - Chronic kidney disease, stage 4 (severe); 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.4 - rodent exterminator (current) use of insulin Code(s): E11.9 - Type 2 diabetes mellitus without complications Status: Chronic Assessment and Plan: 8 units insulin aspart TIDWM High dose corrective Glargine 40 units daily-consider increasing to home 60 units closely monitor with steroid regimen 08/01/25: changed diet to consistent carb Monitor trend with the stopping of steriods (4) Hypertension: Qualifiers: Hypertension type: primary hypertension Qualified Code(s): I10 - Essential (primary) hypertension Code(s): I10 - Essential (primary) hypertension Status: Chronic Assessment and Plan: holding TOÑITO/ARB continue amlodipine, atenolol 08/01/25: resume home minoxidil Atenolol held today d/t bradycardia (5) Anemia: Qualifiers: Anemia type: unspecified type Qualified Code(s): D64.9 - Anemia, unspecified Code(s): D64.9 - Anemia, unspecified Status: Acute Assessment and Plan: Monitor H&H likely due to CKD (6) Chronic shoulder pain: Qualifiers: Laterality: bilateral Qualified Code(s): M25.511 - Pain in right shoulder; M25.512 - Pain in left shoulder; G89.29 - Other chronic pain Code(s): M25.519 - Pain in unspecified shoulder; G89.29 - Other chronic pain Status: Acute Assessment and Plan: Chronic bilateral shoulder pain home hydrocodone/acetaminophn 10/325 Q6 PRN (7) Constipation: Qualifiers: Constipation type: unspecified constipation type Qualified Code(s): K59.00 - Constipation, unspecified Code(s): K59.00 - Constipation, unspecified Status: Acute Assessment and Plan: MiraLax BID p.r.n. Subjective Date/time seen: 08/01/25 06:57 Interval history: 70 year old male with PMH of DMII, hyperlipidemia, HTN, AL, and current smoker presented to the ED on 07/31/25 with a complaint of sohortness of breath that started earlier in the day. Denies hx of CHF or COPD. He smokes 1.5 packs of cigarettes per day for the past 55 years. On arrival to the ED patient was found to be hypoxic on RA at 82%. Does not wear O2 at home. Placed on 4 L/nasal cannual with improvement of saturation to 92%. DuoNeb, 125 mg Solu-Medrol and L bolus given. EKG read by cardiology revealed SR and no acute ischemia. Labs in the ED revealed Hgb 9.5 (it was 12 in November), PO2 60, BUN 44, creatinine 4.22 (was 2 in November), Magnesium 1.5, troponin 0.040 which is his baseline, pro BNP 19,500. 2 G IV magnesium administered. Viral swab negative. UA shows 4+ protein, 1+ glucose, trace ketones, and 1+ blood. CXR read by radiology reveals interstitial pulmonary edema and/or pneumonitis. Rocephin and azithromycin were initiated after blood cultures were drawn. Admitted to IMU for further treatment and monitoring. Patient states he feels pretty good and better than last night. He states he only became short of breath last night a felt fine before that. Patient tells me he smoked a couple of cigars and believes that is what caused his symptoms. 08/01: Review of Systems Review of Systems: All systems are reviewed and are negative unless stated otherwise in the HPI. Exam Narrative: General: Alert and awake. no acute distress. HEENT: PERRL Neck: Trachea midline, no JVD, no lymphadenopathy. Cardiovascular: RRR, no murmur. Bilateral +1 lower extremity edema Respiratory: Diminished breath sounds bilaterally with end expiratory wheezing, tachypnea, mild respiratory distress. Abdomen: Soft, nontender, nondistended, no rebound. Musculoskeletal: Moves all extremities Skin: No rashes or wounds Psychiatric: A&Ox4. Answers appropriately Neurological: No focal deficits, speech is clear and fluent. Objective Data Vital Signs Vital Signs: Vital Signs - 24 hr 07/31/25 08:00 07/31/25 08:00 07/31/25 08:00 Temperature 98.0 F Pulse Rate 60 81 Respiratory Rate 20 Blood Pressure 150/76 H Pulse Oximetry 93 91 Oxygen Delivery Nasal Cannula Oxygen Flow Rate 4 Fraction of Inspired Oxygen 07/31/25 10:00 07/31/25 10:17 07/31/25 11:51 Temperature 98.3 F Pulse Rate 74 57 L Respiratory Rate 18 Blood Pressure 168/62 H Pulse Oximetry 92 95 Oxygen Delivery Nasal Cannula Oxygen Flow Rate 4 Fraction of Inspired Oxygen 36 07/31/25 12:00 07/31/25 12:00 07/31/25 14:00 Temperature Pulse Rate 68 57 L Respiratory Rate Blood Pressure Pulse Oximetry 93 Oxygen Delivery Nasal Cannula Oxygen Flow Rate 4 Fraction of Inspired Oxygen 07/31/25 16:00 07/31/25 16:00 07/31/25 16:00 Temperature 98.1 F Pulse Rate 58 L 57 L Respiratory Rate 20 Blood Pressure 181/70 H Pulse Oximetry 93 95 Oxygen Delivery Nasal Cannula Oxygen Flow Rate 2 Fraction of Inspired Oxygen 07/31/25 18:00 07/31/25 20:00 07/31/25 20:00 Temperature 98.3 F Pulse Rate 72 62 72 Respiratory Rate 20 Blood Pressure 165/72 H Pulse Oximetry 96 Oxygen Delivery Oxygen Flow Rate Fraction of Inspired Oxygen 07/31/25 20:10 07/31/25 21:13 07/31/25 22:00 Temperature Pulse Rate 74 68 Respiratory Rate 20 Blood Pressure Pulse Oximetry 96 91 Oxygen Delivery Nasal Cannula Oxygen Flow Rate 4 4 Fraction of Inspired Oxygen 36 07/31/25 23:40 07/31/25 23:42 08/01/25 00:00 Temperature 98.1 F Pulse Rate 71 60 70 Respiratory Rate 20 18 Blood Pressure 144/57 H Pulse Oximetry 93 94 Oxygen Delivery Nasal Cannula Oxygen Flow Rate 4 Fraction of Inspired Oxygen 08/01/25 02:00 08/01/25 03:18 08/01/25 04:00 Temperature 98.3 F Pulse Rate 52 L 54 L 51 L Respiratory Rate 21 H 20 Blood Pressure 182/72 H Pulse Oximetry 82 L 95 Oxygen Delivery High Flow Therapy with Na Oxygen Flow Rate 8 Fraction of Inspired Oxygen 08/01/25 04:00 08/01/25 04:51 08/01/25 06:00 Temperature Pulse Rate 57 L 49 L Respiratory Rate Blood Pressure Pulse Oximetry 95 Oxygen Delivery High Flow Nasal Cannula Oxygen Flow Rate 6 Fraction of Inspired Oxygen Intake/Output Intake/Output: Intake & Output 07/29/25 07/30/25 07/31/25 08/01/25 23:59 23:59 23:59 23:59 Intake Total 3780 350 Output Total 1360 900 Balance 2420 -550 Meds/Results Medications: Active Medications Generic Name Dose Route Start Last Admin Trade Name Freq PRN Reason Stop Dose Admin Acetaminophen 650 mg 07/31/25 18:11 Acetaminophen 325 Mg Tablet PO Q6H PRN Pain Rated 5 or Less Hydrocodone Bitart/Acetaminophen 1 tab 07/31/25 18:11 08/01/25 00:15 Hydrocodone/Acetaminophen (*Crx) 10-325 Mg Tablet PO 1 tab Q6H PRN Administration Pain Rated 3-6 Amlodipine Besylate 10 mg 07/31/25 16:45 07/31/25 17:24 Amlodipine Besylate 10 Mg Tablet PO 10 mg DAILY JAMAR Administration Aspirin 81 mg 08/01/25 09:00 Aspirin 81 Mg Enteric Tablet PO QAM [facility] Atenolol 100 mg 08/01/25 09:00 Atenolol 50 Mg Tablet PO Q24H JAMAR Atorvastatin Calcium 40 mg 08/01/25 09:00 Atorvastatin 40 Mg Tablet PO DAILY JAMAR Cyanocobalamin 1,000 mcg 07/31/25 15:55 07/31/25 17:24 Cyanocobalamin 1,000 Mcg Tablet PO 1,000 mcg DAILY JAMAR Administration Dextrose 12.5 gm 07/31/25 07:24 Dextrose 50% 25 Gm/50 Ml Syringe IV PUSH PRN PRN Hypoglycemia Protocol Glucagon 1 mg 07/31/25 07:24 Glucagon For Inj 1 Mg Vial IM PRN PRN Hypoglycemia Protocol Glucose 15 gm 07/31/25 07:24 Glucose Oral Gel 15 Gm Of Glucse In 37.5 Gm Tube PO PRN PRN Hypoglycemia Protocol Heparin Sodium (Porcine) 5,000 units 07/31/25 11:30 07/31/25 20:32 Heparin Sodium 5,000 Units/Ml Vial SUB-Q 5,000 units Q12HR JAMAR Administration Hydromorphone HCl 1 mg 07/31/25 20:26 08/01/25 03:11 Hydromorphone Hcl Inj (*Crx) 1 Mg/Ml Syr IV PUSH 1 mg Q4H PRN Administration Pain Rated 7-10 Ceftriaxone Sodium 1 gm/ 50 mls @ 100 mls/hr 07/31/25 22:00 07/31/25 21:05 Sodium Chloride IVPB Infused Q24H JAMAR Infusion Azithromycin 500 mg/ Sodium 250 mls @ 250 mls/hr 07/31/25 23:00 07/31/25 22:58 Chloride IVPB 08/03/25 23:59 250 mls/hr Q24H JAMAR Administration Dextrose 1,000 mls @ 100 mls/hr 07/31/25 07:24 Dextrose 5% 1,000 Ml IVPB PRN PRN Hypoglycemia Protocol Insulin Aspart 8 units 07/31/25 17:00 07/31/25 17:24 Insulin Aspart (*Bkc) 100 Units/Ml SUB-Q 8 units TIDWM JAMAR Administration Insulin Aspart 4 - 8 units 07/31/25 17:00 07/31/25 17:25 Insulin Aspart (*Bkc) 100 Units/Ml SUB-Q 1 units TIDWM JAMAR Administration Protocol Insulin Aspart 2 - 4 units 07/31/25 21:00 07/31/25 20:39 Insulin Aspart (*Bkc) 100 Units/Ml SUB-Q 2 units HS JAMAR Administration Protocol Insulin Glargine 40 units 07/31/25 16:20 07/31/25 17:25 Insulin Glargine (*Bkc) 100 Units/Ml SUB-Q 40 units HS JAMAR Administration Loratadine 10 mg 08/01/25 09:00 Loratadine 10 Mg Tablet PO QAM JAMAR Methylprednisolone Sodium Succinate 60 mg 07/31/25 07:00 08/01/25 05:25 Methylprednisolone Sod Succ 125 Mg Vial IV PUSH 60 mg Q6HR JAMAR Administration Nicotine 1 patch 07/31/25 20:15 07/31/25 20:37 Nicotine (*Pbkc) 21 Mg Patch TRANSDERM 1 patch DAILY JAMAR Administration Perflutren Lipid Microsphere 0 ml 07/31/25 09:07 Perflutren Lipid Microspheres 1.5 Ml Vial Diluted To 10 Ml Total Volume IV PUSH 08/03/25 09:08 ONCE PRN adequate visualization Protocol Radiology Results: ITS Impressions Chest X-Ray 07/31/25 07:05 IMPRESSION: 1. Interstitial pulmonary edema and/or pneumonitis. Labs Labs: Laboratory Results - last 24 hr 07/31/25 07/31/25 07/31/25 07:31 08:25 11:33 WBC RBC Hgb Hct MCV MCH MCHC RDW Plt Count MPV Immature Gran % (Auto) Neut % (Auto) Lymph % (Auto) Traill % (Auto) Eos % (Auto) Baso % (Auto) Lymph # (Auto) [place]ill # (Auto) Eos # (Auto) Baso # (Auto) Abs Immat Gran (auto) Absolute Neuts (auto) Absolute Nucleated RBC Nucleated RBC % Sodium Potassium Chloride Carbon Dioxide Anion Gap BUN Creatinine Estim Creat Clear Calc Estimated GFR Glucose POC Capillary Glucose 213 H 357 H Calcium Total Bilirubin AST ALT Alkaline Phosphatase Troponin I 0.040 H* Total Protein Albumin 07/31/25 07/31/25 08/01/25 16:06 20:38 04:10 WBC 19.2 H RBC 2.89 L Hgb 9.0 L Hct 28.2 L MCV 97.6 MCH 31.1 MCHC 31.9 L RDW 13.2 Plt Count 197 MPV 10.7 H Immature Gran % (Auto) 1.1 H Neut % (Auto) 91.3 H Lymph % (Auto) 4.8 L Traill % (Auto) 2.7 Eos % (Auto) 0.0 Baso % (Auto) 0.1 L Lymph # (Auto) 0.92 Traill # (Auto) 0.5 Eos # (Auto) 0.0 Baso # (Auto) 0.0 Abs Immat Gran (auto) 0.21 H Absolute Neuts (auto) 17.5 H Absolute Nucleated RBC 0.000 Nucleated RBC % 0.0 Sodium 134 L Potassium 5.1 H Chloride 105 Carbon Dioxide 21 L Anion Gap 8 BUN 57 H D Creatinine 3.88 H Estim Creat Clear Calc 20 Estimated GFR 16 L Glucose 238 H POC Capillary Glucose 448 H 298 H Calcium 8.7 Total Bilirubin 0.3 AST 29 ALT 15 Alkaline Phosphatase 127 H Troponin I Total Protein 6.3 Albumin 3.3 L Quality VTE Prophylaxis VTE prophylaxis: mechanical ordered and pharmacologic ordered Hospitalist MIPS Advance Care Plan I have confirmed that the patient's Advanced Care Plan is present, code status is documented, or surrogate decision maker is listed in patient medical record.: Yes Medication Reconciliation I have utilized all available resources to obtain, update and review the patients current medications (includes all prescriptions, OTC, herbals, cannabis, and nutritional supplements).: Yes
[2025-08-01] MEDS: IPRATROPIUM 0.5 MG/ALBUTEROL SULFATE 2.5 MG AMPUL.NEB 3 ML INHALATION ×3 (08:27→20:53)
[2025-08-01] MEDS: ASPIRIN 81 MG ENTERIC TABLET PO (08:32)
[2025-08-01] MEDS: NICOTINE (*PBKC) 21 MG PATCH 1 PATCH TRANSDERM (08:36)
[2025-08-01] MEDS: ATORVASTATIN 40 MG TABLET PO (08:37)
[2025-08-01] MEDS: CYANOCOBALAMIN 1,000 MCG TABLET 1000 MCG PO (08:38)
[2025-08-01] MEDS: PANTOPRAZOLE 40 MG TABLET PO ×2 (08:38→21:01)
[2025-08-01] MEDS: LORATADINE 10 MG TABLET PO (08:39)
[2025-08-01] MEDS: INSULIN ASPART (*BKC) 100 UNITS/ML 8 UNITS SUB-Q ×2 (08:39→17:18)
[2025-08-01] MEDS: INSULIN ASPART (*BKC) 100 UNITS/ML SUB-Q ×3 (08:40→21:00)
[2025-08-01] MEDS: FUROSEMIDE INJ 40 MG/4 ML VIAL 20 MG IV PUSH ×3 (08:43→17:17)
--- NOTE | 2025-08-01 09:56 | P.PNNP_ITS ---
Progress Note: A&P Assessment and Plan (1) Acute kidney injury: Code(s): N17.9 - Acute kidney failure, unspecified Status: Acute Assessment and Plan: * creatinine elevated above baseline since May 2025 * creatinine was 4.10mg/dl on 05/30/25 * creatinine was 3.65mg/dL on 07/11/25 (admission to [facility]) * evaluation noted during [facility] hospitalization: * renal u/s: right kidney measures 11.3 cm and the left kidney measures 11.2 cm; renal cortical echotexture is normal; no obstructive uropathy is seen;bladder is decompressed; mild bladder wall thickening may be present * negative serological testing (complements/AJ/ANCA/SPEP/UPEP) negative * nephrotic range proteinuria noted (8.1 grams noted) * creatinine down to 3.35mg/dl on discharge * suspected etiology of acute insult during [facility] hospitalization was volume depletion in the setting of recent Bactrim use and ongoing use of losartan and spironolactone. * losartan and spironolactone stopped * started on minoxidil in addition to amlodipine & atenolol for BP control * creatinine slightly better today * follow trend of repeat labs and UOP (2) Stage 4 chronic kidney disease: Code(s): N18.4 - Chronic kidney disease, stage 4 (severe) Status: Chronic Assessment and Plan: * creatinine on discharge from [facility] was 3.35mg/dl (on 07/15/25) * new baseline?? (see #1) * presumably due to hypertension and diabetes along with vascular disease and age... 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 (3) Acute hypoxic respiratory failure: Code(s): J96.01 - Acute respiratory failure with hypoxia Status: Acute Assessment and Plan: * as noted on presentation to ER * 82% saturation on room air * with 4L NC, improved to 92% * etiology(?): * CHF * COPD * RAD * pulmonary edema * pnuemonia * other(?) * testing to date noted: * CXR with interstitial pulmonary edema and/or pneumonitis * elevated BNP noted * viral testing for influenza/RSV/COVID negative * troponin slighly elevated * Echo (07/31) noted: * left ventricular systolic function is normal, estimated at 50 - 55% * left ventricular diastolic function is grade II diastolic dysfunction * mild aortic valve calcification * mild mitral valve regurgitation * mild tricuspid valve regurgitation * no pulmonary hypertension, estimated pulmonary arterial systolic pressureis 17 mmHg * mild pulmonic regurgitation * empiric antibiotics for possible pneumonia * follow culture data * on IV diuretics * follow respiratory status (4) Anemia: Qualifiers: Anemia type: unspecified type Qualified Code(s): D64.9 - Anemia, unspecified Code(s): D64.9 - Anemia, unspecified Status: Acute Assessment and Plan: * acute on chronic * Hgb 10.3 on 07/13/25 [facility] discharge * likely due to CKD and acute illness * anemia studies c/w iron deficiency * consider VADIM while hospitalized * follow trend of H/H (5) Hypertension: Qualifiers: Hypertension type: primary hypertension Qualified Code(s): I10 - Essential (primary) hypertension Code(s): I10 - Essential (primary) hypertension Status: Chronic Assessment and Plan: * clarify home medications * would hold TOÑITO/ARB therapy for now * use PRN IV hydralazine * follow trend of hemodynamics (6) Diabetes mellitus: Qualifiers: Chronic kidney disease stage: stage 4 (GFR 15-29) Diabetes mellitus complication detail: with chronic kidney disease Diabetes mellitus complication status: with kidney complications Diabetes mellitus medical terminologist insulin use: with medical terminologist use Diabetes mellitus type: type 2 Qualified Code(s): E11.22 - Type 2 diabetes mellitus with diabetic chronic kidney disease; N18.4 - Chronic kidney disease, stage 4 (severe); Z79.4 - alf (current) use of insulin Code(s): E11.9 - Type 2 diabetes mellitus without complications Status: Chronic Assessment and Plan: * follow accu-cheks * glycemic control per hospitalist Will continue to follow. L Subjective Date/time seen: 08/01/25 09:56 Interval history: Follow-up for acute kidney injury/acute renal failure on chronic kidney disease. Renal function/creatinine doing a bit better (despite IV diuretics yesterday) by trend of labs with acceptable urine output; however, breathing/respiratory status has not really improved since admission; started on scheduled IV lasix; no other acute complaints voiced. Exam 2 Narrative: General: elderly but WD/WN male in NAD Heart: normal S1 and S2; no rub Lungs: coarse and decreased at bases with a few crackles Abdomen: soft, nontender, nondistended, positive bowel sounds Extremities: no cyanosis or clubbing; 1+ edema Skin: warm and dry Objective Data Vital Signs Vital Signs: Vital Signs Temp Pulse Resp BP Pulse Ox O2 Del Method O2 Flow Rate 08/01/25 09:28 56 L 20 91 Nasal Cannula 4 08/01/25 09:17 93 Nasal Cannula 5 08/01/25 08:51 94 High Flow Nasal Cannula 6 08/01/25 08:28 52 L 20 08/01/25 08:28 52 L 20 96 High Flow Nasal Cannula 8 08/01/25 08:00 93 Nasal Cannula 8 08/01/25 07:47 97.6 F 50 L 20 171/70 H 93 08/01/25 06:00 49 L 08/01/25 04:51 95 High Flow Nasal Cannula 6 08/01/25 04:00 57 L 08/01/25 04:00 98.3 F 51 L 20 182/72 H 95 08/01/25 03:18 54 L 21 H 82 L High Flow Therapy with Na 8 08/01/25 02:00 52 L 08/01/25 00:00 70 07/31/25 23:42 60 18 94 Nasal Cannula 4 07/31/25 23:40 98.1 F 71 20 144/57 H 93 07/31/25 22:00 68 07/31/25 21:13 91 4 07/31/25 20:10 74 20 96 Nasal Cannula 4 07/31/25 20:00 72 07/31/25 20:00 98.3 F 62 20 165/72 H 96 07/31/25 18:00 72 07/31/25 16:00 57 L 07/31/25 16:00 98.1 F 58 L 20 181/70 H 95 07/31/25 16:00 93 Nasal Cannula 2 07/31/25 14:00 57 L Intake/Output Intake/Output: Intake & Output 07/29/25 07/30/25 07/31/25 08/01/25 23:59 23:59 23:59 23:59 Intake Total 3780 590 Output Total 1360 900 Balance 2420 -310 Meds/Results Medications: Active Medications Generic Name Dose Route Start Last Admin Trade Name Freq PRN Reason Stop Dose Admin Acetaminophen 650 mg 07/31/25 18:11 Acetaminophen 325 Mg Tablet PO Q6H PRN Pain Rated 5 or Less Hydrocodone Bitart/Acetaminophen 1 tab 07/31/25 18:11 08/01/25 08:32 Hydrocodone/Acetaminophen (*Crx) 10-325 Mg Tablet PO 1 tab Q6H PRN Administration Pain Rated 3-6 Albuterol/Ipratropium 3 ml 08/01/25 08:00 08/01/25 08:27 Ipratropium 0.5 Mg/Albuterol Sulfate 2.5 Mg Ampul.Neb 3 Ml INHALATION 3 ml Q6HRT JAMAR Administration Amlodipine Besylate 10 mg 07/31/25 16:45 08/01/25 08:38 Amlodipine Besylate 10 Mg Tablet PO 10 mg DAILY JAMAR Administration Aspirin 81 mg 08/01/25 09:00 08/01/25 08:32 Aspirin 81 Mg Enteric Tablet PO 81 mg QAM JAMAR Administration Atenolol 100 mg 08/01/25 09:00 08/01/25 09:00 Atenolol 50 Mg Tablet PO Not Given Q24H JAMAR Atorvastatin Calcium 40 mg 08/01/25 09:00 08/01/25 08:37 Atorvastatin 40 Mg Tablet PO 40 mg DAILY JAMAR Administration Cyanocobalamin 1,000 mcg 07/31/25 15:55 08/01/25 08:38 Cyanocobalamin 1,000 Mcg Tablet PO 1,000 mcg DAILY JAMAR Administration Dextrose 12.5 gm 07/31/25 07:24 Dextrose 50% 25 Gm/50 Ml Syringe IV PUSH PRN PRN Hypoglycemia Protocol Furosemide 20 mg 08/01/25 07:45 08/01/25 08:43 Furosemide Inj 40 Mg/4 Ml Vial IV PUSH 20 mg BID JAMAR Administration Glucagon 1 mg 07/31/25 07:24 Glucagon For Inj 1 Mg Vial IM PRN PRN Hypoglycemia Protocol Glucose 15 gm 07/31/25 07:24 Glucose Oral Gel 15 Gm Of Glucse In 37.5 Gm Tube PO PRN PRN Hypoglycemia Protocol Heparin Sodium (Porcine) 5,000 units 07/31/25 11:30 08/01/25 08:45 Heparin Sodium 5,000 Units/Ml Vial SUB-Q 5,000 units Q12HR JAMAR Administration Hydromorphone HCl 1 mg 07/31/25 20:26 08/01/25 11:19 Hydromorphone Hcl Inj (*Crx) 1 Mg/Ml Syr IV PUSH 1 mg Q4H PRN Administration Pain Rated 7-10 Ceftriaxone Sodium 1 gm/ 50 mls @ 100 mls/hr 07/31/25 22:00 07/31/25 21:05 Sodium Chloride IVPB Infused Q24H JAMAR Infusion Azithromycin 500 mg/ Sodium 250 mls @ 250 mls/hr 07/31/25 23:00 07/31/25 22:58 Chloride IVPB 08/03/25 23:59 250 mls/hr Q24H JAMAR Administration Dextrose 1,000 mls @ 100 mls/hr 07/31/25 07:24 Dextrose 5% 1,000 Ml IVPB PRN PRN Hypoglycemia Protocol Insulin Aspart 8 units 07/31/25 17:00 08/01/25 08:39 Insulin Aspart (*Bkc) 100 Units/Ml SUB-Q 8 units TIDWM JAMAR Administration Insulin Aspart 4 - 8 units 07/31/25 17:00 08/01/25 08:40 Insulin Aspart (*Bkc) 100 Units/Ml SUB-Q 4 units TIDWM JAMAR Administration Protocol Insulin Aspart 2 - 4 units 07/31/25 21:00 07/31/25 20:39 Insulin Aspart (*Bkc) 100 Units/Ml SUB-Q 2 units HS JAMAR Administration Protocol Insulin Glargine 40 units 08/01/25 10:50 08/01/25 11:49 Insulin Glargine (*Bkc) 100 Units/Ml SUB-Q 1 units DAILY JAMAR Administration Loratadine 10 mg 08/01/25 09:00 08/01/25 08:39 Loratadine 10 Mg Tablet PO 10 mg QAM JAMAR Administration Methylprednisolone Sodium Succinate 60 mg 07/31/25 07:00 08/01/25 11:20 Methylprednisolone Sod Succ 125 Mg Vial IV PUSH 60 mg Q6HR JAMAR Administration Minoxidil 2.5 mg 08/01/25 09:00 08/01/25 08:38 Minoxidil 2.5 Mg Tablet PO 2.5 mg DAILY JAMAR Administration Miscellaneous Information 1 each 08/01/25 00:01 Minoxidil Home Med Order Is Bid. Ordered Only Daily In Hospital? XX 08/31/25 00:00 CLARIFY JAMAR Nicotine 1 patch 07/31/25 20:15 08/01/25 08:36 Nicotine (*Pbkc) 21 Mg Patch TRANSDERM 1 patch DAILY JAMAR Administration Pantoprazole Sodium 40 mg 08/01/25 09:00 08/01/25 08:38 Pantoprazole 40 Mg Tablet PO 40 mg Q12HR JAMAR Administration Perflutren Lipid Microsphere 0 ml 07/31/25 09:07 Perflutren Lipid Microspheres 1.5 Ml Vial Diluted To 10 Ml Total Volume IV PUSH 08/03/25 09:08 ONCE PRN adequate visualization Protocol Polyethylene Glycol 17 gm 08/01/25 10:25 08/01/25 11:20 Polyethylene Glycol 3350 17 Gm Powd.Pack PO 17 gm QAM PRN Administration Constipation Tamsulosin HCl 0.4 mg 08/01/25 18:00 Tamsulosin Hcl 0.4 Mg Capsule PO QPM [facility] Radiology Results: ITS Impressions Chest X-Ray 07/31/25 07:05 IMPRESSION: 1. Interstitial pulmonary edema and/or pneumonitis. Labs Labs: Laboratory Tests 08/01/25 04:10 08/01/25 04:10 Calcium 8.7 Magnesium 2.0 Total Bilirubin 0.3 AST 29 ALT 15 Alkaline Phosphatase 127 H NT-Pro-B Natriuret Pep > 01720 H Total Protein 6.3 Albumin 3.3 L
--- NOTE | 2025-08-01 11:00 | PC.NURSE ---
HR 52. SBP 170. Discussed with GASPER Gallagher. Advised to hold morning does of atenolol.
[2025-08-01 11:03] LABS: Magnesium 2.0 mg/dL (1.6-2.3)
[2025-08-01 11:08] LABS: NT Pro B Type Natriuretic Pept > 30000 pg/mL (19.9-100)
[2025-08-01] MEDS: INSULIN GLARGINE (*BKC) 100 UNITS/ML 40 UNITS SUB-Q (11:49)
[2025-08-01] MEDS: INSULIN ASPART (*BKC) 100 UNITS/ML 18 UNITS SUB-Q (11:51)
[2025-08-01] MEDS: TAMSULOSIN HCL 0.4 MG CAPSULE PO (17:16)
[2025-08-01] MEDS: guaiFENesin 12 HR 600 MG TABCR PO (21:01)
[2025-08-01] MEDS: cefTRIAXone 1 GM in SODIUM CHLORIDE 0.9% IV 50 ML 100 ML IVPB (21:02)
[2025-08-01] MEDS: AZITHROMYCIN IV 500 MG in SODIUM CHLORIDE 0.9% IV 250 ML IVPB (22:15)
[2025-08-02] VITALS (22 sets, daily range): BP systolic 163–174; BP diastolic 54–68; PULSE 48–71; RESP 18–22; TEMP 36.4–36.8; O2SAT 93–100
[2025-08-02] MEDS: HYDROcodone/acetaminophen (*CRX) 10-325 MG TABLET 1 TAB PO ×3 (02:58→15:04)
[2025-08-02] MEDS: HYDROmorphone HCL INJ (*CRX) 1 MG/ML SYR IV PUSH ×4 (04:49→20:42)
[2025-08-02 06:50] LABS: Hematocrit 29.1 % (42.0-52.0); Hemoglobin 9.4 g/dL (14.0-18.0); Mean Corpuscular HGB Conc 32.3 g/dl (32-36); Mean Corpuscular Hemoglobin 31.2 pg (26-34); Mean Corpuscular Volume 96.7 fl (80-100); Platelet Count Result 209 k/mm3 (150-375); Red Blood Count 3.01 M/mm3 (4.6-6.20); White Blood Count 19.2 K/mm3 (4.5-10.0)
[2025-08-02 07:14] LABS: Albumin Level 3.4 g/dL (3.5-5.1); Anion Gap 11 mmol/L (4-12); Blood Urea Nitrogen 65 mg/dL (9-20); Calcium 8.4 mg/dL (8.4-10.2); Carbon Dioxide 20 mmol/L (22-30); Chloride 102 mmol/L (98-107); Estimated CRCL calculation 21 ml/min; Estimated Glomerular Filt Rate 16; Glucose 201 mg/dL (65-110); Magnesium 2.0 mg/dL (1.6-2.3); Potassium 4.2 mmol/L (3.4-5.0); Sodium 133 mmol/L (137-145)
[2025-08-02 07:19] LABS: Band Neutrophils Percent 0 % (0-6); Basophils Absolute Manual 0.00 K/mm3 (0.0-0.1); Basophils Percent Manual 0 % (0-1); Eosinophils Absolute Manual 0.00 K/mm3 (0.02-0.50); Eosinophils Percent Manual 0 % (0-4); Lymphocytes Absolute Manual 1.72 K/mm3 (1.1-4.5); Lymphocytes Percent Manual 9 % (18-44); Monocytes Absolute Manual 0.38 K/mm3 (0.1-0.90); Monocytes Percent Manual 2 % (3-9); Neutrophils Absolute Manual 17.08 K/mm3 (1.3-6.7); Neutrophils Percent Manual 89 % (46-73); Total Cells Counted 100
[2025-08-02 07:20] LABS: Schistocytes None Seen
[2025-08-02] MEDS: ATORVASTATIN 40 MG TABLET PO (08:43)
[2025-08-02] MEDS: guaiFENesin 12 HR 600 MG TABCR PO ×2 (08:44→20:38)
[2025-08-02] MEDS: FUROSEMIDE INJ 40 MG/4 ML VIAL 20 MG IV PUSH ×3 (08:44→17:17)
[2025-08-02] MEDS: ASPIRIN 81 MG ENTERIC TABLET PO (08:44)
[2025-08-02] MEDS: NICOTINE (*PBKC) 21 MG PATCH 1 PATCH TRANSDERM (08:44)
[2025-08-02] MEDS: PANTOPRAZOLE 40 MG TABLET PO ×2 (08:44→20:38)
[2025-08-02] MEDS: LORATADINE 10 MG TABLET PO (08:44)
[2025-08-02] MEDS: CYANOCOBALAMIN 1,000 MCG TABLET 1000 MCG PO (08:44)
[2025-08-02] MEDS: INSULIN GLARGINE (*BKC) 100 UNITS/ML 40 UNITS SUB-Q (08:45)
[2025-08-02] MEDS: INSULIN ASPART (*BKC) 100 UNITS/ML 8 UNITS SUB-Q ×3 (08:45→17:18)
[2025-08-02] MEDS: IPRATROPIUM 0.5 MG/ALBUTEROL SULFATE 2.5 MG AMPUL.NEB 3 ML INHALATION ×3 (08:57→20:37)
--- NOTE | 2025-08-02 10:17 | P.PNIM_ITS ---
Progress Note: A&P Assessment and Plan (1) Acute hypoxic respiratory failure: Code(s): J96.01 - Acute respiratory failure with hypoxia Status: Acute Assessment and Plan: Saturation 82% in ED Improvement to 92% with 4L NC viral panel negative BNP elevated Unclear etiology, likely multifactorial: -CXR with interstitial pulmonary edema and/or pneumonitis -? CHF -? COPD ECHO ordered empiric antibiotics for possible pneumonia IV lasix x1-Monitor response methylprednisolone 60 mg Q6 08/01/25: Required 8L O2 overnight Pro BNP >30,000 20 mg IV BID Stopping methylprednisolone as respiratory symptoms appear to be fluid driven Appreciate nephrology recommendations 08/02/2025: CXR 07/22: 1. Interstitial pulmonary edema and/or pneumonitis. - continue abx WBC continues to be elevated, likely viral, will continue to trend and await viral panel/treat sx Pt feeling a lot better today Apnea link performed overnight, discussed with pulm, 1L nocturnal apnea link needed for tonight due to amt of apnea episodes (>5min) - will also need outpatient sleep study as well 98% on RA this AM Adding BNP onto daily labs ECHO 07/31: EF: 50-55%, The left ventricular diastolic function is grade II diastolic dysfunction. -Comparatively, ECHO 11/2023: The left ventricular diastolic function is grade I diastolic dysfunction. -->Plan to f/u with PCP for repeat testing (2) Acute kidney injury: Code(s): N17.9 - Acute kidney failure, unspecified Status: Acute Assessment and Plan: Creatinine 4.22 on admit Trend CMP nephro consult avoiding TOÑITO/ARB 08/01/25: Creatinine down trending Strict I&O Monitor renal function with diuresis 08/02/2025: Creatine continues to down trend Strict I&O Monitor renal function with diuresis Per neph 08/01: * creatinine elevated above baseline since May 2025 * creatinine was 4.10mg/dl on 05/30/25 * creatinine was 3.65mg/dL on 07/11/25 (admission to [facility]) * evaluation noted during [facility]'s hospitalization: * renal u/s: right kidney measures 11.3 cm and the left kidney measures 11.2 cm; renal cortical echotexture is normal; no obstructive uropathy is seen;bladder is decompressed; mild bladder wall thickening may be present * negative serological testing (complements/AJ/ANCA/SPEP/UPEP) negative * nephrotic range proteinuria noted (8.1 grams noted) * creatinine down to 3.35mg/dl on discharge * suspected etiology of acute insult was volume depletion in the setting of recent Bactrim use and ongoing use of losartan and spironolactone. 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 (3) Diabetes mellitus: Qualifiers: Chronic kidney disease stage: stage 4 (GFR 15-29) Diabetes mellitus complication detail: with chronic kidney disease Diabetes mellitus complication status: with kidney complications Diabetes mellitus mcfp insulin use: with mcfp use Diabetes mellitus type: type 2 Qualified Code(s): E11.22 - Type 2 diabetes mellitus with diabetic chronic kidney disease; N18.4 - Chronic kidney disease, stage 4 (severe); Z79.4 - [facility] (current) use of insulin Code(s): E11.9 - Type 2 diabetes mellitus without complications Status: Chronic Assessment and Plan: 8 units insulin aspart TIDWM High dose corrective Glargine 40 units daily-consider increasing to home 60 units closely monitor with steroid regimen 08/01/25: changed diet to consistent carb Monitor trend with the stopping of steroids 08/02/2025: BS AM 190, significantly lower than 9/20 PM, will continue to monitor (4) Hypertension: Qualifiers: Hypertension type: primary hypertension Qualified Code(s): I10 - Essential (primary) hypertension Code(s): I10 - Essential (primary) hypertension Status: Chronic Assessment and Plan: holding TOÑITO/ARB continue amlodipine, atenolol 08/01/25: resume home minoxidil Atenolol held today d/t bradycardia 08/02/2025: Altered by RN this AM that pt was higher and that she was continuing to monitor and now acceptable range -Max dose of amlodipine, atenolol 100mg daily and cannot increase due to pulse in 50's, losartan held due to WALESKA (home dose 100mg daily) -->Continued to hold atenolol today due to low HR -Placed PRN hydral order in today Per neph 07/22: * clarify home medications * would hold TOÑITO/ARB therapy for now * use PRN IV hydralazine * follow trend of hemodynamics (5) Anemia: Qualifiers: Anemia type: unspecified type Qualified Code(s): D64.9 - Anemia, unspecified Code(s): D64.9 - Anemia, unspecified Status: Acute Assessment and Plan: Monitor H&H likely due to CKD (6) Chronic shoulder pain: Qualifiers: Laterality: bilateral Qualified Code(s): M25.511 - Pain in right shoulder; M25.512 - Pain in left shoulder; G89.29 - Other chronic pain Code(s): M25.519 - Pain in unspecified shoulder; G89.29 - Other chronic pain Status: Acute Assessment and Plan: Chronic bilateral shoulder pain home hydrocodone/acetaminophen 10/325 Q6 PRN (7) Constipation: Qualifiers: Constipation type: unspecified constipation type Qualified Code(s): K59.00 - Constipation, unspecified Code(s): K59.00 - Constipation, unspecified Status: Acute Assessment and Plan: MiraLax BID p.r.n. Last BM: Monday 07/30 Plan Daily labs, pending viral panel, continue to monitor s/s of CHF/COPD and O2 need Subjective Date/time seen: 08/02/25 1126 Interval history: Intake hospitalist: 70 year old male with PMH of DMII, hyperlipidemia, HTN, SD, and current smoker presented to the ED on 07/31/25 with a complaint of sohortness of breath that started earlier in the day. Denies hx of CHF or COPD. He smokes 1.5 packs of cigarettes per day for the past 55 years. On arrival to the ED patient was found to be hypoxic on RA at 82%. Does not wear O2 at home. Placed on 4 L/nasal cannual with improvement of saturation to 92%. DuoNeb, 125 mg Solu-Medrol and L bolus given. EKG read by cardiology revealed SR and no acute ischemia. Labs in the ED revealed Hgb 9.5 (it was 12 in November), PO2 60, BUN 44, creatinine 4.22 (was 2 in November), Magnesium 1.5, troponin 0.040 which is his baseline, pro BNP 19,500. 2 G IV magnesium administered. Viral swab negative. UA shows 4+ protein, 1+ glucose, trace ketones, and 1+ blood. CXR read by radiology reveals interstitial pulmonary edema and/or pneumonitis. Rocephin and azithromycin were initiated after blood cultures were drawn. Admitted to IMU for further treatment and monitoring. Patient states he feels pretty good and better than last night. He states he only became short of breath last night a felt fine before that. Patient tells me he smoked a couple of cigars and believes that is what caused his symptoms. 08/02: Pt states that he is feeling significantly better today, he is now not requiring any supplemental O2. Sleep study performed last night and in need of 1L NC overnight tonight with outpatient sleep study, pending viral panel. Review of Systems Review of Systems: All systems are reviewed and are negative unless stated otherwise in the HPI. Exam Const: General: comfortable and no acute distress HENMT: Face/Nose/Sinus: Normal nares present Mouth: Yes moist mucous membranes Eyes: General: appearance normal, both eyes and all related structures Sclera: sclerae normal Neck: Neck: supple Carotids: no bruits Resp: Effort & Inspection: normal respiratory effort Other: RLL expiratory wheeze Cardio: Rate: regular rate Rhythm: regular rhythm Other: BLE 1+ pitting edema GI: Auscultation: normal bowel sounds Skin: General skin exam: normal color and no rashes or lesions noted Wounds: no wounds Neuro: Motor exam (neuro): 5/5 motor strength present throughout and Normal motor muscle tone present throughout Sensory Exam: normal sensation Extrem: General: normal to inspection Psych: Mental Status: mental status grossly normal Affect: normal affect Objective Data Vital Signs Vital Signs: Vital Signs - 24 hr 08/01/25 11:13 08/01/25 12:00 08/01/25 12:00 Temperature 97.3 F L Pulse Rate 54 L 54 L Respiratory Rate 20 Blood Pressure 170/69 H Pulse Oximetry 94 94 Oxygen Delivery Nasal Cannula Oxygen Flow Rate 3 08/01/25 14:00 08/01/25 14:01 08/01/25 14:01 Temperature Pulse Rate 55 L 54 L 54 L Respiratory Rate 20 20 Blood Pressure Pulse Oximetry 94 Oxygen Delivery Nasal Cannula Oxygen Flow Rate 3 08/01/25 14:10 08/01/25 16:00 08/01/25 16:00 Temperature 98 F Pulse Rate 55 L 56 L Respiratory Rate 20 18 Blood Pressure 161/61 H Pulse Oximetry 96 94 Oxygen Delivery Nasal Cannula Oxygen Flow Rate 3 08/01/25 16:00 08/01/25 18:00 08/01/25 20:00 Temperature 97.6 F Pulse Rate 57 L 57 L 54 L Respiratory Rate 18 Blood Pressure 179/71 H Pulse Oximetry 100 Oxygen Delivery Oxygen Flow Rate 08/01/25 20:00 08/01/25 20:53 08/01/25 20:55 Temperature Pulse Rate 53 L 56 L Respiratory Rate 20 Blood Pressure Pulse Oximetry 95 Oxygen Delivery Nasal Cannula Oxygen Flow Rate 3 08/01/25 21:00 08/01/25 21:59 08/01/25 23:15 Temperature Pulse Rate 56 L 55 L 53 L Respiratory Rate 20 18 Blood Pressure Pulse Oximetry 95 100 Oxygen Delivery Nasal Cannula Room Air Oxygen Flow Rate 2 08/01/25 23:26 08/02/25 00:00 08/02/25 02:00 Temperature 97.5 F L Pulse Rate 53 L 48 L 51 L Respiratory Rate 18 Blood Pressure 153/66 H Pulse Oximetry 100 Oxygen Delivery Oxygen Flow Rate 08/02/25 03:49 08/02/25 04:00 08/02/25 04:00 Temperature 97.6 F Pulse Rate 51 L 51 L 56 L Respiratory Rate 18 18 Blood Pressure 166/64 H Pulse Oximetry 93 98 Oxygen Delivery Room Air Oxygen Flow Rate 08/02/25 06:00 08/02/25 07:00 08/02/25 08:57 Temperature 97.6 F Pulse Rate 48 L 54 L 53 L Respiratory Rate 22 H 20 Blood Pressure 174/67 H Pulse Oximetry 100 Oxygen Delivery Oxygen Flow Rate 08/02/25 08:57 08/02/25 09:06 Temperature Pulse Rate 51 L Respiratory Rate 20 Blood Pressure Pulse Oximetry 97 Oxygen Delivery Room Air Oxygen Flow Rate Intake/Output Intake/Output: Intake & Output 09/28/25 09/29/25 09/30/25 10/01/25 23:59 23:59 23:59 23:59 Intake Total 4030 1370 990 Output Total 1360 2450 1700 Balance 7024 -6953 -052 Meds/Results Medications: Active Medications Generic Name Dose Route Start Last Admin Trade Name Freq PRN Reason Stop Dose Admin Acetaminophen 650 mg 07/31/25 18:11 Acetaminophen 325 Mg Tablet PO Q6H PRN Pain Rated 5 or Less Hydrocodone Bitart/Acetaminophen 1 tab 07/31/25 18:11 08/02/25 09:03 Hydrocodone/Acetaminophen (*Crx) 10-325 Mg Tablet PO 1 tab Q6H PRN Administration Pain Rated 3-6 Albuterol/Ipratropium 3 ml 08/01/25 08:00 08/02/25 08:57 Ipratropium 0.5 Mg/Albuterol Sulfate 2.5 Mg Ampul.Neb 3 Ml INHALATION 3 ml Q6HRT JAMAR Administration Amlodipine Besylate 10 mg 07/31/25 16:45 08/02/25 08:44 Amlodipine Besylate 10 Mg Tablet PO 10 mg DAILY JAMAR Administration Aspirin 81 mg 08/01/25 09:00 08/02/25 08:44 Aspirin 81 Mg Enteric Tablet PO 81 mg QAM JAMAR Administration Atenolol 100 mg 08/01/25 09:00 08/02/25 08:43 Atenolol 50 Mg Tablet PO Not Given Q24H JAMAR Atorvastatin Calcium 40 mg 08/01/25 09:00 08/02/25 08:43 Atorvastatin 40 Mg Tablet PO 40 mg DAILY JAMAR Administration Cyanocobalamin 1,000 mcg 07/31/25 15:55 08/02/25 08:44 Cyanocobalamin 1,000 Mcg Tablet PO 1,000 mcg DAILY JMAAR Administration Dextrose 12.5 gm 07/31/25 07:24 Dextrose 50% 25 Gm/50 Ml Syringe IV PUSH PRN PRN Hypoglycemia Protocol Furosemide 20 mg 08/01/25 07:45 08/02/25 08:44 Furosemide Inj 40 Mg/4 Ml Vial IV PUSH 20 mg BID JAMAR Administration Glucagon 1 mg 07/31/25 07:24 Glucagon For Inj 1 Mg Vial IM PRN PRN Hypoglycemia Protocol Glucose 15 gm 07/31/25 07:24 Glucose Oral Gel 15 Gm Of Glucse In 37.5 Gm Tube PO PRN PRN Hypoglycemia Protocol Guaifenesin 600 mg 08/01/25 21:00 08/02/25 08:44 Guaifenesin 12 Hr 600 Mg Tabcr PO 600 mg Q12HR JAMAR Administration Heparin Sodium (Porcine) 5,000 units 07/31/25 11:30 08/02/25 08:44 Heparin Sodium 5,000 Units/Ml Vial SUB-Q 5,000 units Q12HR JAMAR Administration Hydromorphone HCl 1 mg 08/01/25 16:24 08/02/25 10:14 Hydromorphone Hcl Inj (*Crx) 1 Mg/Ml Syr IV PUSH 1 mg Q4H PRN Administration Pain Rated 7-10 Ceftriaxone Sodium 1 gm/ 50 mls @ 100 mls/hr 07/31/25 22:00 08/01/25 21:35 Sodium Chloride IVPB Infused Q24H JAMAR Infusion Azithromycin 500 mg/ Sodium 250 mls @ 250 mls/hr 07/31/25 23:00 08/01/25 23:15 Chloride IVPB 08/03/25 23:59 Infused Q24H JAMAR Infusion Dextrose 1,000 mls @ 100 mls/hr 07/31/25 07:24 Dextrose 5% 1,000 Ml IVPB PRN PRN Hypoglycemia Protocol Insulin Aspart 8 units 07/31/25 17:00 08/02/25 08:45 Insulin Aspart (*Bkc) 100 Units/Ml SUB-Q 8 units TIDWM JAMAR Administration Insulin Aspart 4 - 8 units 07/31/25 17:00 08/02/25 08:42 Insulin Aspart (*Bkc) 100 Units/Ml SUB-Q Not Given TIDWM [facility] Protocol Insulin Aspart 2 - 4 units 07/31/25 21:00 08/01/25 21:00 Insulin Aspart (*Bkc) 100 Units/Ml SUB-Q 3 units HS JAMAR Administration Protocol Insulin Glargine 40 units 08/01/25 10:50 08/02/25 08:45 Insulin Glargine (*Bkc) 100 Units/Ml SUB-Q 40 units DAILY JAMAR Administration Loratadine 10 mg 08/01/25 09:00 08/02/25 08:44 Loratadine 10 Mg Tablet PO 10 mg QAM JAMAR Administration Minoxidil 2.5 mg 08/01/25 09:00 08/02/25 08:44 Minoxidil 2.5 Mg Tablet PO 2.5 mg DAILY JAMAR Administration Miscellaneous Information 1 each 08/01/25 00:01 Minoxidil Home Med Order Is Bid. Ordered Only Daily In Hospital? XX 08/31/25 00:00 CLARIFY JAMAR Nicotine 1 patch 07/31/25 20:15 08/02/25 08:44 Nicotine (*Pbkc) 21 Mg Patch TRANSDERM 1 patch DAILY JAMAR Administration Pantoprazole Sodium 40 mg 08/01/25 09:00 08/02/25 08:44 Pantoprazole 40 Mg Tablet PO 40 mg Q12HR JAMAR Administration Perflutren Lipid Microsphere 0 ml 07/31/25 09:07 Perflutren Lipid Microspheres 1.5 Ml Vial Diluted To 10 Ml Total Volume IV PUSH 08/03/25 09:08 ONCE PRN adequate visualization Protocol Polyethylene Glycol 17 gm 08/01/25 14:54 Polyethylene Glycol 3350 17 Gm Powd.Pack PO BID PRN Constipation Tamsulosin HCl 0.4 mg 08/01/25 18:00 08/01/25 17:16 Tamsulosin Hcl 0.4 Mg Capsule PO 0.4 mg QPM JAMAR Administration Radiology Results: ITS Impressions Chest X-Ray 07/31/25 07:05 IMPRESSION: 1. Interstitial pulmonary edema and/or pneumonitis. Labs Labs: Laboratory Results - last 24 hr 08/01/25 08/01/25 08/01/25 04:10 11:19 15:42 WBC RBC Hgb Hct MCV MCH MCHC RDW Plt Count MPV Immature Gran % (Auto) Neut % (Auto) Lymph % (Auto) Kerr % (Auto) Eos % (Auto) Baso % (Auto) Lymph # (Auto) Kerr # (Auto) Eos # (Auto) Baso # (Auto) Abs Immat Gran (auto) Absolute Neuts (auto) Absolute Nucleated RBC Total Counted Neutrophils % (Manual) Band Neutrophils % Lymphocytes % (Manual) Monocytes % (Manual) Eosinophils % (Manual) Basophils % (Manual) Nucleated RBC % Abs Neuts (Manual) Abs Lymphs (Manual) Abs Monocytes (Manual) Absolute Eos (Manual) Abs Basophils (Manual) Platelet Estimate Schistocytes Sodium Potassium Chloride Carbon Dioxide Anion Gap BUN Creatinine Estim Creat Clear Calc Estimated GFR Glucose POC Capillary Glucose 451 H 343 H Calcium Phosphorus Magnesium 2.0 NT-Pro-B Natriuret Pep > 17767 H Albumin 08/01/25 08/02/25 08/02/25 20:19 06:26 07:19 WBC 19.2 H RBC 3.01 L Hgb 9.4 L Hct 29.1 L MCV 96.7 MCH 31.2 MCHC 32.3 RDW 13.2 Plt Count 209 MPV 10.7 H Immature Gran % (Auto) Not Reportable Neut % (Auto) Not Reportable Lymph % (Auto) Not Reportable Kerr % (Auto) Not Reportable Eos % (Auto) Not Reportable Baso % (Auto) Not Reportable Lymph # (Auto) Not Reportable Kerr # (Auto) Not Reportable Eos # (Auto) Not Reportable Baso # (Auto) Not Reportable Abs Immat Gran (auto) Not Reportable Absolute Neuts (auto) Not Reportable Absolute Nucleated RBC Not Reportable Total Counted 100 Neutrophils % (Manual) 89 H Band Neutrophils % 0 Lymphocytes % (Manual) 9 L Monocytes % (Manual) 2 L Eosinophils % (Manual) 0 Basophils % (Manual) 0 Nucleated RBC % Not Reportable Abs Neuts (Manual) 17.08 H Abs Lymphs (Manual) 1.72 Abs Monocytes (Manual) 0.38 Absolute Eos (Manual) 0.00 L Abs Basophils (Manual) 0.00 Platelet Estimate Adequate Schistocytes None seen Sodium 133 L Potassium 4.2 Chloride 102 Carbon Dioxide 20 L Anion Gap 11 BUN 65 H Creatinine 3.84 H Estim Creat Clear Calc 21 Estimated GFR 16 L Glucose 201 H POC Capillary Glucose 314 H 190 H Calcium 8.4 Phosphorus 5.6 H Magnesium 2.0 NT-Pro-B Natriuret Pep Albumin 3.4 L Quality VTE Prophylaxis VTE prophylaxis: pharmacologic ordered
[2025-08-02] MEDS: INSULIN ASPART (*BKC) 100 UNITS/ML SUB-Q ×2 (12:15→17:18)
--- NOTE | 2025-08-02 12:48 | PM.PNNEP ---
Progress Note: A&P Assessment and Plan (1) Acute kidney injury: Code(s): N17.9 - Acute kidney failure, unspecified Status: Acute Assessment and Plan: relatively stable creatinine elevated above baseline since May 2025 creatinine was 4.10mg/dl on 05/30/25 creatinine was 3.65mg/dL on 07/11/25 (admission to [facility]) evaluation noted during [facility] hospitalization: renal u/s: right kidney measures 11.3 cm and the left kidney measures 11.2 cm; renal cortical echotexture is normal; no obstructive uropathy is seen;bladder is decompressed; mild bladder wall thickening may be present negative serological testing (complements/AJ/ANCA/SPEP/UPEP) negative nephrotic range proteinuria noted (8.1 grams noted) creatinine down to 3.35mg/dl on discharge suspected etiology of acute insult during [facility] hospitalization was volume depletion in the setting of recent Bactrim use and ongoing use of losartan and spironolactone. losartan and spironolactone stopped started on minoxidil in addition to amlodipine & atenolol for BP control (per discharge summary) follow trend of repeat labs and UOP (2) Stage 4 chronic kidney disease: Code(s): N18.4 - Chronic kidney disease, stage 4 (severe) Status: Chronic Assessment and Plan: creatinine on discharge from [facility] was 3.35mg/dl (on 07/15/25) new baseline?? (see #1) presumably due to hypertension and diabetes along with vascular disease and age... 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 (3) Acute hypoxic respiratory failure: Code(s): J96.01 - Acute respiratory failure with hypoxia Status: Acute Assessment and Plan: resolving as noted on presentation to ER 82% saturation on room air with 4 - 5L NC, improved to 92% etiology(?): CHF COPD RAD pulmonary edema pnuemonia other(?) testing to date noted: CXR with interstitial pulmonary edema and/or pneumonitis elevated BNP noted viral testing for influenza/RSV/COVID negative troponin slighly elevated Echo (07/31) noted: left ventricular systolic function is normal, estimated at 50 - 55% left ventricular diastolic function is grade II diastolic dysfunction mild aortic valve calcification mild mitral valve regurgitation mild tricuspid valve regurgitation no pulmonary hypertension, estimated pulmonary arterial systolic pressureis 17 mmHg mild pulmonic regurgitation empiric antibiotics for possible pneumonia follow culture data seems more related to fluid overload -- improvement noted with IV diuretics switch to oral diuretics tomorrow (?) follow respiratory status (4) Anemia: Qualifiers: Anemia type: unspecified type Qualified Code(s): D64.9 - Anemia, unspecified Code(s): D64.9 - Anemia, unspecified Status: Acute Assessment and Plan: acute on chronic Hgb 10.3 on 07/13/25 [facility] discharge likely due to CKD and acute illness anemia studies c/w iron deficiency consider VADIM while hospitalized follow trend of H/H (5) Hypertension: Qualifiers: Hypertension type: primary hypertension Qualified Code(s): I10 - Essential (primary) hypertension Code(s): I10 - Essential (primary) hypertension Status: Chronic Assessment and Plan: clarify home medications would hold TOÑITO/ARB therapy for now use PRN IV hydralazine follow trend of hemodynamics (6) Diabetes mellitus: Qualifiers: Diabetes mellitus type: type 2 Diabetes mellitus group home insulin use: with 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 Subjective Date/time seen: 08/02/25 12:48 Interval history: Follow-up for acute kidney injury/acute renal failure on chronic kidney disease. Renal function/creatinine relatively stable despite IV diuretic therapy; he reports significant improvement in his breathing/respiratory status at the time of my visit; weaned off supplemental oxygen with stable saturations; no apparent distress noted when seen. Exam Narrative: General: elderly but WD/WN male in NAD Heart: normal S1 and S2; no rub Lungs: coarse and decreased at bases with a few crackles Abdomen: soft, nontender, nondistended, positive bowel sounds Extremities: no cyanosis or clubbing; 1+ edema Skin: warm and intact Objective Data Vital Signs Vital Signs: Vital Signs Temp Pulse Resp BP Pulse Ox O2 Del Method O2 Flow Rate 08/02/25 12:00 71 08/02/25 11:00 98.2 F 54 L 20 164/68 H 99 08/02/25 10:45 Room Air 08/02/25 10:00 54 L 08/02/25 09:06 51 L 20 08/02/25 08:57 97 Room Air 08/02/25 08:57 53 L 20 08/02/25 08:00 52 L 08/02/25 07:00 97.6 F 54 L 22 H 174/67 H 100 08/02/25 06:00 48 L 08/02/25 04:00 56 L 08/02/25 04:00 51 L 18 98 Room Air 08/02/25 03:49 97.6 F 51 L 18 166/64 H 93 08/02/25 02:00 51 L 08/02/25 00:00 48 L 08/01/25 23:26 97.5 F L 53 L 18 153/66 H 100 08/01/25 23:15 53 L 18 100 Room Air 08/01/25 21:59 55 L 08/01/25 21:00 56 L 20 95 Nasal Cannula 2 08/01/25 20:55 95 Nasal Cannula 3 08/01/25 20:53 56 L 20 08/01/25 20:00 53 L 08/01/25 20:00 97.6 F 54 L 18 179/71 H 100 08/01/25 18:00 57 L Intake/Output Intake/Output: Intake & Output 07/30/25 07/31/25 08/01/25 08/02/25 23:59 23:59 23:59 23:59 Intake Total 4030 1370 1730 Output Total 1360 2450 2675 Balance 3777 -7216 -945 Meds/Results Medications: Active Medications Generic Name Dose Route Start Last Admin Trade Name Freq PRN Reason Stop Dose Admin Acetaminophen 650 mg 07/31/25 18:11 Acetaminophen 325 Mg Tablet PO Q6H PRN Pain Rated 5 or Less Hydrocodone Bitart/Acetaminophen 2 tab 08/02/25 16:53 08/02/25 17:17 Hydrocodone/Acetaminophen (*Crx) 10-325 Mg Tablet PO 2 tab Q6H PRN Administration Pain Rated 3-6 Albuterol 2 puff 08/02/25 17:36 Albuterol Sulfate (*Sp) Aerosol 1 Puff INHALATION Q6HRT PRN Wheezing Albuterol/Ipratropium 3 ml 08/01/25 08:00 08/02/25 13:48 Ipratropium 0.5 Mg/Albuterol Sulfate 2.5 Mg Ampul.Neb 3 Ml INHALATION 3 ml Q6HRT JAMAR Administration Amlodipine Besylate 10 mg 07/31/25 16:45 08/02/25 08:44 Amlodipine Besylate 10 Mg Tablet PO 10 mg DAILY JAMAR Administration Aspirin 81 mg 08/01/25 09:00 08/02/25 08:44 Aspirin 81 Mg Enteric Tablet PO 81 mg QAM JAMAR Administration Atenolol 100 mg 08/01/25 09:00 08/02/25 08:43 Atenolol 50 Mg Tablet PO Not Given Q24H JAMAR Atorvastatin Calcium 40 mg 08/01/25 09:00 08/02/25 08:43 Atorvastatin 40 Mg Tablet PO 40 mg DAILY JAMAR Administration Cyanocobalamin 1,000 mcg 07/31/25 15:55 08/02/25 08:44 Cyanocobalamin 1,000 Mcg Tablet PO 1,000 mcg DAILY JAMAR Administration Dextrose 12.5 gm 07/31/25 07:24 Dextrose 50% 25 Gm/50 Ml Syringe IV PUSH PRN PRN Hypoglycemia Protocol Furosemide 20 mg 08/01/25 07:45 08/02/25 17:17 Furosemide Inj 40 Mg/4 Ml Vial IV PUSH 20 mg BID JAMAR Administration Glucagon 1 mg 07/31/25 07:24 Glucagon For Inj 1 Mg Vial IM PRN PRN Hypoglycemia Protocol Glucose 15 gm 07/31/25 07:24 Glucose Oral Gel 15 Gm Of Glucse In 37.5 Gm Tube PO PRN PRN Hypoglycemia Protocol Guaifenesin 600 mg 08/01/25 21:00 08/02/25 08:44 Guaifenesin 12 Hr 600 Mg Tabcr PO 600 mg Q12HR JAMAR Administration Heparin Sodium (Porcine) 5,000 units 07/31/25 11:30 08/02/25 08:44 Heparin Sodium 5,000 Units/Ml Vial SUB-Q 5,000 units Q12HR JAMAR Administration Hydralazine HCl 10 mg 08/02/25 10:26 08/02/25 12:15 Hydralazine Hcl 20 Mg/Ml Vial IV PUSH 10 mg Q6H PRN Administration Blood Pressure - High Hydromorphone HCl 1 mg 08/01/25 16:24 08/02/25 14:47 Hydromorphone Hcl Inj (*Crx) 1 Mg/Ml Syr IV PUSH 1 mg Q4H PRN Administration Pain Rated 7-10 Ceftriaxone Sodium 1 gm/ 50 mls @ 100 mls/hr 07/31/25 22:00 08/01/25 21:35 Sodium Chloride IVPB Infused Q24H JAMAR Infusion Azithromycin 500 mg/ Sodium 250 mls @ 250 mls/hr 07/31/25 23:00 08/01/25 23:15 Chloride IVPB 08/03/25 23:59 Infused Q24H JAMAR Infusion Dextrose 1,000 mls @ 100 mls/hr 07/31/25 07:24 Dextrose 5% 1,000 Ml IVPB PRN PRN Hypoglycemia Protocol Insulin Aspart 8 units 07/31/25 17:00 08/02/25 17:18 Insulin Aspart (*Bkc) 100 Units/Ml SUB-Q 8 units TIDWM JAMAR Administration Insulin Aspart 4 - 8 units 07/31/25 17:00 08/02/25 17:18 Insulin Aspart (*Bkc) 100 Units/Ml SUB-Q 5 units TIDWM JAMAR Administration Protocol Insulin Aspart 2 - 4 units 07/31/25 21:00 08/01/25 21:00 Insulin Aspart (*Bkc) 100 Units/Ml SUB-Q 3 units HS JAMAR Administration Protocol Insulin Glargine 40 units 08/01/25 10:50 08/02/25 08:45 Insulin Glargine (*Bkc) 100 Units/Ml SUB-Q 40 units DAILY JAMAR Administration Loratadine 10 mg 08/01/25 09:00 08/02/25 08:44 Loratadine 10 Mg Tablet PO 10 mg QAM JAMAR Administration Minoxidil 2.5 mg 08/01/25 09:00 08/02/25 08:44 Minoxidil 2.5 Mg Tablet PO 2.5 mg DAILY JAMAR Administration Miscellaneous Information 1 each 08/01/25 00:01 Minoxidil Home Med Order Is Bid. Ordered Only Daily In Hospital? XX 08/31/25 00:00 CLARIFY JAMAR Nicotine 1 patch 07/31/25 20:15 08/02/25 08:44 Nicotine (*Pbkc) 21 Mg Patch TRANSDERM 1 patch DAILY JAMAR Administration Pantoprazole Sodium 40 mg 08/01/25 09:00 08/02/25 08:44 Pantoprazole 40 Mg Tablet PO 40 mg Q12HR JAMAR Administration Perflutren Lipid Microsphere 0 ml 07/31/25 09:07 Perflutren Lipid Microspheres 1.5 Ml Vial Diluted To 10 Ml Total Volume IV PUSH 08/03/25 09:08 ONCE PRN adequate visualization Protocol Polyethylene Glycol 17 gm 08/01/25 14:54 08/02/25 14:56 Polyethylene Glycol 3350 17 Gm Powd.Pack PO 17 gm BID PRN Administration Constipation Tamsulosin HCl 0.4 mg 08/01/25 18:00 08/02/25 17:17 Tamsulosin Hcl 0.4 Mg Capsule PO 0.4 mg QPM JAMAR Administration Radiology Results: ITS Impressions Chest X-Ray 08/02/25 12:50 IMPRESSION: 1. Improving but persistent interstitial pulmonary edema and/or pneumonitis. Labs Labs: Laboratory Tests 08/02/25 06:26 08/02/25 06:26 Calcium 8.4 Phosphorus 5.6 H Magnesium 2.0 Albumin 3.4 L Microbiology 07/31/25 01:50 Blood Blood Culture - Preliminary 07/31/25 01:59 Blood Blood Culture - Preliminary
--- NOTE | 2025-08-02 15:21 | PC.NURSE ---
On 08/02/25, the student, Sabine, provided care and completed [facility] documentation on this patient. I have reviewed the student's documentation and agree with the findings.
[2025-08-02] MEDS: HYDROcodone/acetaminophen (*CRX) 10-325 MG TABLET 2 TAB PO (17:17)
[2025-08-02] MEDS: TAMSULOSIN HCL 0.4 MG CAPSULE PO (17:17)
[2025-08-02] MEDS: SENNA/DOCUSATE SODIUM TABLET 1 TAB PO (17:17)
[2025-08-02] MEDS: cefTRIAXone 1 GM in SODIUM CHLORIDE 0.9% IV 50 ML 100 ML IVPB (20:39)
--- NOTE | 2025-08-02 21:26 | PC.NURSE ---
This patient, García Puente, was transferred to [facility] on 08/02/25 at 2126. Personal belongings sent with patient. Report given to JESUSITA Pendletno. Appropriate documentation sent with patient.
[2025-08-02] MEDS: ALBUTEROL SULFATE (*SP) AEROSOL 1 PUFF 2 PUFF INHALATION (22:13)
[2025-08-03] VITALS (18 sets, daily range): BP systolic 132–153; BP diastolic 57–70; PULSE 54–89; RESP 16–20; TEMP 36.1–36.6; O2SAT 94–98
[2025-08-03] MEDS: AZITHROMYCIN IV 500 MG in SODIUM CHLORIDE 0.9% IV 250 ML IVPB (01:20)
[2025-08-03] MEDS: HYDROmorphone HCL INJ (*CRX) 1 MG/ML SYR IV PUSH (01:21)
[2025-08-03] MEDS: IPRATROPIUM 0.5 MG/ALBUTEROL SULFATE 2.5 MG AMPUL.NEB 3 ML INHALATION ×5 (02:00→20:30)
[2025-08-03] MEDS: HYDROcodone/acetaminophen (*CRX) 10-325 MG TABLET 2 TAB PO ×4 (02:46→21:18)
[2025-08-03] MEDS: ALBUTEROL SULFATE (*SP) AEROSOL 1 PUFF 2 PUFF INHALATION (04:38)
[2025-08-03 05:18] LABS: Hematocrit 29.3 % (42.0-52.0); Hemoglobin 9.6 g/dL (14.0-18.0); Immature Granulocyte Percent A 2.4 % (0-0.5); Lymphocytes Absolute Auto 1.98 K/mm3 (0.9-3.2); Mean Corpuscular HGB Conc 32.8 g/dl (32-36); Mean Corpuscular Hemoglobin 31.5 pg (26-34); Mean Corpuscular Volume 96.1 fl (80-100); Nucleated Red Blood Cells Absolute Auto 0.000 K/mm3 (0.0-0.012); Nucleated Red Blood Cells Perc 0.0 % (0.0-0.2); Platelet Count Result 204 k/mm3 (150-375); Red Blood Count 3.05 M/mm3 (4.6-6.20); White Blood Count 14.2 K/mm3 (4.5-10.0)
[2025-08-03 05:44] LABS: Albumin Level 3.2 g/dL (3.5-5.1); Anion Gap 9 mmol/L (4-12); Blood Urea Nitrogen 72 mg/dL (9-20); Calcium 8.1 mg/dL (8.4-10.2); Carbon Dioxide 22 mmol/L (22-30); Chloride 102 mmol/L (98-107); Estimated CRCL calculation 21 ml/min; Estimated Glomerular Filt Rate 16; Glucose 130 mg/dL (65-110); Magnesium 1.8 mg/dL (1.6-2.3); Potassium 4.1 mmol/L (3.4-5.0); Sodium 133 mmol/L (137-145)
[2025-08-03 05:51] LABS: NT Pro B Type Natriuretic Pept > 30000 pg/mL (19.9-100)
--- NOTE | 2025-08-03 08:19 | PM.IMPN ---
Progress Note: A&P Assessment and Plan (1) Acute hypoxic respiratory failure: Code(s): J96.01 - Acute respiratory failure with hypoxia Status: Acute Assessment and Plan: Saturation 82% in ED Improvement to 92% with 4L NC viral panel negative BNP elevated Unclear etiology, likely multifactorial: -CXR with interstitial pulmonary edema and/or pneumonitis -? CHF -? COPD ECHO ordered empiric antibiotics for possible pneumonia IV lasix x1-Monitor response methylprednisolone 60 mg Q6 08/01/25: Required 8L O2 overnight Pro BNP >30,000 20 mg IV BID Stopping methylprednisolone as respiratory symptoms appear to be fluid driven Appreciate nephrology recommendations 08/02/2025: CXR 08/01: 1. Interstitial pulmonary edema and/or pneumonitis. - continue abx WBC continues to be elevated, likely viral/CHF/RODO, will continue to trend and await viral panel/treat sx Pt feeling a lot better today Apnea link performed overnight, discussed with pulm, 1L nocturnal apnea link needed for tonight due to amt of apnea episodes (>5min) - will also need outpatient sleep study as well 98% on RA this AM Adding BNP onto daily labs ECHO 07/31: EF: 50-55%, The left ventricular diastolic function is grade II diastolic dysfunction. -Comparatively, ECHO 11/2023: The left ventricular diastolic function is grade I diastolic dysfunction. -->Plan to f/u with PCP for repeat testing 08/03: 08/02 CXR: Improving but persistent interstitial pulmonary edema and/or pneumonitis -->Changed Abx from IV to oral today -WBC continues to be elevated but downtrending, likely viral/CHF/RODO, will continue to trend and await viral panel/treat sx -Ordered home O2 set up for RT today for home O2, plan to still obtain sleep study outpatient. RT requesting x1 more apnea link on RA oximetry only for tonight to qualify for home O2, ordered today -BNP continues to be elevated, continue IV lasix with possibility of switching to oral if this improves and D/C with orals -BLE edema continues to be present, ordered harpreet butterfield today and continue IV lasix BID (2) Acute kidney injury: Code(s): N17.9 - Acute kidney failure, unspecified Status: Acute Assessment and Plan: Creatinine 4.22 on admit Trend CMP nephro consult avoiding TOÑITO/ARB 08/01/25: Creatinine down trending Strict I&O Monitor renal function with diuresis 08/02/2025: Creatine continues to down trend Strict I&O Monitor renal function with diuresis Per neph 08/01: creatinine elevated above baseline since May 2025 creatinine was 4.10mg/dl on 05/30/25 creatinine was 3.65mg/dL on 07/11/25 (admission to [facility]) evaluation noted during [facility] hospitalization: renal u/s: right kidney measures 11.3 cm and the left kidney measures 11.2 cm; renal cortical echotexture is normal; no obstructive uropathy is seen;bladder is decompressed; mild bladder wall thickening may be present negative serological testing (complements/AJ/ANCA/SPEP/UPEP) negative nephrotic range proteinuria noted (8.1 grams noted) creatinine down to 3.35mg/dl on discharge suspected etiology of acute insult was volume depletion in the setting of recent Bactrim use and ongoing use of losartan and spironolactone. losartan and spironolactone stopped started on minoxidil in addition to amlodipine & atenolol for BP control To f/u with established hospice manager outpatient 08/03: Creatinine continues to be elevated, appreciate neph following. 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 Will continue to monitor. (4) Hypertension: Qualifiers: Hypertension type: primary hypertension Qualified Code(s): I10 - Essential (primary) hypertension Code(s): I10 - Essential (primary) hypertension Status: Chronic Assessment and Plan: holding TOÑITO/ARB continue amlodipine, atenolol 08/01/25: resume home minoxidil Atenolol held today d/t bradycardia 08/02: Altered by RN this AM that pt was higher and that she was continuing to monitor and now acceptable range -Max dose of amlodipine, atenolol 100mg daily and cannot increase due to pulse in 50's, losartan held due to WALESKA (home dose 100mg daily) -->Continued to hold atenolol today due to low HR -Placed PRN hydral order in today Per neph 07/22: clarify home medications would hold TOÑITO/ARB therapy for now use PRN IV hydralazine follow trend of hemodynamics 08/03: BPs have been more stable, 130/50's (5) Anemia: Qualifiers: Anemia type: unspecified type Qualified Code(s): D64.9 - Anemia, unspecified Code(s): D64.9 - Anemia, unspecified Status: Acute Assessment and Plan: Monitor H&H likely due to CKD (6) Chronic shoulder pain: Qualifiers: Laterality: bilateral Qualified Code(s): M25.511 - Pain in right shoulder; M25.512 - Pain in left shoulder; G89.29 - Other chronic pain Code(s): M25.519 - Pain in unspecified shoulder; G89.29 - Other chronic pain Status: Acute Assessment and Plan: Chronic bilateral shoulder pain home hydrocodone/acetaminophen x2 Q6 PRN -->Per pt, this is his home dose from recent shoulder surgery. Pt reporting better controlled pain today. (7) Constipation: Qualifiers: Constipation type: unspecified constipation type Qualified Code(s): K59.00 - Constipation, unspecified Code(s): K59.00 - Constipation, unspecified Status: Acute Assessment and Plan: MiraLax BID p.r.n. Last BM: Monday 07/30 102: Pt on narcotic tx for post op shoulder pain, started on senna yesterday for help, pt reports taking this at home to help Plan Daily labs, pending viral panel, continue to monitor s/s of CHF/COPD (BNP) and O2 need Subjective Date/time seen: 08/03/25 0932 Interval history: Intake hospitalist: 70 year old male with PMH of DMII, hyperlipidemia, HTN, NV, and current smoker presented to the ED on 07/31/25 with a complaint of sohortness of breath that started earlier in the day. Denies hx of CHF or COPD. He smokes 1.5 packs of cigarettes per day for the past 55 years. On arrival to the ED patient was found to be hypoxic on RA at 82%. Does not wear O2 at home. Placed on 4 L/nasal cannual with improvement of saturation to 92%. DuoNeb, 125 mg Solu-Medrol and L bolus given. EKG read by cardiology revealed SR and no acute ischemia. Labs in the ED revealed Hgb 9.5 (it was 12 in November), PO2 60, BUN 44, creatinine 4.22 (was 2 in November), Magnesium 1.5, troponin 0.040 which is his baseline, pro BNP 19,500. 2 G IV magnesium administered. Viral swab negative. UA shows 4+ protein, 1+ glucose, trace ketones, and 1+ blood. CXR read by radiology reveals interstitial pulmonary edema and/or pneumonitis. Rocephin and azithromycin were initiated after blood cultures were drawn. Admitted to IMU for further treatment and monitoring. Patient states he feels pretty good and better than last night. He states he only became short of breath last night a felt fine before that. Patient tells me he smoked a couple of cigars and believes that is what caused his symptoms. 08/02: Pt states that he is feeling significantly better today, he is now not requiring any supplemental O2. Sleep study performed last night and in need of 1L NC overnight tonight with outpatient sleep study, pending viral panel. 08/03: Pt continues to report that he is feeling good. He does state that he had some breathing issues yesterday evening and a breathing tx and inhaler helped. Agreeable to overnight O2. Pt reports that he has been taking his narcotic dose and stool softener for a number of years due to trama and surgery to his shoulder. Review of Systems Review of Systems: All systems are reviewed and are negative unless stated otherwise in the HPI. Exam Const: General: comfortable and no acute distress HENMT: Face/Nose/Sinus: Normal nares present Mouth: Yes moist mucous membranes Eyes: General: appearance normal, both eyes and all related structures Sclera: sclerae normal Neck: Neck: supple Carotids: no bruits Resp: Effort & Inspection: normal respiratory effort Other: LLL expiratory wheeze Cardio: Rate: regular rate Rhythm: regular rhythm Other: BLE 1+ pitting edema GI: Auscultation: normal bowel sounds Skin: General skin exam: normal color and no rashes or lesions noted Wounds: no wounds Neuro: Motor exam (neuro): 5/5 motor strength present throughout and Normal motor muscle tone present throughout Sensory Exam: normal sensation Extrem: General: normal to inspection Psych: Mental Status: mental status grossly normal Affect: normal affect Objective Data Vital Signs Vital Signs: Vital Signs - 24 hr 08/02/25 08:57 08/02/25 08:57 08/02/25 09:06 Temperature Pulse Rate 53 L 51 L Respiratory Rate 20 20 Blood Pressure Pulse Oximetry 97 Oxygen Delivery Room Air Oxygen Flow Rate Fraction of Inspired Oxygen 08/02/25 10:00 08/02/25 10:45 08/02/25 11:00 Temperature 98.2 F Pulse Rate 54 L 54 L Respiratory Rate 20 Blood Pressure 164/68 H Pulse Oximetry 99 Oxygen Delivery Room Air Oxygen Flow Rate Fraction of Inspired Oxygen 08/02/25 12:00 08/02/25 13:49 08/02/25 13:57 Temperature Pulse Rate 71 56 L 59 L Respiratory Rate 18 18 Blood Pressure Pulse Oximetry Oxygen Delivery Oxygen Flow Rate Fraction of Inspired Oxygen 08/02/25 16:00 08/02/25 16:00 08/02/25 20:00 Temperature 98 F 98 F Pulse Rate 60 57 L 59 L Respiratory Rate 18 18 Blood Pressure 164/54 H 163/63 H Pulse Oximetry 98 97 Oxygen Delivery Oxygen Flow Rate Fraction of Inspired Oxygen 08/02/25 20:00 08/02/25 20:34 08/02/25 20:37 Temperature Pulse Rate 57 L 59 L 55 L Respiratory Rate 18 20 Blood Pressure Pulse Oximetry 97 Oxygen Delivery Room Air Oxygen Flow Rate Fraction of Inspired Oxygen 08/02/25 20:40 08/02/25 20:51 08/02/25 22:14 Temperature Pulse Rate 55 L 58 L 66 Respiratory Rate 20 20 20 Blood Pressure Pulse Oximetry 94 Oxygen Delivery Room Air Oxygen Flow Rate Fraction of Inspired Oxygen 21 08/02/25 22:16 08/03/25 00:00 08/03/25 00:00 Temperature 97.4 F L Pulse Rate 65 89 58 L Respiratory Rate 20 16 Blood Pressure 138/57 L Pulse Oximetry 96 95 Oxygen Delivery Nasal Cannula Oxygen Flow Rate 1 Fraction of Inspired Oxygen 24 08/03/25 04:00 08/03/25 04:39 08/03/25 05:36 Temperature 97.7 F Pulse Rate 55 L 57 L 63 Respiratory Rate 20 18 Blood Pressure 132/58 L Pulse Oximetry 96 Oxygen Delivery Oxygen Flow Rate Fraction of Inspired Oxygen 08/03/25 07:42 08/03/25 07:42 08/03/25 07:50 Temperature Pulse Rate 65 57 L Respiratory Rate 18 18 Blood Pressure Pulse Oximetry 94 Oxygen Delivery Room Air Oxygen Flow Rate Fraction of Inspired Oxygen Intake/Output Intake/Output: Intake & Output 07/31/25 08/01/25 08/02/25 08/03/25 23:59 23:59 23:59 23:59 Intake Total 4030 1370 2020 650 Output Total 1360 2450 3075 600 Balance 2670 -1080 -1055 50 Meds/Results Medications: Active Medications Generic Name Dose Route Start Last Admin Trade Name Freq PRN Reason Stop Dose Admin Acetaminophen 650 mg 07/31/25 18:11 Acetaminophen 325 Mg Tablet PO Q6H PRN Pain Rated 5 or Less Hydrocodone Bitart/Acetaminophen 2 tab 08/02/25 16:53 08/03/25 02:46 Hydrocodone/Acetaminophen (*Crx) 10-325 Mg Tablet PO 2 tab Q6H PRN Administration Pain Rated 3-6 Albuterol 2 puff 08/02/25 17:36 08/03/25 04:38 Albuterol Sulfate (*Sp) Aerosol 1 Puff INHALATION 2 puff Q6HRT PRN Administration Wheezing Albuterol/Ipratropium 3 ml 08/01/25 08:00 08/03/25 07:41 Ipratropium 0.5 Mg/Albuterol Sulfate 2.5 Mg Ampul.Neb 3 Ml INHALATION 3 ml Q6HRT JAMAR Administration Amlodipine Besylate 10 mg 07/31/25 16:45 08/02/25 08:44 Amlodipine Besylate 10 Mg Tablet PO 10 mg DAILY JAMAR Administration Aspirin 81 mg 08/01/25 09:00 08/02/25 08:44 Aspirin 81 Mg Enteric Tablet PO 81 mg QAM JAMAR Administration Atenolol 100 mg 08/01/25 09:00 08/02/25 08:43 Atenolol 50 Mg Tablet PO Not Given Q24H JAMAR Atorvastatin Calcium 40 mg 08/01/25 09:00 08/02/25 08:43 Atorvastatin 40 Mg Tablet PO 40 mg DAILY JAMAR Administration Cyanocobalamin 1,000 mcg 07/31/25 15:55 08/02/25 08:44 Cyanocobalamin 1,000 Mcg Tablet PO 1,000 mcg DAILY JAMAR Administration Dextrose 12.5 gm 07/31/25 07:24 Dextrose 50% 25 Gm/50 Ml Syringe IV PUSH PRN PRN Hypoglycemia Protocol Furosemide 20 mg 08/01/25 07:45 08/02/25 17:17 Furosemide Inj 40 Mg/4 Ml Vial IV PUSH 20 mg BID JAMAR Administration Glucagon 1 mg 07/31/25 07:24 Glucagon For Inj 1 Mg Vial IM PRN PRN Hypoglycemia Protocol Glucose 15 gm 07/31/25 07:24 Glucose Oral Gel 15 Gm Of Glucse In 37.5 Gm Tube PO PRN PRN Hypoglycemia Protocol Guaifenesin 600 mg 08/01/25 21:00 08/02/25 20:38 Guaifenesin 12 Hr 600 Mg Tabcr PO 600 mg Q12HR JAMAR Administration Heparin Sodium (Porcine) 5,000 units 07/31/25 11:30 08/02/25 20:39 Heparin Sodium 5,000 Units/Ml Vial SUB-Q 5,000 units Q12HR JAMAR Administration Hydralazine HCl 10 mg 08/02/25 10:26 08/02/25 12:15 Hydralazine Hcl 20 Mg/Ml Vial IV PUSH 10 mg Q6H PRN Administration Blood Pressure - High Hydromorphone HCl 1 mg 08/01/25 16:24 08/03/25 01:21 Hydromorphone Hcl Inj (*Crx) 1 Mg/Ml Syr IV PUSH 1 mg Q4H PRN Administration Pain Rated 7-10 Ceftriaxone Sodium 1 gm/ 50 mls @ 100 mls/hr 07/31/25 22:00 08/02/25 21:10 Sodium Chloride IVPB Infused Q24H JAMAR Infusion Azithromycin 500 mg/ Sodium 250 mls @ 250 mls/hr 07/31/25 23:00 08/03/25 02:20 Chloride IVPB 08/03/25 23:59 Infused Q24H JAMAR Infusion Dextrose 1,000 mls @ 100 mls/hr 07/31/25 07:24 Dextrose 5% 1,000 Ml IVPB PRN PRN Hypoglycemia Protocol Insulin Aspart 8 units 07/31/25 17:00 08/03/25 08:18 Insulin Aspart (*Bkc) 100 Units/Ml SUB-Q Not Given TIDWM JAMAR Insulin Aspart 4 - 8 units 07/31/25 17:00 08/03/25 08:12 Insulin Aspart (*Bkc) 100 Units/Ml SUB-Q Not Given TIDWM [facility] Protocol Insulin Aspart 2 - 4 units 07/31/25 21:00 08/02/25 20:39 Insulin Aspart (*Bkc) 100 Units/Ml SUB-Q Not Given HS [facility] Protocol Insulin Glargine 40 units 08/01/25 10:50 08/02/25 08:45 Insulin Glargine (*Bkc) 100 Units/Ml SUB-Q 40 units DAILY JAMAR Administration Loratadine 10 mg 08/01/25 09:00 08/02/25 08:44 Loratadine 10 Mg Tablet PO 10 mg QAM JAMAR Administration Minoxidil 2.5 mg 08/01/25 09:00 08/02/25 08:44 Minoxidil 2.5 Mg Tablet PO 2.5 mg DAILY JAMAR Administration Miscellaneous Information 1 each 08/01/25 00:01 Minoxidil Home Med Order Is Bid. Ordered Only Daily In Hospital? XX 08/31/25 00:00 CLARIFY JAMAR Nicotine 1 patch 07/31/25 20:15 08/02/25 08:44 Nicotine (*Pbkc) 21 Mg Patch TRANSDERM 1 patch DAILY JAMAR Administration Pantoprazole Sodium 40 mg 08/01/25 09:00 08/02/25 20:38 Pantoprazole 40 Mg Tablet PO 40 mg Q12HR JAMAR Administration Perflutren Lipid Microsphere 0 ml 07/31/25 09:07 Perflutren Lipid Microspheres 1.5 Ml Vial Diluted To 10 Ml Total Volume IV PUSH 08/03/25 09:08 ONCE PRN adequate visualization Protocol Polyethylene Glycol 17 gm 08/01/25 14:54 08/02/25 14:56 Polyethylene Glycol 3350 17 Gm Powd.Pack PO 17 gm BID PRN Administration Constipation Tamsulosin HCl 0.4 mg 08/01/25 18:00 08/02/25 17:17 Tamsulosin Hcl 0.4 Mg Capsule PO 0.4 mg QPM JAMAR Administration Radiology Results: ITS Impressions Chest X-Ray 08/02/25 12:50 IMPRESSION: 1. Improving but persistent interstitial pulmonary edema and/or pneumonitis. Labs Labs: Laboratory Results - last 24 hr 08/02/25 08/02/25 08/02/25 11:17 16:33 19:54 WBC RBC Hgb Hct MCV MCH MCHC RDW Plt Count MPV Immature Gran % (Auto) Neut % (Auto) Lymph % (Auto) [place] % (Auto) Eos % (Auto) Baso % (Auto) Lymph # (Auto) [place] # (Auto) Eos # (Auto) Baso # (Auto) Abs Immat Gran (auto) Absolute Neuts (auto) Absolute Nucleated RBC Nucleated RBC % Sodium Potassium Chloride Carbon Dioxide Anion Gap BUN Creatinine Estim Creat Clear Calc Estimated GFR Glucose POC Capillary Glucose 293 H 268 H 190 H Calcium Phosphorus Magnesium NT-Pro-B Natriuret Pep Albumin 08/03/25 08/03/25 04:50 07:48 WBC 14.2 H RBC 3.05 L Hgb 9.6 L Hct 29.3 L MCV 96.1 MCH 31.5 MCHC 32.8 RDW 13.2 Plt Count 204 MPV 10.7 H Immature Gran % (Auto) 2.4 H Neut % (Auto) 76.8 H Lymph % (Auto) 14.0 L [place] % (Auto) 6.6 Eos % (Auto) 0.1 Baso % (Auto) 0.1 L Lymph # (Auto) 1.98 [place] # (Auto) 0.9 H Eos # (Auto) 0.0 Baso # (Auto) 0.0 Abs Immat Gran (auto) 0.34 H Absolute Neuts (auto) 10.9 H Absolute Nucleated RBC 0.000 Nucleated RBC % 0.0 Sodium 133 L Potassium 4.1 Chloride 102 Carbon Dioxide 22 Anion Gap 9 BUN 72 H Creatinine 3.87 H Estim Creat Clear Calc 21 Estimated GFR 16 L Glucose 130 H POC Capillary Glucose 88 Calcium 8.1 L Phosphorus 5.4 H Magnesium 1.8 NT-Pro-B Natriuret Pep > 11193 H Albumin 3.2 L Quality VTE Prophylaxis VTE prophylaxis: pharmacologic ordered
[2025-08-03] MEDS: guaiFENesin 12 HR 600 MG TABCR PO ×2 (08:52→20:52)
[2025-08-03] MEDS: CYANOCOBALAMIN 1,000 MCG TABLET 1000 MCG PO (08:52)
[2025-08-03] MEDS: ASPIRIN 81 MG ENTERIC TABLET PO (08:53)
[2025-08-03] MEDS: LORATADINE 10 MG TABLET PO (08:53)
[2025-08-03] MEDS: PANTOPRAZOLE 40 MG TABLET PO ×2 (08:53→20:52)
[2025-08-03] MEDS: ATORVASTATIN 40 MG TABLET PO (08:53)
[2025-08-03] MEDS: FUROSEMIDE INJ 40 MG/4 ML VIAL 20 MG IV PUSH ×2 (08:55→18:08)
[2025-08-03] MEDS: INSULIN GLARGINE (*BKC) 100 UNITS/ML 40 UNITS SUB-Q (08:56)
[2025-08-03] MEDS: NICOTINE (*PBKC) 21 MG PATCH 1 PATCH TRANSDERM (08:57)
--- NOTE | 2025-08-03 11:38 | PCPTNOTE ---
PT eval not performed due to pt independent with mobility- per RN and OT. PT is not indicated for pt.
--- NOTE | 2025-08-03 13:00 | P.PNNP_ITS ---
Progress Note: A&P Assessment and Plan (1) Acute kidney injury: Code(s): N17.9 - Acute kidney failure, unspecified Status: Acute Assessment and Plan: * relatively stable * creatinine elevated above baseline since May 2025 * creatinine was 4.10mg/dl on 05/30/25 * creatinine was 3.65mg/dL on 07/11/25 (admission to [facility] ([place])) * evaluation noted during [facility] hospitalization: * renal u/s: right kidney measures 11.3 cm and the left kidney measures 11.2 cm; renal cortical echotexture is normal; no obstructive uropathy is seen;bladder is decompressed; mild bladder wall thickening may be present * negative serological testing (complements/AJ/ANCA/SPEP/UPEP) negative * nephrotic range proteinuria noted (8.1 grams noted) * creatinine down to 3.35mg/dl on discharge * suspected etiology of acute insult during [facility] hospitalization was volume depletion in the setting of recent Bactrim use and ongoing use of losartan and spironolactone. * losartan and spironolactone stopped * started on minoxidil in addition to amlodipine & atenolol for BP control (per discharge summary) * follow trend of repeat labs and UOP (2) Stage 4 chronic kidney disease: Code(s): N18.4 - Chronic kidney disease, stage 4 (severe) Status: Chronic Assessment and Plan: * creatinine on discharge from [facility] ([place] was 3.35mg/dl (on 07/15/25) * new baseline?? (see #1) * presumably due to hypertension and diabetes along with vascular disease and age... 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 (3) Acute hypoxic respiratory failure: Code(s): J96.01 - Acute respiratory failure with hypoxia Status: Acute Assessment and Plan: * resolving * as noted on presentation to ER * 82% saturation on room air * with 4 - 5L NC, improved to 92% * etiology(?): * CHF * COPD * RAD * pulmonary edema * pnuemonia * other(?) * testing to date noted: * CXR with interstitial pulmonary edema and/or pneumonitis * elevated BNP noted * viral testing for influenza/RSV/COVID negative * troponin slighly elevated * Echo (07/31) noted: * left ventricular systolic function is normal, estimated at 50 - 55% * left ventricular diastolic function is grade II diastolic dysfunction * mild aortic valve calcification * mild mitral valve regurgitation * mild tricuspid valve regurgitation * no pulmonary hypertension, estimated pulmonary arterial systolic pressureis 17 mmHg * mild pulmonic regurgitation * empiric antibiotics for possible pneumonia * follow culture data * seems more related to fluid overload -- improvement noted with IV diuretics * possibly switch to oral diuretics tomorrow (?) * repeat CXR * follow respiratory status (4) Anemia: Qualifiers: Anemia type: unspecified type Qualified Code(s): D64.9 - Anemia, unspecified Code(s): D64.9 - Anemia, unspecified Status: Acute Assessment and Plan: * acute on chronic * Hgb 10.3 on 07/13/25 [facility] discharge * likely due to CKD and acute illness * anemia studies c/w iron deficiency * consider VADIM while hospitalized * follow trend of H/H (5) Hypertension: Qualifiers: Hypertension type: primary hypertension Qualified Code(s): I10 - Essential (primary) hypertension Code(s): I10 - Essential (primary) hypertension Status: Chronic Assessment and Plan: * reasonable control * would hold TOÑITO/ARB therapy for now * use PRN IV hydralazine * follow trend of hemodynamics (6) Diabetes mellitus: Qualifiers: Diabetes mellitus type: type 2 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 use: with adjunct faculty for medical terminology use Diabetes mellitus complication status: with kidney complications Diabetes mellitus complication detail: with chronic kidney disease Chronic kidney disease stage: stage 4 (GFR 15-29) Qualified Code(s): E 11.22 - Type 2 diabetes mellitus with diabetic chronic kidney disease; N18.4 - Chronic kidney disease, stage 4 (severe); Z79.4 - senior care (current) use of insulin Code(s): E11.9 - Type 2 diabetes mellitus without complications Status: Chronic Assessment and Plan: * follow accu-cheks * glycemic control per hospitalist Will continue to follow. L Subjective Date/time seen: 08/03/25 13:00 Interval history: Follow-up for acute kidney injury/acute renal failure on chronic kidney disease. Breathing/respiratory status continue to improve if not stabilize; renal function/creatinine remains relatively stable despite ongoing diuretic therapy; started on fluid restriction as well; no other issues/events overnight or earlier this morning. Exam 2 Narrative: General: elderly but WD/WN male in NAD Heart: normal S1 and S2; no rub Lungs: coarse and decreased at bases Abdomen: soft, nontender, nondistended, positive bowel sounds Extremities: no cyanosis or clubbing; 1+ edema Skin: no rash Objective Data Vital Signs Vital Signs: Vital Signs Temp Pulse Resp BP Pulse Ox O2 Del Method O2 Flow Rate 08/03/25 12:00 55 L 08/03/25 10:13 Room Air 08/03/25 08:55 Room Air 08/03/25 08:52 61 08/03/25 08:49 61 153/70 H 98 08/03/25 08:00 61 08/03/25 07:50 57 L 18 08/03/25 07:42 65 18 08/03/25 07:42 94 Room Air 08/03/25 05:36 97.7 F 63 18 132/58 L 96 08/03/25 04:39 57 L 20 08/03/25 04:00 55 L 08/03/25 00:00 58 L 08/03/25 00:00 97.4 F L 89 16 138/57 L 95 08/02/25 22:16 65 20 96 Nasal Cannula 1 08/02/25 22:14 66 20 08/02/25 20:51 58 L 20 08/02/25 20:40 55 L 20 94 Room Air 08/02/25 20:37 55 L 20 08/02/25 20:34 59 L 18 97 Room Air 08/02/25 20:00 57 L 08/02/25 20:00 98 F 59 L 18 163/63 H 97 Intake/Output Intake/Output: Intake & Output 07/31/25 08/01/25 08/02/25 08/03/25 23:59 23:59 23:59 23:59 Intake Total 4030 1370 2020 1130 Output Total 1360 2450 3075 600 Balance 5405 -2393 -2588 530 Meds/Results Medications: Active Medications Generic Name Dose Route Start Last Admin Trade Name Freq PRN Reason Stop Dose Admin Acetaminophen 650 mg 07/31/25 18:11 Acetaminophen 325 Mg Tablet PO Q6H PRN Pain Rated 5 or Less Hydrocodone Bitart/Acetaminophen 2 tab 08/02/25 16:53 08/03/25 15:39 Hydrocodone/Acetaminophen (*Crx) 10-325 Mg Tablet PO 2 tab Q6H PRN Administration Pain Rated 3-6 Albuterol 2 puff 08/02/25 17:36 08/03/25 04:38 Albuterol Sulfate (*Sp) Aerosol 1 Puff INHALATION 2 puff Q6HRT PRN Administration Wheezing Albuterol/Ipratropium 3 ml 08/01/25 08:00 08/03/25 13:34 Ipratropium 0.5 Mg/Albuterol Sulfate 2.5 Mg Ampul.Neb 3 Ml INHALATION 3 ml Q6HRT JAMAR Administration Amlodipine Besylate 10 mg 07/31/25 16:45 08/03/25 08:53 Amlodipine Besylate 10 Mg Tablet PO 10 mg DAILY JAMAR Administration Amoxicillin/Clavulanate Potassium 1 tablet 08/03/25 21:00 Amoxicillin/Clavulanate K 500-125 Mg Tab PO 08/04/25 21:01 Q12HR JAMAR Aspirin 81 mg 08/01/25 09:00 08/03/25 08:53 Aspirin 81 Mg Enteric Tablet PO 81 mg QAM JAMAR Administration Atenolol 100 mg 08/01/25 09:00 08/03/25 08:52 Atenolol 50 Mg Tablet PO 100 mg Q24H JAMAR Administration Atorvastatin Calcium 40 mg 08/01/25 09:00 08/03/25 08:53 Atorvastatin 40 Mg Tablet PO 40 mg DAILY JAMAR Administration Azithromycin 500 mg 08/03/25 21:00 Azithromycin 500 Mg Tablet PO 08/03/25 21:01 ONCE ONE Cyanocobalamin 1,000 mcg 07/31/25 15:55 08/03/25 08:52 Cyanocobalamin 1,000 Mcg Tablet PO 1,000 mcg DAILY JAMAR Administration Dextrose 12.5 gm 07/31/25 07:24 Dextrose 50% 25 Gm/50 Ml Syringe IV PUSH PRN PRN Hypoglycemia Protocol Furosemide 20 mg 08/01/25 07:45 08/03/25 08:55 Furosemide Inj 40 Mg/4 Ml Vial IV PUSH 20 mg BID JAMAR Administration Glucagon 1 mg 07/31/25 07:24 Glucagon For Inj 1 Mg Vial IM PRN PRN Hypoglycemia Protocol Glucose 15 gm 07/31/25 07:24 Glucose Oral Gel 15 Gm Of Glucse In 37.5 Gm Tube PO PRN PRN Hypoglycemia Protocol Guaifenesin 600 mg 08/01/25 21:00 08/03/25 08:52 Guaifenesin 12 Hr 600 Mg Tabcr PO 600 mg Q12HR JAMAR Administration Heparin Sodium (Porcine) 5,000 units 07/31/25 11:30 08/03/25 08:54 Heparin Sodium 5,000 Units/Ml Vial SUB-Q 5,000 units Q12HR JAMAR Administration Hydralazine HCl 10 mg 08/02/25 10:26 08/02/25 12:15 Hydralazine Hcl 20 Mg/Ml Vial IV PUSH 10 mg Q6H PRN Administration Blood Pressure - High Hydromorphone HCl 1 mg 08/01/25 16:24 08/03/25 01:21 Hydromorphone Hcl Inj (*Crx) 1 Mg/Ml Syr IV PUSH 1 mg Q4H PRN Administration Pain Rated 7-10 Dextrose 1,000 mls @ 100 mls/hr 07/31/25 07:24 Dextrose 5% 1,000 Ml IVPB PRN PRN Hypoglycemia Protocol Insulin Aspart 8 units 07/31/25 17:00 08/03/25 13:20 Insulin Aspart (*Bkc) 100 Units/Ml SUB-Q 8 units TIDWM JAMAR Administration Insulin Aspart 4 - 8 units 07/31/25 17:00 08/03/25 11:43 Insulin Aspart (*Bkc) 100 Units/Ml SUB-Q Not Given TIDWM JAMAR Protocol Insulin Aspart 2 - 4 units 07/31/25 21:00 08/02/25 20:39 Insulin Aspart (*Bkc) 100 Units/Ml SUB-Q Not Given HS [facility] Protocol Insulin Glargine 40 units 08/01/25 10:50 08/03/25 08:56 Insulin Glargine (*Bkc) 100 Units/Ml SUB-Q 40 units DAILY JAMAR Administration Loratadine 10 mg 08/01/25 09:00 08/03/25 08:53 Loratadine 10 Mg Tablet PO 10 mg QAM JAMAR Administration Minoxidil 2.5 mg 08/01/25 09:00 08/03/25 08:53 Minoxidil 2.5 Mg Tablet PO 2.5 mg DAILY JAMAR Administration Miscellaneous Information 1 each 08/01/25 00:01 Minoxidil Home Med Order Is Bid. Ordered Only Daily In Hospital? XX 08/31/25 00:00 CLARIFY JAMAR Nicotine 1 patch 07/31/25 20:15 08/03/25 08:57 Nicotine (*Pbkc) 21 Mg Patch TRANSDERM 1 patch DAILY JAMAR Administration Pantoprazole Sodium 40 mg 08/01/25 09:00 08/03/25 08:53 Pantoprazole 40 Mg Tablet PO 40 mg Q12HR JAMAR Administration Polyethylene Glycol 17 gm 08/01/25 14:54 08/02/25 14:56 Polyethylene Glycol 3350 17 Gm Powd.Pack PO 17 gm BID PRN Administration Constipation Tamsulosin HCl 0.4 mg 08/01/25 18:00 08/02/25 17:17 Tamsulosin Hcl 0.4 Mg Capsule PO 0.4 mg QPM JAMAR Administration Radiology Results: ITS Impressions Chest X-Ray 08/02/25 12:50 IMPRESSION: 1. Improving but persistent interstitial pulmonary edema and/or pneumonitis. Labs Labs: Laboratory Tests 08/03/25 04:50 08/03/25 04:50 Calcium 8.1 L Phosphorus 5.4 H Magnesium 1.8 NT-Pro-B Natriuret Pep > 53580 H Albumin 3.2 L Microbiology 07/31/25 01:50 Blood Blood Culture - Preliminary 07/31/25 01:59 Blood Blood Culture - Preliminary
[2025-08-03] MEDS: INSULIN ASPART (*BKC) 100 UNITS/ML 8 UNITS SUB-Q (13:20)
[2025-08-03] MEDS: TAMSULOSIN HCL 0.4 MG CAPSULE PO (18:07)
[2025-08-03 20:24] LABS: Alveolar/Arterial O2 Gradient 31.8 mmHg; Fractional Inspired Oxygen 21 %; HCO3 ABG 21.1 mEq/l (22.0-26.0); Oxygen Content ABG 13.3 %vol (16.0-22.0); Oxygen Saturation ABG 95.6 % (95.0-100.0); PCO2 ABG 34.3 mmHg (35.0-45.0); PO2 ABG 76.9 mmHg (80.0-100.0); PO2 FiO2 Ratio Arterial Blood 3.66 %
[2025-08-03 20:25] LABS: Modified Allen's Test Pass; Site Drawn LEFT RADIAL
[2025-08-03] MEDS: AZITHROMYCIN 500 MG TABLET PO (20:52)
[2025-08-04] VITALS (17 sets, daily range): BP systolic 142–170; BP diastolic 62–73; PULSE 55–69; RESP 16–20; TEMP 36.4; O2SAT 94–98
[2025-08-04] MEDS: IPRATROPIUM 0.5 MG/ALBUTEROL SULFATE 2.5 MG AMPUL.NEB 3 ML INHALATION ×4 (01:11→21:15)
[2025-08-04] MEDS: HYDROcodone/acetaminophen (*CRX) 10-325 MG TABLET 2 TAB PO ×3 (04:31→18:02)
[2025-08-04 05:02] LABS: Hematocrit 28.4 % (42.0-52.0); Hemoglobin 9.0 g/dL (14.0-18.0); Immature Granulocyte Percent A 3.5 % (0-0.5); Lymphocytes Absolute Auto 2.96 K/mm3 (0.9-3.2); Mean Corpuscular HGB Conc 31.7 g/dl (32-36); Mean Corpuscular Hemoglobin 31.0 pg (26-34); Mean Corpuscular Volume 97.9 fl (80-100); Nucleated Red Blood Cells Absolute Auto 0.000 K/mm3 (0.0-0.012); Nucleated Red Blood Cells Perc 0.0 % (0.0-0.2); Platelet Count Result 203 k/mm3 (150-375); Red Blood Count 2.90 M/mm3 (4.6-6.20); White Blood Count 9.6 K/mm3 (4.5-10.0)
[2025-08-04 05:16] LABS: Albumin Level 3.0 g/dL (3.5-5.1); Anion Gap 6 mmol/L (4-12); Blood Urea Nitrogen 78 mg/dL (9-20); Calcium 8.1 mg/dL (8.4-10.2); Carbon Dioxide 24 mmol/L (22-30); Chloride 105 mmol/L (98-107); Estimated CRCL calculation 19 ml/min; Estimated Glomerular Filt Rate 14; Glucose 79 mg/dL (65-110); Magnesium 1.9 mg/dL (1.6-2.3); Potassium 4.6 mmol/L (3.4-5.0); Sodium 135 mmol/L (137-145)
[2025-08-04 05:34] LABS: NT Pro B Type Natriuretic Pept 22800 pg/mL (19.9-100)
[2025-08-04] MEDS: ASPIRIN 81 MG ENTERIC TABLET PO (08:42)
[2025-08-04] MEDS: ATORVASTATIN 40 MG TABLET PO (08:42)
[2025-08-04] MEDS: PANTOPRAZOLE 40 MG TABLET PO ×2 (08:43→20:10)
[2025-08-04] MEDS: LORATADINE 10 MG TABLET PO (08:43)
[2025-08-04] MEDS: CYANOCOBALAMIN 1,000 MCG TABLET 1000 MCG PO (08:43)
[2025-08-04] MEDS: guaiFENesin 12 HR 600 MG TABCR PO ×2 (08:43→20:10)
[2025-08-04] MEDS: NICOTINE (*PBKC) 21 MG PATCH 1 PATCH TRANSDERM (08:55)
--- NOTE | 2025-08-04 09:00 | P.PNIM_ITS ---
Progress Note: A&P Assessment and Plan (1) Acute hypoxic respiratory failure: Code(s): J96.01 - Acute respiratory failure with hypoxia Status: Acute Assessment and Plan: Saturation 82% in ED Improvement to 92% with 4L NC viral panel negative BNP elevated Unclear etiology, likely multifactorial: -CXR with interstitial pulmonary edema and/or pneumonitis -? CHF -? COPD ECHO ordered empiric antibiotics for possible pneumonia IV lasix x1-Monitor response methylprednisolone 60 mg Q6 08/01/25: Required 8L O2 overnight Pro BNP >30,000 20 mg IV BID Stopping methylprednisolone as respiratory symptoms appear to be fluid driven Appreciate nephrology recommendations 08/02/2025: CXR 08/01: 1. Interstitial pulmonary edema and/or pneumonitis. - continue abx WBC continues to be elevated, likely viral/CHF/RODO, will continue to trend and await viral panel/treat sx Pt feeling a lot better today Apnea link performed overnight, discussed with pullynn, 1L nocturnal apnea link needed for tonight due to amt of apnea episodes (>5min) - will also need outpatient sleep study as well 98% on RA this AM Adding BNP onto daily labs ECHO 07/31: EF: 50-55%, The left ventricular diastolic function is grade II diastolic dysfunction. -Comparatively, ECHO 11/2023: The left ventricular diastolic function is grade I diastolic dysfunction. -->Plan to f/u with PCP for repeat testing 08/03: 08/02 CXR: Improving but persistent interstitial pulmonary edema and/or pneumonitis -->Changed Abx from IV to oral today -WBC continues to be elevated but downtrending, likely viral/CHF/RODO, will continue to trend and await viral panel/treat sx -Ordered home O2 set up for RT today for home O2, plan to still obtain sleep study outpatient. RT requesting x1 more apnea link on RA oximetry only for tonight to qualify for home O2, ordered today -BNP continues to be elevated, continue IV lasix with possibility of switching to oral if this improves and D/C with orals -BLE edema continues to be present, ordered harpreet butterfield today and continue IV lasix BID 08/04: -WBC now WDL at 9.6 -[place] [address], lasix D/C due to creatinine now >4, will continue fluid shift and sx -BLE now trace with harpreet morrise on, will continue to monitor monica with D/C of lasix (2) Acute kidney injury: Code(s): N17.9 - Acute kidney failure, unspecified Status: Acute Assessment and Plan: Creatinine 4.22 on admit Trend CMP nephro consult avoiding TOÑITO/ARB 08/01/25: Creatinine down trending Strict I&O Monitor renal function with diuresis 08/02/2025: Creatine continues to down trend Strict I&O Monitor renal function with diuresis Per neph 08/01: * creatinine elevated above baseline since May 2025 * creatinine was 4.10mg/dl on 05/30/25 * creatinine was 3.65mg/dL on 07/11/25 (admission to [facility]) * evaluation noted during [facility] hospitalization: * renal u/s: right kidney measures 11.3 cm and the left kidney measures 11.2 cm; renal cortical echotexture is normal; no obstructive uropathy is seen;bladder is decompressed; mild bladder wall thickening may be present * negative serological testing (complements/AJ/ANCA/SPEP/UPEP) negative * nephrotic range proteinuria noted (8.1 grams noted) * creatinine down to 3.35mg/dl on discharge * suspected etiology of acute insult was volume depletion in the setting of recent Bactrim use and ongoing use of losartan and spironolactone. 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 08/04: Creatinine continues to be elevated, now at 4.3. GFR 14. Lasix D/C by neph, continue to follow. (3) Diabetes mellitus: Qualifiers: Chronic kidney disease stage: stage 4 (GFR 15-29) Diabetes mellitus complication detail: with chronic kidney disease Diabetes mellitus complication status: with kidney complications Diabetes mellitus terminal block assembler insulin use: with terminal block assembler use Diabetes mellitus type: type 2 Qualified Code(s): E11.22 - Type 2 diabetes mellitus with diabetic chronic kidney disease; N18.4 - Chronic kidney disease, stage 4 (severe); Z79.4 - assisted (current) use of insulin Code(s): E11.9 - Type 2 diabetes mellitus without complications Status: Chronic Assessment and Plan: 8 units insulin aspart TIDWM High dose corrective Glargine 40 units daily-consider increasing to home 60 units closely monitor with steroid regimen 08/01/25: changed diet to consistent carb Monitor trend with the stopping of steroids 08/02: BS AM 190, significantly lower than 07/22 PM, will continue to monitor 08/03: BS AM 88, holding scheduled short acting insulin, pt eating adequately. Will continue to monitor. 08/04: BS AM 69, holding scheduled short acting insulin, decreasing Lantus dose from 40 to 30 units with the next dose to be this evening. Will continue to monitor. (4) Hypertension: Qualifiers: Hypertension type: primary hypertension Qualified Code(s): I10 - Essential (primary) hypertension Code(s): I10 - Essential (primary) hypertension Status: Chronic Assessment and Plan: holding TOÑITO/ARB continue amlodipine, atenolol 08/01/25: resume home minoxidil Atenolol held today d/t bradycardia 08/02: Altered by RN this AM that pt was higher and that she was continuing to monitor and now acceptable range -Max dose of amlodipine, atenolol 100mg daily and cannot increase due to pulse in 50's, losartan held due to WALESKA (home dose 100mg daily) -->Continued to hold atenolol today due to low HR -Placed PRN hydral order in today Per neph 07/22: * clarify home medications * would hold TOÑITO/ARB therapy for now * use PRN IV hydralazine * follow trend of hemodynamics 08/03: BPs have been more stable, 130/50's 08/04: BP starting to creep back up, last 170/62, could be potentially due to D/C of Lasix and had not taken AM meds at that time. Will continue to monitor. -Hydral PRN (5) Anemia: Qualifiers: Anemia type: unspecified type Qualified Code(s): D64.9 - Anemia, unspecified Code(s): D64.9 - Anemia, unspecified Status: Acute Assessment and Plan: Monitor H&H likely due to CKD (6) Chronic shoulder pain: Qualifiers: Laterality: bilateral Qualified Code(s): M25.511 - Pain in right shoulder; M25.512 - Pain in left shoulder; G89.29 - Other chronic pain Code(s): M25.519 - Pain in unspecified shoulder; G89.29 - Other chronic pain Status: Acute Assessment and Plan: Chronic bilateral shoulder pain home hydrocodone/acetaminophen 10 x2 Q6 PRN -->Per pt, this is his home dose from recent shoulder surgery. Pt reporting better controlled pain today. 08/04 -Pt still reporting baseline pain, plans for to bring in therapy band to help with exercises and pain (7) Constipation: Qualifiers: Constipation type: unspecified constipation type Qualified Code(s): K59.00 - Constipation, unspecified Code(s): K59.00 - Constipation, unspecified Status: Acute Assessment and Plan: MiraLax BID p.r.n. Last BM: Monday 07/30 10: Pt on narcotic tx for post op shoulder pain, started on senna yesterday for help, pt reports taking this at home to help 08/04 Pt reports large, formed BM this AM Plan Daily labs, viral panel (WDL), continue to monitor s/s of CHF/COPD (BNP), creat level with neph, O2 need Time Spent With Patient Time: 45 Subjective Date/time seen: 08/04/25 1018 Interval history: Intake hospitalist: 70 year old male with PMH of DMII, hyperlipidemia, HTN, IA, and current smoker presented to the ED on 07/31/25 with a complaint of sohortness of breath that started earlier in the day. Denies hx of CHF or COPD. He smokes 1.5 packs of cigarettes per day for the past 55 years. On arrival to the ED patient was found to be hypoxic on RA at 82%. Does not wear O2 at home. Placed on 4 L/nasal cannual with improvement of saturation to 92%. DuoNeb, 125 mg Solu-Medrol and L bolus given. EKG read by cardiology revealed SR and no acute ischemia. Labs in the ED revealed Hgb 9.5 (it was 12 in November), PO2 60, BUN 44, creatinine 4.22 (was 2 in November), Magnesium 1.5, troponin 0.040 which is his baseline, pro BNP 19,500. 2 G IV magnesium administered. Viral swab negative. UA shows 4+ protein, 1+ glucose, trace ketones, and 1+ blood. CXR read by radiology reveals interstitial pulmonary edema and/or pneumonitis. Rocephin and azithromycin were initiated after blood cultures were drawn. Admitted to IMU for further treatment and monitoring. Patient states he feels pretty good and better than last night. He states he only became short of breath last night a felt fine before that. Patient tells me he smoked a couple of cigars and believes that is what caused his symptoms. 08/02: Pt states that he is feeling significantly better today, he is now not requiring any supplemental O2. Sleep study performed last night and in need of 1L NC overnight tonight with outpatient sleep study, pending viral panel. 08/03: Pt continues to report that he is feeling good. He does state that he had some breathing issues yesterday evening and a breathing tx and inhaler helped. Agreeable to overnight O2. Pt reports that he has been taking his narcotic dose and stool softener for a number of years due to trama and surgery to his shoulder. 08/04: Pt eager to leave but understandable why he is needing to stay. Reports that he continues to feel good, he reports that he has been benefitting from the inhaler here in the hospital. BLE edema trace today, this is getting better. BS 69 this AM, Lantus ordered decreased to 30 from 40 units for next administration this evening and aspart not given. Pt reports voiding well and having a normal formed BM this AM. Review of Systems Review of Systems: All systems are reviewed and are negative unless stated otherwise in the HPI. Exam Const: General: comfortable and no acute distress HENMT: Face/Nose/Sinus: Normal nares present Mouth: Yes moist mucous membranes Eyes: General: appearance normal, both eyes and all related structures Sclera: sclerae normal Neck: Neck: supple Carotids: no bruits Resp: Effort & Inspection: normal respiratory effort Other: Coarse expiratory end BS bilateral upper lobes, mild Cardio: Rate: regular rate Rhythm: regular rhythm Other: BLE trace edema GI: Auscultation: normal bowel sounds Other: last BM this AM, normal and formed per pt Skin: General skin exam: normal color and no rashes or lesions noted Wounds: no wounds Neuro: Motor exam (neuro): 5/5 motor strength present throughout and Normal motor muscle tone present throughout Sensory Exam: normal sensation Extrem: General: normal to inspection Psych: Mental Status: mental status grossly normal Affect: normal affect Objective Data Vital Signs Vital Signs: Vital Signs - 24 hr 08/03/25 10:13 08/03/25 12:00 08/03/25 13:35 Temperature Pulse Rate 55 L 60 Respiratory Rate 18 Blood Pressure Pulse Oximetry Oxygen Delivery Room Air 08/03/25 14:03 08/03/25 15:14 08/03/25 16:00 Temperature 96.9 F L Pulse Rate 63 64 54 L Respiratory Rate 18 18 Blood Pressure 140/60 Pulse Oximetry 95 Oxygen Delivery 08/03/25 20:00 08/03/25 20:00 08/03/25 20:00 Temperature 97.8 F Pulse Rate 59 L 60 Respiratory Rate 20 Blood Pressure 144/57 H Pulse Oximetry 96 Oxygen Delivery Room Air 08/03/25 20:31 08/03/25 20:42 08/03/25 20:43 Temperature Pulse Rate 60 64 Respiratory Rate 18 18 Blood Pressure Pulse Oximetry 94 Oxygen Delivery Room Air 08/04/25 00:00 08/04/25 01:12 08/04/25 01:21 Temperature Pulse Rate 56 L 66 60 Respiratory Rate 18 18 Blood Pressure Pulse Oximetry Oxygen Delivery 08/04/25 04:00 08/04/25 04:48 08/04/25 07:08 Temperature 97.5 F L Pulse Rate 57 L 55 L 60 Respiratory Rate 20 18 Blood Pressure 142/73 H Pulse Oximetry 95 Oxygen Delivery 08/04/25 08:41 08/04/25 08:42 Temperature Pulse Rate 63 63 Respiratory Rate Blood Pressure 170/62 H Pulse Oximetry 97 Oxygen Delivery Intake/Output Intake/Output: Intake & Output 08/01/25 08/02/25 08/03/25 08/04/25 23:59 23:59 23:59 23:59 Intake Total 1370 2019 2009 640 Output Total 1130 0405 600 [facility] -1820 1410 640 Meds/Results Medications: Active Medications Generic Name Dose Route Start Last Admin Trade Name Freq PRN Reason Stop Dose Admin Acetaminophen 650 mg 07/31/25 18:11 Acetaminophen 325 Mg Tablet PO Q6H PRN Pain Rated 5 or Less Hydrocodone Bitart/Acetaminophen 2 tab 08/02/25 16:53 08/04/25 04:31 Hydrocodone/Acetaminophen (*Crx) 10-325 Mg Tablet PO 2 tab Q6H PRN Administration Pain Rated 3-6 Albuterol 2 puff 08/02/25 17:36 08/03/25 04:38 Albuterol Sulfate (*Sp) Aerosol 1 Puff INHALATION 2 puff Q6HRT PRN Administration Wheezing Albuterol/Ipratropium 3 ml 08/01/25 08:00 08/04/25 07:07 Ipratropium 0.5 Mg/Albuterol Sulfate 2.5 Mg Ampul.Neb 3 Ml INHALATION 3 ml Q6HRT JAMAR Administration Amlodipine Besylate 10 mg 07/31/25 16:45 08/04/25 08:42 Amlodipine Besylate 10 Mg Tablet PO 10 mg DAILY JAMAR Administration Amoxicillin/Clavulanate Potassium 1 tablet 08/03/25 21:00 08/04/25 08:42 Amoxicillin/Clavulanate K 500-125 Mg Tab PO 08/04/25 21:01 1 tablet Q12HR JAMAR Administration Aspirin 81 mg 08/01/25 09:00 08/04/25 08:42 Aspirin 81 Mg Enteric Tablet PO 81 mg QAM JAMAR Administration Atenolol 100 mg 08/01/25 09:00 08/04/25 08:42 Atenolol 50 Mg Tablet PO 100 mg Q24H JAMAR Administration Atorvastatin Calcium 40 mg 08/01/25 09:00 08/04/25 08:42 Atorvastatin 40 Mg Tablet PO 40 mg DAILY JAMAR Administration Cyanocobalamin 1,000 mcg 07/31/25 15:55 08/04/25 08:43 Cyanocobalamin 1,000 Mcg Tablet PO 1,000 mcg DAILY JAMAR Administration Dextrose 12.5 gm 07/31/25 07:24 Dextrose 50% 25 Gm/50 Ml Syringe IV PUSH PRN PRN Hypoglycemia Protocol Furosemide 20 mg 08/01/25 07:45 08/03/25 18:08 Furosemide Inj 40 Mg/4 Ml Vial IV PUSH 20 mg On Hold: 08/04/25 06:12 BID JAMAR Administration Glucagon 1 mg 07/31/25 07:24 Glucagon For Inj 1 Mg Vial IM PRN PRN Hypoglycemia Protocol Glucose 15 gm 07/31/25 07:24 Glucose Oral Gel 15 Gm Of Glucse In 37.5 Gm Tube PO PRN PRN Hypoglycemia Protocol Guaifenesin 600 mg 08/01/25 21:00 08/04/25 08:43 Guaifenesin 12 Hr 600 Mg Tabcr PO 600 mg Q12HR JAMAR Administration Heparin Sodium (Porcine) 5,000 units 07/31/25 11:30 08/04/25 08:55 Heparin Sodium 5,000 Units/Ml Vial SUB-Q 5,000 units Q12HR JAMAR Administration Hydralazine HCl 10 mg 08/02/25 10:26 08/02/25 12:15 Hydralazine Hcl 20 Mg/Ml Vial IV PUSH 10 mg Q6H PRN Administration Blood Pressure - High Hydromorphone HCl 1 mg 08/01/25 16:24 08/03/25 01:21 Hydromorphone Hcl Inj (*Crx) 1 Mg/Ml Syr IV PUSH 1 mg Q4H PRN Administration Pain Rated 7-10 Dextrose 1,000 mls @ 100 mls/hr 07/31/25 07:24 Dextrose 5% 1,000 Ml IVPB PRN PRN Hypoglycemia Protocol Insulin Aspart 8 units 07/31/25 17:00 08/04/25 08:47 Insulin Aspart (*Bkc) 100 Units/Ml SUB-Q Not Given TIDWM [facility] Insulin Aspart 4 - 8 units 07/31/25 17:00 08/04/25 08:38 Insulin Aspart (*Bkc) 100 Units/Ml SUB-Q Not Given TIDWM [facility] Protocol Insulin Aspart 2 - 4 units 07/31/25 21:00 08/03/25 20:53 Insulin Aspart (*Bkc) 100 Units/Ml SUB-Q Not Given HS [facility] Protocol Insulin Glargine 30 units 08/04/25 21:00 Insulin Glargine (*Bkc) 100 Units/Ml SUB-Q HS JAMAR Loratadine 10 mg 08/01/25 09:00 08/04/25 08:43 Loratadine 10 Mg Tablet PO 10 mg QAM JAMAR Administration Minoxidil 2.5 mg 08/01/25 09:00 08/04/25 08:43 Minoxidil 2.5 Mg Tablet PO 2.5 mg DAILY JAMAR Administration Miscellaneous Information 1 each 08/01/25 00:01 08/04/25 04:35 Minoxidil Home Med Order Is Bid. Ordered Only Daily In Hospital? XX 08/31/25 00:00 Not Given CLARIFY JAMAR Nicotine 1 patch 07/31/25 20:15 08/04/25 08:55 Nicotine (*Pbkc) 21 Mg Patch TRANSDERM 1 patch DAILY JAMAR Administration Pantoprazole Sodium 40 mg 08/01/25 09:00 08/04/25 08:43 Pantoprazole 40 Mg Tablet PO 40 mg Q12HR JAMAR Administration Polyethylene Glycol 17 gm 08/01/25 14:54 08/02/25 14:56 Polyethylene Glycol 3350 17 Gm Powd.Pack PO 17 gm BID PRN Administration Constipation Tamsulosin HCl 0.4 mg 08/01/25 18:00 08/03/25 18:07 Tamsulosin Hcl 0.4 Mg Capsule PO 0.4 mg QPM JAMAR Administration Radiology Results: ITS Impressions Chest X-Ray 08/03/25 18:28 IMPRESSION: 1. Worsening bibasilar atelectasis and/or airspace disease. 2. Pleural effusions not excluded. Labs Labs: Laboratory Results - last 24 hr 08/03/25 08/03/25 08/03/25 11:19 17:13 18:53 WBC RBC Hgb Hct MCV MCH MCHC RDW Plt Count MPV Immature Gran % (Auto) Neut % (Auto) Lymph % (Auto) [place] % (Auto) Eos % (Auto) Baso % (Auto) Lymph # (Auto) [place] # (Auto) Eos # (Auto) Baso # (Auto) Abs Immat Gran (auto) Absolute Neuts (auto) Absolute Nucleated RBC Nucleated RBC % Puncture Site ABG pH ABG pCO2 ABG pO2 ABG PO2/FiO2 Ratio ABG HCO3 ABG O2 Saturation ABG O2 Content ABG Base Excess A-a Gradient Oxyhemoglobin Total Hemoglobin O2 Delivery Device O2 Liters/Min FiO2 Sodium Potassium Chloride Carbon Dioxide Anion Gap BUN Creatinine Estim Creat Clear Calc Estimated GFR Glucose POC Capillary Glucose 139 H 69 132 H Calcium Phosphorus Magnesium NT-Pro-B Natriuret Pep Albumin 08/03/25 08/03/25 08/04/25 20:16 21:22 04:40 WBC 9.6 RBC 2.90 L Hgb 9.0 L Hct 28.4 L MCV 97.9 MCH 31.0 MCHC 31.7 L RDW 13.3 Plt Count 203 MPV 10.5 H Immature Gran % (Auto) 3.5 H Neut % (Auto) 53.8 Lymph % (Auto) 30.8 [place] % (Auto) 9.6 H Eos % (Auto) 2.1 Baso % (Auto) 0.2 Lymph # (Auto) 2.96 [place] # (Auto) 0.9 H Eos # (Auto) 0.2 Baso # (Auto) 0.0 Abs Immat Gran (auto) 0.34 H Absolute Neuts (auto) 5.2 Absolute Nucleated RBC 0.000 Nucleated RBC % 0.0 Puncture Site Left radial ABG pH 7.407 ABG pCO2 34.3 L ABG pO2 76.9 L ABG PO2/FiO2 Ratio 3.66 ABG HCO3 21.1 L ABG O2 Saturation 95.6 ABG O2 Content 13.3 L ABG Base Excess -3.0 A-a Gradient 31.8 Oxyhemoglobin 94.3 Total Hemoglobin 10.0 L O2 Delivery Device Room air O2 Liters/Min Not Reportable FiO2 21 Sodium 135 L Potassium 4.6 Chloride 105 Carbon Dioxide 24 Anion Gap 6 BUN 78 H Creatinine 4.30 H Estim Creat Clear Calc 19 Estimated GFR 14 L Glucose 79 POC Capillary Glucose 160 H Calcium 8.1 L Phosphorus 5.5 H Magnesium 1.9 NT-Pro-B Natriuret Pep 67286 H Albumin 3.0 L 08/04/25 08/04/25 08:03 08:24 WBC RBC Hgb Hct MCV MCH MCHC RDW Plt Count MPV Immature Gran % (Auto) Neut % (Auto) Lymph % (Auto) [place] % (Auto) Eos % (Auto) Baso % (Auto) Lymph # (Auto) [place] # (Auto) Eos # (Auto) Baso # (Auto) Abs Immat Gran (auto) Absolute Neuts (auto) Absolute Nucleated RBC Nucleated RBC % Puncture Site ABG pH ABG pCO2 ABG pO2 ABG PO2/FiO2 Ratio ABG HCO3 ABG O2 Saturation ABG O2 Content ABG Base Excess A-a Gradient Oxyhemoglobin Total Hemoglobin O2 Delivery Device O2 Liters/Min FiO2 Sodium Potassium Chloride Carbon Dioxide Anion Gap BUN Creatinine Estim Creat Clear Calc Estimated GFR Glucose POC Capillary Glucose 69 83 Calcium Phosphorus Magnesium NT-Pro-B Natriuret Pep Albumin Quality VTE Prophylaxis VTE prophylaxis: pharmacologic ordered
--- NOTE | 2025-08-04 11:34 | P.PNNP_ITS ---
Progress Note: A&P Assessment and Plan (1) Acute kidney injury: Code(s): N17.9 - Acute kidney failure, unspecified Status: Acute Assessment and Plan: * fluctuating with diuretic therapy * creatinine elevated above baseline since May 2025 * creatinine was 4.10mg/dl on 05/30/25 * creatinine was 3.65mg/dL on 07/11/25 (admission to [facility]) * evaluation noted during [facility] hospitalization: * renal u/s: right kidney measures 11.3 cm and the left kidney measures 11.2 cm; renal cortical echotexture is normal; no obstructive uropathy is seen;bladder is decompressed; mild bladder wall thickening may be present * negative serological testing (complements/AJ/ANCA/SPEP/UPEP) negative * nephrotic range proteinuria noted (8.1 grams noted) * creatinine down to 3.35mg/dl on discharge * suspected etiology of acute insult during [facility] hospitalization was volume depletion in the setting of recent Bactrim use and ongoing use of losartan and spironolactone. * losartan and spironolactone stopped * started on minoxidil in addition to amlodipine & atenolol for BP control (per discharge summary) * follow trend of repeat labs and UOP (2) Stage 4 chronic kidney disease: Code(s): N18.4 - Chronic kidney disease, stage 4 (severe) Status: Chronic Assessment and Plan: * creatinine on discharge from [facility] was 3.35mg/dl (on 07/15/25) * new baseline?? (see #1) * presumably due to hypertension and diabetes along with vascular disease and age... 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 (3) Acute hypoxic respiratory failure: Code(s): J96.01 - Acute respiratory failure with hypoxia Status: Acute Assessment and Plan: * resolving * as noted on presentation to ER * 82% saturation on room air * with 4 - 5L NC, improved to 92% * etiology(?): * CHF * COPD * RAD * pulmonary edema * pnuemonia * other(?) * testing to date noted: * CXR with interstitial pulmonary edema and/or pneumonitis * elevated BNP noted * viral testing for influenza/RSV/COVID negative * troponin slighly elevated * Echo (07/31) noted: * left ventricular systolic function is normal, estimated at 50 - 55% * left ventricular diastolic function is grade II diastolic dysfunction * mild aortic valve calcification * mild mitral valve regurgitation * mild tricuspid valve regurgitation * no pulmonary hypertension, estimated pulmonary arterial systolic pressureis 17 mmHg * mild pulmonic regurgitation * empiric antibiotics for possible pneumonia * follow culture data * seems more related to fluid overload -- improvement noted with IV diuretics * holding IV diuretic today * tentative plan oral diuretics tomorrow * follow repeat CXR * follow respiratory status (4) Anemia: Qualifiers: Anemia type: unspecified type Qualified Code(s): D64.9 - Anemia, unspecified Code(s): D64.9 - Anemia, unspecified Status: Acute Assessment and Plan: * acute on chronic * Hgb 10.3 on 07/13/25 [facility] discharge * likely due to CKD and acute illness * anemia studies c/w iron deficiency * dose with VADIM today * follow trend of H/H (5) Hypertension: Qualifiers: Hypertension type: primary hypertension Qualified Code(s): I10 - Essential (primary) hypertension Code(s): I10 - Essential (primary) hypertension Status: Chronic Assessment and Plan: * reasonable control * would hold TOÑITO/ARB therapy for now * use PRN IV hydralazine * follow trend of hemodynamics (6) Diabetes mellitus: Qualifiers: Diabetes mellitus type: type 2 Diabetes mellitus alf insulin use: with termite control technician use Diabetes mellitus complication status: with kidney complications Diabetes mellitus complication detail: with chronic kidney disease Chronic kidney disease stage: stage 4 (GFR 15-29) Qualified Code(s): E 11.22 - Type 2 diabetes mellitus with diabetic chronic kidney disease; N18.4 - Chronic kidney disease, stage 4 (severe); Z79.4 - skilled nursing (current) use of insulin Code(s): E11.9 - Type 2 diabetes mellitus without complications Status: Chronic Assessment and Plan: * follow accu-cheks * glycemic control per hospitalist Will continue to follow. L Subjective Date/time seen: 08/04/25 11:34 Interval history: Follow-up for acute kidney injury/acute renal failure on chronic kidney disease. Renal function/creatinine worse by AM labs so IV diuretics placed on hold; breathing/respiratory status and lower extremity edema/swelling remains stable if not improved; no acute issues/events overnight or earlier this morning; at bedside and we discussed the situation. Exam 2 Narrative: General: elderly but WD/WN male in NAD Heart: normal S1 and S2; no rub Lungs: clear anteriorly but decreased at bases Abdomen: soft, nontender, nondistended, positive bowel sounds Extremities: no cyanosis or clubbing; trace edema Skin: no nodules Objective Data Vital Signs Vital Signs: Vital Signs Temp Pulse Resp BP Pulse Ox O2 Del Method 08/04/25 11:00 60 08/04/25 08:55 56 L 08/04/25 08:55 94 Room Air 08/04/25 08:42 63 08/04/25 08:41 63 170/62 H 97 08/04/25 07:08 60 18 08/04/25 04:48 97.5 F L 55 L 20 142/73 H 95 08/04/25 04:00 57 L 08/04/25 01:21 60 18 08/04/25 01:12 66 18 08/04/25 00:00 56 L 08/03/25 20:43 94 Room Air 08/03/25 20:42 64 18 08/03/25 20:31 60 18 08/03/25 20:00 60 08/03/25 20:00 Room Air 08/03/25 20:00 97.8 F 59 L 20 144/57 H 96 Intake/Output Intake/Output: Intake & Output 08/01/25 08/02/25 08/03/25 08/04/25 23:59 23:59 23:59 23:59 Intake Total 1370 2019 2009 1119 Output Total 2450 3075 [address] [place] [id number] 1410 1120 Meds/Results Medications: Active Medications Generic Name Dose Route Start Last Admin Trade Name Freq PRN Reason Stop Dose Admin Acetaminophen 650 mg 07/31/25 18:11 Acetaminophen 325 Mg Tablet PO Q6H PRN Pain Rated 5 or Less Hydrocodone Bitart/Acetaminophen 2 tab 08/02/25 16:53 08/04/25 10:46 Hydrocodone/Acetaminophen (*Crx) 10-325 Mg Tablet PO 2 tab Q6H PRN Administration Pain Rated 3-6 Albuterol 2 puff 08/02/25 17:36 08/03/25 04:38 Albuterol Sulfate (*Sp) Aerosol 1 Puff INHALATION 2 puff Q6HRT PRN Administration Wheezing Albuterol/Ipratropium 3 ml 08/01/25 08:00 08/04/25 13:02 Ipratropium 0.5 Mg/Albuterol Sulfate 2.5 Mg Ampul.Neb 3 Ml INHALATION 3 ml Q6HRT JAMAR Administration Amlodipine Besylate 10 mg 07/31/25 16:45 08/04/25 08:42 Amlodipine Besylate 10 Mg Tablet PO 10 mg DAILY JAMAR Administration Amoxicillin/Clavulanate Potassium 1 tablet 08/03/25 21:00 08/04/25 08:42 Amoxicillin/Clavulanate K 500-125 Mg Tab PO 08/04/25 21:01 1 tablet Q12HR JAMAR Administration Aspirin 81 mg 08/01/25 09:00 08/04/25 08:42 Aspirin 81 Mg Enteric Tablet PO 81 mg QAM JAMAR Administration Atenolol 100 mg 08/01/25 09:00 08/04/25 08:42 Atenolol 50 Mg Tablet PO 100 mg Q24H JAMAR Administration Atorvastatin Calcium 40 mg 08/01/25 09:00 08/04/25 08:42 Atorvastatin 40 Mg Tablet PO 40 mg DAILY JAMAR Administration Cyanocobalamin 1,000 mcg 07/31/25 15:55 08/04/25 08:43 Cyanocobalamin 1,000 Mcg Tablet PO 1,000 mcg DAILY JAMAR Administration Dextrose 12.5 gm 07/31/25 07:24 Dextrose 50% 25 Gm/50 Ml Syringe IV PUSH PRN PRN Hypoglycemia Protocol Furosemide 20 mg 08/01/25 07:45 08/03/25 18:08 Furosemide Inj 40 Mg/4 Ml Vial IV PUSH 20 mg On Hold: 08/04/25 06:12 BID JAMAR Administration Glucagon 1 mg 07/31/25 07:24 Glucagon For Inj 1 Mg Vial IM PRN PRN Hypoglycemia Protocol Glucose 15 gm 07/31/25 07:24 Glucose Oral Gel 15 Gm Of Glucse In 37.5 Gm Tube PO PRN PRN Hypoglycemia Protocol Guaifenesin 600 mg 08/01/25 21:00 08/04/25 08:43 Guaifenesin 12 Hr 600 Mg Tabcr PO 600 mg Q12HR JAMAR Administration Heparin Sodium (Porcine) 5,000 units 07/31/25 11:30 08/04/25 08:55 Heparin Sodium 5,000 Units/Ml Vial SUB-Q 5,000 units Q12HR JAMAR Administration Hydralazine HCl 10 mg 08/02/25 10:26 08/02/25 12:15 Hydralazine Hcl 20 Mg/Ml Vial IV PUSH 10 mg Q6H PRN Administration Blood Pressure - High Hydromorphone HCl 1 mg 08/01/25 16:24 08/03/25 01:21 Hydromorphone Hcl Inj (*Crx) 1 Mg/Ml Syr IV PUSH 1 mg Q4H PRN Administration Pain Rated 7-10 Dextrose 1,000 mls @ 100 mls/hr 07/31/25 07:24 Dextrose 5% 1,000 Ml IVPB PRN PRN Hypoglycemia Protocol Insulin Aspart 8 units 07/31/25 17:00 08/04/25 12:19 Insulin Aspart (*Bkc) 100 Units/Ml SUB-Q 8 units TIDWM JAMAR Administration Insulin Aspart 4 - 8 units 07/31/25 17:00 08/04/25 12:14 Insulin Aspart (*Bkc) 100 Units/Ml SUB-Q Not Given TIDWM JAMAR Protocol Insulin Aspart 2 - 4 units 07/31/25 21:00 08/03/25 20:53 Insulin Aspart (*Bkc) 100 Units/Ml SUB-Q Not Given HS JAMAR Protocol Insulin Glargine 30 units 08/04/25 21:00 Insulin Glargine (*Bkc) 100 Units/Ml SUB-Q HS JAMAR Loratadine 10 mg 08/01/25 09:00 08/04/25 08:43 Loratadine 10 Mg Tablet PO 10 mg QAM JAMAR Administration Minoxidil 2.5 mg 08/01/25 09:00 08/04/25 08:43 Minoxidil 2.5 Mg Tablet PO 2.5 mg DAILY JAMAR Administration Miscellaneous Information 1 each 08/01/25 00:01 08/04/25 04:35 Minoxidil Home Med Order Is Bid. Ordered Only Daily In Hospital? XX 08/31/25 00:00 Not Given CLARIFY JAMAR Nicotine 1 patch 07/31/25 20:15 08/04/25 08:55 Nicotine (*Pbkc) 21 Mg Patch TRANSDERM 1 patch DAILY JAMAR Administration Pantoprazole Sodium 40 mg 08/01/25 09:00 08/04/25 08:43 Pantoprazole 40 Mg Tablet PO 40 mg Q12HR JAAMR Administration Polyethylene Glycol 17 gm 08/01/25 14:54 08/02/25 14:56 Polyethylene Glycol 3350 17 Gm Powd.Pack PO 17 gm BID PRN Administration Constipation Tamsulosin HCl 0.4 mg 08/01/25 18:00 08/03/25 18:07 Tamsulosin Hcl 0.4 Mg Capsule PO 0.4 mg QPM JAMAR Administration Radiology Results: ITS Impressions Chest X-Ray 08/03/25 18:28 IMPRESSION: 1. Worsening bibasilar atelectasis and/or airspace disease. 2. Pleural effusions not excluded. Labs Labs: Laboratory Tests 08/04/25 04:40 08/04/25 04:40 Calcium 8.1 L Phosphorus 5.5 H Magnesium 1.9 NT-Pro-B Natriuret Pep 65432 H Albumin 3.0 L Microbiology 07/31/25 03:10 Urine - Unspecified Legionella pneumophila Serogrp 1 Ag - Final 07/31/25 01:50 Blood Blood Culture - Preliminary 07/31/25 01:59 Blood Blood Culture - Preliminary
[2025-08-04] MEDS: INSULIN ASPART (*BKC) 100 UNITS/ML 8 UNITS SUB-Q ×2 (12:19→18:02)
[2025-08-04] MEDS: EPOETIN ALFA-EPBX 20,000 UNITS/ML VIAL 20000 UNITS SUB-Q (18:03)
[2025-08-04] MEDS: TAMSULOSIN HCL 0.4 MG CAPSULE PO (18:03)
[2025-08-04] MEDS: INSULIN GLARGINE (*BKC) 100 UNITS/ML 30 UNITS SUB-Q (20:15)
[2025-08-05] VITALS (10 sets, daily range): BP systolic 153–158; BP diastolic 59–62; PULSE 51–67; RESP 14–18; TEMP 36.6; O2SAT 95–97
[2025-08-05] MEDS: HYDROcodone/acetaminophen (*CRX) 10-325 MG TABLET 2 TAB PO ×3 (00:21→13:02)
[2025-08-05 05:24] LABS: Hematocrit 29.5 % (42.0-52.0); Hemoglobin 9.2 g/dL (14.0-18.0); Immature Granulocyte Percent A 5.6 % (0-0.5); Lymphocytes Absolute Auto 2.47 K/mm3 (0.9-3.2); Mean Corpuscular HGB Conc 31.2 g/dl (32-36); Mean Corpuscular Hemoglobin 31.2 pg (26-34); Mean Corpuscular Volume 100.0 fl (80-100); Nucleated Red Blood Cells Absolute Auto 0.000 K/mm3 (0.0-0.012); Nucleated Red Blood Cells Perc 0.0 % (0.0-0.2); Platelet Count Result 200 k/mm3 (150-375); Red Blood Count 2.95 M/mm3 (4.6-6.20); White Blood Count 9.0 K/mm3 (4.5-10.0)
[2025-08-05 05:45] LABS: Albumin Level 3.0 g/dL (3.5-5.1); Anion Gap 6 mmol/L (4-12); Blood Urea Nitrogen 80 mg/dL (9-20); Calcium 8.4 mg/dL (8.4-10.2); Carbon Dioxide 24 mmol/L (22-30); Chloride 107 mmol/L (98-107); Estimated CRCL calculation 19 ml/min; Estimated Glomerular Filt Rate 14; Glucose 119 mg/dL (65-110); Magnesium 2.0 mg/dL (1.6-2.3); Potassium 5.0 mmol/L (3.4-5.0); Sodium 137 mmol/L (137-145)
[2025-08-05 05:49] LABS: NT Pro B Type Natriuretic Pept 16900 pg/mL (19.9-100)
[2025-08-05] MEDS: IPRATROPIUM 0.5 MG/ALBUTEROL SULFATE 2.5 MG AMPUL.NEB 3 ML INHALATION (08:46)
[2025-08-05] MEDS: ASPIRIN 81 MG ENTERIC TABLET PO (09:06)
[2025-08-05] MEDS: PANTOPRAZOLE 40 MG TABLET PO (09:10)
[2025-08-05] MEDS: CYANOCOBALAMIN 1,000 MCG TABLET 1000 MCG PO (09:10)
[2025-08-05] MEDS: ATORVASTATIN 40 MG TABLET PO (09:10)
[2025-08-05] MEDS: LORATADINE 10 MG TABLET PO (09:10)
[2025-08-05] MEDS: guaiFENesin 12 HR 600 MG TABCR PO (09:11)
[2025-08-05] MEDS: BUMETANIDE 1 MG TABLET PO (09:43)
[2025-08-05] MEDS: NICOTINE (*PBKC) 21 MG PATCH 1 PATCH TRANSDERM (09:44)
--- NOTE | 2025-08-05 10:02 | P.PNNP_ITS ---
Progress Note: A&P Assessment and Plan (1) Acute kidney injury: Code(s): N17.9 - Acute kidney failure, unspecified Status: Acute Assessment and Plan: * fluctuating with diuretic therapy * creatinine elevated above baseline since May 2025 * creatinine was 4.10mg/dl on 05/30/25 * creatinine was 3.65mg/dL on 07/11/25 (admission to [facility]) * evaluation noted during [facility] hospitalization: * renal u/s: right kidney measures 11.3 cm and the left kidney measures 11.2 cm; renal cortical echotexture is normal; no obstructive uropathy is seen;bladder is decompressed; mild bladder wall thickening may be present * negative serological testing (complements/AJ/ANCA/SPEP/UPEP) negative * nephrotic range proteinuria noted (8.1 grams noted) * creatinine down to 3.35mg/dl on discharge * suspected etiology of acute insult during [facility] hospitalization was volume depletion in the setting of recent Bactrim use and ongoing use of losartan and spironolactone. * losartan and spironolactone stopped * started on minoxidil in addition to amlodipine & atenolol for BP control (per discharge summary from [facility]) * follow trend of repeat labs and UOP (2) Stage 4 chronic kidney disease: Code(s): N18.4 - Chronic kidney disease, stage 4 (severe) Status: Chronic Assessment and Plan: * creatinine on discharge from [facility] was 3.35mg/dl (on 07/15/25) * may have a new baseline given need for diuretic therapy... * presumably due to hypertension and diabetes along with vascular disease and age... 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 (3) Acute hypoxic respiratory failure: Code(s): J96.01 - Acute respiratory failure with hypoxia Status: Acute Assessment and Plan: * resolving * as noted on presentation to ER * 82% saturation on room air * with 4 - 5L NC, improved to 92% * etiology(?): * CHF * COPD * RAD * pulmonary edema * pnuemonia * other(?) * testing to date noted: * CXR with interstitial pulmonary edema and/or pneumonitis * elevated BNP noted * viral testing for influenza/RSV/COVID negative * troponin slighly elevated * Echo (07/31) noted: * left ventricular systolic function is normal, estimated at 50 - 55% * left ventricular diastolic function is grade II diastolic dysfunction * mild aortic valve calcification * mild mitral valve regurgitation * mild tricuspid valve regurgitation * no pulmonary hypertension, estimated pulmonary arterial systolic pressureis 17 mmHg * mild pulmonic regurgitation * empiric antibiotics for possible pneumonia * follow culture data * seems more related to fluid overload -- improvement noted with IV diuretics * will need outpatient diuretic therapy and fluid restriction * follow respiratory status (4) Anemia: Qualifiers: Anemia type: unspecified type Qualified Code(s): D64.9 - Anemia, unspecified Code(s): D64.9 - Anemia, unspecified Status: Acute Assessment and Plan: * acute on chronic * Hgb 10.3 on 07/13/25 [facility] discharge * likely due to CKD and acute illness * anemia studies c/w iron deficiency * dosed with VADIM on 08/04 * follow trend of H/H (5) Hypertension: Qualifiers: Hypertension type: primary hypertension Qualified Code(s): I10 - Essential (primary) hypertension Code(s): I10 - Essential (primary) hypertension Status: Chronic Assessment and Plan: * reasonable control * would hold TOÑITO/ARB therapy for now * use PRN IV hydralazine while hospitalized * follow trend of hemodynamics (6) Diabetes mellitus: Qualifiers: Chronic kidney disease stage: stage 4 (GFR 15-29) Diabetes mellitus complication detail: with chronic kidney disease Diabetes mellitus complication status: with kidney complications 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 terminal operator 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: with keno terminal operator use Diabetes mellitus type: type 2 Qualified Code(s): E11.22 - Type 2 diabetes mellitus with diabetic chronic kidney disease; N18.4 - Chronic kidney disease, stage 4 (severe); Z79.4 - alf (current) use of insulin Code(s): E11.9 - Type 2 diabetes mellitus without complications Status: Chronic Assessment and Plan: * follow accu-cheks * glycemic control per hospitalist Not opposed to discharge today from renal perspective if otherwise medically stable -- I reiterated the issue of fluid restriction and the need for outpatient diuretic therapy at this time (plan to start oral bumex in the next couple of days) with the patient and his at bedside. Recommend follow-up with primary school bus technician in the next 1 - 2 weeks for ongoing management of chronic kidney disease Will continue to follow. L Subjective Date/time seen: 08/05/25 10:02 Interval history: Follow-up for acute kidney injury/acute renal failure on chronic kidney disease. Renal function/creatinine a bit better with holding IV lasix and continue to have good urine output in spite of this; breathing/respiratory status remains stable if not better; no apparent distress noted at the time of my visit; hoping for discharge today. Exam 2 Narrative: General: elderly but WD/WN male in NAD Heart: normal S1 and S2; no rub Lungs: clear anteriorly but decreased at bases Abdomen: soft, nontender, nondistended, positive bowel sounds Extremities: no cyanosis or clubbing; trace edema (compression stockings in place) Skin: warm and dry Objective Data Vital Signs Vital Signs: Vital Signs Temp Pulse Resp BP Pulse Ox O2 Del Method O2 Flow Rate 08/05/25 10:01 58 L 08/05/25 09:17 54 L 153/59 H 95 08/05/25 08:50 67 18 08/05/25 08:49 65 18 95 Room Air 08/05/25 08:45 64 18 08/05/25 05:00 97.9 F 54 L 14 158/62 H 97 08/05/25 04:00 64 08/05/25 00:00 55 L 08/04/25 23:17 97.5 F L 57 L 16 163/64 H 97 08/04/25 21:33 95 Nasal Cannula 1 08/04/25 21:22 60 18 95 Room Air 08/04/25 21:17 60 18 08/04/25 20:00 62 08/04/25 19:50 Room Air 08/04/25 16:00 97.6 F 69 18 156/65 H 98 08/04/25 16:00 59 L 08/04/25 13:04 62 16 08/04/25 12:00 60 Intake/Output Intake/Output: Intake & Output 08/02/25 08/03/25 08/04/25 08/05/25 23:59 23:59 23:59 23:59 Intake Total 2019 2009 1360 640 Output Total 3075 600 1400 Balance -1055 1410 1360 -760 Meds/Results Medications: Active Medications Generic Name Dose Route Start Last Admin Trade Name Freq PRN Reason Stop Dose Admin Acetaminophen 650 mg 07/31/25 18:11 Acetaminophen 325 Mg Tablet PO Q6H PRN Pain Rated 5 or Less Hydrocodone Bitart/Acetaminophen 2 tab 08/02/25 16:53 08/05/25 06:43 Hydrocodone/Acetaminophen (*Crx) 10-325 Mg Tablet PO 2 tab Q6H PRN Administration Pain Rated 3-6 Albuterol 2 puff 08/02/25 17:36 08/03/25 04:38 Albuterol Sulfate (*Sp) Aerosol 1 Puff INHALATION 2 puff Q6HRT PRN Administration Wheezing Albuterol/Ipratropium 3 ml 08/01/25 08:00 08/05/25 08:46 Ipratropium 0.5 Mg/Albuterol Sulfate 2.5 Mg Ampul.Neb 3 Ml INHALATION 3 ml Q6HRT JAMAR Administration Amlodipine Besylate 10 mg 07/31/25 16:45 08/05/25 09:06 Amlodipine Besylate 10 Mg Tablet PO 10 mg DAILY JAMAR Administration Aspirin 81 mg 08/01/25 09:00 08/05/25 09:06 Aspirin 81 Mg Enteric Tablet PO 81 mg QAM JAMAR Administration Atenolol 100 mg 08/01/25 09:00 08/05/25 10:48 Atenolol 50 Mg Tablet PO Not Given Q24H JAMAR Atorvastatin Calcium 40 mg 08/01/25 09:00 08/05/25 09:10 Atorvastatin 40 Mg Tablet PO 40 mg DAILY JAMAR Administration Bumetanide 1 mg 08/05/25 09:00 08/05/25 09:43 Bumetanide 1 Mg Tablet PO 1 mg DAILY JAMAR Administration Cyanocobalamin 1,000 mcg 07/31/25 15:55 08/05/25 09:10 Cyanocobalamin 1,000 Mcg Tablet PO 1,000 mcg DAILY JAMAR Administration Dextrose 12.5 gm 07/31/25 07:24 Dextrose 50% 25 Gm/50 Ml Syringe IV PUSH PRN PRN Hypoglycemia Protocol Furosemide 20 mg 08/01/25 07:45 08/03/25 18:08 Furosemide Inj 40 Mg/4 Ml Vial IV PUSH 20 mg On Hold: 08/04/25 06:12 BID JAMAR Administration Glucagon 1 mg 07/31/25 07:24 Glucagon For Inj 1 Mg Vial IM PRN PRN Hypoglycemia Protocol Glucose 15 gm 07/31/25 07:24 Glucose Oral Gel 15 Gm Of Glucse In 37.5 Gm Tube PO PRN PRN Hypoglycemia Protocol Guaifenesin 600 mg 08/01/25 21:00 08/05/25 09:11 Guaifenesin 12 Hr 600 Mg Tabcr PO 600 mg Q12HR JAMAR Administration Heparin Sodium (Porcine) 5,000 units 07/31/25 11:30 08/05/25 09:43 Heparin Sodium 5,000 Units/Ml Vial SUB-Q 5,000 units Q12HR JAMAR Administration Hydralazine HCl 10 mg 08/02/25 10:26 08/02/25 12:15 Hydralazine Hcl 20 Mg/Ml Vial IV PUSH 10 mg Q6H PRN Administration Blood Pressure - High Hydromorphone HCl 1 mg 08/01/25 16:24 08/03/25 01:21 Hydromorphone Hcl Inj (*Crx) 1 Mg/Ml Syr IV PUSH 1 mg Q4H PRN Administration Pain Rated 7-10 Dextrose 1,000 mls @ 100 mls/hr 07/31/25 07:24 Dextrose 5% 1,000 Ml IVPB PRN PRN Hypoglycemia Protocol Insulin Aspart 8 units 07/31/25 17:00 08/05/25 10:47 Insulin Aspart (*Bkc) 100 Units/Ml SUB-Q Not Given TIDWM JAMAR Insulin Aspart 4 - 8 units 07/31/25 17:00 08/05/25 09:05 Insulin Aspart (*Bkc) 100 Units/Ml SUB-Q Not Given TIDWM [facility] Protocol Insulin Aspart 2 - 4 units 07/31/25 21:00 08/05/25 00:15 Insulin Aspart (*Bkc) 100 Units/Ml SUB-Q Not Given HS [facility] Protocol Insulin Glargine 30 units 08/04/25 21:00 08/04/25 20:15 Insulin Glargine (*Bkc) 100 Units/Ml SUB-Q 30 units HS JAMAR Administration Loratadine 10 mg 08/01/25 09:00 08/05/25 09:10 Loratadine 10 Mg Tablet PO 10 mg QAM JAMAR Administration Minoxidil 2.5 mg 08/01/25 09:00 08/05/25 09:10 Minoxidil 2.5 Mg Tablet PO 2.5 mg DAILY JAMAR Administration Miscellaneous Information 1 each 08/01/25 00:01 08/04/25 04:35 Minoxidil Home Med Order Is Bid. Ordered Only Daily In Hospital? XX 08/31/25 00:00 Not Given CLARIFY JAMAR Nicotine 1 patch 07/31/25 20:15 08/05/25 09:44 Nicotine (*Basiliokc) 21 Mg Patch TRANSDERM 1 patch DAILY JAMAR Administration Pantoprazole Sodium 40 mg 08/01/25 09:00 08/05/25 09:10 Pantoprazole 40 Mg Tablet PO 40 mg Q12HR JAMAR Administration Polyethylene Glycol 17 gm 08/01/25 14:54 08/02/25 14:56 Polyethylene Glycol 3350 17 Gm Powd.Pack PO 17 gm BID PRN Administration Constipation Tamsulosin HCl 0.4 mg 08/01/25 18:00 08/04/25 18:03 Tamsulosin Hcl 0.4 Mg Capsule PO 0.4 mg QPM JAMAR Administration Radiology Results: ITS Impressions Chest X-Ray 08/03/25 18:28 IMPRESSION: 1. Worsening bibasilar atelectasis and/or airspace disease. 2. Pleural effusions not excluded. Labs Labs: Laboratory Tests 08/05/25 05:05 08/05/25 05:05 Calcium 8.4 Phosphorus 5.6 H Magnesium 2.0 NT-Pro-B Natriuret Pep 34386 H Albumin 3.0 L
--- NOTE | 2025-08-05 11:51 | P.DS_ITS ---
DS: Admitting Diagnosis Discharge Date 08/05/2025 Admitting Diagnosis SOB, WALESKA DS: Discharge Diagnosis Discharge Diagnosis (1) Acute hypoxic respiratory failure: Code(s): J96.01 - Acute respiratory failure with hypoxia Status: Acute Assessment and Plan: Saturation 82% in ED Improvement to 92% with 4L NC viral panel negative BNP elevated Unclear etiology, likely multifactorial: -CXR with interstitial pulmonary edema and/or pneumonitis -? CHF -? COPD ECHO ordered empiric antibiotics for possible pneumonia IV lasix x1-Monitor response methylprednisolone 60 mg Q6 08/01/25: Required 8L O2 overnight Pro BNP >30,000 20 mg IV BID Stopping methylprednisolone as respiratory symptoms appear to be fluid driven Appreciate nephrology recommendations 08/02/2025: CXR 08/01: 1. Interstitial pulmonary edema and/or pneumonitis. - continue abx WBC continues to be elevated, likely viral/CHF/RODO, will continue to trend and await viral panel/treat sx Pt feeling a lot better today Apnea link performed overnight, discussed with pulm, 1L nocturnal apnea link needed for tonight due to amt of apnea episodes (>5min) - will also need outpatient sleep study as well 98% on RA this AM Adding BNP onto daily labs ECHO 07/31: EF: 50-55%, The left ventricular diastolic function is grade II diastolic dysfunction. -Comparatively, ECHO 11/2023: The left ventricular diastolic function is grade I diastolic dysfunction. -->Plan to f/u with PCP for repeat testing 08/03: 08/02 CXR: Improving but persistent interstitial pulmonary edema and/or pneumonitis -->Changed Abx from IV to oral today -WBC continues to be elevated but downtrending, likely viral/CHF/RODO, will continue to trend and await viral panel/treat sx -Ordered home O2 set up for RT today for home O2, plan to still obtain sleep study outpatient. RT requesting x1 more apnea link on RA oximetry only for tonight to qualify for home O2, ordered today -BNP continues to be elevated, continue IV lasix with possibility of switching to oral if this improves and D/C with orals -BLE edema continues to be present, ordered harpreet butterfield today and continue IV lasix BID 08/04: -WBC now WDL at 9.6 [place] [id number], lasix D/C due to creatinine now >4, will continue fluid shift and sx -BLE now trace with harpreet butterfield on, will continue to monitor monica with D/C of lasix 08/05: -WBC WDL -BNP continues to decrease. Still holding lasix due to CKD, nephrology rx Bumex for D/C. -BLE edema continues to be trace, will go home with harpreet butterfield -Pt to get scheduled repeat echo with PCP (2) Acute kidney injury: Code(s): N17.9 - Acute kidney failure, unspecified Status: Acute Assessment and Plan: Creatinine 4.22 on admit Trend CMP nephro consult avoiding TOÑITO/ARB 08/01/25: Creatinine down trending Strict I&O Monitor renal function with diuresis 08/02/2025: Creatine continues to down trend Strict I&O Monitor renal function with diuresis Per neph 08/01: * creatinine elevated above baseline since May 2025 * creatinine was 4.10mg/dl on 05/30/25 * creatinine was 3.65mg/dL on 07/11/25 (admission to [facility]) * evaluation noted during [facility] hospitalization: * renal u/s: right kidney measures 11.3 cm and the left kidney measures 11.2 cm; renal cortical echotexture is normal; no obstructive uropathy is seen;bladder is decompressed; mild bladder wall thickening may be present * negative serological testing (complements/AJ/ANCA/SPEP/UPEP) negative * nephrotic range proteinuria noted (8.1 grams noted) * creatinine down to 3.35mg/dl on discharge * suspected etiology of acute insult was volume depletion in the setting of recent Bactrim use and ongoing use of losartan and spironolactone. * losartan and spironolactone stopped * started on minoxidil in addition to amlodipine & atenolol for BP control To f/u with established business management specialist outpatient 08/03: Creatinine continues to be elevated, appreciate neph following. 08/04: Creatinine continues to be elevated, now at 4.3. GFR 14. Lasix D/C by neph, continue to follow. 08/05: Creatinine continues to be elevated, now at 4.15. GFR 14, neph thinking new nml? Lasix continues to be held as well as losartan and spironolactone. Nephrology rx new Bumex to be started on 08/08/2025 by pt with strict f/u with established business management specialist. 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 Diabetes mellitus type: type 2 Qualified Code(s): E11.22 - Type 2 diabetes mellitus with diabetic chronic kidney disease; N18.4 - Chronic kidney disease, stage 4 (severe); Z79.4 - longterm (current) use of insulin Code(s): E11.9 - Type 2 diabetes mellitus without complications Status: Chronic Assessment and Plan: 8 units insulin aspart TIDWM High dose corrective Glargine 40 units daily-consider increasing to home 60 units closely monitor with steroid regimen 08/01/25: changed diet to consistent carb Monitor trend with the stopping of steroids 08/02: BS AM 190, significantly lower than 9/20 PM, will continue to monitor 08/03: BS AM 88, holding scheduled short acting insulin, pt eating adequately. Will continue to monitor. 08/04: BS AM 69, holding scheduled short acting insulin, decreasing Lantus dose from 40 to 30 units with the next dose to be this evening. Will continue to monitor. 08/05: BS AM 85, continued to hold short acting insulin here and at home (8 units scheduled), continue to keep lantus insulin at 30 units at night at home instead of 60 units. Strict f/u with established endo. (4) Hypertension: Qualifiers: Hypertension type: primary hypertension Qualified Code(s): I10 - Essential (primary) hypertension Code(s): I10 - Essential (primary) hypertension Status: Chronic Assessment and Plan: holding TOÑITO/ARB continue amlodipine, atenolol 08/01/25: resume home minoxidil Atenolol held today d/t bradycardia 08/02: Altered by RN this AM that pt was higher and that she was continuing to monitor and now acceptable range -Max dose of amlodipine, atenolol 100mg daily and cannot increase due to pulse in 50's, losartan held due to WALESKA (home dose 100mg daily) -->Continued to hold atenolol today due to low HR -Placed PRN hydral order in today Per neph 07/22: * clarify home medications * would hold TOÑITO/ARB therapy for now * use PRN IV hydralazine * follow trend of hemodynamics 08/03: BPs have been more stable, 130/50's 08/04: BP starting to creep back up, last 170/62, could be potentially due to D/C of Lasix and had not taken AM meds at that time. Will continue to monitor. -Hydral PRN 08/05: BP today 150/50-60's. Pt will continue to take amlodipine for HTN. Pt has not been able to take the atenolol due to low pulse, advised him not to take at home if pulse below 60bpm. (5) Anemia: Qualifiers: Anemia type: unspecified type Qualified Code(s): D64.9 - Anemia, unspecified Code(s): D64.9 - Anemia, unspecified Status: Acute Assessment and Plan: Monitor H&H likely due to CKD -F/u with PCP for possible iron therapy --Neph gave dose with VADIM while inpt (6) Chronic shoulder pain: Qualifiers: Laterality: bilateral Qualified Code(s): M25.511 - Pain in right shoulder; M25.512 - Pain in left shoulder; G89.29 - Other chronic pain Code(s): M25.519 - Pain in unspecified shoulder; G89.29 - Other chronic pain Status: Acute Assessment and Plan: Chronic bilateral shoulder pain home hydrocodone/acetaminophen 10 x2 Q6 PRN -->Per pt, this is his home dose from recent shoulder surgery. Pt reporting better controlled pain today. 08/04 -Pt still reporting baseline pain, plans for to bring in therapy band to help with exercises and pain 08/05 -Pt to continue home pain regimen (7) Constipation: Qualifiers: Constipation type: unspecified constipation type Qualified Code(s): K59.00 - Constipation, unspecified Code(s): K59.00 - Constipation, unspecified Status: Acute Assessment and Plan: MiraLax BID p.r.n. Last BM: 07/30: Pt on narcotic tx for post op shoulder pain, started on senna yesterday for help, pt reports taking this at home to help 08/04 Pt reports large, formed BM this AM 08/05 Pt reports stool softener use at home, will continue this at discharge. Plan Discharge today home with strict f/u with PCP and established business management specialist DS: Summary Hospital Course Reason for hospitalization: SOB, CHF, WALESKA Hospital Course: Pt to the ED on 07/31/2025 c/o SOB x1 day. Pt with a hx of HTN, VA, DM, HLD, and 1.5 ppd (55 year) smoker. Pt was found to be hypoxic on RA in the ED upon arrival, no O2 at home. Pt was placed on 4L NC, given duonebs, and an inhaler for admission. EKG read by cardiology revealed SR and no acute ischemia. Labs in the ED revealed Hgb 9.5 (it was 12 in November), PO2 60, BUN 44, creatinine 4.22 (was 2 in November), Magnesium 1.5, troponin 0.040 which is his baseline, pro BNP 19,500. 2 G IV magnesium administered. Viral swab negative. UA shows 4+ protein, 1+ glucose, trace ketones, and 1+ blood. CXR read by radiology reveals interstitial pulmonary edema and/or pneumonitis. Rocephin and azithromycin were initiated after blood cultures were drawn. Admitted to IMU for further treatment and monitoring. Pt was admitted for observation. Pt has been successfully weaned down to baseline of RA except with the need of nocturnal 1L NC (per apnea link during admission), pt was set up with O2 by RT inpt and will obtain a sleep study through his PCP as an outpatient. Echo also performed inpatient and yielded: Left ventricular systolic function is normal, estimated at 50-55. Pt to f/u with his PCP for repeating testing. Nephrology also consulted on the pt due to increased kidney labs. After pausing pts losartan, spironolactone, and lasix, creatinine 4.15, which per neph, may be pt new baseline. Dr. Mcgraw rx new Bumex rx to be started on Thursday08/08/2025 with close follow-up with established business management specialist outpatient. Pt BNP also downtrending since admission; p t is free from SOB and CP now. Pt wanting to stop smoking, has been on nicotine patches while admitted, will be sent home with a script for these as well, pt aware will need to get refill from PCP. Pt advised to come back to the ED if having similar sx. Pt agreeable with plan. Recap, pt to f/u with established PCP, endo, and neph for: nicotine patches, sleep study, echocardiogram, anemia tx, DM, CKD, and recent hospitalization appt. Status at Discharge Overall status at discharge: patient is progressing back to baseline Time Spent with Patient Time attestation: Total time spent providing and/or coordinating discharge services: 45 Exam Const: General: comfortable and no acute distress HENMT: Face/Nose/Sinus: Normal nares present Mouth: Yes moist mucous membranes Eyes: General: appearance normal, both eyes and all related structures Sclera: sclerae normal Neck: Neck: supple Carotids: no bruits Resp: Effort & Inspection: normal respiratory effort Auscultation: clear to auscultation bilaterally Cardio: Rate: regular rate Rhythm: regular rhythm Other: BLE trace edema GI: Auscultation: normal bowel sounds Other: last BM 09/04, normal and formed per pt Skin: General skin exam: normal color and no rashes or lesions noted Wounds: no wounds Neuro: Motor exam (neuro): 5/5 motor strength present throughout and Normal motor muscle tone present throughout Sensory Exam: normal sensation Extrem: General: normal to inspection Psych: Mental Status: mental status grossly normal Affect: normal affect DS: Data Data Completed and Pending Completed studies during hospitalization: labs, urine, CXR, BC Pending studies at discharge: Viral resp panel Labs on day of discharge: Labs from last 24 hours 08/05/25 08/05/25 08/04/25 07:50 05:05 20:11 WBC 9.0 RBC 2.95 L Hgb 9.2 L Hct 29.5 L MCV 100.0 MCH 31.2 MCHC 31.2 L RDW 13.5 Plt Count 200 MPV 10.4 Immature Gran % (Auto) 5.6 H Neut % (Auto) 50.7 Lymph % (Auto) 27.6 [place] % (Auto) 9.7 H Eos % (Auto) 6.1 H Baso % (Auto) 0.3 Lymph # (Auto) 2.47 [place] # (Auto) 0.9 H Eos # (Auto) 0.6 H Baso # (Auto) 0.0 Abs Immat Gran (auto) 0.50 H Absolute Neuts (auto) 4.5 Absolute Nucleated RBC 0.000 Nucleated RBC % 0.0 Sodium 137 Potassium 5.0 Chloride 107 Carbon Dioxide 24 Anion Gap 6 BUN 80 H Creatinine 4.15 H Estim Creat Clear Calc 19 Estimated GFR 14 L Glucose 119 H POC Capillary Glucose 85 195 H Calcium 8.4 Phosphorus 5.6 H Magnesium 2.0 NT-Pro-B Natriuret Pep 96174 H Albumin 3.0 L 08/04/25 08/04/25 17:09 11:48 WBC RBC Hgb Hct MCV MCH MCHC RDW Plt Count MPV Immature Gran % (Auto) Neut % (Auto) Lymph % (Auto) [place] % (Auto) Eos % (Auto) Baso % (Auto) Lymph # (Auto) [place] # (Auto) Eos # (Auto) Baso # (Auto) Abs Immat Gran (auto) Absolute Neuts (auto) Absolute Nucleated RBC Nucleated RBC % Sodium Potassium Chloride Carbon Dioxide Anion Gap BUN Creatinine Estim Creat Clear Calc Estimated GFR Glucose POC Capillary Glucose 164 H 139 H Calcium Phosphorus Magnesium NT-Pro-B Natriuret Pep Albumin Preliminary micro results at discharge 07/31/25 01:50 Blood Culture - Preliminary Blood 07/31/25 01:59 Blood Culture - Preliminary Blood Discharge Plan Discharge Attending physician on discharge: Maricel Almonte Consulting providers: Maru Johnson; Candy Mcgraw Discharging Clinician: Maru Johnson Anticipated Discharge Date/Time: 08/05/25 14:00 Patient Disposition: Home Activity: may shower Diet: diabetic, renal and other - see discharge instructions Discharge Instructions: 1. Plan to follow-up with your primary care provider for a sleep study, a repeat echocardiogram, and a refill on nicotine patches. 2. Plan to follow-up with your business management specialist at [facility] to follow-up on your kidneys especially since we have been holding some of your regular medicine while in the hospital to preserve your kidneys (Losartan & spironolactone) 3. Continue to hold your Lasix (furosemide) and start to take the new diuretic medication Dr. Mcgraw (nephrology) prescribed to you (Bumex) on Thursday08/28/2025. 4. Respiratory therapy has set you up to get Oxygen at home, as a reminder, you are to wear 1L of oxygen at night time until you can get a sleep study. 5. Your blood sugar readings have been lower in the AM. Instead of taking the 60units of your long acting insulin (glargine) at night, cut that in half to 30 units, also, do not take your scheduled 8units of fast acting insulin in the AM (aspart), you can continue your sliding scale insulin. Make sure to follow-up with your farm appraiser diabetes doctor for continued care. 6. Continue to take amlodipine for your high blood pressure. If your pulse is 60 or below, hold your atenolol, this is also for high BP but it also can decrease your pulse. Follow-up with your team for updates on these medications. Patient Instructions: Antibiotic Form, Heart Failure (DC), How to Stop Smoking (DC) Patient Language: Tunisian Stand Alone Forms: General Discharge Information Follow-up/Referrals: Jc Norris [Other] - 2 Weeks Discharge Medications: New nicotine [Nicoderm CQ] 21 mg/24 hr Patch 24 Hour 1 patch transdermal DAILY 30 Days Qty: 28 0RF bumetanide 1 mg Tablet 1 mg PO DAILY 90 Days Qty: 90 0RF Continued atorvastatin 40 mg tablet 40 mg PO DAILY hydrocodone-acetaminophen 10-325 mg tablet 10 tablet PO TID amlodipine 10 mg tablet 10 mg PO DAILY aspirin 81 mg Tablet,Delayed Release (Dr/Ec) 81 mg PO QAM Qty: 30 0RF atenolol 100 mg tablet 100 mg PO Q24H cyanocobalamin (vitamin B-12) 1,000 mcg tablet 1,000 mcg PO MONTHLY cetirizine 10 mg tablet 10 mg PO DAILY minoxidil 2.5 mg tablet 2.5 mg PO DAILY tamsulosin 0.4 mg capsule 0.4 mg PO Q24H pantoprazole 40 mg tablet,delayed release (DR/EC) 40 mg PO Q12H Changed Soliqua 100/33 100 unit-33 mcg/mL insulin pen 30 unit subcut DAILY Qty: 15 0RF Held losartan 100 mg tablet 100 mg PO DAILY Hold Instructions: Resume on 09/01/25. Stop until you see your kidney doctor insulin aspart U-100 100 unit/mL (3 mL) insulin pen 8 unit SUBCUT TIDWM Hold Instructions: Resume on 09/01/25. Until you see your farm appraiser (diabetes doctor) Date of admission: 07/31/25 03:14 Primary Care Provider: Jc Norris Admitting Provider: Tresa Larsen Attending physician on admission: Tresa Larsen Condition: Stable Quality VTE Prophylaxis VTE prophylaxis: pharmacologic ordered Hospitalist MIPS Heart Failure (Exclusion) Patient has history of Heart Transplant or Left Ventricular Assistive Device?: No IF YES, STOP HERE Heart Failure (Qualifier) Patient has current or prior documentation of LVEF less than or equal to 40%, or mod/servere depressed LVSF?: No IF NO, STOP HERE
[2025-08-05] MEDS: INSULIN ASPART (*BKC) 100 UNITS/ML 8 UNITS SUB-Q (13:07)
== END 2025-08-05 17:00 | disposition home or self-care (01) | DRG 291 ==
LOC: ANHED 01:55 → ANHIMU 04:16 → ANH2MED 08-05 12:03 → ANHIMU 08-08 13:11
PROVIDERS: Internal Medicine Nephrology; Nurse Practitioner; Nurse Practitioner Adult Health; Admitting Provider Internal Medicine; Emergency Provider Emergency Medicine
DX: I13.0 Hypertensive heart and chronic kidney disease with heart failure and stage 1 through stage 4 chronic kidney disease, or unspecified chronic kidney disease (principal); I50.33 Acute on chronic diastolic (congestive) heart failure; J18.9 Pneumonia, unspecified organism; J96.01 Acute respiratory failure with hypoxia; N17.9 Acute kidney failure, unspecified; N18.4 Chronic kidney disease, stage 4 (severe); E11.22 Type 2 diabetes mellitus with diabetic chronic kidney disease; E78.5 Hyperlipidemia, unspecified; D63.1 Anemia in chronic kidney disease; K59.00 Constipation, unspecified; M25.512 Pain in left shoulder; M25.511 Pain in right shoulder; F17.210 Nicotine dependence, cigarettes, uncomplicated; Z20.822 Contact with and (suspected) exposure to COVID-19; Z96.611 Presence of right artificial shoulder joint; I25.2 Old myocardial infarction; Z79.4 Long term (current) use of insulin
CPT/HCPCS: 36415; 36600; 71045; 80053; 80069; 81001; 82375; 82607; 82728; 82746; 82805; 82948; 83050; 83540; 83550; 83605; 83735; 83880; 84443; 84484; 85018; 85025; 85046; 87040; 87449; 87637; 87899; 93005; 93306; 94640; 94762; 96365; 96367; 96375; 97165; 99285; A9270; J0360; J0456; J0696; J1171; J1644; J1815; J1938; J2919; J3475; J7030; J7050; Q5105